=== PATIENT | male | born 1950 | race Caucasian/White ===

== ENCOUNTER 2017-11-12 08:55 | Emergency (ER) | payer MEDICARE, OTHER ==
[2017-11-12 09:01] VITALS: RESP 20; TEMP 97
--- NOTE | 2017-11-12 09:37 | ED ---
Eye Problem HPI - General Chief complaint: Eye Problems Stated complaint: Eye Swelling Time Seen by Provider: 11/12/17 09:05 Source: patient, RN notes reviewed Mode of arrival: ambulatory Limitations: no limitations - History of Present Illness Initial comments: This is a 67-year-old male presents emergency Department with complaints of swelling around his eyes. Patient states started yesterday Thursday in his right eye and has progressed to his left. He states he has no change in vision denies any pain. He states is also started after he was sunburn over the weekend. Patient states she has severe sunburn on his face. Patient states that swan started after. He states he is diabetic though is well-controlled and states he checks his blood sugar several times daily. He denies any headache, dizziness, facial pain, facial pressure, URI symptoms. Patient denies fever or chills. - Related Data Home Medications Medication Instructions Recorded Confirmed Unable To Assess [Unable to Assess] 11/12/17 11/12/17 Allergies Allergy/AdvReac Type Severity Reaction Status Date / Time No Known Allergies Allergy Verified 11/12/17 09:13 Review of Systems ROS Statement: Those systems with pertinent positive or pertinent negative responses have been documented in the HPI. ROS Other: All systems not noted in ROS Statement are negative. Past Medical History Past Medical History: Diabetes Mellitus, Hypertension History of Any Multi-Drug Resistant Organisms: None Reported Past Surgical History: Appendectomy, Orthopedic Surgery Past Psychological History: No Psychological Hx Reported Smoking Status: Current every day smoker Past Alcohol Use History: None Reported Past Drug Use History: None Reported General Exam Limitations: no limitations General appearance: alert, in no apparent distress Head exam: Present: atraumatic, normocephalic, normal inspection Eye exam: Present: normal appearance, PERRL, EOMI, periorbital swelling (Mild bilateral with no erythema no warmth). Absent: scleral icterus, conjunctival injection, periorbital tenderness ENT exam: Present: normal exam, normal oropharynx, mucous membranes moist, TM's normal bilaterally, normal external ear exam Neck exam: Present: normal inspection, full ROM. Absent: tenderness, meningismus, lymphadenopathy Respiratory exam: Present: normal lung sounds bilaterally. Absent: respiratory distress, wheezes, rales, rhonchi, stridor Cardiovascular Exam: Present: regular rate, normal rhythm, normal heart sounds. Absent: systolic murmur, diastolic murmur, rubs, gallop, clicks Neurological exam: Present: alert, oriented X3, CN II-XII intact, reflexes normal. Absent: motor sensory deficit Course Vital Signs 11/12/17 08:59 Temperature 97.0 F L Pulse Rate 98 Respiratory 20 Rate Blood Pressure 142/70 O2 Sat by Pulse 98 Oximetry Medical Decision Making - Medical Decision Making 67-year-old male was found for bilateral periorbital swelling. There does not appear to be any infectious reason for this. Swelling is related to his sunburn. Patient be given a shot of steroids at this time to improve the swelling he is well-controlled diabetes and was informed that it made his blood sugar. He is advised to continue anti-inflammatories, cool compresses and follow-up with PCP. He is return for any worsening symptoms. Disposition Clinical Impression: Sunburn, Periorbital swelling Disposition: HOME SELF-CARE Condition: Stable Instructions: Sunburn (ED) Additional Instructions: Please return to the Emergency Department if symptoms worsen or any other concerns. Is patient prescribed a controlled substance at d/c from ED?: No Referrals: None,Stated [Primary Care Provider] - 1-2 days
[2017-11-12] MEDS ORDERED: DEXAMETHASONE SOD PHOSPHATE 10 MG/ML 1 ML VIAL IM STA (09:40)
[2017-11-12 09:49] VITALS: BP 141/72; PULSE 83
== END 2017-11-12 09:56 | disposition home or self-care (01) ==
LOC: EC 08:55
DX: L55.9 Sunburn, unspecified (principal); R22.0 Localized swelling, mass and lump, head; F17.200 Nicotine dependence, unspecified, uncomplicated
CPT/HCPCS: 99283; 96372; J1100

== ENCOUNTER 2018-08-05 21:25 | Inpatient (IN) | payer MEDICARE ==
[2018-08-05] MEDS ORDERED: methylPREDNISolone SOD SUCCI 125 MG/2 ML VIAL IV STA (21:35)
[2018-08-05] MEDS ORDERED: IPRATROPIUM-ALBUTEROL 3 ML NEB INHALATION STA (21:35)
--- NOTE | 2018-08-05 21:56 | ED ---
SOB HPI - General Chief Complaint: Shortness of Breath Stated Complaint: difficulty breathing Time Seen by Provider: 08/05/18 21:35 Source: patient, RN notes reviewed, old records reviewed Mode of arrival: wheelchair Limitations: no limitations - History of Present Illness Initial Comments: This is a 66-year-old male to the ER for evaluation. Patient has no history of COPD with about a week of worsening breathing. Patient states he has COPD and history of diabetes. Patient states about a week ago no admitted last less than a week he was doing some yardwork and is been progressively short of breath since. Increased cough and congestion, denies fevers no chest pain. No recent history of similar complaint. MD Complaint: shortness of breath, cough -: days(s) Consistency: constant Improves With: rest Worsens With: exertion, movement Known History Of: COPD Context: recent URI Associated Symptoms: cough, sputum production Treatments Prior to Arrival: none - Related Data Home Medications Medication Instructions Recorded Confirmed Insulin Glargine [Lantus] 20 unit SQ AC-SUPPER 05/23/18 08/05/18 Lovastatin [Mevacor] 1 tab PO DAILY 05/23/18 08/05/18 Pioglitazone [Actos] 45 mg PO DAILY 05/23/18 08/05/18 Tamsulosin [Flomax] 0.4 mg PO DAILY 05/23/18 08/05/18 Losartan Potassium 100 mg PO DAILY 08/05/18 08/05/18 Repaglinide 1 mg PO TID 08/05/18 08/05/18 metFORMIN HCL 500 mg PO BID 08/05/18 08/05/18 Previous Rx's Medication Instructions Recorded Ferrous Sulfate [Feosol] 325 mg PO BID #60 tab 05/25/18 Allergies Allergy/AdvReac Type Severity Reaction Status Date / Time No Known Allergies Allergy Verified 08/05/18 22:08 Review of Systems ROS Statement: Those systems with pertinent positive or pertinent negative responses have been documented in the HPI. ROS Other: All systems not noted in ROS Statement are negative. 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 Absent: scleral icterus, conjunctival injection, periorbital swelling ENT exam: Present: normal exam, mucous membranes moist Neck exam: Present: normal inspection. Absent: tenderness, meningismus, lymphadenopathy Respiratory exam: Present: wheezes, accessory muscle use, decreased breath sounds, prolonged expiratory. Absent: respiratory distress, rales, rhonchi, stridor Cardiovascular Exam: Present: regular rate, normal rhythm, normal heart sounds. Absent: systolic murmur, diastolic murmur, rubs, gallop, clicks GI/Abdominal exam: Present: soft, normal bowel sounds. Absent: distended, tenderness, guarding, rebound, rigid Extremities exam: Present: normal inspection, full ROM, normal capillary refill. Absent: tenderness, pedal edema, joint swelling, calf tenderness Back exam: Present: normal inspection Neurological exam: Present: alert, oriented X3, CN II-XII intact Psychiatric exam: Present: normal affect, normal mood Skin exam: Present: warm, dry, intact, normal color. Absent: rash Course Vital Signs 08/05/18 08/05/18 08/05/18 21:29 22:07 22:13 Temperature 98.2 F Pulse Rate 95 100 81 Respiratory 21 Rate Blood Pressure 138/84 147/61 O2 Sat by Pulse 99 99 Oximetry 08/05/18 08/05/18 22:17 23:13 Temperature Pulse Rate 81 81 Respiratory 18 Rate Blood Pressure 155/89 O2 Sat by Pulse 99 Oximetry - Reevaluation(s) Reevaluation #1: 08/06/18 00:15 Medical records reviewed Reevaluation #2: 08/06/18 00:15 Patient has no improvement after breathing treatment Medical Decision Making - Medical Decision Making 68 male the ER for evaluation of COPD exacerbation chronic bronchitis. Patient be admitted for persistent and continuous breathing treatments, he has no improvement here in the emergency room - Lab Data Result diagrams: 08/05/18 21:50 08/05/18 21:50 Lab Results 08/05/18 08/05/18 08/05/18 Range/Units 21:50 21:50 21:50 WBC 4.4 (3.8-10.6) k/uL RBC 4.99 (4.30-5.90) m/uL Hgb 13.6 (13.0-17.5) gm/dL Hct 42.5 (39.0-53.0) % MCV 85.2 (80.0-100.0) fL MCH 27.2 (25.0-35.0) pg MCHC 31.9 (31.0-37.0) g/dL RDW 20.0 H (11.5-15.5) % Plt Count 209 (150-450) k/uL Neutrophils % 60 % Lymphocytes % 27 % Monocytes % 8 % Eosinophils % 3 % Basophils % 1 % Neutrophils # 2.6 (1.3-7.7) k/uL Lymphocytes # 1.2 (1.0-4.8) k/uL Monocytes # 0.3 (0-1.0) k/uL Eosinophils # 0.1 (0-0.7) k/uL Basophils # 0.0 (0-0.2) k/uL Anisocytosis Slight Microcytosis Slight PT (9.0-12.0) sec INR (<1.2) APTT (22.0-30.0) sec D-Dimer (<0.60) mg/L FEU Sodium 141 (137-145) mmol/L Potassium 4.7 (3.5-5.1) mmol/L Chloride 107 (98-107) mmol/L Carbon Dioxide 27 (22-30) mmol/L Anion Gap 7 mmol/L BUN 18 (9-20) mg/dL Creatinine 1.21 (0.66-1.25) mg/dL Est GFR (CKD-EPI)AfAm 70 (>60 ml/min/1.73 sqM) Est GFR (CKD-EPI)NonAf 61 (>60 ml/min/1.73 sqM) Glucose 166 H (74-99) mg/dL Calcium 9.4 (8.4-10.2) mg/dL Magnesium 2.1 (1.6-2.3) mg/dL Total Bilirubin 0.3 (0.2-1.3) mg/dL AST 27 (17-59) U/L ALT 32 (21-72) U/L Alkaline Phosphatase 69 (38-126) U/L Total Creatine Kinase 168 (55-170) U/L CK-MB (CK-2) 1.1 (0.0-2.4) ng/mL CK-MB (CK-2) Rel Index 0.7 Troponin I <0.012 (0.000-0.034) ng/mL NT-Pro-B Natriuret Pep pg/mL Total Protein 6.6 (6.3-8.2) g/dL Albumin 4.1 (3.5-5.0) g/dL 08/05/18 08/05/18 Range/Units 21:50 21:50 WBC (3.8-10.6) k/uL RBC (4.30-5.90) m/uL Hgb (13.0-17.5) gm/dL Hct (39.0-53.0) % MCV (80.0-100.0) fL MCH (25.0-35.0) pg MCHC (31.0-37.0) g/dL RDW (11.5-15.5) % Plt Count (150-450) k/uL Neutrophils % % Lymphocytes % % Monocytes % % Eosinophils % % Basophils % % Neutrophils # (1.3-7.7) k/uL Lymphocytes # (1.0-4.8) k/uL Monocytes # (0-1.0) k/uL Eosinophils # (0-0.7) k/uL Basophils # (0-0.2) k/uL Anisocytosis Microcytosis PT 9.6 (9.0-12.0) sec INR 0.9 (<1.2) APTT 25.2 (22.0-30.0) sec D-Dimer 0.30 (<0.60) mg/L FEU Sodium (137-145) mmol/L Potassium (3.5-5.1) mmol/L Chloride (98-107) mmol/L Carbon Dioxide (22-30) mmol/L Anion Gap mmol/L BUN (9-20) mg/dL Creatinine (0.66-1.25) mg/dL Est GFR (CKD-EPI)AfAm (>60 ml/min/1.73 sqM) Est GFR (CKD-EPI)NonAf (>60 ml/min/1.73 sqM) Glucose (74-99) mg/dL Calcium (8.4-10.2) mg/dL Magnesium (1.6-2.3) mg/dL Total Bilirubin (0.2-1.3) mg/dL AST (17-59) U/L ALT (21-72) U/L Alkaline Phosphatase (38-126) U/L Total Creatine Kinase (55-170) U/L CK-MB (CK-2) (0.0-2.4) ng/mL CK-MB (CK-2) Rel Index Troponin I (0.000-0.034) ng/mL NT-Pro-B Natriuret Pep 74 pg/mL Total Protein (6.3-8.2) g/dL Albumin (3.5-5.0) g/dL - EKG Data -: EKG Interpreted by Me (EKG shows sinus rhythm rate of 81, AK 136, QRS 120, QTC 450.) - Radiology Data Radiology results: report reviewed (Chest x-rays negative for acute disease), image reviewed Disposition Clinical Impression: Acute exacerbation of chronic obstructive airways disease Disposition: ADMITTED IP TO THIS HOSP Condition: Fair Is patient prescribed a controlled substance at d/c from ED?: No Referrals: Janie Bar DO [Primary Care Provider] - 1-2 days
[2018-08-05 22:20] LABS: Anisocytosis Slight; Basophils % (A) 1 %; Eosinophils # (A) 0.1 k/uL (0-0.7); Eosinophils % (A) 3 %; HCT 42.5 % (39.0-53.0); HGB 13.6 gm/dL (13.0-17.5); Lymphocytes # (A) 1.2 k/uL (1.0-4.8); Lymphocytes % (A) 27 %; MCH 27.2 pg (25.0-35.0); MCHC 31.9 g/dL (31.0-37.0); MCV 85.2 fL (80.0-100.0); Mean Platelet Volume 7.1; Microcytosis Slight; Monocytes # (A) 0.3 k/uL (0-1.0); Monocytes % (A) 8 %; Neutrophils # (A) 2.6 k/uL (1.3-7.7); Neutrophils % (A) 60 %; Platelet Count 209 k/uL (150-450); RBC 4.99 m/uL (4.30-5.90); WBC 4.4 k/uL (3.8-10.6)
[2018-08-05 22:26] LABS: Albumin 4.1 g/dL (3.5-5.0); Calcium 9.4 mg/dL (8.4-10.2); Magnesium 2.1 mg/dL (1.6-2.3); Potassium 4.7 mmol/L (3.5-5.1); Total Bilirubin 0.3 mg/dL (0.2-1.3); Total Protein 6.6 g/dL (6.3-8.2)
[2018-08-05 22:32] LABS: D-Dimer 0.3 mg/L FEU (<0.60); INR 0.9 (<1.2); Partial Thromboplastin Time 25.2 sec (22.0-30.0); Prothrombin Time 9.6 sec (9.0-12.0)
[2018-08-05 22:39] LABS: Creatine Kinase 168 U/L (55-170)
[2018-08-05 22:52] LABS: Creatine Kinase MB 1.1 ng/mL (0.0-2.4); Troponin I <0.012 ng/mL (0.000-0.034)
--- NOTE | 2018-08-05 22:54 | XR ---
EXAMINATION TYPE: XR chest 2V DATE OF EXAM: 08/05/2018 COMPARISON: 05/23/2018 HISTORY: COPD. Difficulty breathing TECHNIQUE: Frontal and lateral views of the chest are obtained. FINDINGS: Heart and mediastinum are normal. Lungs are clear. Diaphragm is normal. Bony thorax is int act. IMPRESSION: Normal chest. No change.
[2018-08-06] MEDS ORDERED: SODIUM CHLORIDE 0.9% 1,000 ML IV SCH (00:15)
[2018-08-06] MEDS ORDERED: IPRATROPIUM-ALBUTEROL 3 ML NEB INHALATION PRN (01:06)
[2018-08-06 01:52] VITALS: BMI 31.8
[2018-08-06 07:10] LABS: Glucose,Whole Blood 345 mg/dL (75-99)
[2018-08-06] MEDS: IPRATROPIUM-ALBUTEROL 3 ML NEB INHALATION SCH ×4 (07:17→19:04)
[2018-08-06] MEDS: methylPREDNISolone SOD SUCCI 125 MG/2 ML VIAL IV SCH ×4 (07:44→22:45)
[2018-08-06] MEDS: ENOXAPARIN 40 MG/0.4 ML SYRINGE SQ SCH (07:44)
[2018-08-06] MEDS: AZITHROMYCIN 500 MG TAB PO SCH (07:45)
[2018-08-06 09:44] LABS: Anisocytosis Moderate; Basophils % (A) 0 %; Eosinophils # (A) 0.1 k/uL (0-0.7); Eosinophils % (A) 1 %; HCT 39.6 % (39.0-53.0); HGB 12.5 gm/dL (13.0-17.5); Lymphocytes # (A) 0.5 k/uL (1.0-4.8); Lymphocytes % (A) 6 %; MCH 27.8 pg (25.0-35.0); MCHC 31.7 g/dL (31.0-37.0); MCV 87.6 fL (80.0-100.0); Mean Platelet Volume 7.5; Microcytosis Slight; Monocytes # (A) 0.2 k/uL (0-1.0); Monocytes % (A) 2 %; Neutrophils % (A) 91 %; Platelet Count 198 k/uL (150-450); RBC 4.52 m/uL (4.30-5.90); RDW 20.4 % (11.5-15.5); WBC 8.8 k/uL (3.8-10.6)
[2018-08-06 10:04] LABS: Albumin 3.8 g/dL (3.5-5.0); Calcium 9.2 mg/dL (8.4-10.2); Total Bilirubin 0.4 mg/dL (0.2-1.3); Total Protein 6.3 g/dL (6.3-8.2)
[2018-08-06 10:09] LABS: Potassium 5.8 mmol/L (3.5-5.1)
[2018-08-06] MEDS ORDERED: SODIUM POLYSTYRENE SULFONATE 15 GM/60 ML BOTTLE PO STA (11:32)
[2018-08-06 11:52] LABS: Glucose,Whole Blood 360 mg/dL (75-99)
[2018-08-06] MEDS: REPAGLINIDE 1 MG TAB PO SCH ×2 (12:10→17:07)
--- NOTE | 2018-08-06 12:27 | P.HPIM ---
History of Present Illness H&P Date: 08/06/18 This is a 68-year-old male patient of Dr. Bar. Patient presented to the emergency room with length of increased shortness of breath that has been occurring for about one week. 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 Patient with smoking in May 2018. Additional medical history includes diabetes mellitus , pneumonia, skin cancer and essential hypertension. Patient also complaining of having increased peripheral edema that has been increasing over the past week. Chest x-ray completed showing normal chest. No change. EKG completed showing normal sinus rhythm right bundle branch block left anterior fascicular block bifascicular block. D-dimer 0.030. Pulmonary and cardiology services have been consulted. 2-D echo has been ordered. Patient started on Solu- Medrol IV steroids and Zithromax. At this time patient states improvement with shortness of breath. Patient denies chest pain. Patient denies any nausea vomiting or diarrhea. Patient denies any urinary burning or frequency. Review of Systems Please refer to HPI otherwise unremarkable Past Medical History Past Medical History: Cancer, COPD, Diabetes Mellitus, Hypertension Additional Past Medical History / Comment(s): Shoulder CA History of Any Multi-Drug Resistant Organisms: None Reported Past Surgical History: Appendectomy, Orthopedic Surgery Additional Past Surgical History / Comment(s): Left eye surgery, lens transplant , CA removed from left shoulder, barn spike through his foot and removed Past Anesthesia/Blood Transfusion Reactions: No Reported Reaction Smoking Status: Former smoker - Past Family History Brother(s) Family Medical History: Cancer Medications and Allergies Home Medications Medication Instructions Recorded Confirmed Type Insulin Glargine [Lantus] 20 unit SQ AC-SUPPER 05/23/18 08/06/18 History Lovastatin [Mevacor] 1 tab PO DAILY 05/23/18 08/06/18 History Pioglitazone [Actos] 45 mg PO DAILY 05/23/18 08/06/18 History Tamsulosin [Flomax] 0.4 mg PO DAILY 05/23/18 08/06/18 History Ferrous Sulfate [Feosol] 325 mg PO BID #60 tab 05/25/18 08/06/18 Rx Losartan Potassium 100 mg PO DAILY 08/05/18 08/06/18 History Repaglinide 1 mg PO TID 08/05/18 08/06/18 History metFORMIN HCL 500 mg PO BID 08/05/18 08/06/18 History Allergies Allergy/AdvReac Type Severity Reaction Status Date / Time No Known Allergies Allergy Verified 08/06/18 01:22 Physical Exam Vitals: Vital Signs Temp Pulse Pulse Resp BP BP Pulse Ox 08/06/18 11:16 100 08/06/18 11:05 104 H 08/06/18 08:00 98.3 F 116 H 18 131/70 95 08/06/18 07:30 112 H 08/06/18 07:17 96 08/06/18 03:10 20 08/06/18 02:09 20 08/06/18 01:16 84 08/06/18 01:05 84 08/06/18 01:03 97.6 F 85 20 168/81 96 08/06/18 00:41 98.0 F 86 18 151/74 89 L 08/05/18 23:13 81 18 155/89 99 08/05/18 22:17 81 08/05/18 22:13 81 147/61 99 08/05/18 22:07 100 08/05/18 21:29 98.2 F 95 21 138/84 99 Intake and Output 08/05/18 08/06/18 08/06/18 22:59 06:59 14:59 Other: # Voids 1 Weight 106.594 kg 106.5 kg Head normocephalic Neck supple Lungs clear to auscultation bilaterally no wheezing or crackles Heart regular rate and rhythm S1-S2, no rub or gallop Abdomen is soft nontender nondistended positive bowel sounds no hepatosplenomegaly Extremities +2 bilateral peripheral edema pitting Neuro alert and orientated to 3 Results CBC & Chem 7: 08/06/18 09:29 08/06/18 09:29 Labs: Abnormal Lab Results - Last 24 Hours (Table) 08/05/18 08/05/18 08/06/18 Range/Units 21:50 21:50 07:09 Hgb (13.0-17.5) gm/dL RDW 20.0 H (11.5-15.5) % Neutrophils # (1.3-7.7) k/uL Lymphocytes # (1.0-4.8) k/uL Sodium (137-145) mmol/L Potassium (3.5-5.1) mmol/L BUN (9-20) mg/dL Creatinine (0.66-1.25) mg/dL Glucose 166 H (74-99) mg/dL POC Glucose (mg/dL) 345 H (75-99) mg/dL 08/06/18 08/06/18 08/06/18 Range/Units 09:29 09:29 11:51 Hgb 12.5 L (13.0-17.5) gm/dL RDW 20.4 H (11.5-15.5) % Neutrophils # 8.0 H (1.3-7.7) k/uL Lymphocytes # 0.5 L (1.0-4.8) k/uL Sodium 136 L (137-145) mmol/L Potassium 5.8 H (3.5-5.1) mmol/L BUN 25 H (9-20) mg/dL Creatinine 1.27 H (0.66-1.25) mg/dL Glucose 428 H (74-99) mg/dL POC Glucose (mg/dL) 360 H (75-99) mg/dL Thrombosis Risk Factor Assmnt - Choose All That Apply Each Factor Represents 1 point: Obesity (BMI >25), Swollen legs (current) Each Risk Factor Represents 2 Points: Age 61-74 years Thrombosis Risk Factor Assessment Total Risk Factor Score: 4 Thrombosis Risk Factor Assessment Level: Moderate Risk Assessment and Plan Assessment: 1. Increased shortness of breath likely due to COPD exacerbation. Pulmonary services have been consulted. Patient will be started on IV Solu-Medrol and Zithromax. 2. Increased peripheral edema. BNP 74. 2-D echo has been ordered. Cardiology consult 3. History of diabetes mellitus. Home meds resumed plus sliding scale. Will order hemoglobin A1c 4. History of skin cancer 5. History of essential hypertension 6. Hyperkalemia. Potassium 5.8. Patient's losartan potassium currently on hold. Patient will be given Kayexalate. Recheck potassium at 1600 today. 7. Acute kidney injury. Creatinine 1.27. Losartan potassium currently on hold we'll continue to monitor closely DVT prophylaxis Lovenox. GI prophylaxis Protonix Time with Patient: Greater than 30 (Greater than 60% of the total time spent in counseling and coordination of care. I performed an examination of the patient and discussed their management with the Nurse Practitioner. I have reviewed the Nurse Practitioner's notes and agree with the documented findings and plan of care)
[2018-08-06] MEDS: INSULIN ASPART 100 UNIT/ML 1 ML 10 ML VIAL SQ SCH ×3 (12:52→21:39)
--- NOTE | 2018-08-06 13:29 | P.CRDCN ---
History of Present Illness History of present illness: This is a pleasant 68-year-old male past medical history significant for hypertension, diabetes mellitus, COPD, dyslipidemia and former nicotine dependence. He quit smoking in May 2018. He states he has been diagnosed with COPD in the past but has never been placed on any inhalers or medications for COPD. He moved here from [place] in 2018. He denies history of coronary artery disease and has never seen a medicare nurse for any reason. We have been asked to see him in consultation for lower extremity edema and shortness of breath. He states since approximately October of 2017 he has been having intermittent swelling in the legs. The swelling seems to come after he has been physically active or after a long day. This episode has been ongoing for approximately 2 weeks. He does eat a diet high in salt and mostly processed foods. He also describes that he has been increasingly short of breath over the last week. He did some racking and burning of leaves in his yard last weekend on Thursday. Thursday he woke up feeling very tired and weak. He states he laid around all day not having the energy to do anything. Then on Thursday he started with a persistent dry cough, dyspnea on exertion and ongoing fatigue. He started taking an over the counter cold medicine with no relief. When he lays down to go to bed at night he starts wheezing and coughing but is unable to clear his phlegm. He denies any symptoms of chest pain, dizziness or palpitations. He has been started on IV steroids, antibiotics and breathing treatments since admission last night. EKG reveals right bundle branch block which is similar to previous EKG. Chest x-ray is negative for an acute cardiopulmonary process. Laboratory data reviewed, WBC 8.8, hemoglobin 12.5, platelets 198, d-dimer 0.3, sodium 136, potassium 5.8, creatinine 1.27 up from 1.2 100 admission, cardiac enzymes negative 1, NT proBNP 74 and magnesium 2.1. Current cardiac medications include lovastatin and losartan 100 mg daily. At the time of my exam: CONSTITUTIONAL: Denies fever. Denies chills. EYES: Denies blurred vision. Denies vision changes. Denies eye pain. EARS, NOSE, MOUTH & THROAT: Denies headache. Denies sore throat. Denies ear pain. CARDIOVASCULAR: Denies chest pain. Denies shortness of breath. Denies orthopnea. Denies PND. Denies palpitations. RESPIRATORY: Denies cough. GASTROINTESTINAL: Denies abdominal pain. Denies diarrhea. Denies constipation. Denies nausea. Denies vomiting. MUSCULOSKELETAL: Denies myalgias. INTEGUMENTARY: Denies pruitis. Denies rash. NEUROLOGIC: Denies numbness. Denies tingling. Denies weakness. PSYCHIATRIC: Denies anxiety. Denies depression. ENDOCRINE: Denies fatigue. Denies weight change. Denies polydipsia. Denies polyurina. GENITOURINARY: Denies burning, hematuria or urgency with micturation. HEMATOLOGIC: Denies history of anemia. Denies bleeding. Blood pressure 131/70 heart rate 116 afebrile maintaining oxygen saturation on nasal cannula GENERAL: This is a 68-year-old male in no apparent distress at the time of my examination. HEENT: Head is atraumatic, normocephalic. Pupils are equal, round. Sclerae anicteric. Conjunctivae are clear. Mucous membranes of the mouth are moist. Neck is supple. There is no jugular venous distention. No carotid bruit is heard. LUNGS: Expiratory wheezes noted throughout, diminished bilaterally. No rales or rhonchi. No chest wall tenderness is noted on palpation or with deep breathing. HEART: Regular rate and rhythm without murmurs, rubs or gallops. S1 and S2 heard. ABDOMEN: Soft, nontender. Bowel sounds are heard. No organomegaly noted. EXTREMITIES: 1+ pitting edema right lower extremity, 2+ pitting edema left lower extremity. No calf tenderness noted. VASCULAR: Radial and dorsalis pedis pulses palpated, no evidence of clubbing. NEUROLOGIC: Patient is awake, alert and oriented x3. ASSESSMENT Acute exacerbation of COPD Peripheral edema, normal NTproBNP, no over heart failure on xray and no JVD. Hypertension Diabetes mellitus Dyslipidemia Acute kidney injury Hyperkalemia PLAN Obtain 2D echocardiogram and doppler study to assess cardiac structure and function. Clinically, other than the lower extremity swelling, no overt signs of heart failure. We will await the echo findings and make further recommendations. If normal LV and no right sided failure other causes for swelling will need to be addressed. Ongoing medical management of acute COPD and wheezing. Once stable from a respiratory perspective further outpatient testing will be pursued. Thank you kindly for this consultation. Nurse Practitioner note has been reviewed, I agree with a documented findings and plan of care. Patient was seen and examined. Past Medical History Past Medical History: Cancer, COPD, Diabetes Mellitus, Hypertension Additional Past Medical History / Comment(s): Shoulder CA History of Any Multi-Drug Resistant Organisms: None Reported Past Surgical History: Appendectomy, Orthopedic Surgery Additional Past Surgical History / Comment(s): Left eye surgery, lens transplant , CA removed from left shoulder, barn spike through his foot and removed Past Anesthesia/Blood Transfusion Reactions: No Reported Reaction Smoking Status: Former smoker - Past Family History Brother(s) Family Medical History: Cancer Medications and Allergies Home Medications Medication Instructions Recorded Confirmed Type Insulin Glargine [Lantus] 20 unit SQ AC-SUPPER 05/23/18 08/06/18 History Lovastatin [Mevacor] 1 tab PO DAILY 05/23/18 08/06/18 History Pioglitazone [Actos] 45 mg PO DAILY 05/23/18 08/06/18 History Tamsulosin [Flomax] 0.4 mg PO DAILY 05/23/18 08/06/18 History Ferrous Sulfate [Feosol] 325 mg PO BID #60 tab 05/25/18 08/06/18 Rx Losartan Potassium 100 mg PO DAILY 08/05/18 08/06/18 History Repaglinide 1 mg PO TID 08/05/18 08/06/18 History metFORMIN HCL 500 mg PO BID 08/05/18 08/06/18 History Allergies Allergy/AdvReac Type Severity Reaction Status Date / Time No Known Allergies Allergy Verified 08/06/18 01:22 Physical Exam Vitals: Vital Signs Temp Pulse Pulse Resp BP BP Pulse Ox 08/06/18 12:00 116 H 18 08/06/18 11:16 100 08/06/18 11:05 104 H 08/06/18 08:00 98.3 F 116 H 18 131/70 95 08/06/18 07:30 112 H 08/06/18 07:17 96 08/06/18 03:10 20 08/06/18 02:09 20 08/06/18 01:16 84 08/06/18 01:05 84 08/06/18 01:03 97.6 F 85 20 168/81 96 08/06/18 00:41 98.0 F 86 18 151/74 89 L 08/05/18 23:13 81 18 155/89 99 08/05/18 22:17 81 08/05/18 22:13 81 147/61 99 08/05/18 22:07 100 08/05/18 21:29 98.2 F 95 21 138/84 99 Intake and Output 08/05/18 08/06/18 08/06/18 22:59 06:59 14:59 Other: # Voids 1 Weight 106.594 kg 106.5 kg Results 08/06/18 09:29 08/06/18 09:29 Cardiac Enzymes 08/05/18 08/05/18 08/06/18 Range/Units 21:50 21:50 09:29 AST 27 29 (17-59) U/L CK-MB (CK-2) 1.1 (0.0-2.4) ng/mL Troponin I <0.012 (0.000-0.034) ng/mL Coagulation 08/05/18 Range/Units 21:50 PT 9.6 (9.0-12.0) sec APTT 25.2 (22.0-30.0) sec CBC 08/05/18 08/06/18 Range/Units 21:50 09:29 WBC 4.4 8.8 (3.8-10.6) k/uL RBC 4.99 4.52 (4.30-5.90) m/uL Hgb 13.6 12.5 L (13.0-17.5) gm/dL Hct 42.5 39.6 (39.0-53.0) % Plt Count 209 198 (150-450) k/uL Comprehensive Metabolic Panel 08/05/18 08/06/18 Range/Units 21:50 09:29 Sodium 141 136 L (137-145) mmol/L Potassium 4.7 5.8 H (3.5-5.1) mmol/L Chloride 107 105 (98-107) mmol/L Carbon Dioxide 27 22 (22-30) mmol/L BUN 18 25 H (9-20) mg/dL Creatinine 1.21 1.27 H (0.66-1.25) mg/dL Glucose 166 H 428 H (74-99) mg/dL Calcium 9.4 9.2 (8.4-10.2) mg/dL AST 27 29 (17-59) U/L ALT 32 21 (21-72) U/L Alkaline Phosphatase 69 43 (38-126) U/L Total Protein 6.6 6.3 (6.3-8.2) g/dL Albumin 4.1 3.8 (3.5-5.0) g/dL Current Medications Generic Name Dose Route Start Last Admin Trade Name Freq PRN Reason Stop Dose Admin Albuterol/Ipratropium 3 ml 08/06/18 08:00 08/06/18 11:05 Duoneb 0.5 Mg-3 Mg/3 Ml Soln INHALATION 3 ml RT-QID GULSHAN Administration Albuterol/Ipratropium 3 ml 08/06/18 01:06 08/06/18 01:11 Duoneb 0.5 Mg-3 Mg/3 Ml Soln INHALATION 3 ml RT-Q2H PRN Administration Shortness Of Breath Or Wheezing Atorvastatin Calcium 10 mg 08/07/18 09:00 Lipitor PO DAILY [facility] Azithromycin 500 mg 08/06/18 09:00 08/06/18 07:45 Zithromax PO 500 mg DAILY GULSHAN Administration Enoxaparin Sodium 40 mg 08/06/18 09:00 08/06/18 07:44 Lovenox SQ 40 mg DAILY [facility] Administration Ferrous Sulfate 325 mg 08/06/18 21:00 Feosol PO BID [facility] Insulin Aspart 0 unit 08/06/18 12:30 08/06/18 12:52 Novolog SQ 10 unit ACHS [facility] Administration Protocol Insulin Detemir 20 unit 08/06/18 17:30 Levemir SQ AC-SUPPER [facility] Methylprednisolone Sodium Succinate 60 mg 08/06/18 06:00 08/06/18 12:10 Solu-Medrol IV 60 mg Q6HR GULSHAN Administration Pantoprazole Sodium 40 mg 08/07/18 07:30 Protonix PO AC-BRKFST [facility] Pioglitazone HCl 45 mg 08/07/18 09:00 Actos PO DAILY [facility] Repaglinide 1 mg 08/06/18 12:30 08/06/18 12:10 Prandin PO 1 mg AC-TID [facility] Administration Tamsulosin HCl 0.4 mg 08/07/18 09:00 Flomax PO DAILY [facility] Intake and Output 08/05/18 08/06/18 08/06/18 22:59 06:59 14:59 Other: # Voids 1 Weight 106.594 kg 106.5 kg 08/06/18 09:29 08/06/18 09:29
[2018-08-06 14:14] LABS: Cholesterol 107 mg/dL (<200); HDL Cholesterol 34 mg/dL (40-60); LDL Cholesterol,Calculated 59 mg/dL (0-99); Triglycerides 69 mg/dL (<150)
--- NOTE | 2018-08-06 16:09 | P.CNPUL ---
History of Present Illness Consult date: 08/06/18 Reason for consult: dyspnea, COPD History of present illness: 68-year-old male patient, presenting to the hospital because of increased shortness of breath, cough chest tightness and wheezing and increased lower extremity edema. He used to live in [place] and he relocated recently to [place]. He has more than [id number] smoking history and continues to smoke cigarettes and cigars although he doesn't admit to do so. He has been having increased cough and congestion and bringing up some limited mucous. Chest x- ray is not showing any acute abnormalities. He had a similar presentation back in May 2018 and at that time he had also some swelling in his upper airways and back then Ken inhibitor induced angioedema was suspected and the patient was taken off the KEN inhibitor and he was discharged home. No maintenance respiratory medications was given. He has exertional dyspnea. He has chronic lower extremity edema. No recurrent pneumonias. No history of childhood asthma. No angina. No palpitation. No DVT. No pulmonary embolism. He has a normal BNP level. His cardiac enzymes are also normal. Renal function shows a creatinine of 1.2 and the white cell count is not elevated at 8.8. EKG showing a right bundle branch block and left anterior fascicular block. The patient is currently on DuoNeb nebulized treatments on the clock. IV Solu-Medrol. Empiric antibiotic coverage with Zithromax. On a separate note , the patient has typical features of obstructive sleep apnea. Is obese with a BMI of 31.8. He has significant crowding of posterior pharynx with a Mallampati class IV. At the same time the patient is low snoring witnessed apneas and excessive daytime hypersomnia and sleepiness. He is living with his niece in [facility]. Review of Systems Constitutional: Reports as per HPI, Reports fatigue, Reports weakness, Reports weight gain Eyes: denies blurred vision, denies bulging eye, denies decreased vision, denies diplopia, denies discharge, denies dry eye, denies irritation, denies itching, denies pain, denies photophobia, denies loss of peripheral vision, denies loss of vision, denies tunnel vision/blind spots Ears: deny: decreased hearing, ear discharge, earache, tinnitus Ears, nose, mouth and throat: Reports as per HPI (Loud snoring and oral dryness in the morning) Breasts: absent: as per HPI, gynecomastia Cardiovascular: Reports decreased exercise tolerance, Reports dyspnea on exertion, Reports shortness of breath Respiratory: Reports cough, Reports cough with sputum, Reports dyspnea, Reports snoring, Reports wheezing Gastrointestinal: Denies abdominal pain, Denies diarrhea, Denies nausea, Denies vomiting Genitourinary: Reports as per HPI Musculoskeletal: Reports as per HPI Musculoskeletal: bilateral: ankle swelling, foot swelling, absent: ankle pain, ankle stiffness, foot pain, foot stiffness Integumentary: Reports as per HPI Neurological: Denies numbness, Denies weakness Psychiatric: Reports sleep disturbances Endocrine: Reports as per HPI Hematologic/Lymphatic: Reports as per HPI Allergic/Immunologic: Reports as per HPI Past Medical History Past Medical History: Cancer, COPD, Diabetes Mellitus, Hypertension Additional Past Medical History / Comment(s): Skin CA History of Any Multi-Drug Resistant Organisms: None Reported Past Surgical History: Appendectomy, Orthopedic Surgery Additional Past Surgical History / Comment(s): Left eye surgery, lens transplant , CA removed from left shoulder, barn spike through his foot and removed Past Anesthesia/Blood Transfusion Reactions: No Reported Reaction Smoking Status: Former smoker (Care is [id number] smoking history and the patient continues to smoke cigarettes) - Past Family History Brother(s) Family Medical History: Cancer Medications and Allergies Home Medications Medication Instructions Recorded Confirmed Type Insulin Glargine [Lantus] 20 unit SQ AC-SUPPER 05/23/18 08/06/18 History Lovastatin [Mevacor] 1 tab PO DAILY 05/23/18 08/06/18 History Pioglitazone [Actos] 45 mg PO DAILY 05/23/18 08/06/18 History Tamsulosin [Flomax] 0.4 mg PO DAILY 05/23/18 08/06/18 History Ferrous Sulfate [Feosol] 325 mg PO BID #60 tab 05/25/18 08/06/18 Rx Losartan Potassium 100 mg PO DAILY 08/05/18 08/06/18 History Repaglinide 1 mg PO TID 08/05/18 08/06/18 History metFORMIN HCL 500 mg PO BID 08/05/18 08/06/18 History Allergies Allergy/AdvReac Type Severity Reaction Status Date / Time No Known Allergies Allergy Verified 08/06/18 01:22 Physical Exam Vitals: Vital Signs Temp Pulse Pulse Resp BP BP BP 08/06/18 15:55 96 08/06/18 15:41 98.6 F 101 H 18 136/70 08/06/18 12:00 116 H 18 08/06/18 11:16 100 08/06/18 11:05 104 H 08/06/18 08:00 98.3 F 116 H 18 131/70 08/06/18 07:30 112 H 08/06/18 07:17 96 08/06/18 03:10 20 08/06/18 02:09 20 08/06/18 01:16 84 08/06/18 01:05 84 08/06/18 01:03 97.6 F 85 20 168/81 08/06/18 00:41 98.0 F 86 18 151/74 08/05/18 23:13 81 18 155/89 08/05/18 22:17 81 08/05/18 22:13 81 147/61 08/05/18 22:07 100 08/05/18 21:29 98.2 F 95 21 138/84 Pulse Ox 08/06/18 15:55 08/06/18 15:41 94 L 08/06/18 12:00 08/06/18 11:16 08/06/18 11:05 08/06/18 08:00 95 08/06/18 07:30 08/06/18 07:17 08/06/18 03:10 08/06/18 02:09 08/06/18 01:16 08/06/18 01:05 08/06/18 01:03 96 08/06/18 00:41 89 L 08/05/18 23:13 99 08/05/18 22:17 08/05/18 22:13 99 08/05/18 22:07 08/05/18 21:29 99 Intake and Output 08/06/18 08/06/18 08/06/18 06:59 14:59 22:59 Intake Total 400 Balance 400 Intake: Oral 400 Other: # Voids 1 Weight 106.5 kg Morbidly obese, comfortable lying acute distress. Head exam was generally normal. There was no scleral icterus or corneal arcus. Mucous membranes were moist. Neck was supple and without jugular venous distension, thyromegaly, or carotid bruits. Carotids were easily palpable bilaterally. There was no adenopathy. The patient has a Mallampati class IV. There is no goiter or neck masses. Lungs sounds are diminished in the strongest of expiratory phase of breathing and scattered expiratory wheezes throughout the lung his bilaterally. Cardiac exam revealed the PMI to be normally situated and sized. The rhythm was regular and no extrasystoles were noted during several minutes of auscultation. The first and second heart sounds were normal and physiologic splitting of the second heart sound was noted. There were no murmurs, rubs, clicks, or gallops. Overall the heart sounds are quite distant Abdominal exam revealed normal bowel sounds. The abdomen was soft, non-tender, and without masses, organomegaly, or appreciable enlargement of the abdominal aorta. Organs are not accurately measured as the patient is obese and there is no direct tenderness or rebound tensile guarding Extremities revealed +1-2 pitting edema there is no cyanosis or clubbing at this point in time. Neurologically the patient is awake and alert and there is no focal neurological deficits. Results - Laboratory Findings CBC and BMP: 08/06/18 09:29 08/06/18 09:29 PT/INR, D-dimer PT 9.6 sec (9.0-12.0) 08/05/18 21:50 INR 0.9 (<1.2) 08/05/18 21:50 D-Dimer 0.30 mg/L FEU (<0.60) 08/05/18 21:50 Abnormal lab findings: Abnormal Labs 08/05/18 08/05/18 08/06/18 21:50 21:50 07:09 Hgb RDW 20.0 H Neutrophils # Lymphocytes # Sodium Potassium BUN Creatinine Glucose 166 H POC Glucose (mg/dL) 345 H HDL Cholesterol 08/06/18 08/06/18 08/06/18 09:29 09:29 09:29 Hgb 12.5 L RDW 20.4 H Neutrophils # 8.0 H Lymphocytes # 0.5 L Sodium 136 L Potassium 5.8 H BUN 25 H Creatinine 1.27 H Glucose 428 H POC Glucose (mg/dL) HDL Cholesterol 34 L 08/06/18 11:51 Hgb RDW Neutrophils # Lymphocytes # Sodium Potassium BUN Creatinine Glucose POC Glucose (mg/dL) 360 H HDL Cholesterol - Diagnostic Findings Chest x-ray: image reviewed Assessment and Plan Plan: Assessment 1 acute COPD exacerbation with secondary shortness of breath, chest that is so wheezing. Rule out underlying tracheal bronchitis. The patient's chest x-ray is free of any acute pulmonary infiltrates or pneumonia or consolidation. 2 chronic hypoxic respiratory failure secondary to COPD 3 snoring and witnessed apneas and excessive hypersomnia and sleepiness, highly suggestive obstructive sleep apnea 4 diabetes mellitus insulin-dependent with steroid-induced hyperglycemia 5 acute kidney injury 6 chronic lower extremity edema with interval worsening in the swelling in the legs bilaterally 7 hyperlipidemia 8 BPH 9 history of KEN inhibitor induced angioedema Plan Agree on the current treatment. Continue DuoNeb nebulized treatments around the clock. Continue IV Medrol. Monitor blood sugar and use insulin drip if needed. The patient is currently on Levemir insulin 20 units at supper in addition to NovoLog according to his scale. Agree on oral Zithromax. We'll need an outpatient pulmonary and tests. We'll need an outpatient polysomnogram. Will need IV Lasix 40 mg every 12 hours to optimize his volume balance. We'll either based on echocardiogram. Cardiology to see the patient. We'll continue to follow.
[2018-08-06 16:57] LABS: Glucose,Whole Blood 400 mg/dL (75-99)
[2018-08-06] MEDS: INSULIN DETEMIR 100 UNIT/ML 10 ML VIAL SQ SCH (17:07)
[2018-08-06] MEDS: FUROSEMIDE 10 MG/ML 4 ML VIAL IV SCH (19:38)
[2018-08-06] MEDS: FERROUS SULFATE 325 MG TAB PO SCH (19:39)
[2018-08-06 19:49] LABS: Glucose,Whole Blood 464 mg/dL (75-99)
[2018-08-06 21:58] LABS: Hemoglobin A1C 7.5 % (4.0-6.0)
[2018-08-06 22:01] LABS: Glucose,Whole Blood 376 mg/dL (75-99)
[2018-08-07 01:56] LABS: Glucose,Whole Blood 275 mg/dL (75-99)
[2018-08-07 05:49] LABS: Glucose,Whole Blood 279 mg/dL (75-99)
[2018-08-07] MEDS: methylPREDNISolone SOD SUCCI 125 MG/2 ML VIAL IV SCH ×4 (06:06→22:33)
[2018-08-07] MEDS: INSULIN ASPART 100 UNIT/ML 1 ML 10 ML VIAL SQ SCH ×4 (06:06→20:32)
[2018-08-07] MEDS: PANTOPRAZOLE 40 MG TABLET PO SCH (06:06)
[2018-08-07] MEDS: REPAGLINIDE 1 MG TAB PO SCH ×3 (06:53→17:32)
[2018-08-07 07:03] LABS: Anisocytosis Moderate; Basophils % (A) 0 %; Eosinophils % (A) 0 %; HCT 37.9 % (39.0-53.0); HGB 12.1 gm/dL (13.0-17.5); Lymphocytes # (A) 0.7 k/uL (1.0-4.8); Lymphocytes % (A) 5 %; MCH 26.9 pg (25.0-35.0); MCHC 31.9 g/dL (31.0-37.0); MCV 84.2 fL (80.0-100.0); Mean Platelet Volume 6.6; Microcytosis Slight; Monocytes # (A) 0.6 k/uL (0-1.0); Monocytes % (A) 4 %; Neutrophils % (A) 90 %; Platelet Count 209 k/uL (150-450); RDW 20.3 % (11.5-15.5); WBC 14.5 k/uL (3.8-10.6)
[2018-08-07 07:11] LABS: Albumin 3.8 g/dL (3.5-5.0); Calcium 9.2 mg/dL (8.4-10.2); Total Bilirubin 0.3 mg/dL (0.2-1.3); Total Protein 6.3 g/dL (6.3-8.2)
[2018-08-07] MEDS: TAMSULOSIN 0.4 MG CAP.ER.24H PO SCH (08:29)
[2018-08-07] MEDS: FERROUS SULFATE 325 MG TAB PO SCH ×2 (08:29→20:32)
[2018-08-07] MEDS: ATORVASTATIN 10 MG TAB PO SCH (08:30)
[2018-08-07] MEDS: FUROSEMIDE 10 MG/ML 4 ML VIAL IV SCH ×2 (08:30→20:32)
[2018-08-07] MEDS: AZITHROMYCIN 500 MG TAB PO SCH (08:30)
[2018-08-07] MEDS: ENOXAPARIN 40 MG/0.4 ML SYRINGE SQ SCH (08:30)
[2018-08-07] MEDS: IPRATROPIUM-ALBUTEROL 3 ML NEB INHALATION SCH ×4 (08:53→20:56)
[2018-08-07] MEDS: PIOGLITAZONE 45 MG TAB PO SCH (10:21)
[2018-08-07 11:09] LABS: Glucose,Whole Blood 339 mg/dL (75-99)
--- NOTE | 2018-08-07 12:30 | P.PN ---
Subjective Progress Note Date: 08/07/18 This is a pleasant 68-year-old male past medical history significant for hypertension, diabetes mellitus, COPD, dyslipidemia and former nicotine dependence. He quit smoking in May 2018. He states he has been diagnosed with COPD in the past but has never been placed on any inhalers or medications for COPD. He moved here from [place] in 2018. He denies history of coronary artery disease and has never seen a hat sizer for any reason. We have been asked to see him in consultation for lower extremity edema and shortness of breath. He states since approximately October of 2017 he has been having intermittent swelling in the legs. The swelling seems to come after he has been physically active or after a long day. This episode has been ongoing for approximately 2 weeks. He does eat a diet high in salt and mostly processed foods. He also describes that he has been increasingly short of breath over the last week. He did some racking and burning of leaves in his yard last weekend on Thursday. Thursday he woke up feeling very tired and weak. He states he laid around all day not having the energy to do anything. Then on Thursday he started with a persistent dry cough, dyspnea on exertion and ongoing fatigue. He started taking an over the counter cold medicine with no relief. When he lays down to go to bed at night he starts wheezing and coughing but is unable to clear his phlegm. He denies any symptoms of chest pain, dizziness or palpitations. He has been started on IV steroids, antibiotics and breathing treatments since admission last night. EKG reveals right bundle branch block which is similar to previous EKG. Chest x-ray is negative for an acute cardiopulmonary process. Laboratory data reviewed, WBC 8.8, hemoglobin 12.5, platelets 198, d-dimer 0.3, sodium 136, potassium 5.8, creatinine 1.27 up from 1.2 100 admission, cardiac enzymes negative 1, NT proBNP 74 and magnesium 2.1. Current cardiac medications include lovastatin and losartan 100 mg daily. 08/07/2018 Patient was initiated on IV Lasix, he does state that he is urinating quite a bit however the INR was and weight are not reflective of that. He also states that he feels his breathing is somewhat improved today. White blood cell count 14.5, hemoglobin 12.1, platelet count 209. Sodium 136, potassium 5.3, BUN 34 and creatinine 1.3. Echocardiogram with Doppler study has been performed and is yet pending. Objective - Vital Signs Vital signs: Vital Signs Temp 98.1 F 08/07/18 11:26 Pulse 80 08/07/18 11:26 Resp 20 08/07/18 11:26 BP 118/58 08/07/18 11:26 Pulse Ox 92 L 08/07/18 11:26 Intake & Output 08/06/18 08/07/18 08/07/18 18:59 06:59 18:59 Intake Total 1000 240 240 Balance 1000 240 240 Weight 113.1 kg Intake: Oral 1000 240 240 Other: # Voids 1 - Exam Blood pressure 131/70 heart rate 116 afebrile maintaining oxygen saturation on nasal cannula GENERAL: This is a 68-year-old male in no apparent distress at the time of my examination. HEENT: Head is atraumatic, normocephalic. Pupils are equal, round. Sclerae anicteric. Conjunctivae are clear. Mucous membranes of the mouth are moist. Neck is supple. There is no jugular venous distention. No carotid bruit is heard. LUNGS: Expiratory wheezes noted throughout, diminished bilaterally. No rales or rhonchi. No chest wall tenderness is noted on palpation or with deep breathing. HEART: Regular rate and rhythm without murmurs, rubs or gallops. S1 and S2 heard. ABDOMEN: Soft, nontender. Bowel sounds are heard. No organomegaly noted. EXTREMITIES: 1+ pitting edema right lower extremity, 2+ pitting edema left lower extremity. No calf tenderness noted. VASCULAR: Radial and dorsalis pedis pulses palpated, no evidence of clubbing. NEUROLOGIC: Patient is awake, alert and oriented x3. - Labs CBC & Chem 7: 08/07/18 06:20 08/07/18 06:20 Labs: Abnormal Lab Results - Last 24 Hours (Table) 08/06/18 08/06/18 08/06/18 Range/Units 09:29 09:29 16:46 WBC (3.8-10.6) k/uL Hgb (13.0-17.5) gm/dL Hct (39.0-53.0) % RDW (11.5-15.5) % Neutrophils # (1.3-7.7) k/uL Lymphocytes # (1.0-4.8) k/uL Sodium (137-145) mmol/L BUN (9-20) mg/dL Creatinine (0.66-1.25) mg/dL Glucose (74-99) mg/dL POC Glucose (mg/dL) 400 H (75-99) mg/dL Hemoglobin A1c 7.5 H (4.0-6.0) % HDL Cholesterol 34 L (40-60) mg/dL 08/06/18 08/06/18 08/07/18 Range/Units 19:37 21:35 01:54 WBC (3.8-10.6) k/uL Hgb (13.0-17.5) gm/dL Hct (39.0-53.0) % RDW (11.5-15.5) % Neutrophils # (1.3-7.7) k/uL Lymphocytes # (1.0-4.8) k/uL Sodium (137-145) mmol/L BUN (9-20) mg/dL Creatinine (0.66-1.25) mg/dL Glucose (74-99) mg/dL POC Glucose (mg/dL) 464 H 376 H 275 H (75-99) mg/dL Hemoglobin A1c (4.0-6.0) % HDL Cholesterol (40-60) mg/dL 08/07/18 08/07/18 08/07/18 Range/Units 05:48 06:20 06:20 WBC 14.5 H (3.8-10.6) k/uL Hgb 12.1 L (13.0-17.5) gm/dL Hct 37.9 L (39.0-53.0) % RDW 20.3 H (11.5-15.5) % Neutrophils # 13.0 H (1.3-7.7) k/uL Lymphocytes # 0.7 L (1.0-4.8) k/uL Sodium 136 L (137-145) mmol/L BUN 34 H (9-20) mg/dL Creatinine 1.38 H (0.66-1.25) mg/dL Glucose 272 H (74-99) mg/dL POC Glucose (mg/dL) 279 H (75-99) mg/dL Hemoglobin A1c (4.0-6.0) % HDL Cholesterol (40-60) mg/dL 08/07/18 Range/Units 11:08 WBC (3.8-10.6) k/uL Hgb (13.0-17.5) gm/dL Hct (39.0-53.0) % RDW (11.5-15.5) % Neutrophils # (1.3-7.7) k/uL Lymphocytes # (1.0-4.8) k/uL Sodium (137-145) mmol/L BUN (9-20) mg/dL Creatinine (0.66-1.25) mg/dL Glucose (74-99) mg/dL POC Glucose (mg/dL) 339 H (75-99) mg/dL Hemoglobin A1c (4.0-6.0) % HDL Cholesterol (40-60) mg/dL Assessment and Plan Plan: Assessment and plan #1Acute exacerbation of COPD #2Congestive heart failure, LV function unknown #3Hypertension #4Diabetes mellitus #5Dyslipidemia #6Acute kidney injury #7Hyperkalemia Plan From cardiology's perspective we'll recommend to continue current dose of IV Lasix for 24 hours. We will review the echocardiogram with Doppler study. Monitor accurate intake and output along with daily weights and daily lytes BUN and creatinine. DNP note has been reviewed, I agree with a documented findings and plan of care. Patient was seen and examined.
--- NOTE | 2018-08-07 14:38 | ECHOF ---
Referral Reason:Bilateral peripheral edema MEASUREMENTS -------- HEIGHT: 182.9 cm WEIGHT: 106.1 kg BP: 131/70 RVIDd: 2.0 cm (< 3.3) IVSd: 1.1 cm (0.6 - 1.1) LVIDd: 5.4 cm (3.9 - 5.3) LVPWd: 1.1 cm (0.6 - 1.1) IVSs: 1.4 cm LVIDs: 3.5 cm LVPWs: 1.4 cm LAESV Index (A-L): 26.12 ml/m Ao Diam: 3.9 cm (2.0 - 3.7) AV Cusp: 2.0 cm (1.5 - 2.6) LA Diam: 3.1 cm (2.7 - 3.8) RAP: 10.00 mmHg RVSP: 33.31 mmHg FINDINGS -------- Undetermined rhythm. This was a technically difficult study with suboptimal views. The left ventricular size is normal. There is mild concentric left ventricular hypertrophy. Overa ll left ventricular systolic function is normal with, an EF between 60 - 65 %. The right ventricle is normal in size and function. Normal LA size by volume 22+/-6 ml/m2. The right atrium is normal in size. 3 ml of Lumason was utilized for enhancement of images. Aortic valve is trileaflet and is mildly thickened. There is no evidence of aortic regurgitation. There is no evidence of aortic stenosis. The mitral valve leaflets are mild to moderately thickened. There is trace to mild mitral regurgit ation. Trace tricuspid regurgitation present. Right ventricular systolic pressure is normal at < 35 mmHg. There is no evidence of pulmonary hypertension. Trace/mild (physiologic) pulmonic regurgitation. The aortic root size is normal. The IVC is dilated with normal collapse. There is no pericardial effusion. CONCLUSIONS -------- 1. Undetermined rhythm. 2. This was a technically difficult study with suboptimal views. 3. The left ventricular size is normal. 4. There is mild concentric left ventricular hypertrophy. 5. Overall left ventricular systolic function is normal with, an EF between 60 - 65 %. 6. Normal LA size by volume 22+/-6 ml/m2. 7. 3 ml of Lumason was utilized for enhancement of images. 8. Aortic valve is trileaflet and is mildly thickened. 9. The mitral valve leaflets are mild to moderately thickened. 10. There is trace to mild mitral regurgitation. 11. Trace tricuspid regurgitation present. 12. Right ventricular systolic pressure is normal at < 35 mmHg. 13. There is no evidence of pulmonary hypertension. 14. Trace/mild (physiologic) pulmonic regurgitation. 15. The aortic root size is normal. 16. The IVC is dilated with normal collapse. 17. There is no pericardial effusion. REGIONAL WILDLIFE AGENT: Jones Bloom RDCS
--- NOTE | 2018-08-07 15:29 | P.PN ---
Subjective Progress Note Date: 08/07/18 This is a 68-year-old male patient of Dr. Bar. Patient presented to the emergency room with length of increased shortness of breath that has been occurring for about one week. Patient reports he does have a history of COPD but is not currently on any medication or use a instructional systems specialist. Patient with smoking in May 2018. Additional medical history includes diabetes mellitus , pneumonia, skin cancer and essential hypertension. Patient also complaining of having increased peripheral edema that has been increasing over the past week. Chest x-ray completed showing normal chest. No change. EKG completed showing normal sinus rhythm right bundle branch block left anterior fascicular block bifascicular block. D-dimer 0.030. Pulmonary and cardiology services have been consulted. 2-D echo has been ordered. Patient started on Solu- Medrol IV steroids and Zithromax. At this time patient states improvement with shortness of breath. Patient denies chest pain. Patient denies any nausea vomiting or diarrhea. Patient denies any urinary burning or frequency. On 08/07/2018 patient was seen and examined on the telemetry floor he is alert and oriented 3 in no apparent distress he is still complaining of cough and shortness of breath with activity otherwise as no complaints there is no fever or chills no headache or dizziness no chest pain no nausea or vomiting no abdominal pain no diarrhea and no urinary symptoms Objective - Vital Signs Vital signs: Vital Signs Temp 98.1 F 08/07/18 11:26 Pulse 80 08/07/18 11:26 Resp 20 08/07/18 11:26 BP 118/58 08/07/18 11:26 Pulse Ox 92 L 08/07/18 11:26 Intake & Output 08/06/18 08/07/18 08/07/18 18:59 06:59 18:59 Intake Total 1000 240 720 Balance 1000 240 720 Weight 113.1 kg Intake: Oral 1000 240 720 Other: # Voids 1 2 - Exam Head normocephalic Neck supple Lungs clear to auscultation bilaterally no wheezing or crackles Heart regular rate and rhythm S1-S2, no rub or gallop Abdomen is soft nontender nondistended positive bowel sounds no hepatosplenomegaly Extremities +2 bilateral peripheral edema pitting Neuro alert and orientated to 3 - Labs CBC & Chem 7: 08/07/18 06:20 08/07/18 06:20 Labs: Abnormal Lab Results - Last 24 Hours (Table) 08/06/18 08/06/18 08/06/18 Range/Units 09:29 16:46 19:37 WBC (3.8-10.6) k/uL Hgb (13.0-17.5) gm/dL Hct (39.0-53.0) % RDW (11.5-15.5) % Neutrophils # (1.3-7.7) k/uL Lymphocytes # (1.0-4.8) k/uL Sodium (137-145) mmol/L BUN (9-20) mg/dL Creatinine (0.66-1.25) mg/dL Glucose (74-99) mg/dL POC Glucose (mg/dL) 400 H 464 H (75-99) mg/dL Hemoglobin A1c 7.5 H (4.0-6.0) % 08/06/18 08/07/18 08/07/18 Range/Units 21:35 01:54 05:48 WBC (3.8-10.6) k/uL Hgb (13.0-17.5) gm/dL Hct (39.0-53.0) % RDW (11.5-15.5) % Neutrophils # (1.3-7.7) k/uL Lymphocytes # (1.0-4.8) k/uL Sodium (137-145) mmol/L BUN (9-20) mg/dL Creatinine (0.66-1.25) mg/dL Glucose (74-99) mg/dL POC Glucose (mg/dL) 376 H 275 H 279 H (75-99) mg/dL Hemoglobin A1c (4.0-6.0) % 08/07/18 08/07/18 08/07/18 Range/Units 06:20 06:20 11:08 WBC 14.5 H (3.8-10.6) k/uL Hgb 12.1 L (13.0-17.5) gm/dL Hct 37.9 L (39.0-53.0) % RDW 20.3 H (11.5-15.5) % Neutrophils # 13.0 H (1.3-7.7) k/uL Lymphocytes # 0.7 L (1.0-4.8) k/uL Sodium 136 L (137-145) mmol/L BUN 34 H (9-20) mg/dL Creatinine 1.38 H (0.66-1.25) mg/dL Glucose 272 H (74-99) mg/dL POC Glucose (mg/dL) 339 H (75-99) mg/dL Hemoglobin A1c (4.0-6.0) % Assessment and Plan Plan: 1. Increased shortness of breath likely due to COPD exacerbation. Pulmonary services have been consulted. Patient will be started on IV Solu-Medrol and Zithromax. 2. Increased peripheral edema. BNP 74. 2-D echo has been ordered. Cardiology consult 3. History of diabetes mellitus. Home meds resumed plus sliding scale. Will order hemoglobin A1c 4. History of skin cancer 5. History of essential hypertension 6. Hyperkalemia. Potassium 5.0. Patient's losartan potassium currently on hold. Patient will be given Kayexalate. Recheck potassium at 1600 today. 7. Acute kidney injury. Creatinine 1.38 today. Losartan potassium currently on hold we'll continue to monitor closely DVT prophylaxis Lovenox. GI prophylaxis Protonix
--- NOTE | 2018-08-07 16:26 | P.PN ---
Subjective Progress Note Date: 08/07/18 On today's evaluation of 08/07/2018, the patient is doing came better. Is less short of breath. Less bronchospastic and wheezy. He is currently being treated for an acute COPD exacerbation. Is on DuoNeb neb last treatment around- the-clock. He is also on IV Solu-Medrol and he is also receiving Lasix 40 mg IV push every 12 hours. The fluid balance is negative. Creatinine is at 1.38. The blood sugar is elevated above 300 related to systemic steroid use. The patient is currently on Levemir insulin 20 units at suppertime and NovoLog according to his scale. Patient is also on a combination of Actos and Prandin. No other significant events overnight. The patient has quite stable for now. Objective - Vital Signs Vital signs: Vital Signs Temp 98.1 F 08/07/18 11:26 Pulse 80 08/07/18 16:20 Resp 20 08/07/18 11:26 BP 118/58 08/07/18 11:26 Pulse Ox 92 L 08/07/18 11:26 Intake & Output 08/06/18 08/07/18 08/07/18 18:59 06:59 18:59 Intake Total 1000 240 720 Balance 1000 240 720 Weight 113.1 kg Intake: Oral 1000 240 720 Other: # Voids 1 2 - Exam Morbidly obese, comfortable lying acute distress. Head exam was generally normal. There was no scleral icterus or corneal arcus. Mucous membranes were moist. Neck was supple and without jugular venous distension, thyromegaly, or carotid bruits. Carotids were easily palpable bilaterally. There was no adenopathy. The patient has a Mallampati class IV. There is no goiter or neck masses. Lungs sounds are diminished in the strongest of expiratory phase of breathing and scattered expiratory wheezes throughout the lung his bilaterally. Cardiac exam revealed the PMI to be normally situated and sized. The rhythm was regular and no extrasystoles were noted during several minutes of auscultation. The first and second heart sounds were normal and physiologic splitting of the second heart sound was noted. There were no murmurs, rubs, clicks, or gallops. Overall the heart sounds are quite distant Abdominal exam revealed normal bowel sounds. The abdomen was soft, non-tender, and without masses, organomegaly, or appreciable enlargement of the abdominal aorta. Organs are not accurately measured as the patient is obese and there is no direct tenderness or rebound tensile guarding Extremities revealed +1-2 pitting edema there is no cyanosis or clubbing at this point in time. Neurologically the patient is awake and alert and there is no focal neurological deficits. - Labs CBC & Chem 7: 08/07/18 06:20 08/07/18 06:20 Labs: Abnormal Lab Results - Last 24 Hours (Table) 08/06/18 08/06/18 08/06/18 Range/Units 09:29 16:46 19:37 WBC (3.8-10.6) k/uL Hgb (13.0-17.5) gm/dL Hct (39.0-53.0) % RDW (11.5-15.5) % Neutrophils # (1.3-7.7) k/uL Lymphocytes # (1.0-4.8) k/uL Sodium (137-145) mmol/L BUN (9-20) mg/dL Creatinine (0.66-1.25) mg/dL Glucose (74-99) mg/dL POC Glucose (mg/dL) 400 H 464 H (75-99) mg/dL Hemoglobin A1c 7.5 H (4.0-6.0) % 08/06/18 08/07/18 08/07/18 Range/Units 21:35 01:54 05:48 WBC (3.8-10.6) k/uL Hgb (13.0-17.5) gm/dL Hct (39.0-53.0) % RDW (11.5-15.5) % Neutrophils # (1.3-7.7) k/uL Lymphocytes # (1.0-4.8) k/uL Sodium (137-145) mmol/L BUN (9-20) mg/dL Creatinine (0.66-1.25) mg/dL Glucose (74-99) mg/dL POC Glucose (mg/dL) 376 H 275 H 279 H (75-99) mg/dL Hemoglobin A1c (4.0-6.0) % 08/07/18 08/07/18 08/07/18 Range/Units 06:20 06:20 11:08 WBC 14.5 H (3.8-10.6) k/uL Hgb 12.1 L (13.0-17.5) gm/dL Hct 37.9 L (39.0-53.0) % RDW 20.3 H (11.5-15.5) % Neutrophils # 13.0 H (1.3-7.7) k/uL Lymphocytes # 0.7 L (1.0-4.8) k/uL Sodium 136 L (137-145) mmol/L BUN 34 H (9-20) mg/dL Creatinine 1.38 H (0.66-1.25) mg/dL Glucose 272 H (74-99) mg/dL POC Glucose (mg/dL) 339 H (75-99) mg/dL Hemoglobin A1c (4.0-6.0) % Assessment and Plan Plan: Assessment 1 acute COPD exacerbation with secondary shortness of breath, chest that is so wheezing. Rule out underlying tracheal bronchitis. The patient's chest x-ray is free of any acute pulmonary infiltrates or pneumonia or consolidation. 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 Less short of breath compared to yesterday. Continue same treatment. Continue the combination of bronchodilators and steroids and diuretics. Repeat electrolytes and monitor the renal function for tomorrow. We 'll continue to follow.
[2018-08-07 16:46] LABS: Glucose,Whole Blood 378 mg/dL (75-99)
[2018-08-07] MEDS: INSULIN DETEMIR 100 UNIT/ML 10 ML VIAL SQ SCH (17:32)
[2018-08-07 20:51] LABS: Glucose,Whole Blood 361 mg/dL (75-99)
[2018-08-08 05:23] LABS: Glucose,Whole Blood 281 mg/dL (75-99)
[2018-08-08] MEDS: PANTOPRAZOLE 40 MG TABLET PO SCH (06:31)
[2018-08-08] MEDS: INSULIN ASPART 100 UNIT/ML 1 ML 10 ML VIAL SQ SCH ×4 (06:32→21:43)
[2018-08-08] MEDS: methylPREDNISolone SOD SUCCI 125 MG/2 ML VIAL IV SCH (06:33)
[2018-08-08] MEDS: REPAGLINIDE 1 MG TAB PO SCH ×3 (06:37→17:37)
[2018-08-08 06:58] LABS: Anisocytosis Moderate; Basophils % (A) 0 %; Eosinophils % (A) 0 %; HCT 38.8 % (39.0-53.0); HGB 12.7 gm/dL (13.0-17.5); Lymphocytes # (A) 0.7 k/uL (1.0-4.8); Lymphocytes % (A) 4 %; MCH 27.5 pg (25.0-35.0); MCHC 32.7 g/dL (31.0-37.0); MCV 83.9 fL (80.0-100.0); Mean Platelet Volume 7.5; Microcytosis Slight; Monocytes # (A) 0.7 k/uL (0-1.0); Monocytes % (A) 5 %; Neutrophils # (A) 13.5 k/uL (1.3-7.7); Neutrophils % (A) 90 %; Platelet Count 234 k/uL (150-450); RBC 4.62 m/uL (4.30-5.90); RDW 20.2 % (11.5-15.5); WBC 14.9 k/uL (3.8-10.6)
[2018-08-08 07:13] LABS: Albumin 4.1 g/dL (3.5-5.0); Calcium 9.3 mg/dL (8.4-10.2); Potassium 4.5 mmol/L (3.5-5.1); Total Bilirubin 0.3 mg/dL (0.2-1.3); Total Protein 6.5 g/dL (6.3-8.2)
[2018-08-08] MEDS: IPRATROPIUM-ALBUTEROL 3 ML NEB INHALATION SCH ×4 (07:22→19:31)
[2018-08-08] MEDS: TAMSULOSIN 0.4 MG CAP.ER.24H PO SCH (08:39)
[2018-08-08] MEDS: AZITHROMYCIN 500 MG TAB PO SCH (08:39)
[2018-08-08] MEDS: ATORVASTATIN 10 MG TAB PO SCH (08:39)
[2018-08-08] MEDS: PIOGLITAZONE 45 MG TAB PO SCH (08:39)
[2018-08-08] MEDS: ENOXAPARIN 40 MG/0.4 ML SYRINGE SQ SCH (08:39)
[2018-08-08] MEDS: FUROSEMIDE 10 MG/ML 4 ML VIAL IV SCH (08:39)
[2018-08-08] MEDS: FERROUS SULFATE 325 MG TAB PO SCH ×2 (08:39→20:48)
[2018-08-08 11:17] LABS: Glucose,Whole Blood 291 mg/dL (75-99)
--- NOTE | 2018-08-08 12:00 | P.PN ---
Subjective Progress Note Date: 08/08/18 Principal diagnosis: Acute COPD exacerbation with secondary shortness of breath On today's evaluation of 08/07/2018, the patient is doing came better. Is less short of breath. Less bronchospastic and wheezy. He is currently being treated for an acute COPD exacerbation. Is on DuoNeb neb last treatment around- the-clock. He is also on IV Solu-Medrol and he is also receiving Lasix 40 mg IV push every 12 hours. The fluid balance is negative. Creatinine is at 1.38. The blood sugar is elevated above 300 related to systemic steroid use. The patient is currently on Levemir insulin 20 units at suppertime and NovoLog according to his scale. Patient is also on a combination of Actos and Prandin. No other significant events overnight. The patient has quite stable for now. On 08/08/2018 patient seen in follow-up on selective care unit, he states he is breathing easier, he is off the oxygen, pulse ox of 91%, afebrile, hemodynamically stable, patient is ambulating to the bathroom, and in the room, tolerating it well, lung sounds reveal diminished breath sounds with a few scattered rhonchi, occasional nonproductive cough, overall less congested and wheezy. His swelling in his lower extremities is improving, there is still some residual swelling left greater than the right. Today's labs have been reviewed, WBC is 14.9, hemoglobin is 12.7, electrolytes are within normal limits , BUN is 37 creatinine is 1.48. Patient remains on empiric antibiotics in the form of Zithromax, nebulizer bronchodilators, IV steroids, and IV Lasix. Objective - Vital Signs Vital signs: Vital Signs Temp 98.1 F 08/08/18 07:48 Pulse 92 08/08/18 11:20 Resp 18 08/08/18 07:48 BP 147/71 08/08/18 07:48 Pulse Ox 91 L 08/08/18 07:48 Intake & Output 08/07/18 08/08/18 08/08/18 18:59 06:59 18:59 Intake Total 960 280 Output Total 250 Balance 960 -250 280 Weight 111.8 kg Intake: Oral 960 280 Output: Urine 250 Other: # Voids 2 1 - Exam GENERAL EXAM: Alert, active, comfortable in no apparent distress. HEAD: Normocephalic/atraumatic. EYES: Normal reaction of pupils, equal size. Conjunctiva pink, sclera white. NOSE: Clear with pink turbinates. THROAT: No erythema or exudates. NECK: No masses, no JVD, no thyroid enlargement, no adenopathy. CHEST: No chest wall deformity. Symmetrical expansion. LUNGS: Equal air entry bilateral, diminished breath sounds with a few scattered rhonchi CVS: Regular rate and rhythm, normal S1 and S2, no gallops, no murmurs, no rubs ABDOMEN: Soft, nontender. No hepatosplenomegaly, normal bowel sounds, no guarding or rigidity. EXTREMITIES: No clubbing, no edema, no cyanosis, 2+ pulses and upper and lower extremities. MUSCULOSKELETAL: Muscle strength and tone normal. SPINE: No scoliosis or deformity SKIN: No rashes CENTRAL NERVOUS SYSTEM: Alert and oriented -3. No focal deficits, tone is normal in all 4 extremities. PSYCHIATRIC: Alert and oriented -3. Appropriate affect. Intact judgment and insight. - Labs CBC & Chem 7: 08/08/18 05:45 08/08/18 05:45 Labs: Abnormal Lab Results - Last 24 Hours (Table) 08/07/18 08/07/18 08/08/18 Range/Units 16:44 20:28 05:22 WBC (3.8-10.6) k/uL Hgb (13.0-17.5) gm/dL Hct (39.0-53.0) % RDW (11.5-15.5) % Neutrophils # (1.3-7.7) k/uL Lymphocytes # (1.0-4.8) k/uL BUN (9-20) mg/dL Creatinine (0.66-1.25) mg/dL Glucose (74-99) mg/dL POC Glucose (mg/dL) 378 H 361 H 281 H (75-99) mg/dL 08/08/18 08/08/18 08/08/18 Range/Units 05:45 05:45 11:16 WBC 14.9 H (3.8-10.6) k/uL Hgb 12.7 L (13.0-17.5) gm/dL Hct 38.8 L (39.0-53.0) % RDW 20.2 H (11.5-15.5) % Neutrophils # 13.5 H (1.3-7.7) k/uL Lymphocytes # 0.7 L (1.0-4.8) k/uL BUN 37 H (9-20) mg/dL Creatinine 1.48 H (0.66-1.25) mg/dL Glucose 249 H (74-99) mg/dL POC Glucose (mg/dL) 291 H (75-99) mg/dL Assessment and Plan Plan: 1 acute COPD exacerbation with secondary shortness of breath, chest that is so wheezing. Rule out underlying tracheal bronchitis. The patient's chest x-ray is free of any acute pulmonary infiltrates or pneumonia or consolidation. 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 anticipate further improving, possible discharge tomorrow. I performed a history & physical examination of the patient and discussed their management with my nurse practitioner, Iva Cortes. I reviewed the nurse practitioner's note and agree with the documented findings and plan of care. Lung sounds are diminished, with a few scattered rhonchi. The findings and the impression was discussed with the patient. I attest to the documentation by the nurse practitioner. Time with Patient: Less than 30
--- NOTE | 2018-08-08 12:04 | P.PN ---
Subjective Progress Note Date: 08/08/18 This is a 68-year-old male patient of Dr. Bar. Patient presented to the emergency room with length of increased shortness of breath that has been occurring for about one week. 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 Patient with smoking in May 2018. Additional medical history includes diabetes mellitus , pneumonia, skin cancer and essential hypertension. Patient also complaining of having increased peripheral edema that has been increasing over the past week. Chest x-ray completed showing normal chest. No change. EKG completed showing normal sinus rhythm right bundle branch block left anterior fascicular block bifascicular block. D-dimer 0.030. Pulmonary and cardiology services have been consulted. 2-D echo has been ordered. Patient started on Solu- Medrol IV steroids and Zithromax. At this time patient states improvement with shortness of breath. Patient denies chest pain. Patient denies any nausea vomiting or diarrhea. Patient denies any urinary burning or frequency. On 08/07/2018 patient was seen and examined on the telemetry floor he is alert and oriented 3 in no apparent distress he is still complaining of cough and shortness of breath with activity otherwise as no complaints there is no fever or chills no headache or dizziness no chest pain no nausea or vomiting no abdominal pain no diarrhea and no urinary symptoms. On 08/08/2018 patient was seen and examined his alert and oriented 3 still complaining of cough and shortness of breath with activity otherwise he denies any complaints there is no fever or chills no headache or dizziness no chest pain no nausea or vomiting no abdominal pain no diarrhea and no urinary symptoms Objective - Vital Signs Vital signs: Vital Signs Temp 98.1 F 08/08/18 07:48 Pulse 92 08/08/18 11:20 Resp 18 08/08/18 07:48 BP 147/71 08/08/18 07:48 Pulse Ox 91 L 08/08/18 07:48 Intake & Output 08/07/18 08/08/18 08/08/18 18:59 06:59 18:59 Intake Total 960 280 Output Total 250 Balance 960 -250 280 Weight 111.8 kg Intake: Oral 960 280 Output: Urine 250 Other: # Voids 2 1 - Exam Head normocephalic Neck supple Lungs clear to auscultation bilaterally no wheezing or crackles Heart regular rate and rhythm S1-S2, no rub or gallop Abdomen is soft nontender nondistended positive bowel sounds no hepatosplenomegaly Extremities +2 bilateral peripheral edema pitting Neuro alert and orientated to 3 - Labs CBC & Chem 7: 08/08/18 05:45 08/08/18 05:45 Labs: Abnormal Lab Results - Last 24 Hours (Table) 08/07/18 08/07/18 08/08/18 Range/Units 16:44 20:28 05:22 WBC (3.8-10.6) k/uL Hgb (13.0-17.5) gm/dL Hct (39.0-53.0) % RDW (11.5-15.5) % Neutrophils # (1.3-7.7) k/uL Lymphocytes # (1.0-4.8) k/uL BUN (9-20) mg/dL Creatinine (0.66-1.25) mg/dL Glucose (74-99) mg/dL POC Glucose (mg/dL) 378 H 361 H 281 H (75-99) mg/dL 08/08/18 08/08/18 08/08/18 Range/Units 05:45 05:45 11:16 WBC 14.9 H (3.8-10.6) k/uL Hgb 12.7 L (13.0-17.5) gm/dL Hct 38.8 L (39.0-53.0) % RDW 20.2 H (11.5-15.5) % Neutrophils # 13.5 H (1.3-7.7) k/uL Lymphocytes # 0.7 L (1.0-4.8) k/uL BUN 37 H (9-20) mg/dL Creatinine 1.48 H (0.66-1.25) mg/dL Glucose 249 H (74-99) mg/dL POC Glucose (mg/dL) 291 H (75-99) mg/dL Assessment and Plan Plan: 1. Increased shortness of breath likely due to COPD exacerbation. Pulmonary services have been consulted. Patient will be started on IV Solu-Medrol and Zithromax. 2. Increased peripheral edema. BNP 74. 2-D echo has been ordered. Cardiology consult 3. History of diabetes mellitus. Home meds resumed plus sliding scale. Will order hemoglobin A1c 4. History of skin cancer 5. History of essential hypertension 6. Hyperkalemia. Potassium 5.0. Patient's losartan potassium currently on hold. Patient will be given Kayexalate. Recheck potassium at 1600 today. 7. Acute kidney injury. Creatinine 1.48 today. Losartan potassium currently on hold Will discontinue IV Lasix at this time , we'll continue to monitor closely DVT prophylaxis Lovenox. GI prophylaxis Protonix
--- NOTE | 2018-08-08 14:43 | P.PN ---
Subjective Progress Note Date: 08/08/18 Principal diagnosis: CHF This is a pleasant 68-year-old gentleman with a past medical history significant for COPD, diabetes, hypertension, and dyslipidemia, who was admitted to the hospital with progressive dyspnea and bilateral lower extremities edema and symptoms of congestive heart failure was evidence of right and left heart failure secondary to diastolic dysfunction. On follow-up with the patient today, he stated that he is feeling better. The shortness of breath has improved. The lower extremities edema has improved as well. The creatinine is slightly worse today. The echo revealed normal LV function without any significant valvular abnormalities. T Objective - Vital Signs Vital signs: Vital Signs Temp 98.2 F 08/08/18 12:00 Pulse 78 08/08/18 12:00 Resp 18 08/08/18 12:00 BP 130/64 08/08/18 12:00 Pulse Ox 90 L 08/08/18 12:00 Intake & Output 08/07/18 08/08/18 08/08/18 18:59 06:59 18:59 Intake Total 960 580 Output Total 250 Balance 960 -250 580 Weight 111.8 kg Intake: Oral 960 580 Output: Urine 250 Other: # Voids 2 1 - Constitutional General appearance: Present: no acute distress - Respiratory Respiratory: bilateral: CTA - Cardiovascular Rhythm: regular Heart sounds: normal: S1, S2 Abnormal Heart Sounds: Present: systolic murmur - Labs CBC & Chem 7: 08/08/18 05:45 08/08/18 05:45 Labs: Abnormal Lab Results - Last 24 Hours (Table) 08/07/18 08/07/18 08/08/18 Range/Units 16:44 20:28 05:22 WBC (3.8-10.6) k/uL Hgb (13.0-17.5) gm/dL Hct (39.0-53.0) % RDW (11.5-15.5) % Neutrophils # (1.3-7.7) k/uL Lymphocytes # (1.0-4.8) k/uL BUN (9-20) mg/dL Creatinine (0.66-1.25) mg/dL Glucose (74-99) mg/dL POC Glucose (mg/dL) 378 H 361 H 281 H (75-99) mg/dL 08/08/18 08/08/18 08/08/18 Range/Units 05:45 05:45 11:16 WBC 14.9 H (3.8-10.6) k/uL Hgb 12.7 L (13.0-17.5) gm/dL Hct 38.8 L (39.0-53.0) % RDW 20.2 H (11.5-15.5) % Neutrophils # 13.5 H (1.3-7.7) k/uL Lymphocytes # 0.7 L (1.0-4.8) k/uL BUN 37 H (9-20) mg/dL Creatinine 1.48 H (0.66-1.25) mg/dL Glucose 249 H (74-99) mg/dL POC Glucose (mg/dL) 291 H (75-99) mg/dL Assessment and Plan Assessment: Assessment #1 acute exacerbation of COPD #2 congestive heart failure secondary to diastolic dysfunction #3 multiple comorbid conditions including hypertension, dyslipidemia, and diabetes Plan #1 continue the IV Lasix for additional 24 hours #2 possible discharge home tomorrow.
[2018-08-08 16:31] LABS: Glucose,Whole Blood 273 mg/dL (75-99)
[2018-08-08] MEDS: INSULIN DETEMIR 100 UNIT/ML 10 ML VIAL SQ SCH (17:37)
[2018-08-08] MEDS: methylPREDNISolone SOD SUCCI 40 MG/ML 1 ML VIAL IV SCH ×2 (17:40→23:21)
[2018-08-08 20:50] VITALS: RESP 16
[2018-08-08 20:57] LABS: Glucose,Whole Blood 333 mg/dL (75-99)
[2018-08-09 05:53] LABS: Glucose,Whole Blood 257 mg/dL (75-99)
[2018-08-09] MEDS: PANTOPRAZOLE 40 MG TABLET PO SCH (06:04)
[2018-08-09] MEDS: INSULIN ASPART 100 UNIT/ML 1 ML 10 ML VIAL SQ SCH (06:04)
[2018-08-09] MEDS: REPAGLINIDE 1 MG TAB PO SCH ×2 (06:04→12:03)
[2018-08-09 06:39] LABS: Anisocytosis Moderate; Basophils % (A) 0 %; Eosinophils % (A) 0 %; HCT 39.9 % (39.0-53.0); HGB 12.9 gm/dL (13.0-17.5); Lymphocytes # (A) 0.4 k/uL (1.0-4.8); Lymphocytes % (A) 4 %; MCH 27.2 pg (25.0-35.0); MCHC 32.4 g/dL (31.0-37.0); Microcytosis Slight; Monocytes # (A) 0.4 k/uL (0-1.0); Monocytes % (A) 3 %; Neutrophils # (A) 9.4 k/uL (1.3-7.7); Neutrophils % (A) 92 %; Platelet Count 212 k/uL (150-450); RBC 4.75 m/uL (4.30-5.90); RDW 20.1 % (11.5-15.5); WBC 10.2 k/uL (3.8-10.6)
[2018-08-09 06:50] LABS: Albumin 3.9 g/dL (3.5-5.0); Calcium 9.1 mg/dL (8.4-10.2); Potassium 4.9 mmol/L (3.5-5.1); Total Bilirubin 0.4 mg/dL (0.2-1.3); Total Protein 6.4 g/dL (6.3-8.2)
[2018-08-09] MEDS: IPRATROPIUM-ALBUTEROL 3 ML NEB INHALATION SCH ×2 (08:49→12:12)
[2018-08-09] MEDS ORDERED: FUROSEMIDE 10 MG/ML 4 ML VIAL IV SCH (09:00)
[2018-08-09] MEDS: methylPREDNISolone SOD SUCCI 40 MG/ML 1 ML VIAL IV SCH (09:23)
[2018-08-09] MEDS: TAMSULOSIN 0.4 MG CAP.ER.24H PO SCH (09:23)
[2018-08-09] MEDS: AZITHROMYCIN 500 MG TAB PO SCH (09:23)
[2018-08-09] MEDS: FERROUS SULFATE 325 MG TAB PO SCH (09:23)
[2018-08-09] MEDS: ENOXAPARIN 40 MG/0.4 ML SYRINGE SQ SCH (09:23)
[2018-08-09] MEDS: PIOGLITAZONE 45 MG TAB PO SCH (09:24)
[2018-08-09] MEDS: ATORVASTATIN 10 MG TAB PO SCH (09:24)
[2018-08-09 10:35] VITALS: TEMP 97.6
[2018-08-09 12:05] VITALS: BP 136/70
[2018-08-09 12:08] LABS: Glucose,Whole Blood 207 mg/dL (75-99)
[2018-08-09 12:15] VITALS: PULSE 84
--- NOTE | 2018-08-09 12:20 | CDI ---
Documentation Clarification Form Date: 08/09/2018 11:50:00 AM From: Noreen CabreraNyeSUNNY, CCDS Admit Date: 08/06/2018 12:26:00 PM Patient Name: Victorino Hollis Visit Number: [id number] Discharge Date: ATTENTION: The Clinical Documentation Specialists (CDI) and [facility] Coding Staff appreciate your assistance in clarifying documentation. Please respond to the clarification below the line at the bottom and electronically sign. The CDI & [facility] Coding staff will review the response and follow-up if needed. Please note: Queries are made part of the Legal Health Record. If you have any questions, please contact the author of this message via ITS. Dr. Niko Cobb: CHF is documented in the 08/08 cardiology progress note as : "congestive heart failure secondary to diastolic dysfunction." History/Risk Factors: COPD, Hypertension, Hyperlipidemia, IDDM, Smoker. Clinical Indicators: Presented to ED with SOB, cough, wheezing & bilateral lower extremity swelling. VS: P 112^; R 21 (sob), PO 95 Lnc BNP: 74 Echocardiogram Results 08/06: ild concentric left ventricular hypertrophy. Overall left ventricular systolic function is normal with EF between 60-65%. Trace-mild MR, Trace TR. Chest X Ray (08/05): wnl Treatment: Initially admitted as Observation on 08/05: Telemetry, Albuterol INH , IV Solumedrol, IV fluid 100, O2 2Lnc. Changed to Inpatient status on 08/06, same treatment, IV Lasix added, monitor blood sugar levels. In your professional opinion, can you please clarify the acuity of the documented CHF if known? Diastolic Heart Failure: o Acute o Chronic o Acute on Chronic Unable to Determine Other, please specify Present on admission: Yes or No (Last Revision: October 2017) MTDD
--- NOTE | 2018-08-09 12:41 | P.PN ---
Subjective Progress Note Date: 08/09/18 This is a pleasant 68-year-old male past medical history significant for hypertension, diabetes mellitus, COPD, dyslipidemia and former nicotine dependence. He quit smoking in May 2018. He states he has been diagnosed with COPD in the past but has never been placed on any inhalers or medications for COPD. He moved here from [place] in 2018. He denies history of coronary artery disease and has never seen a identification and records commander for any reason. We have been asked to see him in consultation for lower extremity edema and shortness of breath. He states since approximately October of 2017 he has been having intermittent swelling in the legs. The swelling seems to come after he has been physically active or after a long day. This episode has been ongoing for approximately 2 weeks. He does eat a diet high in salt and mostly processed foods. He also describes that he has been increasingly short of breath over the last week. He did some racking and burning of leaves in his yard last weekend on Thursday. Thursday he woke up feeling very tired and weak. He states he laid around all day not having the energy to do anything. Then on Thursday he started with a persistent dry cough, dyspnea on exertion and ongoing fatigue. He started taking an over the counter cold medicine with no relief. When he lays down to go to bed at night he starts wheezing and coughing but is unable to clear his phlegm. He denies any symptoms of chest pain, dizziness or palpitations. He has been started on IV steroids, antibiotics and breathing treatments since admission last night. EKG reveals right bundle branch block which is similar to previous EKG. Chest x-ray is negative for an acute cardiopulmonary process. Laboratory data reviewed, WBC 8.8, hemoglobin 12.5, platelets 198, d-dimer 0.3, sodium 136, potassium 5.8, creatinine 1.27 up from 1.2 100 admission, cardiac enzymes negative 1, NT proBNP 74 and magnesium 2.1. Current cardiac medications include lovastatin and losartan 100 mg daily. 08/07/2018 Patient was initiated on IV Lasix, he does state that he is urinating quite a bit however the INR was and weight are not reflective of that. He also states that he feels his breathing is somewhat improved today. White blood cell count 14.5, hemoglobin 12.1, platelet count 209. Sodium 136, potassium 5.3, BUN 34 and creatinine 1.3. Echocardiogram with Doppler study has been performed and is yet pending. 08/09/2018 Patient was seen and examined this morning, feeling significantly better overall. His weight is down 2 kg today. I pressure 136/70 with a heart rate in the 80s, 95% on room air. Blood cell count 10.2, hemoglobin 12.9, platelet count of 212. Sodium 136, potassium 4.9, BUN 33, creatinine 1.2. Objective - Vital Signs Vital signs: Vital Signs Temp 97.6 F 08/09/18 08:00 Pulse 84 08/09/18 12:24 Resp 16 08/09/18 12:00 BP 136/70 08/09/18 12:00 Pulse Ox 95 08/09/18 12:00 Intake & Output 08/08/18 08/09/18 08/09/18 18:59 06:59 18:59 Intake Total 1200 320 480 Balance 1200 320 480 Weight 109.3 kg Intake: IV 20 60 Invasive Line 3 20 60 Oral 1180 260 480 Other: # Voids 1 # Bowel Movements 1 - Exam Blood pressure 136/70 heart rate 84 afebrile maintaining oxygen saturation on nasal cannula GENERAL: This is a 68-year-old male in no apparent distress at the time of my examination. HEENT: Head is atraumatic, normocephalic. Pupils are equal, round. Sclerae anicteric. Conjunctivae are clear. Mucous membranes of the mouth are moist. Neck is supple. There is no jugular venous distention. No carotid bruit is heard. LUNGS: Clear with fine wheezes noted throughout, improvement in air entry bilaterally. No rales or rhonchi. No chest wall tenderness is noted on palpation or with deep breathing. HEART: Regular rate and rhythm without murmurs, rubs or gallops. S1 and S2 heard. ABDOMEN: Soft, nontender. Bowel sounds are heard. No organomegaly noted. EXTREMITIES: trace edema right lower extremity, 1+ pitting edema left lower extremity. No calf tenderness noted. VASCULAR: Radial and dorsalis pedis pulses palpated, no evidence of clubbing. NEUROLOGIC: Patient is awake, alert and oriented x3. - Labs CBC & Chem 7: 08/09/18 06:21 08/09/18 06:21 Labs: Abnormal Lab Results - Last 24 Hours (Table) 08/08/18 08/08/1819 Range/Units 16:30 20:56 05:51 Hgb (13.0-17.5) gm/dL RDW (11.5-15.5) % Neutrophils # (1.3-7.7) k/uL Lymphocytes # (1.0-4.8) k/uL Sodium (137-145) mmol/L BUN (9-20) mg/dL Glucose (74-99) mg/dL POC Glucose (mg/dL) 273 H 333 H 257 H (75-99) mg/dL 08/09/18 08/09/18 08/09/18 Range/Units 06:21 06:21 11:38 Hgb 12.9 L (13.0-17.5) gm/dL RDW 20.1 H (11.5-15.5) % Neutrophils # 9.4 H (1.3-7.7) k/uL Lymphocytes # 0.4 L (1.0-4.8) k/uL Sodium 136 L (137-145) mmol/L BUN 33 H (9-20) mg/dL Glucose 255 H (74-99) mg/dL POC Glucose (mg/dL) 207 H (75-99) mg/dL Assessment and Plan Plan: Assessment and plan #1Acute exacerbation of COPD #2Congestive heart failure, LV function unknown #3Hypertension #4Diabetes mellitus #5Dyslipidemia #6Acute kidney injury #7Hyperkalemia Plan From cardiology's perspective we'll discontinue the IV Lasix and start the patient on oral diuretics today. We did repeat a chest x-ray this morning. He may be able to be discharged home from our perspective, to follow-up in the office post discharge. DNP note has been reviewed, I agree with a documented findings and plan of care. Patient was seen and examined.
--- NOTE | 2018-08-09 12:41 | XR ---
EXAMINATION TYPE: XR chest 2V DATE OF EXAM: 08/09/2018 COMPARISON: Chest x-ray from [address] chest May 23, 2018 HISTORY: COPD and CHF progress study TECHNIQUE: Frontal and lateral views of the chest are obtained. FINDINGS: There is no focal air space opacity, pleural effusion, or pneumothorax seen. The cardiac silhouette size is stable and mildly enlarged. Multilevel spurring in the thoracic spine is redemonst rated. IMPRESSION: Cardiomegaly without acute pulmonary process on current study.
--- NOTE | 2018-08-09 12:43 | P.DS ---
Providers Date of admission: 08/06/18 12:26 Expected date of discharge: 08/09/18 Attending physician: Abdelrahman Wilson Consults: 08/06/18 11:29 Consult Physician Routine Consulting Provider: Sho Fields Consult Reason/Comments: COPD Do you want consulting provider notified?: Yes Consult Physician Routine Consulting Provider: Sherry Edwards Consult Reason/Comments: Increased peripheral edema Do you want consulting provider notified?: Yes Primary care physician: Janie Bar Hospital Course: Discharge diagnosis 1. Acute COPD exacerbation 2. Acute tracheobronchitis 3. History of diabetes mellitus 2 4. History of skin cancer 5. History of essential hypertension 6. Hyperkalemia secondary to losartan and acute kidney injury. resolved 7. Acute kidney injury likely related to diuretics and losartan. Conjunctivae have improved 8. Chronic hypoxic respiratory failure 9. History of ASHLEY inhibitor induced angioedema 10. Acute diastolic congestive heart failure exacerbation. Echo shows a preserved EF improved with IV Lasix. Cardiology recommending Lasix 40 mg by mouth daily Hospital course This is a 68-year-old male patient of Dr. Bar. Patient presented to the emergency room with length of increased shortness of breath that has been occurring for about one week. 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 Patient with smoking in May 2018. Additional medical history includes diabetes mellitus , pneumonia, skin cancer and essential hypertension. Patient also complaining of having increased peripheral edema that has been increasing over the past week. Chest x-ray completed showing normal chest. No change. EKG completed showing normal sinus rhythm right bundle branch block left anterior fascicular block bifascicular block. D-dimer 0.030. Pulmonary and cardiology services have been consulted. 2-D echo has been ordered. Patient started on Solu- Medrol IV steroids and Zithromax. At this time patient states improvement with shortness of breath. Patient denies chest pain. Patient denies any nausea vomiting or diarrhea. Patient denies any urinary burning or frequency. On 08/07/2018 patient was seen and examined on the telemetry floor he is alert and oriented 3 in no apparent distress he is still complaining of cough and shortness of breath with activity otherwise as no complaints there is no fever or chills no headache or dizziness no chest pain no nausea or vomiting no abdominal pain no diarrhea and no urinary symptoms. On 08/08/2018 patient was seen and examined his alert and oriented 3 still complaining of cough and shortness of breath with activity otherwise he denies any complaints there is no fever or chills no headache or dizziness no chest pain no nausea or vomiting no abdominal pain no diarrhea and no urinary symptoms 08/09/2018 patient's cough and shortness of breath have improved greatly. His been cleared by cardiology and pulmonary service for discharge. He'll continue Zithromax for 5 more days for his bronchitis. Continue prednisone taper and albuterol inhaler as needed for COPD exacerbation. Also treated for CHF exacerbation during this hospitalization. Cardiology had placed initially on IV Lasix and switch over to oral Lasix 40 mg by mouth daily. Patient's symptoms have improved. He is medically stable for discharge. Would recommend checking BMP in 3 days. Patient will follow-up with cardiology and pulmonary service in 1-2 weeks outpatient. Follow up with his PCP in 1 week. I performed an examination of the patient and discussed their management with the physician Retail Service Representative. I have reviewed the Physician Retail Service Representative's notes and agree with the documented findings and plan of care Patient Condition at Discharge: Stable Plan - Discharge Summary New Discharge Prescriptions: New Albuterol Inhaler [Ventolin Hfa Inhaler] 2 puff INHALATION Q6H PRN #1 inhaler PRN Reason: Shortness Of Breath Azithromycin [Zithromax] 500 mg PO DAILY #5 tab Furosemide [Lasix] 40 mg PO DAILY #30 tab Losartan [Cozaar] 50 mg PO DAILY #30 tab Continue Insulin Glargine [Lantus] 20 unit SQ AC-SUPPER Tamsulosin [Flomax] 0.4 mg PO DAILY Pioglitazone [Actos] 45 mg PO DAILY Lovastatin [Mevacor] 1 tab PO DAILY Ferrous Sulfate [Feosol] 325 mg PO BID #60 tab Repaglinide 1 mg PO TID metFORMIN HCL 500 mg PO BID Discontinued Losartan Potassium 100 mg PO DAILY Discharge Medication List Insulin Glargine [Lantus] 20 unit SQ AC-SUPPER 05/23/18 [History] Lovastatin [Mevacor] 1 tab PO DAILY 05/23/18 [History] Pioglitazone [Actos] 45 mg PO DAILY 05/23/18 [History] Tamsulosin [Flomax] 0.4 mg PO DAILY 05/23/18 [History] Ferrous Sulfate [Feosol] 325 mg PO BID #60 tab 05/25/18 [Rx] Repaglinide 1 mg PO TID 08/05/18 [History] metFORMIN HCL 500 mg PO BID 08/05/18 [History] Albuterol Inhaler [Ventolin Hfa Inhaler] 2 puff INHALATION Q6H PRN #1 inhaler [Rx] Azithromycin [Zithromax] 500 mg PO DAILY #5 tab 08/09/18 [Rx] Furosemide [Lasix] 40 mg PO DAILY #30 tab 08/09/18 [Rx] Losartan [Cozaar] 50 mg PO DAILY #30 tab 08/09/18 [Rx] Follow up Appointment(s)/Referral(s): Sherry Edwards MD [STAFF PHYSICIAN] - 08/19/18 8:45 am () Norma Hyde NPC [REFERRING] - 08/16/18 2:00 pm (Thursday) Sho Fields MD [STAFF PHYSICIAN] - 08/20/18 1:00 pm (Thursday) Ambulatory/Diagnostic Orders: Basic Metabolic Panel [LAB.AMB] Time Frame: 3 Days, Location: None Selected Patient Instructions/Handouts: COPD (Chronic Obstructive Pulmonary Disease) (DC ) Activity/Diet/Wound Care/Special Instructions: Diet: cardiac, diabetic Activity: as tolerated Discharge Disposition: HOME SELF-CARE
--- NOTE | 2018-08-09 13:40 | P.PN ---
Subjective Progress Note Date: 08/09/18 Principal diagnosis: Acute COPD exacerbation with secondary shortness of breath On today's evaluation of 08/07/2018, the patient is doing came better. Is less short of breath. Less bronchospastic and wheezy. He is currently being treated for an acute COPD exacerbation. Is on DuoNeb neb last treatment around- the-clock. He is also on IV Solu-Medrol and he is also receiving Lasix 40 mg IV push every 12 hours. The fluid balance is negative. Creatinine is at 1.38. The blood sugar is elevated above 300 related to systemic steroid use. The patient is currently on Levemir insulin 20 units at suppertime and NovoLog according to his scale. Patient is also on a combination of Actos and Prandin. No other significant events overnight. The patient has quite stable for now. On 08/08/2018 patient seen in follow-up on selective care unit, he states he is breathing easier, he is off the oxygen, pulse ox of 91%, afebrile, hemodynamically stable, patient is ambulating to the bathroom, and in the room, tolerating it well, lung sounds reveal diminished breath sounds with a few scattered rhonchi, occasional nonproductive cough, overall less congested and wheezy. His swelling in his lower extremities is improving, there is still some residual swelling left greater than the right. Today's labs have been reviewed, WBC is 14.9, hemoglobin is 12.7, electrolytes are within normal limits , BUN is 37 creatinine is 1.48. Patient remains on empiric antibiotics in the form of Zithromax, nebulizer bronchodilators, IV steroids, and IV Lasix. On 08/09/2018 patient seen in follow-up on selective care unit, is up ambulating , in no distress, lower extremity edema is improving, patient is breathing easier, less dyspneic with exertion, lung sounds are essentially clear on today' s exam. Occasional nonproductive cough, no fever or chills. Still has some residual swelling in lower extremities, left greater than the right, although improved. He is down 2.5 kg in the last 24 hours, volume status is improving. Today's labs have been noted, no new chest x-rays. Patient is stable for discharge home today we'll need follow-up in the outpatient pulmonary clinic Objective - Vital Signs Vital signs: Vital Signs Temp 97.6 F 08/09/18 08:00 Pulse 84 08/09/18 12:24 Resp 16 08/09/18 12:00 BP 136/70 08/09/18 12:00 Pulse Ox 95 08/09/18 12:00 Intake & Output 08/08/18 08/09/18 08/09/18 18:59 06:59 18:59 Intake Total 1200 320 480 Balance 1200 320 480 Weight 109.3 kg Intake: IV 20 60 Invasive Line 3 20 60 Oral 1180 260 480 Other: # Voids 1 # Bowel Movements 1 - Exam GENERAL EXAM: Alert, active, comfortable in no apparent distress. HEAD: Normocephalic/atraumatic. EYES: Normal reaction of pupils, equal size. Conjunctiva pink, sclera white. NOSE: Clear with pink turbinates. THROAT: No erythema or exudates. NECK: No masses, no JVD, no thyroid enlargement, no adenopathy. CHEST: No chest wall deformity. Symmetrical expansion. LUNGS: Equal air entry bilateral, diminished breath sounds, no rhonchi no wheezing no rales CVS: Regular rate and rhythm, normal S1 and S2, no gallops, no murmurs, no rubs ABDOMEN: Soft, nontender. No hepatosplenomegaly, normal bowel sounds, no guarding or rigidity. EXTREMITIES: No clubbing,2 + edema, left greater than the right, no cyanosis, 2 + pulses and upper and lower extremities. MUSCULOSKELETAL: Muscle strength and tone normal. SPINE: No scoliosis or deformity SKIN: No rashes CENTRAL NERVOUS SYSTEM: Alert and oriented -3. No focal deficits, tone is normal in all 4 extremities. PSYCHIATRIC: Alert and oriented -3. Appropriate affect. Intact judgment and insight. - Labs CBC & Chem 7: 08/09/18 06:21 08/09/18 06:21 Labs: Abnormal Lab Results - Last 24 Hours (Table) 08/08/18 08/08/18 08/09/18 Range/Units 16:30 20:56 05:51 Hgb (13.0-17.5) gm/dL RDW (11.5-15.5) % Neutrophils # (1.3-7.7) k/uL Lymphocytes # (1.0-4.8) k/uL Sodium (137-145) mmol/L BUN (9-20) mg/dL Glucose (74-99) mg/dL POC Glucose (mg/dL) 273 H 333 H 257 H (75-99) mg/dL 08/09/18 08/09/18 08/09/18 Range/Units 06:21 06:21 11:38 Hgb 12.9 L (13.0-17.5) gm/dL RDW 20.1 H (11.5-15.5) % Neutrophils # 9.4 H (1.3-7.7) k/uL Lymphocytes # 0.4 L (1.0-4.8) k/uL Sodium 136 L (137-145) mmol/L BUN 33 H (9-20) mg/dL Glucose 255 H (74-99) mg/dL POC Glucose (mg/dL) 207 H (75-99) mg/dL Assessment and Plan Plan: 1 acute COPD exacerbation with secondary shortness of breath, chest that is so wheezing. Rule out underlying tracheal bronchitis. The patient's chest x-ray is free of any acute pulmonary infiltrates or pneumonia or consolidation. 2 chronic hypoxic respiratory failure secondary to COPD 3 snoring and witnessed apneas and excessive hypersomnia and sleepiness, highly suggestive obstructive sleep apnea 4 diabetes mellitus insulin-dependent with steroid-induced hyperglycemia 5 acute kidney injury 6 chronic lower extremity edema with interval worsening in the swelling in the legs bilaterally 7 hyperlipidemia 8 BPH 9 history of ASHLEY inhibitor induced angioedema Plan Patient continues to improve, stable, vital signs are stable, breathing easier, less bronchospastic, edema is improving in lower extremities. From pulmonary perspective patient is stable for discharge home, on prednisone taper, outpatient course of Zithromax, albuterol inhaler. Will need outpatient follow- up with Dr. Fields in the office in 7-10 days. I performed a history & physical examination of the patient and discussed their management with my nurse practitioner, Iva Cortes. I reviewed the nurse practitioner's note and agree with the documented findings and plan of care. Lung sounds are diminished, with a few scattered rhonchi. The findings and the impression was discussed with the patient. I attest to the documentation by the nurse practitioner. Time with Patient: Less than 30
[2018-08-10] MEDS ORDERED: FUROSEMIDE 40 MG TAB PO SCH (09:00)
== END 2018-08-09 14:40 | disposition home or self-care (01) | DRG 190 ==
LOC: EC 21:25 → 1SOBS 08-06 00:15 → OBSVTOIN 08-06 12:26 → 3SCARD 08-06 17:38
PROVIDERS: ADMIT Internal Medicine; ATTEND Internal Medicine
DX: J44.1 Chronic obstructive pulmonary disease with (acute) exacerbation (principal); I50.33 Acute on chronic diastolic (congestive) heart failure; I45.2 Bifascicular block; J96.11 Chronic respiratory failure with hypoxia; N17.9 Acute kidney failure, unspecified; J44.0 Chronic obstructive pulmonary disease with (acute) lower respiratory infection; I11.0 Hypertensive heart disease with heart failure; E11.65 Type 2 diabetes mellitus with hyperglycemia; E87.5 Hyperkalemia; J20.9 Acute bronchitis, unspecified; E66.9 Obesity, unspecified; E78.5 Hyperlipidemia, unspecified; F17.210 Nicotine dependence, cigarettes, uncomplicated; G47.33 Obstructive sleep apnea (adult) (pediatric); I45.10 Unspecified right bundle-branch block; N40.0 Benign prostatic hyperplasia without lower urinary tract symptoms; T38.0X5A Adverse effect of glucocorticoids and synthetic analogues, initial encounter; T50.2X5A Adverse effect of carbonic-anhydrase inhibitors, benzothiadiazides and other diuretics, initial encounter; T46.5X5A Adverse effect of other antihypertensive drugs, initial encounter; Z68.31 Body mass index [BMI] 31.0-31.9, adult; Z79.4 Long term (current) use of insulin; Z79.899 Other long term (current) drug therapy; Z85.828 Personal history of other malignant neoplasm of skin; Z87.01 Personal history of pneumonia (recurrent); Z88.8 Allergy status to other drugs, medicaments and biological substances; Z90.49 Acquired absence of other specified parts of digestive tract
CPT/HCPCS: 36415; 71046; 80053; 80061; 82550; 82553; 83036; 83735; 83880; 84132; 84484; 85025; 85379; 85610; 85730; 93005; 93306; 94640; 94760; 96374; 99285

== ENCOUNTER → 2018-08-21 | Outpatient (CLI) | payer MEDICARE | END | disposition home or self-care (01) | LOC: RADXRMAIN 14:25 | PROVIDERS: ATTEND Internal Medicine Critical Care Medicine | DX: T78.3XXA Angioneurotic edema, initial encounter (principal) | CPT/HCPCS: 86161 ==

== ENCOUNTER → 2018-11-04 | Outpatient (CLI) | payer MEDICARE ==
[2018-11-04 13:07] LABS: HCT 42.4 % (39.0-53.0); HGB 13.9 gm/dL (13.0-17.5); MCH 30.2 pg (25.0-35.0); MCHC 32.7 g/dL (31.0-37.0); MCV 92.3 fL (80.0-100.0); Mean Platelet Volume 7.6; Platelet Count 262 k/uL (150-450); RBC 4.59 m/uL (4.30-5.90); RDW 15.5 % (11.5-15.5); WBC 6.9 k/uL (3.8-10.6)
== END | disposition home or self-care (01) ==
LOC: LABPAT 11:15
PROVIDERS: ATTEND Internal Medicine Interventional Cardiology
DX: Z01.812 Encounter for preprocedural laboratory examination (principal); R94.39 Abnormal result of other cardiovascular function study
CPT/HCPCS: 36415; 80051; 82565; 84520; 85027

== ENCOUNTER 2018-11-11 10:54 | Day surgery (SDC) | payer MEDICARE ==
[2018-11-10 08:59] VITALS: BMI 33.9
[~2018-11-11 10:54] MED LIST: ALPRAZolam 0.25 MG TAB PO PRN; ASPIRIN 325 MG TAB PO ONE; SODIUM CHLORIDE 0.9% 1,000 ML in EMPTY BAG 1 BAG IV ONE
[2018-11-11 11:23] LABS: Glucose,Whole Blood 121 mg/dL (75-99)
[2018-11-11] MEDS ORDERED: LOSARTAN 50 MG TAB PO STA (11:27)
[2018-11-11] MEDS ORDERED: METOPROLOL TARTRATE 25 MG TAB PO STA (11:27)
[2018-11-11] MEDS ORDERED: METOPROLOL TARTRATE 50 MG TAB ONE (11:28)
[2018-11-11 11:35] VITALS: RESP 16; TEMP 97.8
[2018-11-11] MEDS ORDERED: fentaNYL (PF) 50 MCG/ML 2 ML AMP ONE (12:33)
[2018-11-11] MEDS ORDERED: fentaNYL (PF) 50 MCG/ML 2 ML AMP IVP ONE (12:53)
[2018-11-11] MEDS ORDERED: LIDOCAINE 2% INJ 20 MG/ML SQ ONE (13:02)
[2018-11-11] MEDS ORDERED: VERAPAMIL SYRINGE (5 MG/10 ML) INTRAARTER ONE (13:03)
[2018-11-11] MEDS ORDERED: HEPARIN SODIUM 1,000 UN/ML (10ML VL) IV ONE (13:09)
[2018-11-11] MEDS ORDERED: IOPAMIDOL-370 100ML BTL INJ ONE (13:18)
[2018-11-11] MEDS ORDERED: RX INFO: IV CONTRAST WAS GIVEN 1 EACH MISC MISCELLANE PRN (13:30)
[2018-11-11] MEDS ORDERED: SODIUM CHLORIDE 0.9% 1,000 ML IV SCH (13:30)
[2018-11-11] MEDS ORDERED: diphenhydrAMINE 25 MG CAP PO PRN (13:31)
[2018-11-11] MEDS ORDERED: ALBUTEROL NEBULIZED 2.5 MG/3 ML INHALATION PRN (13:31)
[2018-11-11 13:36] LABS: Glucose,Whole Blood 126 mg/dL (75-99)
--- NOTE | 2018-11-11 14:30 | CC ---
CARDIAC CATHETERIZATION REPORT Mr. Hollis is a 68-year-old male with known history of hypertension, hyperlipidemia and a family history of premature coronary artery disease who presented with symptoms of chest discomfort and had an abnormal myocardial perfusion imaging. In view of that, recommendation made regarding cardiac catheterization, the procedures, risks and complication were discussed with the patient, who is in full understanding and agreement. PROCEDURE: Patient was brought to the slab lifting supervisor in a fasting semi-sedated state after receiving fentanyl and Benadryl and achieving moderate conscious sedated state. Using Xylocaine anesthesia and Seldinger technique, a 6-Swedish sheath was introduced in the right radial artery. Selective right and left coronary angiography was performed using 5- Swedish 3.5 bend right and left Sri catheter. Multiple views of the right coronary artery including hemiaxial views were obtained. Following that 5-Swedish tight pigtail catheter was introduced in the left ventricle and a 30 degree GARCIA view of the left ventricle was obtained. Following that, catheter and sheath were removed. Hemostasis was obtained with deployment of a TR band. There was no immediate complication patient was returned to his room in stable condition. Of note, the patient received 5000 units of intravenous heparin as well as intra-arterial verapamil. FINDINGS: 1. FLUOROSCOPY: There was calcification involving the left anterior descending artery. 2. LEFT MAIN: This is a large-sized vessel, bifurcating into left circumflex, left anterior descending artery, left main coronary artery has no evidence of high-grade stenosis. 3. LEFT ANTERIOR DESCENDING ARTERY: This is a large-sized vessel, reaching toward the apex, calcified in the proximal and mid segment, giving rise to a small diagonal branch. The left anterior descending artery has mild plaque proximally in the mid segment of about 10%-20% without any evidence of high-grade stenosis. 4. LEFT CIRCUMFLEX: This is a nondominant vessel, giving rise to a large obtuse marginal branch. The proximal segment of the obtuse marginal branch has a tubular lesion of about 30%-40%. The rest of the vessel has no high-grade stenosis. 5. RIGHT CORONARY ARTERY: This is a large dominant vessel, bifurcating into PDA and posterolateral segment and branches. The right coronary artery in the mid segment has a 30% plaque. The rest of the vessel has no high-grade stenosis. LEFT VENTRICULOGRAM: Left ventriculogram was performed in 30 degree GARCIA view and revealed normal left ventricular size and systolic function. Ejection fraction is 55%. There was no significant mitral regurgitation. HEMODYNAMICS: There was no gradient across the aortic valve. The left ventricular end-diastolic pressure was 14-16 mmHg. CONCLUSION: 1. Calcified left anterior descending artery. 2. Mild to moderate triple-vessel coronary artery disease. 3. Preserved ventricular size and systolic function. RECOMMENDATION: In view of finding anatomy, I recommend to continue medical therapy with aggressive coronary risk modifications being initiated. Those findings and recommendation were discussed with the patient and his family who are in full understanding and agreement. Duration of the procedure is 15 minutes. MMODL / IJN: [id number] /
[2018-11-11] MEDS ORDERED: REPAGLINIDE 1 MG TAB PO SCH (16:00)
[2018-11-11 16:59] LABS: Glucose,Whole Blood 163 mg/dL (75-99)
[2018-11-11] MEDS ORDERED: NON-FORMULARY DRUG (Insulin Glargine 20 UNIT) SQ SCH (17:30)
[2018-11-11 20:23] VITALS: BP 121/68; PULSE 78
[2018-11-11] MEDS ORDERED: METOPROLOL TARTRATE 25 MG TAB PO SCH (21:00)
[2018-11-11] MEDS ORDERED: LOVASTATIN PO SCH (21:00)
[2018-11-12] MEDS ORDERED: TAMSULOSIN 0.4 MG CAP.ER.24H PO SCH (09:00)
[2018-11-12] MEDS ORDERED: NON-FORMULARY DRUG (Aspirin [Adult Low Dose Aspirin Ec] 81 MG) PO SCH (09:00)
[2018-11-12] MEDS ORDERED: PIOGLITAZONE 45 MG TAB PO SCH (09:00)
[2018-11-12] MEDS ORDERED: NON-FORMULARY DRUG (Losartan Potassium [Cozaar] 100 MG) PO SCH (09:00)
[2018-11-12] MEDS ORDERED: FERROUS SULFATE 325 MG TAB PO SCH (09:00)
== END 2018-11-11 18:00 | disposition home or self-care (01) ==
LOC: CATHCVL 10:54
PROVIDERS: ATTEND Internal Medicine Interventional Cardiology
DX: I25.10 Atherosclerotic heart disease of native coronary artery without angina pectoris (principal); I10 Essential (primary) hypertension; E78.5 Hyperlipidemia, unspecified; R94.39 Abnormal result of other cardiovascular function study; E11.9 Type 2 diabetes mellitus without complications; E78.00 Pure hypercholesterolemia, unspecified; G47.33 Obstructive sleep apnea (adult) (pediatric); F17.210 Nicotine dependence, cigarettes, uncomplicated; Z82.49 Family history of ischemic heart disease and other diseases of the circulatory system; Z79.899 Other long term (current) drug therapy; Z79.4 Long term (current) use of insulin
CPT/HCPCS: 93458; C1894; C1769; J2001; J3010; J1644; Q9967

== ENCOUNTER 2022-06-26 06:41 | Day surgery (SDC) | payer MEDICARE ==
[2022-06-26] MEDS ORDERED: LACTATED RINGERS 1,000 ML IV SCH (07:29)
[2022-06-26 07:33] VITALS: TEMP 97.4
[2022-06-26 07:44] LABS: Glucose,Whole Blood 150 mg/dL (70-110)
[2022-06-26] MEDS ORDERED: PROPOFOL 10 MG/ML 20 ML VIAL IV ONE (07:48)
--- NOTE | 2022-06-26 07:49 | P.GSHP ---
History of Present Illness H&P Date: 06/26/22 Chief Complaint: Screening colonoscopy This is a 71-year-old male presents today for screening colonoscopy. Patient denies any significant GI complaints. Past Medical History Past Medical History: Cancer, COPD, Diabetes Mellitus, GERD/Reflux, Hypertension, Sleep Apnea/CPAP/BIPAP Additional Past Medical History / Comment(s): SKIN CANCER, SLEEP APNEA-cpap, hx BLEEDING HEMORRHOID, LIMITED MOBILITY LEFT ARM AFTER SKIN CANCER REMOVED., HX OF A FALL WITH FX VERTEBRAE & RUPTURED DISC YRS AGO. SEE CARDIOLOGY H & P. Told by Dr Harris that he has a hernia in his stomach. Arthritis lower spine and arms History of Any Multi-Drug Resistant Organisms: None Reported Past Surgical History: Appendectomy, Orthopedic Surgery Additional Past Surgical History / Comment(s): Left eye surgery, lens transplant, CA removed from left shoulder, barn spike through his left foot and removed. Past Anesthesia/Blood Transfusion Reactions: No Reported Reaction Additional Past Anesthesia/Blood Transfusion Reaction / Comment(s): No blood transfusions Smoking Status: Light tobacco smoker - Past Family History Brother(s) Family Medical History: No Reported History Mother Additional Family Medical History / Comment(s): low BP and low sugar Father Family Medical History: Diabetes Mellitus Medications and Allergies Home Medications Medication Instructions Recorded Confirmed Type Insulin Glargine [Lantus Vial] 20 unit SQ AC-SUPPER 05/23/18 06/25/22 History Lovastatin [Mevacor] 40 mg PO HS 05/23/18 06/25/22 History Tamsulosin [Flomax] 0.4 mg PO DAILY 05/23/18 06/25/22 History metFORMIN HCL [Glucophage] 500 mg PO BID 08/05/18 06/25/22 History Albuterol Inhaler [Ventolin Hfa 2 puff INHALATION Q6H PRN #1 08/09/18 06/25/22 Rx Inhaler] inhaler Aspirin [Adult Low Dose Aspirin EC] 81 mg PO DAILY 11/10/18 06/25/22 History Ferrous Sulfate [Feosol] 325 mg PO DAILY 11/10/18 06/25/22 History Losartan Potassium [Cozaar] 100 mg PO DAILY 11/10/18 06/25/22 History diphenhydrAMINE [Benadryl] 25 mg PO BID PRN 11/10/18 06/25/22 History Insulin Aspart [NovoLOG] 0 units SQ ACHS PRN 06/25/22 06/25/22 History Insulin Degludec [Tresiba] 70 units SQ DAILY 06/25/22 06/25/22 History Unk Ozempic 1 dose SQ WEEKLY 06/25/22 06/25/22 History Allergies Allergy/AdvReac Type Severity Reaction Status Date / Time No Known Allergies Allergy Verified 06/26/22 07:44 Surgical - Exam Vital Signs Temp Pulse Resp BP Pulse Ox 97.4 F L 106 H 18 134/80 96 06/26/22 07:28 06/26/22 07:28 06/26/22 07:28 06/26/22 07:28 06/26/22 07:28 - General well developed, well nourished, no distress - Eyes PERRL - ENT normal pinna - Respiratory normal expansion - Cardiovascular Rhythm: regular - Abdomen Abdomen: soft, non tender Results - Labs Abnormal Lab Results - Last 24 Hours (Table) 06/26/22 Range/Units 07:38 POC Glucose (mg/dL) 150 H (70-110) mg/dL Assessment and Plan Assessment: We'll perform screening colonoscopy
--- NOTE | 2022-06-26 08:07 | P.OP ---
Date of Procedure: 06/26/22 Preoperative Diagnosis: Screening colonoscopy Postoperative Diagnosis: Bleeding internal and external hemorrhoids Diverticulosis Transverse colon polyp Procedure(s) Performed: Colonoscopy Anesthesia: MAC Surgeon: Cedric Hassan Pathology: other (Transverse colon polyp) Condition: stable Disposition: PACU Description of Procedure: The patient's placed on the endoscopy table in the lateral position. He received IV sedation. Digital rectal exam was performed. There were bleeding internal and external hemorrhoids. Photographs the hemorrhoids were performed. The prostate was symmetric without nodules. The flexible colonoscope was then placed patient anus and passed throughout the entire colon. The ileocecal valve was visualized. The cecum appeared normal. The ascending colon appeared normal. The transverse colon was normal. In the descending; there is moderate diverticular changes. The scope was then brought back the rectum and this appeared normal. Scope was withdrawn through the anus and bleeding internal and external hemorrhoids were seen. Scope was withdrawn for patient. The patient will follow-up as an outpatient for hemorrhoidectomy.
[2022-06-26 08:15] VITALS: RESP 16
[2022-06-26 08:23] VITALS: BP 123/80; PULSE 96
== END 2022-06-26 08:43 | disposition home or self-care (01) ==
LOC: ORWHC2ENDO 06:41
PROVIDERS: ATTEND Surgery
DX: Z12.11 Encounter for screening for malignant neoplasm of colon (principal); D12.3 Benign neoplasm of transverse colon; K64.4 Residual hemorrhoidal skin tags; K64.8 Other hemorrhoids; J44.9 Chronic obstructive pulmonary disease, unspecified; E11.9 Type 2 diabetes mellitus without complications; I10 Essential (primary) hypertension; G47.30 Sleep apnea, unspecified; K21.9 Gastro-esophageal reflux disease without esophagitis; F17.200 Nicotine dependence, unspecified, uncomplicated; Z79.4 Long term (current) use of insulin; Z79.82 Long term (current) use of aspirin; Z79.84 Long term (current) use of oral hypoglycemic drugs; Z83.3 Family history of diabetes mellitus; Z85.828 Personal history of other malignant neoplasm of skin; Z87.19 Personal history of other diseases of the digestive system; Z90.49 Acquired absence of other specified parts of digestive tract
CPT/HCPCS: 88305; 45380; J2704

== ENCOUNTER → 2022-07-04 | Outpatient (CLI) | payer MEDICARE ==
[2022-07-04 18:46] LABS: Basophils # (A) 0.04 X 10*3/uL (0.00-0.10); Basophils % (A) 0.5 %; Eosinophils # (A) 0.07 X 10*3/uL (0.04-0.35); Eosinophils % (A) 0.8 %; HCT 45.3 % (39.6-50.0); HGB 14.3 g/dL (13.0-17.0); Immature Grans, Automated 0.3 %; Lymphocytes # (A) 1.16 X 10*3/uL (0.90-5.00); Lymphocytes % (A) 13.4 %; MCH 28.3 pg (27.0-32.0); MCHC 31.6 g/dL (32.0-37.0); MCV 89.7 fL (80.0-97.0); Mean Platelet Volume 10.6 fL (9.5-12.2); Monocytes # (A) 0.75 X 10*3/uL (0.20-1.00); Monocytes % (A) 8.6 %; NRBC Per 100 WBC 0 /100 WBCS (0.0-0.0); Neutrophils # (A) 6.63 X 10*3/uL (1.80-7.70); Neutrophils % (A) 76.4 %; Platelet Count 250 X 10*3/uL (140-440); RBC 5.05 X 10*6/uL (4.40-5.60); RDW 15.3 % (11.5-14.5); WBC 8.68 X 10*3/uL (4.50-10.00)
== END | disposition home or self-care (01) ==
LOC: LABPAT 11:55
PROVIDERS: ATTEND Surgery
DX: Z01.812 Encounter for preprocedural laboratory examination (principal)
CPT/HCPCS: 85025; 93005

== ENCOUNTER 2022-07-09 10:16 | Day surgery (SDC) | payer MEDICARE ==
[2022-07-08 08:19] VITALS: BMI 32.3
[~2022-07-09 10:16] MED LIST changes: -ALPRAZolam 0.25 MG TAB PO PRN; -ASPIRIN 325 MG TAB PO ONE; +DEXAMETHASONE SOD PHOSPHATE 4 MG/ML 1 ML VIAL IV ONE; +HYDROmorphone 0.5 MG/0.5 ML SYRINGE IVP PRN; +LIDOCAINE 1% (10MG/ML) FOR IV START INTRADERMA PRN; +ONDANSETRON 4 MG/2 ML VIAL IVP ONE; -SODIUM CHLORIDE 0.9% 1,000 ML in EMPTY BAG 1 BAG IV ONE
[2022-07-09 11:09] LABS: Glucose,Whole Blood 154 mg/dL (70-110)
[2022-07-09] MEDS: LACTATED RINGERS 1,000 ML IV SCH (11:10)
[2022-07-09] MEDS ORDERED: IPRATROPIUM-ALBUTEROL 3 ML NEB INHALATION STA (11:15)
[2022-07-09] MEDS ORDERED: HEPARIN SODIUM,PORCINE/PF 5,000 UNIT/0.5 ML SYRINGE SQ ONE (11:27)
[2022-07-09] MEDS ORDERED: ACETAMINOPHEN TAB 500 MG TAB ONE (11:28)
[2022-07-09] MEDS ORDERED: fentaNYL (PF) 50 MCG/1 ML VIAL IVP ONE (11:38)
--- NOTE | 2022-07-09 11:46 | P.ANPRN ---
Procedure Note - Anesthesia - Nerve Block Performed Bilateral Transversus Abdominis Single Time Out Performed: Yes Date of Procedure: 07/09/22 Procedure Start Time: Procedure Stop Time: Location of Patient: PreOp Indication: Acute Post-Operative Pain, Requested by Surgeon Sedation Type: Sedate with meaningful contact maintained Preparation: Sterile Prep Position: Supine Needle Types: Pajunk Needle Gauge: 21 Ultrasound used to visualize needle placement: Yes Ultrasound used to observe medication spread: Yes Injectate: 0.5% Ropivacaine (see comment for volume) (0.25% 20 CC RIGHT, 20 CC LEFT) Blood Aspirated: No Pain Paresthesia on Injection Noted: No
[2022-07-09 12:23] LABS: Calcium 9.1 mg/dL (8.4-10.2); Potassium 4.1 mmol/L (3.5-5.1)
--- NOTE | 2022-07-09 12:24 | P.GSHP ---
History of Present Illness H&P Date: 07/09/22 Chief Complaint: Umbilical hernia Is a 72-year-old male who presents today for laparoscopic robotic-assisted repair of umbilical hernia. Patient's complaints of umbilical pain. Past Medical History Past Medical History: Cancer, COPD, Diabetes Mellitus, GERD/Reflux, Hypertension, Sleep Apnea/CPAP/BIPAP Additional Past Medical History / Comment(s): SKIN CANCER, SLEEP APNEA-cpap, hx BLEEDING HEMORRHOID, LIMITED MOBILITY LEFT ARM AFTER SKIN CANCER REMOVED., HX OF A FALL WITH FX VERTEBRAE & RUPTURED DISC YRS AGO. SEE CARDIOLOGY H & P. Told by Dr Harris that he has a hernia in his stomach. Arthritis lower spine and arms History of Any Multi-Drug Resistant Organisms: None Reported Past Surgical History: Appendectomy, Orthopedic Surgery Additional Past Surgical History / Comment(s): Left eye surgery, lens transplant, CA removed from left shoulder, barn spike through his left foot and removed. Past Anesthesia/Blood Transfusion Reactions: No Reported Reaction Additional Past Anesthesia/Blood Transfusion Reaction / Comment(s): No blood transfusions Smoking Status: Light tobacco smoker - Past Family History Brother(s) Family Medical History: No Reported History Mother Additional Family Medical History / Comment(s): low BP and low sugar Father Family Medical History: Diabetes Mellitus Medications and Allergies Home Medications Medication Instructions Recorded Confirmed Type Lovastatin [Mevacor] 40 mg PO HS 05/23/18 07/09/22 History Tamsulosin [Flomax] 0.4 mg PO QAM 05/23/18 07/09/22 History metFORMIN HCL [Glucophage] 500 mg PO BID 08/05/18 07/09/22 History Aspirin [Adult Low Dose Aspirin EC] 81 mg PO DAILY 11/10/18 07/09/22 History Ferrous Sulfate [Feosol] 325 mg PO DAILY 11/10/18 07/09/22 History Insulin Aspart [NovoLOG] 14 units SQ TID 06/25/22 07/09/22 History Insulin Degludec [Tresiba] 70 units SQ QAM 06/25/22 07/09/22 History Semaglutide [Ozempic] 1 mg SQ Q7D 06/25/22 07/09/22 History Dapagliflozin Propanediol [Farxiga] 10 mg PO DAILY 07/07/22 07/09/22 History Furosemide [Lasix] 40 mg PO DAILY 07/07/22 07/09/22 History Losartan/Hydrochlorothiazide 1 tab PO QAM 07/07/22 07/09/22 History [Losartan-Hctz 100-25 mg Tab] Metoprolol Succinate (ER) [Toprol 100 mg PO QAM 07/07/22 07/09/22 History Xl] Multivitamins, Thera [Multivitamin 1 tab PO DAILY 07/07/22 07/09/22 History (formulary)] Potassium Gluconate [Potassium 99 mg PO DAILY 07/07/22 07/09/22 History Gluconate ER] Allergies Allergy/AdvReac Type Severity Reaction Status Date / Time No Known Allergies Allergy Verified 07/09/22 10:49 Surgical - Exam Vital Signs Temp Resp BP Pulse Ox 97.1 F L 15 152/72 97 07/09/22 11:00 07/09/22 11:00 07/09/22 11:00 07/09/22 11:00 - General well developed, well nourished, no distress - Eyes PERRL - ENT normal pinna - Neck no masses - Respiratory normal expansion - Cardiovascular Rhythm: regular - Abdomen Abdomen: soft, non tender Hernia: umbilical Results - Labs Abnormal Lab Results - Last 24 Hours (Table) 07/09/22 Range/Units 11:02 POC Glucose (mg/dL) 154 H (70-110) mg/dL Assessment and Plan Assessment: Umbilical hernia. We'll perform laparoscopic robotic-assisted repair.
[2022-07-09] MEDS ORDERED: MIDAZOLAM 2 MG/2 ML VIAL ONE (12:44)
[2022-07-09] MEDS ORDERED: PROPOFOL 10 MG/ML 20 ML VIAL IV ONE (12:44)
[2022-07-09] MEDS ORDERED: LIDOCAINE 4% LTA KIT (4 ML) TOPICAL ONE (12:44)
[2022-07-09] MEDS ORDERED: GLYCOPYRROLATE 0.2 MG/ML 2 ML VIAL ONE (12:44)
[2022-07-09] MEDS ORDERED: fentaNYL (PF) 50 MCG/ML 2 ML AMP ONE (12:44)
[2022-07-09] MEDS ORDERED: KETAMINE 10 MG/ML 20 ML VIAL ONE (12:44)
[2022-07-09] MEDS ORDERED: SUCCINYLCHOLINE CHLORIDE 200 MG/10 ML VIAL IV ONE (12:44)
[2022-07-09] MEDS ORDERED: ROPIVACAINE 5 MG/ML 30 ML VIAL ONE (12:44)
[2022-07-09] MEDS ORDERED: NEOSTIGMINE 1 MG/ML 10 ML VIAL ONE (12:44)
[2022-07-09] MEDS ORDERED: SODIUM CHLORIDE 0.9% 50 ML with ceFAZolin 2,000 MG IV ONE ×2 (12:47)
[2022-07-09] MEDS ORDERED: BUPIVACAIN-EPI 0.25%-1:200,000 30 ML VIAL SQ ONE (13:01)
[2022-07-09] MEDS ORDERED: LACTATED RINGERS 1,000 ML IV ONE ×2 (13:31→13:42)
[2022-07-09] MEDS ORDERED: ACETAMINOPHEN TAB 325 MG TAB PO PRN (13:42)
[2022-07-09] MEDS ORDERED: HYDROmorphone 0.5 MG/0.5 ML SYRINGE IVP PRN (13:42)
[2022-07-09] MEDS ORDERED: ONDANSETRON 4 MG/2 ML VIAL IVP PRN (13:42)
[2022-07-09] MEDS ORDERED: HYDROmorphone 1 MG/ML 1 ML SYRINGE IVP PRN (13:42)
[2022-07-09] MEDS ORDERED: HYDROcodone/APAP 5-325MG 1 EACH TAB PO PRN ×2 (13:42)
[2022-07-09] MEDS ORDERED: NALOXONE 0.4 MG/ML 1 ML VIAL IV PRN (13:42)
--- NOTE | 2022-07-09 15:02 | P.OP ---
Date of Procedure: 07/09/22 Preoperative Diagnosis: Umbilical hernia Postoperative Diagnosis: Umbilical hernia Procedure(s) Performed: Laparoscopic robotic-assisted repair of umbilical hernia Partial omentectomy Transversus abdominis plane block Anesthesia: YOSHI Surgeon: Cedric Hassan Estimated Blood Loss (ml): 5 Pathology: other (Omentum) Condition: stable Disposition: PACU Description of Procedure: The patient was placed on the operating table in the supine position. He received general anesthesia. His abdomen was prepped and draped usual fashion. Using a 5 mm optical trocar under direct visualization the peritoneal cavity was entered in the left upper quadrant. The abdomen was then insufflated. The laparoscope was placed back into the perineal cavity. Next a 8 mm robotic trocar was placed in the left lower quadrant and a 12 mm robotic trocar was placed in the left lateral position. The original 5 mm trocar was exchanged for a 8 mm robotic trocar. Next, a four-quadrant transversus abdominis plane block performed with 1% local Xylocaine. The patient's placed in the left side up position. And the patient was docked the robot. The umbilical hernia was visualized. Using hook cautery the peritoneum over the umbilical hernia was excised. Incarcerated omentum was dissected free sent to pathology. The fascial opening was repaired using 0V LOC suture. Next a piece of 11 cm round ventral light ST mesh was placed into the. Cavity and secured with 2 OV lock suture. The patient was undocked the robot. The needles were retrieved. The fascia of the 12 mm trocar site was closed with 0 Ethibond suture. Skin was closed interrupted 3-0 Monocryl suture. Dermabond dressings was applied. Patient top procedure well and was sent to recovery room stable condition.
[2022-07-09] MEDS ORDERED: DEXTROSE 50% SYRINGE 50 ML IVP PRN ×2 (16:22)
[2022-07-09 17:31] LABS: Glucose,Whole Blood 167 mg/dL (70-110)
[2022-07-09] MEDS: INSULIN ASPART (NovoLOG) 100 UNIT/ML VIAL SQ SCH ×2 (18:04→22:14)
[2022-07-09] MEDS ORDERED: INSULIN DETEMIR (LEVEMIR) 100 UNIT/ML SYR SQ SCH (21:00)
[2022-07-09 21:56] LABS: Glucose,Whole Blood 254 mg/dL (70-110)
[2022-07-09] MEDS: DOCUSATE 100 MG CAP PO SCH (22:14)
[2022-07-10 06:50] LABS: Glucose,Whole Blood 145 mg/dL (70-110)
[2022-07-10] MEDS: INSULIN ASPART (NovoLOG) 100 UNIT/ML VIAL SQ SCH (06:50)
[2022-07-10] MEDS: DOCUSATE 100 MG CAP PO SCH (08:36)
[2022-07-10] MEDS: LACTATED RINGERS 1,000 ML IV SCH (08:46)
[2022-07-10 08:52] VITALS: BP 131/72; PULSE 100; RESP 16; TEMP 97.6
[2022-07-10] MEDS ORDERED: LOSARTAN-HCTZ 50-12.5 MG 1 EACH TAB PO SCH (09:00)
[2022-07-10] MEDS ORDERED: METOPROLOL SUCCINATE (ER) 100 MG TAB.ER.24H PO SCH (09:00)
[2022-07-10] MEDS ORDERED: FUROSEMIDE 40 MG TAB PO SCH (09:00)
[2022-07-10] MEDS ORDERED: ENOXAPARIN 40 MG/0.4 ML SYRINGE SQ SCH (09:00)
[2022-07-10] MEDS ORDERED: TAMSULOSIN 0.4 MG CAP.ER.24H PO SCH (09:00)
== END 2022-07-10 10:14 | disposition home or self-care (01) ==
LOC: OR 10:16 → 6NMEDSUR 14:33 → OR 07-10 10:14
PROVIDERS: ATTEND Surgery
DX: K42.0 Umbilical hernia with obstruction, without gangrene (principal); J44.9 Chronic obstructive pulmonary disease, unspecified; E11.9 Type 2 diabetes mellitus without complications; Z79.4 Long term (current) use of insulin; K21.9 Gastro-esophageal reflux disease without esophagitis; I10 Essential (primary) hypertension; G47.33 Obstructive sleep apnea (adult) (pediatric); Z99.89 Dependence on other enabling machines and devices; Z85.828 Personal history of other malignant neoplasm of skin; Z87.19 Personal history of other diseases of the digestive system; M19.90 Unspecified osteoarthritis, unspecified site; Z90.49 Acquired absence of other specified parts of digestive tract; F17.210 Nicotine dependence, cigarettes, uncomplicated; Z83.3 Family history of diabetes mellitus; Z79.82 Long term (current) use of aspirin; Z79.01 Long term (current) use of anticoagulants; Z79.02 Long term (current) use of antithrombotics/antiplatelets; Z79.811 Long term (current) use of aromatase inhibitors; Z79.899 Other long term (current) drug therapy
CPT/HCPCS: 94640; 64488; 86900; 86901; 88305; 80048; 86850; 83036; 49653; C1781; J2250; J0330; J1100; J2710; J2405; J0690; J1650; J3010 ×2; J2795; J2704; J1170; J1644

== ENCOUNTER 2022-11-26 16:14 | Inpatient (IN) | payer MEDICARE ==
[2022-11-26] MEDS ORDERED: SODIUM CHLORIDE 0.9% 500 ML 500 ML IV STA (17:30)
[2022-11-26] MEDS ORDERED: fentaNYL (PF) 50 MCG/ML 2 ML AMP IVP STA (17:32)
[2022-11-26] MEDS ORDERED: FAMOTIDINE 20 MG/2 ML VIAL IV STA (17:33)
--- NOTE | 2022-11-26 17:37 | ED ---
Abdominal Pain HPI - General Source: patient, RN notes reviewed, old records reviewed Mode of arrival: wheelchair Limitations: no limitations - History of Present Illness MD Complaint: abdominal pain -: hour(s) (11) Location: periumbilical Radiation: none Severity scale (1-10): 8 Quality: sharp Consistency: constant Context: recent surgery/procedure (Umbilical hernia surgery 07/09/22) Associated Symptoms: denies other symptoms <Rigo Pimentel - Last Filed: 11/26/22 19:33> <Adrian Linn - Last Filed: 11/26/22 20:43> - General Chief Complaint: Abdominal Pain Stated Complaint: abd pain Time Seen by Provider: 11/26/22 17:22 - History of Present Illness Initial Comments: Nontoxic appearing 72-year-old male, alert and oriented 4, presents ambulatory to emergency room with periumbilical abdominal pain since 6 AM when waking up this morning. Patient denies any fevers. No nausea vomiting or diarrhea. States he did have a umbilical hernia repair June and has had no complications. Last bowel movement was yesterday evening and normal. Describes pain as 8 out of 10 and sharp. States not passing gas. (Rigo Pimentel) - Related Data Home Medications Medication Instructions Recorded Confirmed Lovastatin [Mevacor] 40 mg PO DAILY 05/23/18 11/26/22 Tamsulosin [Flomax] 0.4 mg PO DAILY 05/23/18 11/26/22 metFORMIN HCL [Glucophage] 1,000 mg PO DIRECTED 08/05/18 11/26/22 Aspirin [Adult Low Dose Aspirin EC] 81 mg PO DAILY 11/10/18 11/26/22 Semaglutide [Ozempic] 1 mg SQ Q7D 06/25/22 11/26/22 Dapagliflozin Propanediol [Farxiga] 10 mg PO DAILY 07/07/22 11/26/22 Furosemide [Lasix] 40 mg PO DAILY 07/07/22 11/26/22 Losartan/Hydrochlorothiazide 1 tab PO QAM 07/07/22 11/26/22 [Losartan-Hctz 100-25 mg Tab] Metoprolol Succinate (ER) [Toprol 100 mg PO DAILY 07/07/22 11/26/22 Xl] Insulin Aspart [NovoLOG Flexpen] 12 units SQ AC-TID 11/26/22 11/26/22 Insulin Degludec [Tresiba 60 units SQ DAILY 11/26/22 11/26/22 Flextouch U-200 Pen] Allergies Allergy/AdvReac Type Severity Reaction Status Date / Time No Known Allergies Allergy Verified 11/26/22 18:26 Review of Systems ROS Other: All systems not noted in ROS Statement are negative. <Rigo Pimentel - Last Filed: 11/26/22 19:33> ROS Other: All systems not noted in ROS Statement are negative. <Adrian Linn - Last Filed: 11/26/22 20:43> ROS Statement: Those systems with pertinent positive or pertinent negative responses have been documented in the HPI. Past Medical History Past Medical History: Cancer, COPD, Diabetes Mellitus, GERD/Reflux, Hypertension, Sleep Apnea/CPAP/BIPAP Additional Past Medical History / Comment(s): SKIN CANCER, SLEEP APNEA-cpap, hx BLEEDING HEMORRHOID, LIMITED MOBILITY LEFT ARM AFTER SKIN CANCER REMOVED., HX OF A FALL WITH FX VERTEBRAE & RUPTURED DISC YRS AGO. SEE CARDIOLOGY H & P. Told by Dr Harris that he has a hernia in his stomach. Arthritis lower spine and arms History of Any Multi-Drug Resistant Organisms: None Reported Past Surgical History: Appendectomy, Orthopedic Surgery Additional Past Surgical History / Comment(s): Left eye surgery, lens transplant, CA removed from left shoulder, barn spike through his left foot and removed. Past Anesthesia/Blood Transfusion Reactions: No Reported Reaction Additional Past Anesthesia/Blood Transfusion Reaction / Comment(s): No blood transfusions Past Psychological History: No Psychological Hx Reported Smoking Status: Current every day smoker Past Alcohol Use History: None Reported Past Drug Use History: None Reported - Past Family History Brother(s) Family Medical History: No Reported History Mother Additional Family Medical History / Comment(s): low BP and low sugar Father Family Medical History: Diabetes Mellitus <Rigo Pimentel - Last Filed: 11/26/22 19:33> General Exam Limitations: no limitations General appearance: alert, in no apparent distress Head exam: Present: atraumatic Eye exam: Present: EOMI, other (Left pupil 4mm right pupil at 2mm, patient states history of multiple surgeries left eye). Absent: scleral icterus, conjunctival injection, periorbital swelling ENT exam: Present: mucous membranes moist Neck exam: Absent: tenderness, meningismus Respiratory exam: Absent: respiratory distress, accessory muscle use Cardiovascular Exam: Present: regular rate GI/Abdominal exam: Present: tenderness (umbilical). Absent: guarding, rebound, rigid, mass Extremities exam: Present: normal capillary refill Neurological exam: Present: alert, oriented X3 Psychiatric exam: Present: normal affect, normal mood Skin exam: Present: warm, dry, normal color. Absent: cyanosis, diaphoretic, petechiae, pallor <Rigo Pimentel - Last Filed: 11/26/22 19:33> Course <Adrian Linn - Last Filed: 11/26/22 20:43> Vital Signs 11/26/22 11/26/22 16:23 19:41 Temperature 97.4 F L Pulse Rate 88 90 Respiratory 16 17 Rate Blood Pressure 137/77 160/86 O2 Sat by Pulse 97 97 Oximetry - Reevaluation(s) Reevaluation #1: 11/26/22 20:42 Medical record is reviewed (Adrian Linn) Reevaluation #2: 11/26/22 20:42 Patient's pain is well-controlled (Adrian Linn) Reevaluation #3: 11/26/22 20:42 patient informed results questions answered (Adrian Linn) Medical Decision Making - Lab Data Result diagrams: 11/26/22 18:01 11/26/22 18:01 - EKG Data -: EKG Interpreted by Ak EKG shows normal: sinus rhythm (Sinus rhythm with a ventricular rate of 84, first degree AV block with SC interval 0.244, QRS 0.137, QTC 0.4153significant concerning changes compared to old 07/07/2022.) <Rigo Pimentel - Last Filed: 11/26/22 19:33> - Lab Data Result diagrams: 11/26/22 18:01 11/26/22 18:01 - Radiology Data Radiology results: report reviewed (CT abd pelvis is positive for pancreatitis), image reviewed <Adrian Linn - Last Filed: 11/26/22 20:43> - Medical Decision Making EKG interpreted by me shows sinus rhythm with a ventricular rate of 84, first degree AV block with SC interval 0.244, QRS 0.137, QTC 0.415. First degree block increased from .180 compared to old 07/07/2022. Was pt. sent in by a medical professional or institution (, PA, OCCUPATIONAL HEALTH AND SAFETY OFFICER, urgent care, hospital, or usp...) When possible be specific @ -[No] Did you speak to anyone other than the patient for history (EMS, parent, family, police, friend...)? What history was obtained from this source @ -[No] Did you review nursing and triage notes (agree or disagree)? Why? @ -[I reviewed and agree with nursing and triage notes] Were old charts reviewed (outside hosp., previous admission, EMS record, old EKG, old radiological studies, urgent care reports/EKG's, usp records)? Report findings @ -Surgical note showing umbilical hernia repair 07/09/[address] Hassan Differential Diagnosis (chest pain, altered mental status, abdominal pain women, abdominal pain men, vaginal bleeding, weakness, fever, dyspnea, syncope, headache, dizziness, GI bleed, back pain, seizure, CVA, palpatations, mental health, musculoskeletal)? @ -Differential Abdominal Pain Men: Appendicitis, cholecystitis, diverticulosis, ischemic bowel, pancreatitis, hepatitis, UTI, gastroenteritis, AAA, incarcerated hernia, bowel obstruction, constipation, inflammatory bowel, hepatitis, peptic ulcer disease, splenic infarction, perforated viscus, testicular torsion, this is not meant to be an all-inclusive list EKG interpreted by me (3pts min.). @ -Yes as above, EKG interpreted by me shows sinus rhythm with a ventricular rate of 84, first degree AV block with SC interval 0.244, QRS 0.137, QTC 0.415. First degree block increased from .180 compared to old 07/07/2022. X-rays interpreted by me (1pt min.). @ -[None done] CT interpreted by me (1pt min.). @ -[None done] U/S interpreted by me (1pt. min.). @ -[None done] What testing was considered but not performed or refused? (CT, X-rays, U/S, labs)? Why? @ -[None] What meds were considered but not given or refused? Why? @ -[None] Did you discuss the management of the patient with other professionals (professionals i.e. , PA, OCCUPATIONAL HEALTH AND SAFETY OFFICER, lab, RT, psych nurse, social media intern, spray machine tender, teacher, district fire management officer, shoe parts caser)? Give summary @ -[No] Was smoking cessation discussed for >3mins.? @ -[No] Was critical care preformed (if so, how long)? @ -[No] Were there social determinants of health that impacted care today? How? (Homelessness, low income, unemployed, alcoholism, drug addiction, transportation, low edu. Level, literacy, decrease access to med. care, shelter, rehab)? @ -[No] Was there de-escalation of care discussed even if they declined (Discuss DNR or withdrawal of care, Hospice)? DNR status @ -[No] What co-morbidities impacted this encounter? (DM, HTN, Smoking, COPD, CAD, Cancer, CVA, ARF, Chemo, Hep., AIDS, mental health diagnosis, sleep apnea, morbid obesity)? @ -COPD, diabetes, hypertension, GERD, umbilical hernia repair, appendectomy Was patient admitted / discharged? Hospital course, mention meds given and route, prescriptions, significant lab abnormalities, going to OR and other pertinent info. @ -Patient was given fentanyl, Pepcid with IV fluids with improvement in his symptoms. Labs show an elevated lipase consistent with pancreatitis. Creatinine 1.81, elevated on 07/09/2020 20 at 1.77 Mild leukocytosis of 12.4. EKG interpreted by me shows sinus rhythm with a ventricular rate of 84, first degree AV block with SC interval 0.244, QRS 0.137, QTC 0.415. First degree block increased from .180 compared to old 07/07/2022. Troponin negative. No evidence of lactic acidosis. CT pending. Case turned over to Dr. Linn for disposition. Undiagnosed new problem with uncertain prognosis? @ -[No] Drug Therapy requiring intensive monitoring for toxicity (Heparin, Nitro, Insulin, Cardizem)? @ -[No] Were any procedures done? @ -[No] Diagnosis/symptom? @ -[default] Acute, or Chronic, or Acute on Chronic? @ -[default] Uncomplicated (without systemic symptoms) or Complicated (systemic symptoms)? @ -[default] Side effects of treatment? @ -[No] Exacerbation, Progression, or Severe Exacerbation? @ -[No] Poses a threat to life or bodily function? How? (Chest pain, [place], [place], pneumonia, PE, COPD, DKA, ARF, appy, cholecystitis, CVA, Diverticulitis, Homicidal, Suicidal, threat to staff... and all critical care pts) @ -[No] (Rigo Pimentel) 69 female DF for evaluation severe abdominal pain patient be admitted for evaluation of pancreatitis computed tomography scan is negative and can be discharged home (Adrian Linn) - Lab Data Lab Results 11/26/22 11/26/22 11/26/22 Range/Units 18:01 18:01 18:01 WBC 12.4 H (3.8-10.6) k/uL RBC 5.21 (4.30-5.90) m/uL Hgb 14.1 (13.0-17.5) gm/dL Hct 42.6 (39.0-53.0) % MCV 81.7 (80.0-100.0) fL MCH 27.1 (25.0-35.0) pg MCHC 33.1 (31.0-37.0) g/dL RDW 15.5 (11.5-15.5) % Plt Count 241 (150-450) k/uL MPV 7.4 Neutrophils % 83 % Lymphocytes % 8 % Monocytes % 6 % Eosinophils % 1 % Basophils % 0 % Neutrophils # 10.3 H (1.3-7.7) k/uL Lymphocytes # 1.0 (1.0-4.8) k/uL Monocytes # 0.7 (0-1.0) k/uL Eosinophils # 0.1 (0-0.7) k/uL Basophils # 0.1 (0-0.2) k/uL PT 9.6 (9.0-12.0) sec INR 0.9 (<1.2) APTT 23.8 (22.0-30.0) sec Sodium 140 (137-145) mmol/L Potassium 4.2 (3.5-5.1) mmol/L Chloride 100 (98-107) mmol/L Carbon Dioxide 30 (22-30) mmol/L Anion Gap 10 mmol/L BUN 30 H (9-20) mg/dL Creatinine 1.81 H (0.66-1.25) mg/dL Est GFR (CKD-EPI)AfAm 42 (>60 ml/min/1.73 sqM) Est GFR (CKD-EPI)NonAf 36 (>60 ml/min/1.73 sqM) Glucose 169 H (74-99) mg/dL Plasma Lactic Acid Marlon (0.7-2.0) mmol/L Calcium 9.0 (8.4-10.2) mg/dL Total Bilirubin 0.3 (0.2-1.3) mg/dL AST 25 (17-59) U/L ALT 27 (4-49) U/L Alkaline Phosphatase 96 (38-126) U/L Troponin I (0.000-0.034) ng/mL Total Protein 7.2 (6.3-8.2) g/dL Albumin 4.3 (3.5-5.0) g/dL Amylase 181 H (30-110) U/L Lipase 1462 H (23-300) U/L 11/26/22 11/26/22 Range/Units 18:01 18:01 WBC (3.8-10.6) k/uL RBC (4.30-5.90) m/uL Hgb (13.0-17.5) gm/dL Hct (39.0-53.0) % MCV (80.0-100.0) fL MCH (25.0-35.0) pg MCHC (31.0-37.0) g/dL RDW (11.5-15.5) % Plt Count (150-450) k/uL MPV Neutrophils % % Lymphocytes % % Monocytes % % Eosinophils % % Basophils % % Neutrophils # (1.3-7.7) k/uL Lymphocytes # (1.0-4.8) k/uL Monocytes # (0-1.0) k/uL Eosinophils # (0-0.7) k/uL Basophils # (0-0.2) k/uL PT (9.0-12.0) sec INR (<1.2) APTT (22.0-30.0) sec Sodium (137-145) mmol/L Potassium (3.5-5.1) mmol/L Chloride (98-107) mmol/L Carbon Dioxide (22-30) mmol/L Anion Gap mmol/L BUN (9-20) mg/dL Creatinine (0.66-1.25) mg/dL Est GFR (CKD-EPI)AfAm (>60 ml/min/1.73 sqM) Est GFR (CKD-EPI)NonAf (>60 ml/min/1.73 sqM) Glucose (74-99) mg/dL Plasma Lactic Acid Marlon 1.7 (0.7-2.0) mmol/L Calcium (8.4-10.2) mg/dL Total Bilirubin (0.2-1.3) mg/dL AST (17-59) U/L ALT (4-49) U/L Alkaline Phosphatase (38-126) U/L Troponin I <0.012 (0.000-0.034) ng/mL Total Protein (6.3-8.2) g/dL Albumin (3.5-5.0) g/dL Amylase (30-110) U/L Lipase (23-300) U/L - EKG Data EKG Comments: EKG interpreted by me shows sinus rhythm with a ventricular rate of 84, with a first-degree AV block with SC interval 0.244, QRS 0.137, QTC 0.415, normal axis (Rigo Pimentel) Disposition <Rigo Pimentel - Last Filed: 11/26/22 19:33> Is patient prescribed a controlled substance at d/c from ED?: No Time of Disposition: 20:40 <Adrian Linn - Last Filed: 11/26/22 20:43> Clinical Impression: Pancreatitis, Abdominal pain, Acute pancreatitis Disposition: ADMITTED IP TO THIS HOSP Condition: Serious Referrals: Marcellus Harris MD [Primary Care Provider] - 1-2 days
[2022-11-26 18:21] LABS: Basophils # (A) 0.1 k/uL (0-0.2); Basophils % (A) 0 %; Eosinophils # (A) 0.1 k/uL (0-0.7); Eosinophils % (A) 1 %; HCT 42.6 % (39.0-53.0); HGB 14.1 gm/dL (13.0-17.5); Lymphocytes % (A) 8 %; MCH 27.1 pg (25.0-35.0); MCHC 33.1 g/dL (31.0-37.0); MCV 81.7 fL (80.0-100.0); Mean Platelet Volume 7.4; Monocytes # (A) 0.7 k/uL (0-1.0); Monocytes % (A) 6 %; Neutrophils # (A) 10.3 k/uL (1.3-7.7); Neutrophils % (A) 83 %; Platelet Count 241 k/uL (150-450); RBC 5.21 m/uL (4.30-5.90); RDW 15.5 % (11.5-15.5); WBC 12.4 k/uL (3.8-10.6)
[2022-11-26 18:29] LABS: Albumin 4.3 g/dL (3.5-5.0); Potassium 4.2 mmol/L (3.5-5.1); Total Bilirubin 0.3 mg/dL (0.2-1.3); Total Protein 7.2 g/dL (6.3-8.2)
[2022-11-26 18:32] LABS: INR 0.9 (<1.2)
[2022-11-26 18:33] LABS: Partial Thromboplastin Time 23.8 sec (22.0-30.0); Prothrombin Time 9.6 sec (9.0-12.0)
[2022-11-26] MEDS ORDERED: SODIUM CHLORIDE 0.9% 1,000 ML IV ONE (18:47)
--- NOTE | 2022-11-26 19:45 | CT ---
EXAMINATION TYPE: CT abdomen pelvis w con CT DLP: 2362.4 mGycm, Automated exposure control for dose reduction was used. DATE OF EXAM: 11/26/2022 7:13 PM COMPARISON: None CLINICAL INDICATION:Male, 72 years old with history of abdominal pain; Nonspecific abdominal pain TECHNIQUE: Axial CT of the abdomen and pelvis. Sagittal and coronal reformats were created on a [employer] workstation. Contrast used:80 mL of Isovue 300 with IV Contrast, Oral contrast used: without Oral Contrast FINDINGS: LOWER CHEST: The heart is mildly enlarged for size. Coronary artery calcifications are present. Motio n artifact limits evaluation the lungs. Dependent atelectasis. ABDOMEN LIVER: Unremarkable GALLBLADDER AND BILE DUCTS: Unremarkable. PANCREAS: Mild Fat stranding changes near the pancreatic head and neck. No organizing fluid collectio n SPLEEN: Unremarkable. ADRENAL GLANDS: Unremarkable. KIDNEYS AND URETERS: No evidence of hydronephrosis or renal calculus. The ureters are unremarkable. PELVIS BLADDER: Unremarkable REPRODUCTIVE: Unremarkable. ABDOMEN & PELVIS STOMACH AND BOWEL: No evidence of bowel obstruction. Large stool burden throughout the colon. Few sca ttered colonic diverticula. There is a moderate to large stool burden. PERITONEUM/RETROPERITONEUM: No evidence of pneumoperitoneum or free fluid. VASCULATURE: Mild atherosclerotic calcifications are present throughout the abdominal aorta and its b ranches. No evidence of aortic aneurysm. MUSCULOSKELETAL: No acute osseous abnormalities. Mild disc degeneration changes are present throughou t the thoracolumbar spine. LYMPH NODES: No gross evidence for lymphadenopathy. SOFT TISSUE/ABDOMINAL WALL: Bilateral fat-containing inguinal hernias. IMPRESSION: 1. There may be mild inflammation changes around the pancreatic head and neck. Correlate with serum lipase. No other finding in the abdomen or pelvis to explain the patient's pain. 2. Moderate to large stool burden throughout the colon. 3. Colonic diverticulosis. 4. Mild cardiomegaly with coronary artery atherosclerosis. 5. Bilateral fat-containing inguinal hernias.
[2022-11-26] MEDS ORDERED: NALOXONE 0.4 MG/ML 1 ML VIAL IV PRN (20:38)
[2022-11-26] MEDS ORDERED: ONDANSETRON 4 MG/2 ML VIAL IVP PRN (20:38)
[2022-11-26] MEDS: SODIUM CHLORIDE 0.9% 1,000 ML IV SCH ×2 (20:51→20:52)
[2022-11-26] MEDS: MORPHINE SULFATE 4 MG/ML SYRINGE IV PRN (22:18)
[2022-11-27] MEDS: SODIUM CHLORIDE 0.9% 1,000 ML IV SCH ×6 (03:21→21:54)
[2022-11-27 06:43] LABS: Glucose,Whole Blood 141 mg/dL (70-110)
[2022-11-27] MEDS: NICOTINE 14MG/24HR PATCH TRANSDERM SCH (08:23)
[2022-11-27] MEDS: ENOXAPARIN 40 MG/0.4 ML SYRINGE SQ SCH (08:23)
[2022-11-27] MEDS ORDERED: PANTOPRAZOLE 40 MG/10 ML VIAL IV SCH (09:00)
[2022-11-27 11:10] LABS: Glucose,Whole Blood 121 mg/dL (70-110)
[2022-11-27 11:26] LABS: African American GFR (CKD) 48.8 (60.0-200.0); Albumin 3.7 g/dL (3.8-4.9); Albumin/Globulin Ratio 1.68 (1.60-3.17); Anion Gap 9.1 mmol/L (10.00-18.00); BUN/Creat Ratio 14.5 Ratio (12.00-20.00); Blood Urea Nitrogen 23.2 mg/dL (9.0-27.0); Calcium 8.4 mg/dL (8.7-10.3); Carbon Dioxide 25.9 mmol/L (20.0-27.5); Globulin 2.2 g/dL (1.6-3.3); Magnesium 2.2 mg/dL (1.5-2.4); Non-African American GFR(CKD) 42.1 (60.0-200.0); Phosphorus 2.8 mg/dL (2.4-5.1); Potassium 4.1 mmol/L (3.5-5.5); Total Bilirubin 0.2 mg/dL (0.30-1.20); Total Protein 5.9 g/dL (6.2-8.2)
[2022-11-27 11:44] LABS: Basophils # (A) 0.04 X 10*3/uL (0.00-0.10); Basophils % (A) 0.3 %; Eosinophils # (A) 0.09 X 10*3/uL (0.04-0.35); Eosinophils % (A) 0.7 %; HCT 38.5 % (39.6-50.0); HGB 12.3 g/dL (13.0-17.0); Immature Grans, Automated 0.2 %; Lymphocytes # (A) 1.04 X 10*3/uL (0.90-5.00); Lymphocytes % (A) 8.6 %; MCH 26.7 pg (27.0-32.0); MCHC 31.9 g/dL (32.0-37.0); MCV 83.7 fL (80.0-97.0); Mean Platelet Volume 9.9 fL (9.5-12.2); Monocytes # (A) 1.28 X 10*3/uL (0.20-1.00); Monocytes % (A) 10.6 %; NRBC Per 100 WBC 0 /100 WBCS (0.0-0.0); Neutrophils # (A) 9.59 X 10*3/uL (1.80-7.70); Neutrophils % (A) 79.6 %; Platelet Count 206 X 10*3/uL (140-440); RDW 15.4 % (11.5-14.5); WBC 12.07 X 10*3/uL (4.50-10.00)
--- NOTE | 2022-11-27 13:37 | P.CONS ---
History of Present Illness - Reason for Consult Consult date: 11/27/22 Pancreatitis Requesting physician: Adrian Linn - Chief Complaint Abdominal pain - History of Present Illness This pleasant 72-year-old male who presented to the emergency department yesterday evening with complaints of abdominal pain mostly in the periumbilicus region. He has a past medical history including cancer, COPD, diabetes mellitus, GERD, hypertension sleep apnea, and skin cancer. Patient is a smoker. He states it had started around 4:00 in the morning and continued to progressively get worse. He denied any associated nausea or vomiting, no fevers or chills. He presented to the emergency department was noted to have elevated amylase and lipase. He underwent a CT of the abdomen and pelvis with contrast that reported there may be mild inflammation changes around the pancreatic head and neck. Moderate to large stool burden throughout colon. Colonic diverticulosis. Mild cardiomegaly with coronary artery atheroscleroses and bilateral fat-containing inguinal hernias. Gastroenterology was consulted for pancreatitis. Patient denies any previous history of pancreatitis. Denies any history of gallbladder disease, no history or current alcohol abuse, and no new medications. Denies any family history of pancreatitis. Admitting labs WBC 12.4 hemoglobin 14 hematocrit 42 platelet count 241,000 INR 0.9 sodium 140 potassium 4.2 BUN 30 creatinine 1.8 glucose 169 total bilirubin 0.3, AST 25 ALT 27 alkaline phosphatase 96 amylase 181 lipase 1462 Review of Systems REVIEW OF SYSTEMS: CARDIOPULMONARY: No chest pain or shortness of breath. Gastrointestinal: Epigastric pain which was sharp however did not last long. Continued with pain in the mid abdomen. No nausea or vomiting. No hematemesis, coffee-ground emesis. No rectal bleeding, or melena. GENITOURINARY: No dysuria or hematuria. MUSCULOSKELETAL: Reports normal range of motion. SKIN: No rashes. No jaundice. ENDOCRINE: No chills, fevers. No excessive weight gain or loss. No polydipsia or polyuria. PSYCHIATRIC: Unremarkable. NEUROLOGY: No change in mental status. Denies dizziness, headache. ENT: Vision unremarkable. CONSTITUTIONAL: No recent weight loss. No fever, chills, night sweats. Past Medical History Past Medical History: Cancer, COPD, Diabetes Mellitus, GERD/Reflux, Hypertension, Sleep Apnea/CPAP/BIPAP Additional Past Medical History / Comment(s): SKIN CANCER, SLEEP APNEA-cpap, hx BLEEDING HEMORRHOID, LIMITED MOBILITY LEFT ARM AFTER SKIN CANCER REMOVED., HX OF A FALL WITH FX VERTEBRAE & RUPTURED DISC YRS AGO. SEE CARDIOLOGY H & P. INGUINAL HERNIA. Arthritis lower spine and arms History of Any Multi-Drug Resistant Organisms: None Reported Past Surgical History: Appendectomy, Orthopedic Surgery Additional Past Surgical History / Comment(s): Left eye surgery, lens transplan t, CA removed from left shoulder, barn spike through his left foot and removed. umbilical hernia removal 07/10. Past Anesthesia/Blood Transfusion Reactions: No Reported Reaction Additional Past Anesthesia/Blood Transfusion Reaction / Comm: No blood t ransfusions Past Psychological History: No Psychological Hx Reported Smoking Status: Current every day smoker Past Alcohol Use History: None Reported Additional Past Alcohol Use History / Comment(s): SMOKING SINCE 12 YRS OLD, CURRENTLY SMOKING 3-5 CIGARETTES /DAY., (HX OF 2PPD). STATES HX OF HEAVY ALCOHOL USE- QUIT IN 1981. Past Drug Use History: None Reported - Past Family History Brother(s) Family Medical History: No Reported History Mother Additional Family Medical History / Comment(s): low BP and low sugar Father Family Medical History: Diabetes Mellitus Medications and Allergies Home Medications Medication Instructions Recorded Confirmed Type Lovastatin [Mevacor] 40 mg PO DAILY 05/23/18 11/26/22 History Tamsulosin [Flomax] 0.4 mg PO DAILY 05/23/18 11/26/22 History metFORMIN HCL [Glucophage] 1,000 mg PO DIRECTED 08/05/18 11/26/22 History Aspirin [Adult Low Dose Aspirin EC] 81 mg PO DAILY 11/10/18 11/26/22 History Semaglutide [Ozempic] 1 mg SQ Q7D 06/25/22 11/26/22 History Dapagliflozin Propanediol [Farxiga] 10 mg PO DAILY 07/07/22 11/26/22 History Furosemide [Lasix] 40 mg PO DAILY 07/07/22 11/26/22 History Losartan/Hydrochlorothiazide 1 tab PO QAM 07/07/22 11/26/22 History [Losartan-Hctz 100-25 mg Tab] Metoprolol Succinate (ER) [Toprol 100 mg PO DAILY 07/07/22 11/26/22 History Xl] Insulin Aspart [NovoLOG Flexpen] 12 units SQ AC-TID 11/26/22 11/26/22 History Insulin Degludec [Tresiba 60 units SQ DAILY 11/26/22 11/26/22 History Flextouch U-200 Pen] Allergies Allergy/AdvReac Type Severity Reaction Status Date / Time No Known Allergies Allergy Verified 11/26/22 18:26 Physical Exam Vitals: Vital Signs Temp Pulse Pulse Resp BP BP Pulse Ox 11/27/22 07:10 98.8 F 85 16 124/73 93 L 11/27/22 02:00 97.8 F 95 16 148/80 96 11/26/22 22:46 97.9 F 99 15 153/82 96 11/26/22 21:30 89 18 161/83 92 L 11/26/22 21:00 88 18 148/79 96 11/26/22 20:30 92 18 152/81 98 11/26/22 20:00 88 18 151/83 98 11/26/22 19:42 90 18 160/86 96 11/26/22 19:41 90 17 160/86 97 11/26/22 16:23 97.4 F L 88 16 137/77 97 Intake and Output 11/26/22 11/27/22 11/27/22 22:59 06:59 14:59 Intake Total 1300 Balance 1300 Intake: Intake, IV Titration 1300 Amount Sodium Chloride 0.9% 1, 1300 000 ml @ 130 mls/hr IV . Q7H42M [facility] Rx#:[id number] Other: Voiding Method Toilet # Voids 3 Weight 104.78 kg General appearance: The patient is alert, oriented, appears in no acute distress. HET: Head is normocephalic and atraumatic. Conjunctiva pink. Sclera anicteric. Neck: Supple without lymphadenopathy. Trachea midline. Heart: S1 S2. Regular rate and rhythm. Lungs: Clear to auscultation. Abdomen: Soft, obese, nontender, nondistended with bowel sounds. No guarding or rigidity. Skin: No rashes. No jaundice. Extremities: Normal skin color and turgor. No pedal edema. Neurological: No focal deficits. Alert and oriented x3. Results CBC & Chem 7: 11/27/22 04:01 11/27/22 04:01 Labs: Abnormal Lab Results - Last 24 Hours (Table) 11/26/22 11/26/22 11/27/22 Range/Units 18:01 18:01 06:42 WBC 12.4 H (3.8-10.6) k/uL Neutrophils # 10.3 H (1.3-7.7) k/uL BUN 30 H (9-20) mg/dL Creatinine 1.81 H (0.66-1.25) mg/dL Glucose 169 H (74-99) mg/dL POC Glucose (mg/dL) 141 H (70-110) mg/dL Amylase 181 H (30-110) U/L Lipase 1462 H (23-300) U/L Assessment and Plan (1) Pancreatitis Narrative/Plan: 72-year-old male with no previous history of pancreatitis presented to the emergency department with abdominal pain mostly in the mid abdomen. Was noted to have elevated amylase and lipase. No history of gallbladder disease, no concerns with gallbladder shown on CT of abdomen and pelvis, LFTs all within normal limits. Patient denies any alcohol use, no new medications, or family history of pancreatitis. Unclear etiology at this time of pancreatitis, have to consider possible medication induced. Patient is diabetic and currently on no synthetic which can have a risk of pancreatitis however patient has been on it for the last 1 year's duration. Repeat lipase normalizing to 80, with repeat LFTs all within normal limits. Triglycerides ordered and currently pending. Current Visit: Yes Status: Acute Code(s): K85.90 - ACUTE PANCREATITIS WITHOUT NECROSIS OR INFECTION, UNSP SNOMED Code(s): 44822340 (2) Abdominal pain Narrative/Plan: CT abdomen also shows significant stool burden in the colon. Patient does report that he has regular bowel movements last bowel movement 2 days ago. Patient up-to-date with colonoscopy, states last colonoscopy about 1 year ago. Current Visit: Yes Status: Acute Code(s): R10.9 - UNSPECIFIED ABDOMINAL PAIN SNOMED Code(s): 41520137 Plan: 1. Continue symptomatic and supportive care 2. Continue aggressive IV hydration 3. Patient may have small amounts of clear liquid diet 4. Triglycerides, repeat CMP ordered 5. Pain management per primary team Thank you for this consultation, we'll continue to follow. Dr. Yelena Mata I agree with the dictator's note, documented as a scribe by Galilea Brar.
[2022-11-27 16:15] LABS: Glucose,Whole Blood 140 mg/dL (70-110)
[2022-11-27] MEDS ORDERED: DEXTROSE 50% SYRINGE 50 ML IVP PRN ×2 (18:08)
--- NOTE | 2022-11-27 19:06 | P.HPIM ---
History of Present Illness H&P Date: 11/27/22 Chief Complaint: Abdominal pain This is a pleasant 72-year-old gentleman with past medical history significant for hypertension, diabetes mellitus, COPD, dyslipidemia and former nicotine dependence and multiple other medical issues presented to the ER with complaints of progressive mid epigastric and diffuse bilateral upper quadrant pain. Reports yesterday morning he workup with this abdominal pain. States the night before he consumed fried fish for dinner, for breakfast despite the abdominal pain he had eggs and sausage . Denies any nausea or vomiting. Patient also states he takes his Ozempic injection every Thursday. Denies any fever or chills. CT of abdomen /pelvis reported mild inflammation changes around the pancreatic head and neck. Moderate to large stool burden throughout colon. Colonic diverticulosis. Mild cardiomegaly with coronary artery atheroscleroses and bilateral fat-containing inguinal hernias. Denies constipation, reports last bowel movement couple days ago. He reports he had a normal colonoscopy one year ago. Denies recent alcohol use/abuse, states last alcohol use was in 1981, ongoing nicotine dependence. Denies prior history of pancreatitis. On admission amylase/ lipase elevated, 181, 1462, afebrile, WBC 12.4, hemoglobin 14.1, platelets 241, INR 0.9, BUN 30, creatinine 1.81, glucose 169, LFTs within normal limits. Electrolytes within normal limits. Renal function improving with IV fluids. Repeat lipase 80. Review of Systems ROS Statement: Those systems with pertinent positive or pertinent negative responses have been documented in the HPI. ROS Other: All systems not noted in ROS Statement are negative. Past Medical History Past Medical History: Cancer, COPD, Diabetes Mellitus, GERD/Reflux, Hypertensi on, Sleep Apnea/CPAP/BIPAP Additional Past Medical History / Comment(s): SKIN CANCER, SLEEP APNEA-cpap, hx BLEEDING HEMORRHOID, LIMITED MOBILITY LEFT ARM AFTER SKIN CANCER REMOVED., HX OF A FALL WITH FX VERTEBRAE & RUPTURED DISC YRS AGO. SEE CARDIOLOGY H & P. INGUINAL HERNIA. Arthritis lower spine and arms History of Any Multi-Drug Resistant Organisms: None Reported Past Surgical History: Appendectomy, Orthopedic Surgery Additional Past Surgical History / Comment(s): Left eye surgery, lens schroeder splant, CA removed from left shoulder, barn spike through his left foot and removed. umbilical hernia removal 07/10. Past Anesthesia/Blood Transfusion Reactions: No Reported Reaction Additional Past Anesthesia/Blood Transfusion Reaction / Comment(s): No blood transfusions Past Psychological History: No Psychological Hx Reported Smoking Status: Current every day smoker Past Alcohol Use History: None Reported Additional Past Alcohol Use History / Comment(s): SMOKING SINCE 12 YRS OLD, CURRENTLY SMOKING 3-5 CIGARETTES /DAY., (HX OF 2PPD). STATES HX OF HEAVY ALCOHOL USE- QUIT IN 1981. Past Drug Use History: None Reported - Past Family History Brother(s) Family Medical History: No Reported History Mother Additional Family Medical History / Comment(s): low BP and low sugar Father Family Medical History: Diabetes Mellitus Medications and Allergies Home Medications Medication Instructions Recorded Confirmed Type Lovastatin [Mevacor] 40 mg PO DAILY 05/23/18 11/26/22 History Tamsulosin [Flomax] 0.4 mg PO DAILY 05/23/18 11/26/22 History metFORMIN HCL [Glucophage] 1,000 mg PO DIRECTED 08/05/18 11/26/22 History Aspirin [Adult Low Dose Aspirin EC] 81 mg PO DAILY 11/10/18 11/26/22 History Semaglutide [Ozempic] 1 mg SQ Q7D 06/25/22 11/26/22 History Dapagliflozin Propanediol [Farxiga] 10 mg PO DAILY 07/07/22 11/26/22 History Furosemide [Lasix] 40 mg PO DAILY 07/07/22 11/26/22 History Losartan/Hydrochlorothiazide 1 tab PO QAM 07/07/22 11/26/22 History [Losartan-Hctz 100-25 mg Tab] Metoprolol Succinate (ER) [Toprol 100 mg PO DAILY 07/07/22 11/26/22 History Xl] Insulin Aspart [NovoLOG Flexpen] 12 units SQ AC-TID 11/26/22 11/26/22 History Insulin Degludec [Tresiba 60 units SQ DAILY 11/26/22 11/26/22 History Flextouch U-200 Pen] Allergies Allergy/AdvReac Type Severity Reaction Status Date / Time No Known Allergies Allergy Verified 11/26/22 18:26 Physical Exam Vitals: Vital Signs Temp Pulse Pulse Resp BP BP Pulse Ox 11/27/22 07:10 98.8 F 85 16 124/73 93 L 11/27/22 02:00 97.8 F 95 16 148/80 96 11/26/22 22:46 97.9 F 99 15 153/82 96 11/26/22 21:30 89 18 161/83 92 L 11/26/22 21:00 88 18 148/79 96 11/26/22 20:30 92 18 152/81 98 11/26/22 20:00 88 18 151/83 98 11/26/22 19:42 90 18 160/86 96 11/26/22 19:41 90 17 160/86 97 11/26/22 16:23 97.4 F L 88 16 137/77 97 Intake and Output 11/26/22 11/27/22 11/27/22 22:59 06:59 14:59 Intake Total 1300 Balance 1300 Intake: Intake, IV Titration 1300 Amount Sodium Chloride 0.9% 1, 1300 000 ml @ 130 mls/hr IV . Q7H42M [facility] Rx#:[id number] Other: Voiding Method Toilet # Voids 3 Weight 104.78 kg PHYSICAL EXAM: VITAL SIGNS: As above GENERAL: Sitting up in bed, no acute distress HEENT: Normocephalic, atraumatic Conjunctivae normal. eyes normal. NECK: Supple, No JVD. No thyroid enlargement. No LNs CARDIOVASCULAR: S1, S2 regular. No murmur RESPIRATION: Unlabored, Breath sounds diminished in the bases. No rhonchi or crackles. No bronchial breathing. ABDOMEN: Obese, Soft, nondistended, bilateral upper and mid epigastric tenderness,No guarding. no masses palpable. No ascites.+BS LEGS: Trace edema bilateral lower extremities, discoloration of left lower extremity. PSYCHIATRY: Alert and oriented X3, mood and affect normal. NERVOUS SYSTEM: Cranial N 2-12 grossly normal. Moves all 4 limbs. No focal deficits. Strength and sensation grossly intact.. Skin: Warm and dry, no rash Results CBC & Chem 7: 11/27/22 04:01 11/27/22 04:01 Labs: Abnormal Lab Results - Last 24 Hours (Table) 11/26/22 11/26/22 11/27/22 Range/Units 18:01 18:01 04:01 WBC 12.4 H 12.07 H (3.8-10.6) k/uL Hgb 12.3 L (13.0-17.0) g/dL Hct 38.5 L (39.6-50.0) % MCH 26.7 L (27.0-32.0) pg MCHC 31.9 L (32.0-37.0) g/dL RDW 15.4 H (11.5-14.5) % Neutrophils # 10.3 H 9.59 H (1.3-7.7) k/uL Monocytes # 1.28 H (0.20-1.00) X 10*3/uL Anion Gap (10.00-18.00) mmol/L BUN 30 H (9-20) mg/dL Creatinine 1.81 H (0.66-1.25) mg/dL Est GFR (CKD-EPI)AfAm (60.0-200.0) Est GFR (CKD-EPI)NonAf (60.0-200.0) Glucose 169 H (74-99) mg/dL POC Glucose (mg/dL) (70-110) mg/dL Calcium (8.7-10.3) mg/dL Total Bilirubin (0.30-1.20) mg/dL Total Protein (6.2-8.2) g/dL Albumin (3.8-4.9) g/dL Amylase 181 H (30-110) U/L Lipase 1462 H (23-300) U/L 11/27/22 11/27/22 11/27/22 Range/Units 04:01 06:42 11:10 WBC (3.8-10.6) k/uL Hgb (13.0-17.0) g/dL Hct (39.6-50.0) % MCH (27.0-32.0) pg MCHC (32.0-37.0) g/dL RDW (11.5-14.5) % Neutrophils # (1.3-7.7) k/uL Monocytes # (0.20-1.00) X 10*3/uL Anion Gap 9.10 L (10.00-18.00) mmol/L BUN (9-20) mg/dL Creatinine 1.6 H (0.66-1.25) mg/dL Est GFR (CKD-EPI)AfAm 48.8 L (60.0-200.0) Est GFR (CKD-EPI)NonAf 42.1 L (60.0-200.0) Glucose 118 H (74-99) mg/dL POC Glucose (mg/dL) 141 H 121 H (70-110) mg/dL Calcium 8.4 L (8.7-10.3) mg/dL Total Bilirubin 0.20 L (0.30-1.20) mg/dL Total Protein 5.9 L (6.2-8.2) g/dL Albumin 3.7 L (3.8-4.9) g/dL Amylase (30-110) U/L Lipase 80 H (23-300) U/L Thrombosis Risk Factor Assmnt - Choose All That Apply Any of the Below Risk Factors Present?: Yes Each Factor Represents 1 point: Abnormal pulmonary function (COPD) Other Risk Factors: Yes Each Risk Factor Represents 2 Points: Age 61-74 years Thrombosis Risk Factor Assessment Total Risk Factor Score: 3 Thrombosis Risk Factor Assessment Level: Moderate Risk Assessment and Plan Assessment: Abdominal pain, acute Pancreatitis, etiology unclear, possibly triggered by a combination of his Ozempic injection combined with fatty food intake. Acute kidney injury, improving with IV fluid hydration Diabetes mellitus II, hemoglobin A1c pending COPD,stable Obesity, BMI 32.2 Chronic diastolic CHF Chronic lower extremity edema Hyperlipidemia History of ASHLEY inhibitor induced angioedema BPH, continues on Flomax Plan: Continue on current medication regime ,monitoring and symptomatic treatment. Maintain IV fluid hydration. Clear liquid diet initiated. Triglycerides , hemoglobin A1c pending. PPI in place for GI prophylaxis and increase ambulation as tolerated. GI consult in place. The impression and plan of care has been dictated as directed. : I performed a history and examination of this patient, discussed the same with the dictator. I agree with the dictator's note ,documented as a scribe. Any additional findings or plans will be noted.
[2022-11-27] MEDS: MORPHINE SULFATE 4 MG/ML SYRINGE IV PRN (19:48)
[2022-11-27 20:43] LABS: Glucose,Whole Blood 121 mg/dL (70-110)
[2022-11-27] MEDS: INSULIN ASPART (NovoLOG) 100 UNIT/ML VIAL SQ SCH (20:44)
[2022-11-28] MEDS: SODIUM CHLORIDE 0.9% 1,000 ML IV SCH ×2 (01:53→01:54)
[2022-11-28 06:05] LABS: Glucose,Whole Blood 108 mg/dL (70-110)
[2022-11-28] MEDS: INSULIN ASPART (NovoLOG) 100 UNIT/ML VIAL SQ SCH ×2 (06:05→12:12)
[2022-11-28 07:46] VITALS: BP 147/69; PULSE 82; RESP 17; TEMP 99.6
[2022-11-28] MEDS: ENOXAPARIN 40 MG/0.4 ML SYRINGE SQ SCH (08:23)
[2022-11-28] MEDS: NICOTINE 14MG/24HR PATCH TRANSDERM SCH (08:24)
--- NOTE | 2022-11-28 08:26 | P.PN ---
Subjective Progress Note Date: 11/28/22 Principal diagnosis: This pleasant 72-year-old male who presented to the emergency department yesterday evening with complaints of abdominal pain mostly in the periumbilicus region. He has a past medical history including cancer, COPD, diabetes mellitus, GERD, hypertension sleep apnea, and skin cancer. Patient is a smoker. He states it had started around 4:00 in the morning and continued to progressively get worse. He denied any associated nausea or vomiting, no fevers or chills. He presented to the emergency department was noted to have elevated amylase and lipase. He underwent a CT of the abdomen and pelvis with contrast that reported there may be mild inflammation changes around the pancreatic head and neck. Moderate to large stool burden throughout colon. Colonic diverticulosis. Mild cardiomegaly with coronary artery atheroscleroses and bilateral fat-containing inguinal hernias. Gastroenterology was consulted for pancreatitis. Patient denies any previous history of pancreatitis. Denies any history of gallbladder disease, no history or current alcohol abuse, and no new medications. Denies any family history of pancreatitis. Admitting labs WBC 12.4 hemoglobin 14 hematocrit 42 platelet count 241,000 INR 0.9 sodium 140 potassium 4.2 BUN 30 creatinine 1.8 glucose 169 total bilirubin 0.3, AST 25 ALT 27 alkaline phosphatase 96 amylase 181 lipase 1462 11/28/2022: Patient seen and examined today as a follow-up. He states abdominal pain improving. He has been tolerating a clear liquid diet. Denies any nausea or vomiting. Patient had significant improvement in his lipase from admission until yesterday. No elevation in LFTs. Triglycerides were 137. He has been afebrile. Objective - Vital Signs Vital signs: Vital Signs Temp 99.6 F 11/28/22 07:22 Pulse 82 11/28/22 07:22 Resp 17 11/28/22 07:22 BP 147/69 11/28/22 07:22 Pulse Ox 93 L 11/28/22 07:22 FiO2 Intake & Output 11/27/22 11/28/22 11/28/22 18:59 06:59 18:59 Other: # Voids 1 4 - Exam General appearance: The patient is alert, oriented, appears in no acute distress. HET: Head is normocephalic and atraumatic. Conjunctiva pink. Sclera anicteric. Neck: Supple without lymphadenopathy. Abdomen: Soft, mild tenderness to right upper quadrant, nondistended with bowel sounds. No guarding or rigidity. Extremities: Normal skin color and turgor. No pedal edema Skin: No rashes, no jaundice Neurological: No focal deficits. Alert and oriented. - Labs CBC & Chem 7: 11/27/22 04:01 11/27/22 04:01 Labs: Abnormal Lab Results - Last 24 Hours (Table) 11/27/22 11/27/22 11/27/22 Range/Units 04:01 04:01 11:10 WBC 12.07 H (4.50-10.00) X 10*3/uL Hgb 12.3 L (13.0-17.0) g/dL Hct 38.5 L (39.6-50.0) % MCH 26.7 L (27.0-32.0) pg MCHC 31.9 L (32.0-37.0) g/dL RDW 15.4 H (11.5-14.5) % Neutrophils # 9.59 H (1.80-7.70) X 10*3/uL Monocytes # 1.28 H (0.20-1.00) X 10*3/uL Anion Gap 9.10 L (10.00-18.00) mmol/L Creatinine 1.6 H (0.6-1.5) mg/dL Est GFR (CKD-EPI)AfAm 48.8 L (60.0-200.0) Est GFR (CKD-EPI)NonAf 42.1 L (60.0-200.0) Glucose 118 H (70-110) mg/dL POC Glucose (mg/dL) 121 H (70-110) mg/dL Calcium 8.4 L (8.7-10.3) mg/dL Total Bilirubin 0.20 L (0.30-1.20) mg/dL Total Protein 5.9 L (6.2-8.2) g/dL Albumin 3.7 L (3.8-4.9) g/dL Lipase 80 H (14-60) U/L 11/27/22 11/27/22 Range/Units 16:13 20:42 WBC (4.50-10.00) X 10*3/uL Hgb (13.0-17.0) g/dL Hct (39.6-50.0) % MCH (27.0-32.0) pg MCHC (32.0-37.0) g/dL RDW (11.5-14.5) % Neutrophils # (1.80-7.70) X 10*3/uL Monocytes # (0.20-1.00) X 10*3/uL Anion Gap (10.00-18.00) mmol/L Creatinine (0.6-1.5) mg/dL Est GFR (CKD-EPI)AfAm (60.0-200.0) Est GFR (CKD-EPI)NonAf (60.0-200.0) Glucose (70-110) mg/dL POC Glucose (mg/dL) 140 H 121 H (70-110) mg/dL Calcium (8.7-10.3) mg/dL Total Bilirubin (0.30-1.20) mg/dL Total Protein (6.2-8.2) g/dL Albumin (3.8-4.9) g/dL Lipase (14-60) U/L Assessment and Plan (1) Pancreatitis Narrative/Plan: 72-year-old male with no previous history of pancreatitis presented to the emergency department with abdominal pain mostly in the mid abdomen. Was noted to have elevated amylase and lipase. No history of gallbladder disease, no concerns with gallbladder shown on CT of abdomen and pelvis, LFTs all within normal limits. Patient denies any alcohol use, no new medications, or family history of pancreatitis. Unclear etiology at this time of pancreatitis, have to consider possible medication induced. Patient is diabetic and currently on no synthetic which can have a risk of pancreatitis however patient has been on it for the last 1 year's duration. Repeat lipase normalizing to 80, with repeat LFTs all within normal limits. Triglycerides ordered and currently pending. Unclear etiology of pancreatitis, triglycerides normal at 137. This was mild acute first episode of pancreatitis,, no further workup indicated at this time. Plan for outpatient follow-up. Current Visit: Yes Status: Acute Code(s): K85.90 - ACUTE PANCREATITIS WITHOUT NECROSIS OR INFECTION, UNSP SNOMED Code(s): 63275507 (2) Abdominal pain Narrative/Plan: CT abdomen also shows significant stool burden in the colon. Patient does report that he has regular bowel movements last bowel movement 2 days ago. Patient up-to-date with colonoscopy, states last colonoscopy about 1 year ago. Current Visit: Yes Status: Acute Code(s): R10.9 - UNSPECIFIED ABDOMINAL PAIN SNOMED Code(s): 31549680 Plan: 1. Continue symptomatic and supportive care 2. Advance to low-fat diet, small portions at a time 3. Continue pain medication as needed 4. No further workup indicated at this time 5. If patient tolerates low-fat diet he is cleared for discharge from gastroenterology. He was instructed to follow-up in 2 weeks. Thank you for this consultation, we will sign off at this time if there will be no GI coverage through the weekend. Dr. Yelena Mata I agree with the dictator's note, documented as a scribe by Galilea Brar.
[2022-11-28] MEDS ORDERED: FUROSEMIDE 40 MG TAB PO SCH (09:00)
[2022-11-28] MEDS ORDERED: LOSARTAN-HCTZ 50-12.5 MG 1 EACH TAB PO SCH (09:00)
[2022-11-28] MEDS ORDERED: ASPIRIN 81 MG PO SCH (09:00)
[2022-11-28] MEDS ORDERED: TAMSULOSIN 0.4 MG CAP.ER.24H PO SCH (09:00)
[2022-11-28] MEDS ORDERED: ATORVASTATIN 10 MG TAB PO SCH (09:00)
[2022-11-28] MEDS ORDERED: METOPROLOL SUCCINATE (ER) 100 MG TAB.ER.24H PO SCH (09:00)
[2022-11-28 12:09] LABS: Glucose,Whole Blood 149 mg/dL (70-110)
[2022-11-28 14:29] VITALS: BMI 32.2
[2022-11-29] MEDS ORDERED: PANTOPRAZOLE 40 MG TABLET PO SCH (08:06)
== END 2022-11-28 16:03 | disposition home or self-care (01) | DRG 439 ==
LOC: EC 16:14 → 4SSUR 20:38
PROVIDERS: ADMIT Family Medicine; ATTEND Family Medicine
DX: K85.90 Acute pancreatitis without necrosis or infection, unspecified (principal); I50.32 Chronic diastolic (congestive) heart failure; N17.9 Acute kidney failure, unspecified; J44.9 Chronic obstructive pulmonary disease, unspecified; E66.9 Obesity, unspecified; Z68.32 Body mass index [BMI] 32.0-32.9, adult; R60.0 Localized edema; K57.30 Diverticulosis of large intestine without perforation or abscess without bleeding; I11.0 Hypertensive heart disease with heart failure; K40.20 Bilateral inguinal hernia, without obstruction or gangrene, not specified as recurrent; N40.0 Benign prostatic hyperplasia without lower urinary tract symptoms; E11.9 Type 2 diabetes mellitus without complications; Z79.85 Long-term (current) use of injectable non-insulin antidiabetic drugs; Z79.899 Other long term (current) drug therapy; Z88.8 Allergy status to other drugs, medicaments and biological substances; E78.5 Hyperlipidemia, unspecified; F17.210 Nicotine dependence, cigarettes, uncomplicated; K21.9 Gastro-esophageal reflux disease without esophagitis; I44.0 Atrioventricular block, first degree; Z79.4 Long term (current) use of insulin; Z79.82 Long term (current) use of aspirin; Z83.3 Family history of diabetes mellitus; Z79.84 Long term (current) use of oral hypoglycemic drugs; Z85.828 Personal history of other malignant neoplasm of skin; Z87.19 Personal history of other diseases of the digestive system; Z98.42 Cataract extraction status, left eye; Z96.1 Presence of intraocular lens
CPT/HCPCS: 36415; 74177; 80053; 82150; 83036; 83605; 83690; 83735; 84100; 84478; 84484; 85025; 85610; 85730; 93005; 96361; 96374; 96375; 99285

== ENCOUNTER → 2023-03-04 | Outpatient (CLI) | payer MEDICARE ==
[2023-03-04 10:53] LABS: NT-Pro-B-Type Natriuretic Pept 69 pg/mL
[2023-03-04 11:55] LABS: African American GFR (CKD) 42 (>60 ml/min/1.73 sqM); Anion Gap 7 mmol/L; Blood Urea Nitrogen 29 mg/dL (9-20); Carbon Dioxide 28 mmol/L (22-30); Chloride 103 mmol/L (98-107); Glucose 134 mg/dL (74-99); Non-African American GFR(CKD) 36 (>60 ml/min/1.73 sqM); Potassium 4.1 mmol/L (3.5-5.1); Sodium 138 mmol/L (137-145)
== END | disposition home or self-care (01) ==
LOC: LABWHC1 08:50
PROVIDERS: ATTEND Internal Medicine Cardiovascular Disease
DX: I50.31 Acute diastolic (congestive) heart failure (principal)
CPT/HCPCS: 36415; 80048; 83880

== ENCOUNTER 2023-04-30 09:54 | Inpatient (IN) | payer MEDICARE ==
--- NOTE | 2023-04-30 10:38 | ED ---
Nausea/Vomiting/Diarrhea HPI - General Source: patient, RN notes reviewed Mode of arrival: ambulatory Limitations: no limitations - History of Present Illness MD complaint: nausea, vomiting <Delma Walsh - Last Filed: 04/30/23 10:34> <Giovany Leon - Last Filed: 04/30/23 19:23> - General Chief complaint: Nausea/Vomiting/Diarrhea Stated complaint: vomiting Time Seen by Provider: 04/30/23 10:34 - History of Present Illness Initial comments: This is a 72 year old male who presents to the emergency department for nausea and vomiting. Symptoms started 1 week ago. Reports constipation for the last couple of days and generalized abdominal pain. Denies any chest pain, coughing, or congestion. (Delma Walsh) 72-year-old male presents to the ED with a chief complaint of nausea and vomiting. Patient states for the past week has had abdominal pain, nausea, vomiting. Also notes constipation for the past 2 days. Denies hallucinations. Denies flank pain. No chest pain or shortness of breath. No other complaints. (Giovany Leon) - Related Data Home Medications Medication Instructions Recorded Confirmed Lovastatin [Mevacor] 40 mg PO DAILY 05/23/18 04/30/23 Tamsulosin [Flomax] 0.4 mg PO DAILY 05/23/18 04/30/23 Aspirin [Adult Low Dose Aspirin EC] 81 mg PO DAILY 11/10/18 04/30/23 Semaglutide [Ozempic] 1 mg SQ WE 06/25/22 04/30/23 Dapagliflozin Propanediol [Farxiga] 10 mg PO DAILY 07/07/22 04/30/23 Furosemide [Lasix] 40 mg PO DAILY 07/07/22 04/30/23 Losartan/Hydrochlorothiazide 1 tab PO DAILY 07/07/22 04/30/23 [Losartan-Hctz 100-25 mg Tab] Metoprolol Succinate (ER) [Toprol 100 mg PO DAILY 07/07/22 04/30/23 XL] Insulin Aspart [NovoLOG Flexpen] 20 units SQ AC-TID 11/26/22 04/30/23 Insulin Degludec [Tresiba 60 units SQ DAILY 11/26/22 04/30/23 Flextouch U-200 Pen] Allergies Allergy/AdvReac Type Severity Reaction Status Date / Time No Known Allergies Allergy Verified 04/30/23 13:42 Review of Systems ROS Other: All systems not noted in ROS Statement are negative. <Delma Walsh - Last Filed: 04/30/23 10:34> ROS Other: All systems not noted in ROS Statement are negative. <Giovany Leon - Last Filed: 04/30/23 19:23> ROS Statement: Those systems with pertinent positive or pertinent negative responses have been documented in the HPI. Past Medical History Past Medical History: Cancer, COPD, Diabetes Mellitus, GERD/Reflux, Hypertension, Sleep Apnea/CPAP/BIPAP Additional Past Medical History / Comment(s): SKIN CANCER, SLEEP APNEA-cpap, hx BLEEDING HEMORRHOID, LIMITED MOBILITY LEFT ARM AFTER SKIN CANCER REMOVED., HX OF A FALL WITH FX VERTEBRAE & RUPTURED DISC YRS AGO. SEE CARDIOLOGY H & P. INGUINAL HERNIA. Arthritis lower spine and arms History of Any Multi-Drug Resistant Organisms: None Reported Past Surgical History: Appendectomy, Orthopedic Surgery Additional Past Surgical History / Comment(s): Left eye surgery, lens transplant, CA removed from left shoulder, barn spike through his left foot and removed. umbilical hernia removal 07/10. Past Anesthesia/Blood Transfusion Reactions: No Reported Reaction Additional Past Anesthesia/Blood Transfusion Reaction / Comment(s): No blood transfusions Past Psychological History: No Psychological Hx Reported Smoking Status: Current every day smoker Past Alcohol Use History: None Reported Additional Past Alcohol Use History / Comment(s): SMOKING SINCE 12 YRS OLD, CURRENTLY SMOKING 3-5 CIGARETTES /DAY., (HX OF 2PPD). STATES HX OF HEAVY ALCOHOL USE- QUIT IN 1981. Past Drug Use History: None Reported - Past Family History Brother(s) Family Medical History: No Reported History Mother Additional Family Medical History / Comment(s): low BP and low sugar Father Family Medical History: Diabetes Mellitus <Delma Walsh - Last Filed: 04/30/23 10:34> General Exam <Delma Walsh - Last Filed: 04/30/23 10:34> General appearance: alert, in no apparent distress Respiratory exam: Present: normal lung sounds bilaterally Cardiovascular Exam: Present: regular rate, normal rhythm GI/Abdominal exam: Present: soft (Diffuse abdominal tenderness to palpation.) Neurological exam: Present: alert, oriented X3 Skin exam: Present: warm, dry <CarolynLisetteGiovany - Last Filed: 04/30/23 19:23> - General Exam Comments Initial Comments: Visual Physical Exam Vital signs reviewed General: Well-appearing, nontoxic, no acute distress. Head: Normocephalic, atraumatic Eyes: PERRLA, EOMI ENT: Airway patent Chest: Nonlabored breathing Skin: No visual rash, normal skin tone Neuro: Alert and oriented 3 Musculoskeletal: No gross abnormalities I performed the QuickNote portion of this chart. Signed Delma Walsh PA-C. (Delma Walsh) Course Vital Signs 04/30/23 04/30/23 04/30/23 10:35 18:33 19:12 Temperature 97.5 F L 97.7 F Pulse Rate 113 H 105 H 98 Respiratory 18 18 16 Rate Blood Pressure 132/71 156/79 165/87 O2 Sat by Pulse 93 L 96 91 L Oximetry Medical Decision Making - Lab Data Result diagrams: 04/30/23 11:06 04/30/23 11:06 <Giovany Leon - Last Filed: 04/30/23 19:23> - Medical Decision Making Was pt. sent in by a medical professional or institution (RENEA Thacker, STACKER AND SORTER OPERATOR, urgent care, hospital, or halfway...) When possible be specific @ -No Did you speak to anyone other than the patient for history (EMS, parent, family, police, friend...)? What history was obtained from this source @ -No Did you review nursing and triage notes (agree or disagree)? Why? @ -I reviewed and agree with nursing and triage notes Were old charts reviewed (outside hosp., previous admission, EMS record, old EKG, old radiological studies, urgent care reports/EKG's, halfway records)? Report findings @ -No old charts were reviewed Differential Diagnosis (chest pain, altered mental status, abdominal pain women, abdominal pain men, vaginal bleeding, weakness, fever, dyspnea, syncope, headache, dizziness, GI bleed, back pain, seizure, CVA, palpatations, mental health, musculoskeletal)? @ -Differential Abdominal Pain Men: Appendicitis, cholecystitis, diverticulosis, ischemic bowel, pancreatitis, hepatitis, UTI, gastroenteritis, AAA, incarcerated hernia, bowel obstruction, constipation, inflammatory bowel, hepatitis, peptic ulcer disease, splenic infarction, perforated viscus, testicular torsion, this is not meant to be an all-inclusive list EKG interpreted by me (3pts min.). @ -As above X-rays interpreted by me (1pt min.). @ -X-ray of the chest and abdomen by me showing no acute finding. CT interpreted by me (1pt min.). @ -None done U/S interpreted by me (1pt. min.). @ -None done What testing was considered but not performed or refused? (CT, X-rays, U/S, labs)? Why? @ -None What meds were considered but not given or refused? Why? @ -None Did you discuss the management of the patient with other professionals (professionals i.e. , PA, STACKER AND SORTER OPERATOR, lab, RT, psych nurse, social worker palliative care, cleaning and maintenance worker, teacher, officer captain, trimming caser)? Give summary @ -No Was smoking cessation discussed for >3mins.? @ -No Was critical care preformed (if so, how long)? @ -No Were there social determinants of health that impacted care today? How? (Homelessness, low income, unemployed, alcoholism, drug addiction, transportation, low edu. Level, literacy, decrease access to med. care, longterm, rehab)? @ -No Was there de-escalation of care discussed even if they declined (Discuss DNR or withdrawal of care, Hospice)? DNR status @ -No What co-morbidities impacted this encounter? (DM, HTN, Smoking, COPD, CAD, Cancer, CVA, ARF, Chemo, Hep., AIDS, mental health diagnosis, sleep apnea, morbid obesity)? @ -None Was patient admitted / discharged? Hospital course, mention meds given and route, prescriptions, significant lab abnormalities, going to OR and other pertinent info. @ -Admission 72-year-old male presents to ED with complaints of abdominal pain nausea or vomiting. The past week. Laboratory studies significant for elevated white blood cell count at 10.7, elevated neutrophils at 8.7. Chemistry panel remarkable for elevated BUN at 26 and creatinine at 2.23. Calcium elevated at 13.6 with an ionized calcium at 7.1. Urinalysis at this time shows greater than 182 white blood cells, occasional bacteria, and leukocyte esterase concerning for UTI. Chest x-ray showed no acute process. Patient will be admitted due to hypercalcemia, DHEERAJ, UTI. Undiagnosed new problem with uncertain prognosis? @ -No Drug Therapy requiring intensive monitoring for toxicity (Heparin, Nitro, Insulin, Cardizem)? @ -No Were any procedures done? @ -No Diagnosis/symptom? @ -Hypercalcemia, DHEERAJ, UTI Acute, or Chronic, or Acute on Chronic? @ -Acute Uncomplicated (without systemic symptoms) or Complicated (systemic symptoms)? @ -Complicated Side effects of treatment? @ -No Exacerbation, Progression, or Severe Exacerbation? @ -No Poses a threat to life or bodily function? How? (Chest pain, [place], [place], pneumonia, PE, COPD, DKA, ARF, appy, cholecystitis, CVA, Diverticulitis, Homicidal, Suicidal, threat to staff... and all critical care pts) @ -Yes, symptomatic hypercalcemia with EKG changes (Giovany Leon) - Lab Data Lab Results 04/30/23 04/30/23 04/30/23 Range/Units 11:06 11:06 11:06 WBC 10.7 H (3.8-10.6) k/uL RBC 4.95 (4.30-5.90) m/uL Hgb 14.5 (13.0-17.5) gm/dL Hct 42.4 (39.0-53.0) % MCV 85.7 (80.0-100.0) fL MCH 29.4 (25.0-35.0) pg MCHC 34.2 (31.0-37.0) g/dL RDW 14.3 (11.5-15.5) % Plt Count 245 (150-450) k/uL MPV 7.8 Neutrophils % 82 % Lymphocytes % 9 % Monocytes % 7 % Eosinophils % 1 % Basophils % 0 % Neutrophils # 8.7 H (1.3-7.7) k/uL Lymphocytes # 0.9 L (1.0-4.8) k/uL Monocytes # 0.8 (0-1.0) k/uL Eosinophils # 0.1 (0-0.7) k/uL Basophils # 0.0 (0-0.2) k/uL Sodium 135 L (137-145) mmol/L Potassium 4.2 (3.5-5.1) mmol/L Chloride 96 L (98-107) mmol/L Carbon Dioxide 30 (22-30) mmol/L Anion Gap 9 mmol/L BUN 26 H (9-20) mg/dL Creatinine 2.23 H (0.66-1.25) mg/dL Est GFR (CKD-EPI)AfAm 33 (>60 ml/min/1.73 sqM) Est GFR (CKD-EPI)NonAf 28 (>60 ml/min/1.73 sqM) Glucose 243 H (74-99) mg/dL Calcium 13.6 H* (8.4-10.2) mg/dL Ionized Calcium Gisselle (4.5-5.3) mg/dL Phosphorus (2.5-4.5) mg/dL Magnesium (1.6-2.3) mg/dL Total Bilirubin 0.5 (0.2-1.3) mg/dL AST 20 (17-59) U/L ALT 17 (4-49) U/L Alkaline Phosphatase 96 (38-126) U/L Total Protein 6.7 (6.3-8.2) g/dL Albumin 3.9 (3.5-5.0) g/dL Amylase 69 (30-110) U/L Lipase 135 (23-300) U/L TSH (0.465-4.680) mIU/L Urine Color Colorless Urine Appearance Cloudy (Clear) Urine pH 6.5 (5.0-8.0) Ur Specific [place] 1.011 (1.001-1.035) Urine Protein Trace H (Negative) Urine Glucose (UA) 4+ H (Negative) Urine Ketones Negative (Negative) Urine Blood Trace H (Negative) Urine Nitrite Negative (Negative) Urine Bilirubin Negative (Negative) Urine Urobilinogen <2.0 (<2.0) mg/dL Ur Leukocyte Esterase Large H (Negative) Urine RBC 9 H (0-5) /hpf Urine WBC >182 H (0-5) /hpf Urine WBC Clumps Many H (None) /hpf Amorphous Sediment Rare H (None) /hpf Urine Bacteria Occasional H (None) /hpf Urine Mucus Rare H (None) /hpf 04/30/23 Range/Units 15:59 WBC (3.8-10.6) k/uL RBC (4.30-5.90) m/uL Hgb (13.0-17.5) gm/dL Hct (39.0-53.0) % MCV (80.0-100.0) fL MCH (25.0-35.0) pg MCHC (31.0-37.0) g/dL RDW (11.5-15.5) % Plt Count (150-450) k/uL MPV Neutrophils % % Lymphocytes % % Monocytes % % Eosinophils % % Basophils % % Neutrophils # (1.3-7.7) k/uL Lymphocytes # (1.0-4.8) k/uL Monocytes # (0-1.0) k/uL Eosinophils # (0-0.7) k/uL Basophils # (0-0.2) k/uL Sodium (137-145) mmol/L Potassium (3.5-5.1) mmol/L Chloride (98-107) mmol/L Carbon Dioxide (22-30) mmol/L Anion Gap mmol/L BUN (9-20) mg/dL Creatinine (0.66-1.25) mg/dL Est GFR (CKD-EPI)AfAm (>60 ml/min/1.73 sqM) Est GFR (CKD-EPI)NonAf (>60 ml/min/1.73 sqM) Glucose (74-99) mg/dL Calcium (8.4-10.2) mg/dL Ionized Calcium Gisselle 7.1 H* (4.5-5.3) mg/dL Phosphorus 3.5 (2.5-4.5) mg/dL Magnesium 1.9 (1.6-2.3) mg/dL Total Bilirubin (0.2-1.3) mg/dL AST (17-59) U/L ALT (4-49) U/L Alkaline Phosphatase (38-126) U/L Total Protein (6.3-8.2) g/dL Albumin (3.5-5.0) g/dL Amylase (30-110) U/L Lipase (23-300) U/L TSH 1.810 (0.465-4.680) mIU/L Urine Color Urine Appearance (Clear) Urine pH (5.0-8.0) Ur Specific [place] (1.001-1.035) Urine Protein (Negative) Urine Glucose (UA) (Negative) Urine Ketones (Negative) Urine Blood (Negative) Urine Nitrite (Negative) Urine Bilirubin (Negative) Urine Urobilinogen (<2.0) mg/dL Ur Leukocyte Esterase (Negative) Urine RBC (0-5) /hpf Urine WBC (0-5) /hpf Urine WBC Clumps (None) /hpf Amorphous Sediment (None) /hpf Urine Bacteria (None) /hpf Urine Mucus (None) /hpf - EKG Data EKG Comments: EKG shows a sinus rhythm with first-degree AV block with MN interval at 232 ms. QRS 74, QT/QTc 374/424 (Giovany Leon) Disposition <Delma Walsh - Last Filed: 04/30/23 10:34> Time of Disposition: 17:23 <Giovany Leon - Last Filed: 04/30/23 19:23> Clinical Impression: Hyperkalemia, DHEERAJ (acute kidney injury), UTI (urinary tract infection) Disposition: ADMITTED IP TO THIS HOSP Condition: Fair Referrals: None,Stated [Primary Care Provider] - 1-2 days
[2023-04-30 11:42] LABS: Basophils % (A) 0 %; Eosinophils # (A) 0.1 k/uL (0-0.7); Eosinophils % (A) 1 %; HCT 42.4 % (39.0-53.0); HGB 14.5 gm/dL (13.0-17.5); Lymphocytes # (A) 0.9 k/uL (1.0-4.8); Lymphocytes % (A) 9 %; MCH 29.4 pg (25.0-35.0); MCHC 34.2 g/dL (31.0-37.0); MCV 85.7 fL (80.0-100.0); Mean Platelet Volume 7.8; Monocytes # (A) 0.8 k/uL (0-1.0); Monocytes % (A) 7 %; Neutrophils # (A) 8.7 k/uL (1.3-7.7); Neutrophils % (A) 82 %; Platelet Count 245 k/uL (150-450); RBC 4.95 m/uL (4.30-5.90); RDW 14.3 % (11.5-15.5); WBC 10.7 k/uL (3.8-10.6)
[2023-04-30 11:56] LABS: ALT 17 U/L (4-49); AST 20 U/L (17-59); African American GFR (CKD) 33 (>60 ml/min/1.73 sqM); Albumin 3.9 g/dL (3.5-5.0); Alkaline Phosphatase 96 U/L (38-126); Amylase 69 U/L (30-110); Anion Gap 9 mmol/L; Blood Urea Nitrogen 26 mg/dL (9-20); Carbon Dioxide 30 mmol/L (22-30); Chloride 96 mmol/L (98-107); Glucose 243 mg/dL (74-99); Lipase 135 U/L (23-300); Non-African American GFR(CKD) 28 (>60 ml/min/1.73 sqM); Potassium 4.2 mmol/L (3.5-5.1); Sodium 135 mmol/L (137-145); Total Bilirubin 0.5 mg/dL (0.2-1.3); Total Protein 6.7 g/dL (6.3-8.2)
[2023-04-30 12:03] LABS: Calcium 13.6 mg/dL (8.4-10.2)
[2023-04-30] MEDS ORDERED: SODIUM CHLORIDE 0.9% 1,000 ML IV STA (12:46)
--- NOTE | 2023-04-30 13:17 | XR ---
EXAMINATION TYPE: XR chest 2V DATE OF EXAM: 04/30/2023 COMPARISON: 08/09/2018 HISTORY: 72-year-old male hypercalcemia, rule out mass TECHNIQUE: PA and lateral views FINDINGS: Heart upper limits of normal in size. Aorta and pulmonary vasculature within normal limits. Mild inte rstitial prominence has a chronic appearance. No consolidation or pleural effusion. 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 IMPRESSION: Chronic-appearing changes. No acute process seen.
[2023-04-30 14:01] LABS: Amorphous Sediment,Urine Rare /hpf; Appearance,Urine Cloudy (Clear); Bacteria,Urine Occasional /hpf; Bilirubin,Urine Negative (Negative); Blood,Urine Trace (Negative); Color,Urine Colorless; Glucose,Urine (UA) 4+ (Negative); Ketones,Urine Negative (Negative); Leukocyte Esterase,Urine Large (Negative); Mucus,Urine Rare /hpf; Nitrite,Urine Negative (Negative); PH, Urine 6.5 (5.0-8.0); Protein,Urine Trace (Negative); RBC,Urine 9 /hpf (0-5); Specific Gravity,Urine 1.011 (1.001-1.035); Urobilinogen,Urine <2.0 mg/dL (<2.0); WBC,Urine >182 /hpf (0-5)
[2023-04-30] MEDS ORDERED: ONDANSETRON 4 MG/2 ML VIAL IVP STA (15:28)
[2023-04-30 16:20] LABS: Ionized Calcium 7.1 mg/dL (4.5-5.3)
[2023-04-30 16:28] LABS: Magnesium 1.9 mg/dL (1.6-2.3); Phosphorus 3.5 mg/dL (2.5-4.5)
[2023-04-30] MEDS ORDERED: ONDANSETRON 4 MG/2 ML VIAL IVP PRN (19:24)
[2023-04-30] MEDS ORDERED: ACETAMINOPHEN TAB 325 MG TAB PO PRN (19:24)
[2023-04-30] MEDS ORDERED: HYDROmorphone 0.5 MG/0.5 ML SYRINGE IVP PRN (19:24)
[2023-04-30] MEDS ORDERED: NALOXONE 0.4 MG/ML 1 ML VIAL IV PRN (19:24)
[2023-04-30] MEDS: SODIUM CHLORIDE 0.9% 1,000 ML IV SCH (19:54)
[2023-04-30 22:17] LABS: Glucose,Whole Blood 202 mg/dL (70-110)
[2023-05-01 07:42] LABS: Glucose,Whole Blood 181 mg/dL (70-110)
[2023-05-01] MEDS: SODIUM CHLORIDE 0.9% 1,000 ML IV SCH ×2 (09:49→17:26)
[2023-05-01 11:41] LABS: ALT 13 U/L (10-49); AST 17 U/L (14-35); Albumin 3.5 d/dL (3.8-4.9); Albumin/Globulin Ratio 1.59 Ratio (1.60-3.17); Alkaline Phosphatase 91 U/L (41-126); BUN/Creat Ratio 9.37 Ratio (12.00-20.00); Blood Urea Nitrogen 25.3 mg/dL (9.0-27.0); Carbon Dioxide 29.4 mmol/L (21.6-31.8); Chloride 101 mmol/L (96-109); Globulin 2.2 d/dL (1.6-3.3); Glucose 162 mg/dL (70-110); Potassium 4.1 mmol/L (3.5-5.5); Sodium 139 mmol/L (135-145); Total Bilirubin 0.3 mg/dL (0.3-1.2); Total Protein 5.7 d/dL (6.2-8.2)
--- NOTE | 2023-05-01 12:24 | P.NPCON ---
History of Present Illness - Reason for Consult acute renal failure - History of Present Illness Patient is a 72-year-old male who was admitted to the hospital with complaints of nausea vomiting and diarrhea which started about 1 week prior to admission. Patient has had abdominal pain as well. He denies any previous history of kidney diseases. Calcium was noted to be elevated at 13.6. Patient stated that he had been taking a lot of Tums for abdominal pain. Review of previous labs shows calcium 9.0 on 03/04/2023. Serum creatinine was 2.2 and it is at 2.7 today. Patient is maintained on IV fluids. Prior creatinine 1.8 on 02/22/2023 and 1.7 on 07/09/2022. Patient has been voiding. No significant urinary symptoms. He was maintained on angiotensin receptor blockers and farxiga prior to admission. Blood pressure is not low. Review of Systems As per HPI Past Medical History Past Medical History: Cancer, COPD, Diabetes Mellitus, GERD/Reflux, Hypertension, Sleep Apnea/CPAP/BIPAP Additional Past Medical History / Comment(s): SKIN CANCER, SLEEP APNEA-cpap, hx BLEEDING HEMORRHOID, LIMITED MOBILITY LEFT ARM AFTER SKIN CANCER REMOVED., HX OF A FALL WITH FX VERTEBRAE & RUPTURED DISC YRS AGO. SEE CARDIOLOGY H & P. INGUINAL HERNIA. Arthritis lower spine and arms History of Any Multi-Drug Resistant Organisms: None Reported Past Surgical History: Appendectomy, Orthopedic Surgery Additional Past Surgical History / Comment(s): Left eye surgery, lens transplant, CA removed from left shoulder, barn spike through his left foot and removed. umbilical hernia removal 07/10. Past Anesthesia/Blood Transfusion Reactions: No Reported Reaction Additional Past Anesthesia/Blood Transfusion Reaction / Comment(s): No blood transfusions Past Psychological History: No Psychological Hx Reported Smoking Status: Current every day smoker Past Alcohol Use History: None Reported Additional Past Alcohol Use History / Comment(s): SMOKING SINCE 12 YRS OLD, CURRENTLY SMOKING 3-5 CIGARETTES /DAY., (HX OF 2PPD). STATES HX OF HEAVY ALCOHOL USE- QUIT IN 1981. Past Drug Use History: None Reported - Past Family History Brother(s) Family Medical History: No Reported History Mother Additional Family Medical History / Comment(s): low BP and low sugar Father Family Medical History: Diabetes Mellitus Medications and Allergies Home Medications Medication Instructions Recorded Confirmed Type Lovastatin [Mevacor] 40 mg PO DAILY 05/23/18 04/30/23 History Tamsulosin [Flomax] 0.4 mg PO DAILY 05/23/18 04/30/23 History Aspirin [Adult Low Dose Aspirin EC] 81 mg PO DAILY 11/10/18 04/30/23 History Semaglutide [Ozempic] 1 mg SQ WE 06/25/22 04/30/23 History Dapagliflozin Propanediol [Farxiga] 10 mg PO DAILY 07/07/22 04/30/23 History Furosemide [Lasix] 40 mg PO DAILY 07/07/22 04/30/23 History Losartan/Hydrochlorothiazide 1 tab PO DAILY 07/07/22 04/30/23 History [Losartan-Hctz 100-25 mg Tab] Metoprolol Succinate (ER) [Toprol 100 mg PO DAILY 07/07/22 04/30/23 History XL] Insulin Aspart [NovoLOG Flexpen] 20 units SQ AC-TID 11/26/22 04/30/23 History Insulin Degludec [Tresiba 60 units SQ DAILY 11/26/22 04/30/23 History Flextouch U-200 Pen] Allergies Allergy/AdvReac Type Severity Reaction Status Date / Time No Known Allergies Allergy Verified 04/30/23 13:42 Physical Exam Vitals: Vital Signs Temp Pulse Pulse Resp BP BP BP 05/01/23 11:58 98.1 F 93 16 156/77 05/01/23 07:50 98.7 F 90 18 132/71 05/01/23 01:15 98.2 F 96 20 142/67 04/30/23 23:30 20 04/30/23 22:08 98.2 F 104 H 20 161/79 04/30/23 21:17 112 H 14 154/79 04/30/23 20:14 96 16 146/63 04/30/23 19:12 97.7 F 98 16 165/87 04/30/23 18:33 105 H 18 156/79 Pulse Ox 05/01/23 11:58 93 L 05/01/23 07:50 94 L 05/01/23 01:15 97 04/30/23 23:30 04/30/23 22:08 98 04/30/23 21:17 96 04/30/23 20:14 92 L 04/30/23 19:12 91 L 04/30/23 18:33 96 Intake and Output 04/30/23 05/01/23 05/01/23 22:59 06:59 14:59 Intake Total 500 Output Total 1000 300 Balance -500 -300 Intake: Oral 500 Output: Urine 1000 300 Other: Weight 104.326 kg Patient is awake, comfortable, no acute distress Examination of the heart S1 and S2 Examination of the lungs bilateral breath sounds are heard Abdomen is soft, no significant tenderness noted Examination lower extremity shows no significant edema TRANSMISSION CALIBRATION ENGINEER exam grossly intact Results - Lab Results Most recent lab results Calcium 12.0 mg/dL (8.7-10.3) H 05/01/23 06:42 Phosphorus 3.5 mg/dL (2.5-4.5) 04/30/23 15:59 Magnesium 1.9 mg/dL (1.6-2.3) 04/30/23 15:59 04/30/23 11:06 05/01/23 06:42 Assessment and Plan Assessment: 1. Acute kidney injury secondary to hypercalcemia. Rule out urine retention. Patient had also been on angiotensin receptor blockers and farxiga prior to admission. Currently on hold. Maintained on IV fluids. 2. Hypercalcemia associated with excessive use of Tums. PTH and vitamin D levels will be ordered. Continue with IV fluids. Calcium has decreased to 12 today. 3. Pyuria rule out UTI 4. Hypertension with CK D4 5. 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 Baseline creatinine around 1.7 mg/dL as of June 2022 and on 03/04/2023 Plan: Continue with saline Check PTH level and 25-hydroxy vitamin D along with one 25-hydroxy vitamin D. Continue to avoid Tums Check serum and urine immunofixation Check urine culture Thank you for the consultation. We will continue to follow the patient with you during his hospitalization.
[2023-05-01] MEDS ORDERED: DEXTROSE 50% SYRINGE 50 ML IVP PRN ×2 (14:15)
[2023-05-01] MEDS ORDERED: polyethylene glycoL 3350 17 GM POWD.PACK PO STA (14:20)
[2023-05-01] MEDS ORDERED: SILVER sulfADIAZINE Cream 400 GM 1 APPLIC APPLIC TOPICAL SCH (14:30)
[2023-05-01] MEDS: METOPROLOL SUCCINATE (ER) 100 MG TAB.ER.24H PO SCH (15:13)
[2023-05-01] MEDS: PANTOPRAZOLE 40 MG TABLET PO SCH (15:13)
[2023-05-01] MEDS: TAMSULOSIN 0.4 MG CAP.ER.24H PO SCH (15:13)
--- NOTE | 2023-05-01 16:59 | US ---
EXAMINATION TYPE: US kidneys/renal and bladder DATE OF EXAM: 05/01/2023 COMPARISON: NONE CLINICAL INDICATION: Male, 72 years old with history of DHEERAJ; DHEERAJ, UTI EXAM MEASUREMENTS: Right Kidney: 12.5 x 5.1 x 5.3 cm Left Kidney: 11.0 x 5.7 x 5.4 cm Right Kidney: Column of Lucho noted. No hydronephrosis. Left Kidney: no evidence of hydronephrosis Bladder: not fully distended, limiting its evaluation Bilateral Jets seen: no IMPRESSION: No hydronephrosis. Underdistention of the bladder limits its evaluation.
[2023-05-01 17:21] LABS: Glucose,Whole Blood 239 mg/dL (70-110)
[2023-05-01] MEDS: INSULIN ASPART (NovoLOG) 100 UNIT/ML VIAL SQ SCH ×2 (17:25→20:06)
[2023-05-01] MEDS: MINERAL OIL-WHITE PETROLATUM 120 GM JAR TOPICAL SCH (17:25)
[2023-05-01] MEDS: HEPARIN SODIUM,PORCINE 5,000 UNIT/ML 1 ML VIAL SQ SCH (19:58)
[2023-05-01 20:08] LABS: Glucose,Whole Blood 140 mg/dL (70-110)
--- NOTE | 2023-05-01 22:37 | P.CONS ---
History of Present Illness - Reason for Consult Consult date: 05/01/23 Wounds, nonhealing Requesting physician: Celia Antony - Chief Complaint Weakness not feeling well X few days - History of Present Illness Patient is a 72-year-old male with a past medical history significant for diabetes mellitus hypertension COPD sleep apnea and skin cancer patient presenting to the ER yesterday morning for evaluation of nausea and vomiting and constipation and this patient symptom has been going on for about a week before presentation to the hospital patient denies having any headache or URI symptoms no chest pain or shortness of breath or cough no urinary symptoms patient also noticed to have increasing swelling to lower extremity with some dry scaly skin and minimal erythema patient of presentation to the hospital was afebrile and no fever has been gone subsequently patient was not hypotensive or hypoxic patient did have a white count of 10.7 BUN/creatinine has been mildly elevated liver exams are normal urine was positive chest x-ray chronic appearing changes no acute process infectious disease was consulted regarding nonhealing wound to the lower extremity. For possible cellulitis patient has been complaining of mild central aching pain to the lower extremity especially with some swelling minimal redness but no open wound or any drainage Review of Systems Positive point and negatives has been mentioned in the HPI, complete review of systems was performed and all other systems are negative Past Medical History Past Medical History: Cancer, COPD, Diabetes Mellitus, GERD/Reflux, Hypertension, Sleep Apnea/CPAP/BIPAP Additional Past Medical History / Comment(s): SKIN CANCER, SLEEP APNEA-cpap, hx BLEEDING HEMORRHOID, LIMITED MOBILITY LEFT ARM AFTER SKIN CANCER REMOVED., HX OF A FALL WITH FX VERTEBRAE & RUPTURED DISC YRS AGO. SEE CARDIOLOGY H & P. INGUINAL HERNIA. Arthritis lower spine and arms History of Any Multi-Drug Resistant Organisms: None Reported Past Surgical History: Appendectomy, Orthopedic Surgery Additional Past Surgical History / Comment(s): Left eye surgery, lens transplant, CA removed from left shoulder, barn spike through his left foot and removed. umbilical hernia removal 07/10. Past Anesthesia/Blood Transfusion Reactions: No Reported Reaction Additional Past Anesthesia/Blood Transfusion Reaction / Comm: No blood transfusions Past Psychological History: No Psychological Hx Reported Smoking Status: Current every day smoker Past Alcohol Use History: None Reported Additional Past Alcohol Use History / Comment(s): SMOKING SINCE 12 YRS OLD, CURRENTLY SMOKING 3-5 CIGARETTES /DAY., (HX OF 2PPD). STATES HX OF HEAVY ALCOHOL USE- QUIT IN 1981. Past Drug Use History: None Reported - Past Family History Brother(s) Family Medical History: No Reported History Mother Additional Family Medical History / Comment(s): low BP and low sugar Father Family Medical History: Diabetes Mellitus Medications and Allergies Home Medications Medication Instructions Recorded Confirmed Type Lovastatin [Mevacor] 40 mg PO DAILY 05/23/18 04/30/23 History Tamsulosin [Flomax] 0.4 mg PO DAILY 05/23/18 04/30/23 History Aspirin [Adult Low Dose Aspirin EC] 81 mg PO DAILY 11/10/18 04/30/23 History Semaglutide [Ozempic] 1 mg SQ WE 06/25/22 04/30/23 History Dapagliflozin Propanediol [Farxiga] 10 mg PO DAILY 07/07/22 04/30/23 History Metoprolol Succinate (ER) [Toprol 100 mg PO DAILY 07/07/22 04/30/23 History XL] Insulin Aspart [NovoLOG Flexpen] 20 units SQ AC-TID 11/26/22 04/30/23 History Insulin Degludec [Tresiba 60 units SQ DAILY 11/26/22 04/30/23 History Flextouch U-200 Pen] Losartan [Cozaar] 100 mg PO DAILY 30 Days #30 tab 05/08/23 Rx cefUROXime axetiL [Cefuroxime] 500 mg PO BID 3 Days #6 tab 05/08/23 Rx Allergies Allergy/AdvReac Type Severity Reaction Status Date / Time No Known Allergies Allergy Verified 04/30/23 13:42 Physical Exam Vitals: Vital Signs Temp Pulse Pulse Resp BP BP BP 05/01/23 11:58 98.1 F 93 16 156/77 05/01/23 07:50 98.7 F 90 18 132/71 05/01/23 01:15 98.2 F 96 20 142/67 04/30/23 23:30 20 04/30/23 22:08 98.2 F 104 H 20 161/79 04/30/23 21:17 112 H 14 154/79 04/30/23 20:14 96 16 146/63 04/30/23 19:12 97.7 F 98 16 165/87 04/30/23 18:33 105 H 18 156/79 Pulse Ox 05/01/23 11:58 93 L 05/01/23 07:50 94 L 05/01/23 01:15 97 04/30/23 23:30 04/30/23 22:08 98 04/30/23 21:17 96 04/30/23 20:14 92 L 04/30/23 19:12 91 L 04/30/23 18:33 96 Intake and Output 05/01/23 05/01/23 05/01/23 06:59 14:59 22:59 Intake Total 500 Output Total 1000 300 Balance -500 -300 Intake: Oral 500 Output: Urine 1000 300 GENERAL DESCRIPTION: Elderly male lying in bed, no distress. No tachypnea or accessory muscle of respiration use. HEENT: Shows Pallor , no scleral icterus. Oral mucous membrane is dry. No pharyngeal erythema or thrush NECK: Trachea central, no thyromegaly. LUNGS: Unlabored breathing. Clear to auscultation anteriorly. No wheeze or crackle. HEART: S1, S2, regular rate and rhythm. No loud murmur ABDOMEN: Soft, no tenderness , guarding or rigidity, no organomegaly EXTREMITIES: Diffuse swelling to bilateral lower extremity with some erythema no open wound or any drainage. SKIN: No rash, no masses palpable. NEUROLOGICAL: The patient is awake, alert, oriented x3, mood and affect normal. Results CBC & Chem 7: 05/08/23 06:19 05/08/23 06:19 Labs: Abnormal Lab Results - Last 24 Hours (Table) 04/30/23 04/30/23 04/30/23 Range/Units 15:59 15:59 22:14 Creatinine (0.6-1.5) mg/dL Est GFR (CKD-EPI) (>=60) BUN/Creatinine Ratio (12.00-20.00) Ratio Glucose (70-110) mg/dL POC Glucose (mg/dL) 202 H (70-110) mg/dL Calcium (8.7-10.3) mg/dL Ionized Calcium Gisselle 7.1 H* (4.5-5.3) mg/dL Total Protein (6.2-8.2) d/dL Albumin (3.8-4.9) d/dL Albumin/Globulin Ratio (1.60-3.17) Ratio PTH Intact 4.8 L (14.0-72.0) pg/mL 05/01/23 05/01/23 Range/Units 06:42 07:41 Creatinine 2.7 H (0.6-1.5) mg/dL Est GFR (CKD-EPI) 24 L (>=60) BUN/Creatinine Ratio 9.37 L (12.00-20.00) Ratio Glucose 162 H (70-110) mg/dL POC Glucose (mg/dL) 181 H (70-110) mg/dL Calcium 12.0 H (8.7-10.3) mg/dL Ionized Calcium Gisselle (4.5-5.3) mg/dL Total Protein 5.7 L (6.2-8.2) d/dL Albumin 3.5 L (3.8-4.9) d/dL Albumin/Globulin Ratio 1.59 L (1.60-3.17) Ratio PTH Intact (14.0-72.0) pg/mL Assessment and Plan (1) Bilateral lower leg cellulitis Current Visit: Yes Status: Acute Code(s): L03.116 - CELLULITIS OF LEFT LOWER LIMB; L03.115 - CELLULITIS OF RIGHT LOWER LIMB SNOMED Code(s): 190060871 Plan: 1patient presented hospital with symptoms of nausea vomiting constipation in this patient who did have evidence of acute renal failure on admission to the hospital patient also have some diffuse swelling to bilateral extremities some dry skin skin minimal edema underlying cellulitis less likely but not entirely excluded 2-positive UA and some vague urinary symptoms underlying UTI not entirely excluded especially with elevated creatinine concerning for possible postobstructive uropathy 3-we will apply moisturizing cream to bilateral lower extremity followed by Ken wrap to keep the swelling down 4-empirically add Rocephin 2 g daily while waiting for the culture to finalize We will follow on clinical condition and cultures to further adjust medication if needed Thank you for this consultation we will follow the patient along with you Dictation was produced using [employer] software. please excuse any grammatical, word or spelling errors. Time with Patient: Greater than 30
--- NOTE | 2023-05-01 22:48 | P.HPIM ---
History of Present Illness H&P Date: 05/01/23 Chief Complaint: Nausea vomiting and abdominal pain Patient is a 72-year-old male with a past medical history of diabetes type 2 insulin-dependent, hypertension, obstructive sleep apnea on CPAP, currently everyday smoker presents to ER with the complaints of nausea, vomiting and abdominal pain for the past 1 week. Patient states that he has been having abdominal pain mainly in the epigastric region. She has been taking excessive amounts of Tums to relieve pain. Last bowel movement 3 days ago. Denies any complaints of chest pain or shortness of breath. No fever no chills. No headache or dizziness or lightheadedness. Denies any prior history of coronary artery disease. Patient is currently homeless and has been living in his car. Patient states that he has history of heavy alcohol use quit in 1981. Currently smokes 3 to 5 cigarettes/day. Laboratory data showed WBC 10.7 hemoglobin 14.5 and platelets 245 Sodium 132 potassium 4.2 chloride 96 bicarb is 30 BUN 26 and creatinine 2.23 and blood sugar 243 on admission. Calcium 13.6, ionized calcium 7.1, magnesium 1.9 Liver any absent not elevated TSH 1.81 and PTH 4.8 Urinalysis showed trace protein 4+ glucose large leukocyte esterase with elevated WBCs greater than 182 and occasional bacteria. Review of Systems Constitutional: Patient denies any fever or chills . no Generalized weakness. Abdomen: Patient complains of nausea vomiting and abdominal pain/bloating. No diarrhea. Positive for constipation. Cardiovascular: Patient denies any chest pain or short of breath no p alpitations. Respiratory: patient denied any cough . no sputum production. No shortness of breath Neurologic: Patient denied any numbness or tingling headache. Musculoskeletal: Patient denies any complaints of joint swelling or deformity. Skin: Negative Psychiatric: Negative Endocrine: No heat or cold intolerance. No recent weight gain. Genitourinary: No dysuria or hematuria. All other 14 point ROS negative except the above Past Medical History Past Medical History: Cancer, COPD, Diabetes Mellitus, GERD/Reflux, Hypertension, Sleep Apnea/CPAP/BIPAP Additional Past Medical History / Comment(s): SKIN CANCER, SLEEP APNEA-cpap, hx BLEEDING HEMORRHOID, LIMITED MOBILITY LEFT ARM AFTER SKIN CANCER REMOVED., HX OF A FALL WITH FX VERTEBRAE & RUPTURED DISC YRS AGO. SEE CARDIOLOGY H & P. INGUINAL HERNIA. Arthritis lower spine and arms History of Any Multi-Drug Resistant Organisms: None Reported Past Surgical History: Appendectomy, Orthopedic Surgery Additional Past Surgical History / Comment(s): Left eye surgery, lens transplant, CA removed from left shoulder, barn spike through his left foot and removed. umbilical hernia removal 07/10. Past Anesthesia/Blood Transfusion Reactions: No Reported Reaction Additional Past Anesthesia/Blood Transfusion Reaction / Comment(s): No blood transfusions Past Psychological History: No Psychological Hx Reported Smoking Status: Current every day smoker Past Alcohol Use History: None Reported Additional Past Alcohol Use History / Comment(s): SMOKING SINCE 12 YRS OLD, CURRENTLY SMOKING 3-5 CIGARETTES /DAY., (HX OF 2PPD). STATES HX OF HEAVY ALCOHOL USE- QUIT IN 1981. Past Drug Use History: None Reported - Past Family History Brother(s) Family Medical History: No Reported History Mother Additional Family Medical History / Comment(s): low BP and low sugar Father Family Medical History: Diabetes Mellitus Medications and Allergies Home Medications Medication Instructions Recorded Confirmed Type Lovastatin [Mevacor] 40 mg PO DAILY 05/23/18 04/30/23 History Tamsulosin [Flomax] 0.4 mg PO DAILY 05/23/18 04/30/23 History Aspirin [Adult Low Dose Aspirin EC] 81 mg PO DAILY 11/10/18 04/30/23 History Semaglutide [Ozempic] 1 mg SQ WE 06/25/22 04/30/23 History Dapagliflozin Propanediol [Farxiga] 10 mg PO DAILY 07/07/22 04/30/23 History Furosemide [Lasix] 40 mg PO DAILY 07/07/22 04/30/23 History Losartan/Hydrochlorothiazide 1 tab PO DAILY 07/07/22 04/30/23 History [Losartan-Hctz 100-25 mg Tab] Metoprolol Succinate (ER) [Toprol 100 mg PO DAILY 07/07/22 04/30/23 History XL] Insulin Aspart [NovoLOG Flexpen] 20 units SQ AC-TID 11/26/22 04/30/23 History Insulin Degludec [Tresiba 60 units SQ DAILY 11/26/22 04/30/23 History Flextouch U-200 Pen] Allergies Allergy/AdvReac Type Severity Reaction Status Date / Time No Known Allergies Allergy Verified 04/30/23 13:42 Physical Exam Vitals: Vital Signs Temp Pulse Pulse Resp BP BP BP 05/01/23 11:58 98.1 F 93 16 156/77 05/01/23 07:50 98.7 F 90 18 132/71 05/01/23 01:15 98.2 F 96 20 142/67 04/30/23 23:30 20 04/30/23 22:08 98.2 F 104 H 20 161/79 04/30/23 21:17 112 H 14 154/79 04/30/23 20:14 96 16 146/63 04/30/23 19:12 97.7 F 98 16 165/87 04/30/23 18:33 105 H 18 156/79 Pulse Ox 05/01/23 11:58 93 L 05/01/23 07:50 94 L 05/01/23 01:15 97 04/30/23 23:30 04/30/23 22:08 98 04/30/23 21:17 96 04/30/23 20:14 92 L 04/30/23 19:12 91 L 04/30/23 18:33 96 Intake and Output 04/30/23 05/01/23 05/01/23 22:59 06:59 14:59 Intake Total 500 Output Total 1000 300 Balance -500 -300 Intake: Oral 500 Output: Urine 1000 300 Other: Weight 104.326 kg PHYSICAL EXAMINATION: Patient is lying in the bed comfortably, no acute distress, awake alert and oriented.. HEENT: Normocephalic. Neck is supple. Pupils reactive. Nostrils clear. Oral cavity is moist. Neck reveals no JVD, carotid bruits, or thyromegaly. CHEST EXAMINATION: Trachea is central. Symmetrical expansion. Bibasilar diminished sounds.. CARDIAC: Normal S1, S2 with no gallops. No murmurs ABDOMEN: Soft. Bowel sounds present. Nontender. No organomegaly. No abdominal bruits. Extremities: Bilateral lower extremity trace edema with dry skin and scaling. Skin excoriations on the bilateral lateral calf region. No purulent discharge.. No clubbing or cyanosis Neurologically awake, alert, oriented x3 with well-coordinated movements. No focal deficits noted Skin: No rash or skin lesions. Psychiatric: Coperative. Nonsuicidal, Musculoskeletal: No joint swelling or deformity. Normal range of motion. Results CBC & Chem 7: 04/30/23 11:06 05/01/23 06:42 Labs: Abnormal Lab Results - Last 24 Hours (Table) 04/30/23 04/30/23 04/30/23 Range/Units 15:59 15:59 22:14 Creatinine (0.6-1.5) mg/dL Est GFR (CKD-EPI) (>=60) BUN/Creatinine Ratio (12.00-20.00) Ratio Glucose (70-110) mg/dL POC Glucose (mg/dL) 202 H (70-110) mg/dL Calcium (8.7-10.3) mg/dL Ionized Calcium Gisselle 7.1 H* (4.5-5.3) mg/dL Total Protein (6.2-8.2) d/dL Albumin (3.8-4.9) d/dL Albumin/Globulin Ratio (1.60-3.17) Ratio PTH Intact 4.8 L (14.0-72.0) pg/mL 05/01/23 05/01/23 Range/Units 06:42 07:41 Creatinine 2.7 H (0.6-1.5) mg/dL Est GFR (CKD-EPI) 24 L (>=60) BUN/Creatinine Ratio 9.37 L (12.00-20.00) Ratio Glucose 162 H (70-110) mg/dL POC Glucose (mg/dL) 181 H (70-110) mg/dL Calcium 12.0 H (8.7-10.3) mg/dL Ionized Calcium Gisselle (4.5-5.3) mg/dL Total Protein 5.7 L (6.2-8.2) d/dL Albumin 3.5 L (3.8-4.9) d/dL Albumin/Globulin Ratio 1.59 L (1.60-3.17) Ratio PTH Intact (14.0-72.0) pg/mL Thrombosis Risk Factor Assmnt - DVT/VTE Prophylaxis DVT/VTE Prophylaxis: Pharmacologic Prophylaxis ordered - Choose All That Apply Any of the Below Risk Factors Present?: Yes Each Factor Represents 1 point: Abnormal pulmonary function (COPD), Obesity (BMI >25) Other Risk Factors: Yes Each Risk Factor Represents 2 Points: Age 61-74 years Other congenital or acquired thrombophilia - If yes, enter type in comment: No Thrombosis Risk Factor Assessment Total Risk Factor Score: 4 Thrombosis Risk Factor Assessment Level: Moderate Risk Assessment and Plan Assessment: Nausea, vomiting and abdominal pain. Possible gastritis. Rule out other etiologies. Hypercalcemia could be secondary to excessive intake of Tums. Follow-up intact PTH and vitamin D levels. Acute kidney injury due to prerenal and hypercalcemia. Possible urinary tract infection Chronic kidney disease stage IV likely due to diabetic nephropathy Diabetes type 2 insulin-dependent with hyperglycemia/uncontrolled. Hypertension After sleep apnea on CPAP GERD COPD Currently everyday smoker GI and DVT prophylax with PPI and heparin subcu Plan: Patient will be continued on IV hydration with normal saline and monitor renal function calcium level. Follow-up renal ultrasound to rule out obstruction. Patient was seen by nephrology. PTH and vitamin D levels ordered as well as serum and urine immunofixation. ASHLEY inhibitor send Farxiga is on hold. Follow-up urine culture report. ID consulted Continue with Levemir and insulin sliding scale. Patient is on 60 units daily Levemir at home. Dose reduced due to renal failure. Titrate dose as needed. Consider CT abdomen pelvis without contrast if continues to have pain. Follow closely. Social work consult for jail placement. Patient is currently homeless. Time with Patient: Greater than 30
[2023-05-02] MEDS: SODIUM CHLORIDE 0.9% 1,000 ML IV SCH (01:33)
[2023-05-02 07:38] LABS: Basophils % (A) 0 %; Eosinophils # (A) 0.1 k/uL (0-0.7); Eosinophils % (A) 2 %; HCT 39.3 % (39.0-53.0); Lymphocytes # (A) 1.3 k/uL (1.0-4.8); Lymphocytes % (A) 18 %; MCH 28.9 pg (25.0-35.0); MCHC 33.1 g/dL (31.0-37.0); MCV 87.3 fL (80.0-100.0); Mean Platelet Volume 7.9; Monocytes # (A) 0.6 k/uL (0-1.0); Monocytes % (A) 8 %; Neutrophils % (A) 70 %; Platelet Count 213 k/uL (150-450); RDW 14.3 % (11.5-15.5); WBC 7.1 k/uL (3.8-10.6)
[2023-05-02 08:05] LABS: African American GFR (CKD) 33 (>60 ml/min/1.73 sqM); Anion Gap 5 mmol/L; Blood Urea Nitrogen 31 mg/dL (9-20); Calcium 10.6 mg/dL (8.4-10.2); Carbon Dioxide 26 mmol/L (22-30); Chloride 105 mmol/L (98-107); Glucose 119 mg/dL (74-99); Non-African American GFR(CKD) 28 (>60 ml/min/1.73 sqM); Potassium 3.9 mmol/L (3.5-5.1); Sodium 136 mmol/L (137-145)
[2023-05-02 08:07] LABS: Glucose,Whole Blood 232 mg/dL (70-110)
[2023-05-02] MEDS: INSULIN ASPART (NovoLOG) 100 UNIT/ML VIAL SQ SCH ×7 (08:53→20:19)
[2023-05-02] MEDS: ATORVASTATIN 10 MG TAB PO SCH (08:54)
[2023-05-02] MEDS: INSULIN DETEMIR (LEVEMIR) 100 UNIT/ML SYR SQ SCH (08:54)
[2023-05-02] MEDS: ASPIRIN 81 MG PO SCH (08:54)
[2023-05-02] MEDS: PANTOPRAZOLE 40 MG TABLET PO SCH (08:54)
[2023-05-02] MEDS: TAMSULOSIN 0.4 MG CAP.ER.24H PO SCH (08:54)
[2023-05-02] MEDS: METOPROLOL SUCCINATE (ER) 100 MG TAB.ER.24H PO SCH (08:56)
[2023-05-02] MEDS: HEPARIN SODIUM,PORCINE 5,000 UNIT/ML 1 ML VIAL SQ SCH ×2 (08:56→20:40)
[2023-05-02] MEDS: MINERAL OIL-WHITE PETROLATUM 120 GM JAR TOPICAL SCH (09:02)
--- NOTE | 2023-05-02 10:11 | P.PN ---
Subjective Patient is seen for follow-up for hypercalcemia secondary to excessive use of Tums. Calcium has improved to 10.6. PTH is appropriately low and 25-hydroxy vitamin D level was 28.2. No significant complaints today. Serum creatinine at 2.2 mg/dL. 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 - Labs CBC & Chem 7: 05/02/23 06:52 05/02/23 06:52 Labs: Abnormal Lab Results - Last 24 Hours (Table) 05/01/23 05/01/23 05/01/23 Range/Units 06:42 10:26 10:26 Sodium (137-145) mmol/L BUN (9-20) mg/dL Creatinine 2.7 H (0.6-1.5) mg/dL Est GFR (CKD-EPI) 24 L (>=60) BUN/Creatinine Ratio 9.37 L (12.00-20.00) Ratio Glucose 162 H (70-110) mg/dL POC Glucose (mg/dL) (70-110) mg/dL Calcium 12.0 H (8.7-10.3) mg/dL Total Protein 5.7 L (6.2-8.2) d/dL Albumin 3.5 L (3.8-4.9) d/dL Albumin/Globulin Ratio 1.59 L (1.60-3.17) Ratio Vitamin D 25-Hydroxy 28.2 L (30.0-100.0) ng/mL PTH Intact 6.4 L (14.0-72.0) pg/mL 05/01/23 05/01/23 05/02/23 Range/Units 17:19 20:06 06:52 Sodium 136 L (137-145) mmol/L BUN 31 H (9-20) mg/dL Creatinine 2.22 H (0.6-1.5) mg/dL Est GFR (CKD-EPI) (>=60) BUN/Creatinine Ratio (12.00-20.00) Ratio Glucose 119 H (70-110) mg/dL POC Glucose (mg/dL) 239 H 140 H (70-110) mg/dL Calcium 10.6 H (8.7-10.3) mg/dL Total Protein (6.2-8.2) d/dL Albumin (3.8-4.9) d/dL Albumin/Globulin Ratio (1.60-3.17) Ratio Vitamin D 25-Hydroxy (30.0-100.0) ng/mL PTH Intact (14.0-72.0) pg/mL 05/02/23 Range/Units 08:06 Sodium (137-145) mmol/L BUN (9-20) mg/dL Creatinine (0.6-1.5) mg/dL Est GFR (CKD-EPI) (>=60) BUN/Creatinine Ratio (12.00-20.00) Ratio Glucose (70-110) mg/dL POC Glucose (mg/dL) 232 H (70-110) mg/dL Calcium (8.7-10.3) mg/dL Total Protein (6.2-8.2) d/dL Albumin (3.8-4.9) d/dL Albumin/Globulin Ratio (1.60-3.17) Ratio Vitamin D 25-Hydroxy (30.0-100.0) ng/mL PTH Intact (14.0-72.0) pg/mL Assessment and Plan Assessment: 1. Acute kidney injury secondary to hypercalcemia. No evidence of obstructive uropathy on ultrasound. UA shows trace protein WBCs more than 182 and trace blood. Patient had also been on angiotensin receptor blockers and farxiga prior to admission. Currently on hold. Maintained on IV fluids. 2. Hypercalcemia associated with excessive use of Tums. PTH is appropriately low and very 5 hydroxy vitamin D level is not elevated. Calcium decreased to 10.6 today 3. Pyuria rule out UTI 4. Hypertension with CK D4 5. 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 Baseline creatinine around 1.7 mg/dL as of June 2022 and on 03/04/2023 Plan: DC saline Continue to avoid Tums Recommend Check urine culture
[2023-05-02 12:27] LABS: Glucose,Whole Blood 243 mg/dL (70-110)
--- NOTE | 2023-05-02 14:38 | P.PN ---
Subjective Progress Note Date: 05/02/23 Principal diagnosis: Uti and leg cellulitis Patient is a 72-year-old male with a past medical history significant for diabetes mellitus hypertension COPD sleep apnea and skin cancer patient presenting to the ER for evaluation of nausea and vomiting and constipation, lobo sales was noticed to have a positive UA with some urinary symptoms also lower extremity swelling and redness On today's evaluation that is 05/02/2020, the patient denies having any fever or any chills, he is breathing comfortably on room air no chest pain no shortness of breath or cough no further nausea no vomiting mention he did have bowel movement yesterday no abdominal pain and denies pain to the lower extremity complaining of some itching and burning on urination wbc downt to 7.1 , Cr is 2.2 Objective - Vital Signs Vital signs: Vital Signs Temp 98.1 F 05/02/23 05:49 Pulse 79 05/02/23 08:50 Resp 19 05/02/23 08:50 BP 136/75 05/02/23 05:49 Pulse Ox 92 L 05/02/23 05:49 FiO2 Intake & Output 05/01/23 05/02/23 05/02/23 18:59 06:59 18:59 Output Total 300 925 800 Balance -300 -925 -800 Output: Urine 300 925 800 Other: # Voids 2 - Exam GENERAL DESCRIPTION: Elderly male lying in bed in no distress RESPIRATORY SYSTEM: Unlabored breathing , decreased breath sounds at bases HEART: S1 S2 regular rate and rhythm ,no loud murmurs ABDOMEN: Soft , no tenderness EXTREMITIES: Bilateral lower extremity currently wrapped in Ken wrap - Labs CBC & Chem 7: 05/02/23 06:52 05/02/23 06:52 Labs: Abnormal Lab Results - Last 24 Hours (Table) 05/01/23 05/01/23 05/01/23 Range/Units 10:26 10:26 17:19 Sodium (137-145) mmol/L BUN (9-20) mg/dL Creatinine (0.66-1.25) mg/dL Glucose (74-99) mg/dL POC Glucose (mg/dL) 239 H (70-110) mg/dL Hemoglobin A1c (<=6.0) % Calcium (8.4-10.2) mg/dL Vitamin D 25-Hydroxy 28.2 L (30.0-100.0) ng/mL PTH Intact 6.4 L (14.0-72.0) pg/mL 05/01/23 05/02/23 05/02/23 Range/Units 20:06 06:52 06:52 Sodium 136 L (137-145) mmol/L BUN 31 H (9-20) mg/dL Creatinine 2.22 H (0.66-1.25) mg/dL Glucose 119 H (74-99) mg/dL POC Glucose (mg/dL) 140 H (70-110) mg/dL Hemoglobin A1c 10.8 H (<=6.0) % Calcium 10.6 H (8.4-10.2) mg/dL Vitamin D 25-Hydroxy (30.0-100.0) ng/mL PTH Intact (14.0-72.0) pg/mL 05/02/23 05/02/23 Range/Units 08:06 12:24 Sodium (137-145) mmol/L BUN (9-20) mg/dL Creatinine (0.66-1.25) mg/dL Glucose (74-99) mg/dL POC Glucose (mg/dL) 232 H 243 H (70-110) mg/dL Hemoglobin A1c (<=6.0) % Calcium (8.4-10.2) mg/dL Vitamin D 25-Hydroxy (30.0-100.0) ng/mL PTH Intact (14.0-72.0) pg/mL Assessment and Plan (1) Bilateral lower leg cellulitis Current Visit: Yes Status: Acute Code(s): L03.116 - CELLULITIS OF LEFT LOWER LIMB; L03.115 - CELLULITIS OF RIGHT LOWER LIMB SNOMED Code(s): 564281238 (2) UTI (urinary tract infection) Current Visit: Yes Status: Acute Code(s): N39.0 - URINARY TRACT INFECTION, SITE NOT SPECIFIED SNOMED Code(s): 81571254 Plan: 1patient presented hospital with symptoms of nausea vomiting constipation in this patient who did have evidence of acute renal failure on admission to the hospital patient also have some diffuse swelling to bilateral extremities some dry skin skin minimal edema underlying cellulitis less likely but not entirely excluded 2-positive UA and some urinary symptoms underlying UTI not entirely excluded especially with elevated creatinine concerning for possible postobstructive uropathy 3-we will apply moisturizing cream to bilateral lower extremity followed by Ken wrap to keep the swelling down 4-Pt to continue with Rocephin 2 g daily while waiting for the culture to finalize Dictation was produced using [employer] software. please excuse any grammatical, word or spelling errors.
[2023-05-02 17:36] LABS: Glucose,Whole Blood 131 mg/dL (70-110)
[2023-05-02 20:02] LABS: Glucose,Whole Blood 101 mg/dL (70-110)
[2023-05-03 08:14] LABS: Glucose,Whole Blood 123 mg/dL (70-110)
[2023-05-03] MEDS: INSULIN ASPART (NovoLOG) 100 UNIT/ML VIAL SQ SCH ×7 (08:46→20:23)
[2023-05-03] MEDS: PANTOPRAZOLE 40 MG TABLET PO SCH (09:02)
[2023-05-03] MEDS: TAMSULOSIN 0.4 MG CAP.ER.24H PO SCH (09:02)
[2023-05-03] MEDS: ATORVASTATIN 10 MG TAB PO SCH (09:02)
[2023-05-03] MEDS: ASPIRIN 81 MG PO SCH (09:02)
[2023-05-03] MEDS: METOPROLOL SUCCINATE (ER) 100 MG TAB.ER.24H PO SCH (09:02)
[2023-05-03] MEDS: INSULIN DETEMIR (LEVEMIR) 100 UNIT/ML SYR SQ SCH (09:02)
[2023-05-03] MEDS: MINERAL OIL-WHITE PETROLATUM 120 GM JAR TOPICAL SCH (09:03)
[2023-05-03] MEDS: HEPARIN SODIUM,PORCINE 5,000 UNIT/ML 1 ML VIAL SQ SCH ×2 (10:12→20:23)
--- NOTE | 2023-05-03 11:25 | P.PN ---
Subjective Patient is seen for follow-up for hypercalcemia secondary to excessive use of Tums. Calcium has improved to 10.6. PTH is appropriately low and 25-hydroxy vitamin D level was 28.2. No significant complaints today. Serum creatinine at 2.2 mg/dL yesterday. Objective - Vital Signs Vital signs: Vital Signs Temp 98 F 05/03/23 08:00 Pulse 72 05/03/23 08:00 Resp 16 05/03/23 08:00 BP 129/76 05/03/23 08:00 Pulse Ox 94 L 05/03/23 08:00 FiO2 Intake & Output 05/02/23 05/03/23 05/03/23 18:59 06:59 18:59 Intake Total 180 200 118 Output Total 800 750 Balance -620 -550 118 Intake: Oral 180 200 118 Output: Urine 800 750 Other: # Voids 5 # Bowel Movements 2 - Exam Patient is awake, comfortable, no acute distress Examination of the heart S1 and S2 Examination of the lungs bilateral breath sounds are heard Abdomen is soft, no significant tenderness noted Examination lower extremity shows 1+ bilateral edema 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 Acute kidney injury secondary to hypercalcemia. No evidence of obstructive uropathy on ultrasound. UA shows trace protein WBCs more than 182 and trace blood. Patient had also been on angiotensin receptor blockers and farxiga prior to admission. Currently on hold. S/p IV fluids. 2. Hypercalcemia associated with excessive use of Tums. PTH is appropriately low and 25 hydroxy vitamin D level is not elevated. Calcium decreased to 10.6 yesterday. 3. Pyuria rule out UTI 4. Hypertension with CK D4 5. 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 Baseline creatinine around 1.7 mg/dL as of June 2022 and on 03/04/2023 Plan: Repeat labs Continue to avoid Tums
[2023-05-03 12:12] LABS: Glucose,Whole Blood 109 mg/dL (70-110)
[2023-05-03 16:57] LABS: Glucose,Whole Blood 199 mg/dL (70-110)
[2023-05-03 20:15] LABS: Glucose,Whole Blood 85 mg/dL (70-110)
--- NOTE | 2023-05-04 00:08 | P.PN ---
Subjective Progress Note Date: 05/02/23 Patient is a 72-year-old male with a past medical history of diabetes type 2 insulin-dependent, hypertension, obstructive sleep apnea on CPAP, currently everyday smoker presents to ER with the complaints of nausea, vomiting and abdominal pain for the past 1 week. Patient states that he has been having ab dominal pain mainly in the epigastric region. She has been taking excessive amounts of Tums to relieve pain. Last bowel movement 3 days ago. Denies any complaints of chest pain or shortness of breath. No fever no chills. No headache or dizziness or lightheadedness. Denies any prior history of coronary artery disease. Patient is currently homeless and has been living in his car. Patient states that he has history of heavy alcohol use quit in 1981. Currently smokes 3 to 5 cigarettes/day. Laboratory data showed WBC 10.7 hemoglobin 14.5 and platelets 245 Sodium 132 potassium 4.2 chloride 96 bicarb is 30 BUN 26 and creatinine 2.23 and blood sugar 243 on admission. Calcium 13.6, ionized calcium 7.1, magnesium 1.9 Liver any absent not elevated TSH 1.81 and PTH 4.8 Urinalysis showed trace protein 4+ glucose large leukocyte esterase with elevated WBCs greater than 182 and occasional bacteria. 05/02/2023 Patient is currently lying in the bed. Awake alert and oriented x3. Abdominal pain is much improved. No complaints of chest pain or shortness of breath. Patient is able to tolerate oral diet. No headache or dizziness or lightheadedness. Laboratory data showed creatinine level improved to 2.20 and calcium 10.6. A1c level is 10.8. Other laboratory data reviewed. Vitamin D 25-hydroxy 28.2 and PTH 6.4. Nephrology and ID is on board. Patient is being continued on ceftriaxone. Urine culture pending. Renal ultrasound showed no hydronephrosis. Under distention of the bladder and limits his evaluation. Current medications reviewed. Objective - Vital Signs Vital signs: Vital Signs Temp 98.8 F 05/02/23 19:27 Pulse 78 05/02/23 19:27 Resp 19 05/02/23 19:27 BP 131/70 05/02/23 19:27 Pulse Ox 94 L 05/02/23 19:27 FiO2 Intake & Output 05/02/23 05/02/23 05/03/23 06:59 18:59 06:59 Intake Total 180 200 Output Total 925 800 100 Balance -925 -620 100 Intake: Oral 180 200 Output: Urine 925 800 100 Other: # Voids 5 # Bowel Movements 2 - Exam PHYSICAL EXAMINATION: Patient is lying in the bed comfortably, no acute distress, awake alert and oriented.. HEENT: Normocephalic. Neck is supple. Pupils reactive. Nostrils clear. Oral cavity is moist. Neck reveals no JVD, carotid bruits, or thyromegaly. CHEST EXAMINATION: Trachea is central. Symmetrical expansion. Bibasilar diminished sounds.. CARDIAC: Normal S1, S2 with no gallops. No murmurs ABDOMEN: Soft. Bowel sounds present. Nontender. No organomegaly. No abdominal bruits. Extremities: Bilateral lower extremity trace edema with dry skin and scaling. Skin excoriations on the bilateral lateral calf region. No purulent discharge.. No clubbing or cyanosis Neurologically awake, alert, oriented x3 with well-coordinated movements. No focal deficits noted Skin: No rash or skin lesions. Psychiatric: Coperative. Nonsuicidal, Musculoskeletal: No joint swelling or deformity. Normal range of motion. - Labs CBC & Chem 7: 05/02/23 06:52 05/02/23 06:52 Labs: Abnormal Lab Results - Last 24 Hours (Table) 05/02/23 05/02/23 05/02/23 Range/Units 06:52 06:52 08:06 Sodium 136 L (137-145) mmol/L BUN 31 H (9-20) mg/dL Creatinine 2.22 H (0.66-1.25) mg/dL Glucose 119 H (74-99) mg/dL POC Glucose (mg/dL) 232 H (70-110) mg/dL Hemoglobin A1c 10.8 H (<=6.0) % Calcium 10.6 H (8.4-10.2) mg/dL 05/02/23 05/02/23 Range/Units 12:24 17:34 Sodium (137-145) mmol/L BUN (9-20) mg/dL Creatinine (0.66-1.25) mg/dL Glucose (74-99) mg/dL POC Glucose (mg/dL) 243 H 131 H (70-110) mg/dL Hemoglobin A1c (<=6.0) % Calcium (8.4-10.2) mg/dL Assessment and Plan Assessment: Nausea, vomiting and abdominal pain. Possible gastritis vs peptic ulcer. improved now.. Hypercalcemia could be secondary to excessive intake of Tums. checked PTH and vitamin D levels. Acute kidney injury due to prerenal and hypercalcemia. Possible urinary tract infection Chronic kidney disease stage IV likely due to diabetic nephropathy Diabetes type 2 insulin-dependent with hyperglycemia/uncontrolled. Hypertension After sleep apnea on CPAP GERD COPD Currently everyday smoker GI and DVT prophylax with PPI and heparin subcu Plan: Patient is tolerating oral diet. IV fluids on hold. Renal ultrasound showed no evidence of obstruction. PTH 6.8 and vitamin D 28.4. Follow-up serum and urine immunofixation. ASHLEY inhibitor send Farxiga is on hold. Continue with ceftriaxone and follow-up urine culture report. Continue with Levemir and insulin sliding scale. Patient is on 60 units daily Levemir at home. Dose reduced due to renal failure. Titrate dose as needed. ID and nephrology is on board. Social work consult for residential placement. Patient is currently homeless. Time with Patient: Greater than 30
--- NOTE | 2023-05-04 00:11 | P.PN ---
Subjective Progress Note Date: 05/03/23 Patient is a 72-year-old male with a past medical history of diabetes type 2 insulin-dependent, hypertension, obstructive sleep apnea on CPAP, currently everyday smoker presents to ER with the complaints of nausea, vomiting and abdominal pain for the past 1 week. Patient states that he has been having ab dominal pain mainly in the epigastric region. She has been taking excessive amounts of Tums to relieve pain. Last bowel movement 3 days ago. Denies any complaints of chest pain or shortness of breath. No fever no chills. No headache or dizziness or lightheadedness. Denies any prior history of coronary artery disease. Patient is currently homeless and has been living in his car. Patient states that he has history of heavy alcohol use quit in 1981. Currently smokes 3 to 5 cigarettes/day. Laboratory data showed WBC 10.7 hemoglobin 14.5 and platelets 245 Sodium 132 potassium 4.2 chloride 96 bicarb is 30 BUN 26 and creatinine 2.23 and blood sugar 243 on admission. Calcium 13.6, ionized calcium 7.1, magnesium 1.9 Liver any absent not elevated TSH 1.81 and PTH 4.8 Urinalysis showed trace protein 4+ glucose large leukocyte esterase with elevated WBCs greater than 182 and occasional bacteria. 05/02/2023 Patient is currently lying in the bed. Awake alert and oriented x3. Abdominal pain is much improved. No complaints of chest pain or shortness of breath. Patient is able to tolerate oral diet. No headache or dizziness or lightheadedness. Laboratory data showed creatinine level improved to 2.20 and calcium 10.6. A1c level is 10.8. Other laboratory data reviewed. Vitamin D 25-hydroxy 28.2 and PTH 6.4. Nephrology and ID is on board. Patient is being continued on ceftriaxone. Urine culture pending. Renal ultrasound showed no hydronephrosis. Under distention of the bladder and limits his evaluation. 05/03/2023 Patient is currently lying in the bed. Awake alert and oriented x2. Tolerating oral diet. Denies any complaints of abdominal pain. No nausea or vomiting. Patient did have a bowel movement also. No fever no chills. No cough or sputum production. Urine culture is growing gram-negative bacilli. Currently being continued on ceftriaxone. ID and nephrology is on board. Current medications reviewed. Objective - Vital Signs Vital signs: Vital Signs Temp 98.4 F 05/03/23 19:35 Pulse 84 05/03/23 19:35 Resp 18 05/03/23 19:35 BP 134/77 05/03/23 19:35 Pulse Ox 95 05/03/23 19:35 FiO2 Intake & Output 05/03/23 05/03/23 05/04/23 06:59 18:59 06:59 Intake Total 200 236 222 Output Total 750 1000 200 Balance -550 -764 22 Intake: Oral 200 236 222 Output: Urine 750 1000 200 - Exam PHYSICAL EXAMINATION: Patient is lying in the bed comfortably, no acute distress, awake alert and oriented.. HEENT: Normocephalic. Neck is supple. Pupils reactive. Nostrils clear. Oral ca vity is moist. Neck reveals no JVD, carotid bruits, or thyromegaly. CHEST EXAMINATION: Trachea is central. Symmetrical expansion. Bibasilar diminished sounds.. CARDIAC: Normal S1, S2 with no gallops. No murmurs ABDOMEN: Soft. Bowel sounds present. Nontender. No organomegaly. No abdominal bruits. Extremities: Bilateral lower extremity trace edema with dry skin and scaling. Skin excoriations on the bilateral lateral calf region. No purulent discharge.. No clubbing or cyanosis Neurologically awake, alert, oriented x3 with well-coordinated movements. No focal deficits noted Skin: No rash or skin lesions. Psychiatric: Coperative. Nonsuicidal, Musculoskeletal: No joint swelling or deformity. Normal range of motion. - Labs CBC & Chem 7: 05/02/23 06:52 05/02/23 06:52 Labs: Abnormal Lab Results - Last 24 Hours (Table) 05/03/23 05/03/23 Range/Units 08:12 16:56 POC Glucose (mg/dL) 123 H 199 H (70-110) mg/dL Microbiology - Last 24 Hours (Table) 05/01/23 14:41 Urine Culture - Preliminary Urine,Voided Gram Neg Bacilli Assessment and Plan Assessment: Nausea, vomiting and abdominal pain. Possible gastritis vs peptic ulcer. improved now.. Hypercalcemia could be secondary to excessive intake of Tums. checked PTH and vitamin D levels. Acute kidney injury due to prerenal and hypercalcemia. Possible urinary tract infection Chronic kidney disease stage IV likely due to diabetic nephropathy Diabetes type 2 insulin-dependent with hyperglycemia/uncontrolled. Hypertension After sleep apnea on CPAP GERD COPD Currently everyday smoker GI and DVT prophylax with PPI and heparin subcu Plan: Patient is tolerating oral diet. IV fluids on hold. Renal ultrasound showed no evidence of obstruction. PTH 6.8 and vitamin D 28.4. Follow-up serum and urine immunofixation. ASHLEY inhibitor send Farxiga is on hold. Continue with ceftriaxone and follow-up urine culture report. Continue with Levemir and insulin sliding scale. Patient is on 60 units daily Levemir at home. Dose reduced due to renal failure. Titrate dose as needed. ID and nephrology is on board. Social work consult for long-term placement. Patient is currently homeless.
[2023-05-04 07:59] LABS: Glucose,Whole Blood 180 mg/dL (70-110)
[2023-05-04] MEDS: HEPARIN SODIUM,PORCINE 5,000 UNIT/ML 1 ML VIAL SQ SCH ×2 (08:05→21:49)
[2023-05-04] MEDS: ATORVASTATIN 10 MG TAB PO SCH (08:05)
[2023-05-04] MEDS: ASPIRIN 81 MG PO SCH (08:05)
[2023-05-04] MEDS: INSULIN ASPART (NovoLOG) 100 UNIT/ML VIAL SQ SCH ×7 (08:06→21:42)
[2023-05-04] MEDS: TAMSULOSIN 0.4 MG CAP.ER.24H PO SCH (08:06)
[2023-05-04] MEDS: METOPROLOL SUCCINATE (ER) 100 MG TAB.ER.24H PO SCH (08:06)
[2023-05-04] MEDS: PANTOPRAZOLE 40 MG TABLET PO SCH (08:06)
[2023-05-04] MEDS: INSULIN DETEMIR (LEVEMIR) 100 UNIT/ML SYR SQ SCH (08:07)
[2023-05-04] MEDS: MINERAL OIL-WHITE PETROLATUM 120 GM JAR TOPICAL SCH (08:14)
--- NOTE | 2023-05-04 10:00 | CDI ---
Documentation Clarification Form Date: 05/04/2023 09:04:54 AM From: Roxana Tomlinson RN CCDS Phone: [phone] Admit Date: 04/30/2023 07:29:00 PM Patient Name: Victorino Hollis Visit Number: [id number] Discharge Date: ATTENTION: The Clinical Documentation Specialists (CDI) and [facility] Coding Staff appreciate your assistance in clarifying documentation. Please respond to the clarification below the line at the bottom and electronically sign. The CDI & [facility] Coding staff will review the response and follow-up if needed. Please note: Queries are made part of the Legal Health Record. If you have any questions, please contact the author of this message via ITS. Dr. Handy Hedrick Conflicting documentation has been found in the medical record. As attending physician, please provide clarification. HTN with CKD 4, Nephrology notes 05/01 through 05/03 Chronic kidney disease NKF stage IIIB likely secondary to diabetic kidney disease and nephrosclerosis, Nephrology notes 05/01 through 05/03 History/Risk Factors: 72-year-old male presents to the ED for nausea, vomiting and abdominal pain for week. Medical history: DM2, HTN, Obstructive sleep apnea on bipap, copd and CKD. 05/01, H&P. Clinical Indicators: Historical Labs: 2022 BUN 30 CR 1.81 GFR 36 03/04/2023 BUN 29 CR 1.82 GFR 36 Current Labs: 04/30/2023 BUN 26 CR 2.23 GFR 28 Nephrology consult, 05/01: Baseline creatinine around 1.7mg/dl as of June 2022 and on 03/04/2023. Nephrology note, 05/02: Chronic kidney disease stage IV likely due to diabetic nephropathy. Medicine note, 05/02:Patient is on 60 units daily Levemir at home. Dose reduced due to renal failure. Titrate dose as needed. Treatment: 04/30 0.9NS 1L IV Bolus; 04/30 05/02 0.9NS 100cc/hr; 05/02 Levemir dose reduced Please clarify which diagnosis is most appropriate: [ x ] CKD 4 [ ] CKD 3b [ ] Other (please specify) [ ] Unable to determine (Template Last Revised: September 2020) MTDD
[2023-05-04 11:32] LABS: BUN/Creat Ratio 12.27 Ratio (12.00-20.00); Calcium 9.6 mg/dL (8.7-10.3); Carbon Dioxide 25.6 mmol/L (21.6-31.8); Chloride 104 mmol/L (96-109); Glucose 137 mg/dL (70-110); Potassium 3.9 mmol/L (3.5-5.5); Sodium 141 mmol/L (135-145)
[2023-05-04 11:45] LABS: Basophils # (A) 0.03 X 10*3/uL (0.00-0.10); Basophils % (A) 0.4 %; Eosinophils # (A) 0.17 X 10*3/uL (0.04-0.35); Eosinophils % (A) 2.4 %; HGB 12.8 d/dL (13.0-17.0); Lymphocytes # (A) 1.35 X 10*3/uL (0.90-5.00); Lymphocytes % (A) 19.4 %; MCH 27.9 pg (27.0-32.0); MCV 87.3 FL (80.0-97.0); Mean Platelet Volume 10.6 FL (9.5-12.2); Monocytes # (A) 0.68 X 10*3/uL (0.20-1.00); Monocytes % (A) 9.8 %; NRBC Per 100 WBC 0 X 10*3/uL (0.00-0.01); Neutrophils # (A) 4.71 X 10*3/uL (1.80-7.70); Neutrophils % (A) 67.7 %; Platelet Count 231 X 10*3/uL (140-440); RBC 4.58 X 10*6/uL (4.40-5.60); RDW 13.9 % (11.5-14.5); WBC 6.96 X 10*3/uL (4.50-10.00)
[2023-05-04 12:08] LABS: Glucose,Whole Blood 105 mg/dL (70-110)
--- NOTE | 2023-05-04 13:02 | P.PN ---
Subjective Patient is seen in follow-up for acute kidney injury on chronic kidney disease. Renal function stable. Calcium level normal. Oral intake fair. No vomiting or diarrhea. Vital signs are stable. General: No acute distress. HEENT: Head exam is unremarkable. LUNGS: No audible rhonchi or wheezes. HEART: Rate and Rhythm are regular. ABDOMEN: Nontender. EXTREMITITES: No edema. Objective - Vital Signs Vital signs: Vital Signs Temp 98.1 F 05/04/23 08:01 Pulse 74 05/04/23 08:01 Resp 19 05/04/23 08:01 BP 159/80 05/04/23 08:01 Pulse Ox 93 L 05/04/23 08:01 FiO2 Intake & Output 05/03/23 05/04/23 05/04/23 18:59 06:59 18:59 Intake Total 236 222 Output Total 1000 950 250 Balance -764 -728 -250 Intake: Oral 236 222 Output: Urine 1000 950 250 - Labs CBC & Chem 7: 05/04/23 06:04 05/04/23 06:04 Labs: Abnormal Lab Results - Last 24 Hours (Table) 05/03/23 05/04/23 05/04/23 Range/Units 16:56 06:04 06:04 Hgb 12.8 L (13.0-17.0) d/dL Creatinine 2.2 H (0.6-1.5) mg/dL Est GFR (CKD-EPI) 31 L (>=60) Glucose 137 H (70-110) mg/dL POC Glucose (mg/dL) 199 H (70-110) mg/dL 05/04/23 Range/Units 07:59 Hgb (13.0-17.0) d/dL Creatinine (0.6-1.5) mg/dL Est GFR (CKD-EPI) (>=60) Glucose (70-110) mg/dL POC Glucose (mg/dL) 180 H (70-110) mg/dL Microbiology - Last 24 Hours (Table) 05/01/23 14:41 Urine Culture - Final Urine,Voided Enterobacter hormaechei Assessment and Plan Plan: Assessment: 1. Acute kidney injury secondary to hypercalcemia-induced ATN. No hydronephrosis noted on kidney ultrasound. Creatinine peaked at 2.7 this admission and is stable at 2.2 today. 2. Chronic kidney disease stage III with baseline creatinine 1.6-1.8 secondary to diabetic kidney disease. 3. Hypercalcemia secondary to Tums. Improved. 4. Hypertension with chronic kidney disease. 5. Enterobacter UTI on antibiotics. Plan: Encourage oral intake. Avoid calcium and vitamin D supplements. Continue to hold diuretics. Resume losartan dose of 50 mg once daily. Can resume Farxiga in the next 24-48 hours if renal function stable. Patient advised to follow up outpatient 1 week post discharge to establish CKD care.
[2023-05-04] MEDS: LOSARTAN 50 MG TAB PO SCH (14:26)
[2023-05-04 16:48] LABS: Glucose,Whole Blood 233 mg/dL (70-110)
[2023-05-04 20:24] LABS: Glucose,Whole Blood 136 mg/dL (70-110)
--- NOTE | 2023-05-04 22:31 | P.PN ---
Subjective Progress Note Date: 05/04/23 Patient is a 72-year-old male with a past medical history of diabetes type 2 insulin-dependent, hypertension, obstructive sleep apnea on CPAP, currently everyday smoker presents to ER with the complaints of nausea, vomiting and abdominal pain for the past 1 week. Patient states that he has been having ab dominal pain mainly in the epigastric region. She has been taking excessive amounts of Tums to relieve pain. Last bowel movement 3 days ago. Denies any complaints of chest pain or shortness of breath. No fever no chills. No headache or dizziness or lightheadedness. Denies any prior history of coronary artery disease. Patient is currently homeless and has been living in his car. Patient states that he has history of heavy alcohol use quit in 1981. Currently smokes 3 to 5 cigarettes/day. Laboratory data showed WBC 10.7 hemoglobin 14.5 and platelets 245 Sodium 132 potassium 4.2 chloride 96 bicarb is 30 BUN 26 and creatinine 2.23 and blood sugar 243 on admission. Calcium 13.6, ionized calcium 7.1, magnesium 1.9 Liver any absent not elevated TSH 1.81 and PTH 4.8 Urinalysis showed trace protein 4+ glucose large leukocyte esterase with elevated WBCs greater than 182 and occasional bacteria. 05/02/2023 Patient is currently lying in the bed. Awake alert and oriented x3. Abdominal pain is much improved. No complaints of chest pain or shortness of breath. Patient is able to tolerate oral diet. No headache or dizziness or lightheadedness. Laboratory data showed creatinine level improved to 2.20 and calcium 10.6. A1c level is 10.8. Other laboratory data reviewed. Vitamin D 25-hydroxy 28.2 and PTH 6.4. Nephrology and ID is on board. Patient is being continued on ceftriaxone. Urine culture pending. Renal ultrasound showed no hydronephrosis. Under distention of the bladder and limits his evaluation. 05/03/2023 Patient is currently lying in the bed. Awake alert and oriented x2. Tolerating oral diet. Denies any complaints of abdominal pain. No nausea or vomiting. Patient did have a bowel movement also. No fever no chills. No cough or sputum production. Urine culture is growing gram-negative bacilli. Currently being continued on ceftriaxone. ID and nephrology is on board. 05/04/2023 Patient is currently resting in bed. Awake alert and oriented x3. No complaints of chest pain or shortness of breath. Abdominal pain is resolved. No headache or dizziness or lightheadedness. Patient is tolerating oral diet. Laboratory data showed creatinine level of 2.2 and stable since yesterday.Calcium level normalized at 9.6 today. Blood sugar is better controlled. Continue on insulin regimen. Laboratory data reviewed. Current medications reviewed. Objective - Vital Signs Vital signs: Vital Signs Temp 98.6 F 05/04/23 19:16 Pulse 77 05/04/23 19:16 Resp 18 05/04/23 20:00 BP 140/75 05/04/23 19:16 Pulse Ox 97 05/04/23 19:16 FiO2 Intake & Output 05/04/23 05/04/23 05/05/23 06:59 18:59 06:59 Intake Total 222 240 Output Total 950 550 350 Balance -728 -550 -110 Intake: Oral 222 240 Output: Urine 950 550 350 Other: Voiding Method Toilet # Voids 2 - Exam PHYSICAL EXAMINATION: Patient is lying in the bed comfortably, no acute distress, awake alert and oriented.. HEENT: Normocephalic. Neck is supple. Pupils reactive. Nostrils clear. Oral cavity is moist. Neck reveals no JVD, carotid bruits, or thyromegaly. CHEST EXAMINATION: Trachea is central. Symmetrical expansion. Bibasilar diminished sounds.. CARDIAC: Normal S1, S2 with no gallops. No murmurs ABDOMEN: Soft. Bowel sounds present. Nontender. No organomegaly. No abdominal bruits. Extremities: Bilateral lower extremity trace edema with dry skin and scaling. Skin excoriations on the bilateral lateral calf region. No purulent discharge.. No clubbing or cyanosis Neurologically awake, alert, oriented x3 with well-coordinated movements. No focal deficits noted Skin: No rash or skin lesions. Psychiatric: Coperative. Nonsuicidal, Musculoskeletal: No joint swelling or deformity. Normal range of motion. - Labs CBC & Chem 7: 05/04/23 06:04 05/04/23 06:04 Labs: Abnormal Lab Results - Last 24 Hours (Table) 05/01/23 05/04/23 05/04/23 Range/Units 10:26 06:04 06:04 Hgb 12.8 L (13.0-17.0) d/dL Creatinine 2.2 H (0.6-1.5) mg/dL Est GFR (CKD-EPI) 31 L (>=60) Glucose 137 H (70-110) mg/dL POC Glucose (mg/dL) (70-110) mg/dL Vit D 1,25-Dihydroxy <5 L (20 - 79) pg/mL 05/04/23 05/04/23 05/04/23 Range/Units 07:59 16:47 20:22 Hgb (13.0-17.0) d/dL Creatinine (0.6-1.5) mg/dL Est GFR (CKD-EPI) (>=60) Glucose (70-110) mg/dL POC Glucose (mg/dL) 180 H 233 H 136 H (70-110) mg/dL Vit D 1,25-Dihydroxy (20 - 79) pg/mL Microbiology - Last 24 Hours (Table) 05/01/23 14:41 Urine Culture - Final Urine,Voided Enterobacter hormaechei Assessment and Plan Assessment: Nausea, vomiting and abdominal pain. Possible gastritis. improved now.. Hypercalcemia could be secondary to excessive intake of Tums. checked PTH and vitamin D levels. Acute kidney injury due to prerenal and hypercalcemia. Creatinine went up to 2.7. Baseline creatinine level around 1.6 Possible urinary tract infection Chronic kidney disease stage IV likely due to diabetic nephropathy Diabetes type 2 insulin-dependent with hyperglycemia/uncontrolled. Hypertension After sleep apnea on CPAP GERD COPD Currently everyday smoker GI and DVT prophylax with PPI and heparin subcu Plan: Patient is tolerating oral diet. IV fluids on hold. Renal ultrasound showed no evidence of obstruction. PTH 6.8 and vitamin D 28.4. Follow-up serum and urine immunofixation. ASHLEY inhibitor/ARB and Farxiga is on hold.Started back on losartan today. Continue with ceftriaxone and follow-up urine culture report.Urine culture showed Enterobacter Hormaechei Continue with Levemir and insulin sliding scale. Patient is on 60 units daily Levemir at home. Dose reduced due to renal failure. Patient is currently on Levemir 21 units and aspart 7 units 3 times daily AC. Titrate dose as needed. Calcium level normalized now. Continue to avoid Tums. ID and nephrology is on board. Social work consult for [facility] placement. Patient is currently homeless. Time with Patient: Greater than 30
[2023-05-05 07:07] LABS: Glucose,Whole Blood 138 mg/dL (70-110)
[2023-05-05] MEDS: INSULIN ASPART (NovoLOG) 100 UNIT/ML VIAL SQ SCH ×7 (07:46→21:46)
[2023-05-05] MEDS: INSULIN DETEMIR (LEVEMIR) 100 UNIT/ML SYR SQ SCH (08:15)
[2023-05-05] MEDS: HEPARIN SODIUM,PORCINE 5,000 UNIT/ML 1 ML VIAL SQ SCH ×2 (08:16→21:41)
[2023-05-05] MEDS: ASPIRIN 81 MG PO SCH (08:16)
[2023-05-05] MEDS: PANTOPRAZOLE 40 MG TABLET PO SCH (08:16)
[2023-05-05] MEDS: ATORVASTATIN 10 MG TAB PO SCH (08:16)
[2023-05-05] MEDS: LOSARTAN 50 MG TAB PO SCH (08:16)
[2023-05-05] MEDS: TAMSULOSIN 0.4 MG CAP.ER.24H PO SCH (08:16)
[2023-05-05] MEDS: METOPROLOL SUCCINATE (ER) 100 MG TAB.ER.24H PO SCH (08:17)
[2023-05-05] MEDS: MINERAL OIL-WHITE PETROLATUM 120 GM JAR TOPICAL SCH (08:17)
[2023-05-05 11:05] LABS: BUN/Creat Ratio 11.65 Ratio (12.00-20.00); Blood Urea Nitrogen 23.3 mg/dL (9.0-27.0); Calcium 9.1 mg/dL (8.7-10.3); Carbon Dioxide 27.3 mmol/L (21.6-31.8); Chloride 105 mmol/L (96-109); Glucose 133 mg/dL (70-110); Magnesium 2.1 mg/dL (1.5-2.4); Potassium 3.8 mmol/L (3.5-5.5); Sodium 142 mmol/L (135-145)
[2023-05-05 11:52] LABS: Glucose,Whole Blood 249 mg/dL (70-110)
--- NOTE | 2023-05-05 12:11 | P.PN ---
Subjective Patient is seen in follow-up for acute kidney injury on chronic kidney disease. Renal function better. Calcium level normal. Oral intake fair. No vomiting or diarrhea. No active complaints. Vital signs are stable. General: No acute distress. HEENT: Head exam is unremarkable. LUNGS: No audible rhonchi or wheezes. HEART: Rate and Rhythm are regular. ABDOMEN: Nontender. EXTREMITITES: No edema. Objective - Vital Signs Vital signs: Vital Signs Temp 98.2 F 05/05/23 08:55 Pulse 78 05/05/23 08:55 Resp 16 05/05/23 08:55 BP 153/73 05/05/23 08:55 Pulse Ox 95 05/05/23 08:55 FiO2 Intake & Output 05/04/23 05/05/23 05/05/23 18:59 06:59 18:59 Intake Total 240 Output Total 550 1250 150 Balance -550 -1010 -150 Intake: Oral 240 Output: Urine 550 1250 150 Other: Voiding Method Toilet # Voids 2 1 - Labs CBC & Chem 7: 05/04/23 06:04 05/05/23 06:07 Labs: Abnormal Lab Results - Last 24 Hours (Table) 05/01/23 05/04/23 05/04/23 Range/Units 10:26 16:47 20:22 Creatinine (0.6-1.5) mg/dL Est GFR (CKD-EPI) (>=60) BUN/Creatinine Ratio (12.00-20.00) Ratio Glucose (70-110) mg/dL POC Glucose (mg/dL) 233 H 136 H (70-110) mg/dL Vit D 1,25-Dihydroxy <5 L (20 - 79) pg/mL 05/05/23 05/05/23 05/05/23 Range/Units 06:07 07:06 11:51 Creatinine 2.0 H (0.6-1.5) mg/dL Est GFR (CKD-EPI) 35 L (>=60) BUN/Creatinine Ratio 11.65 L (12.00-20.00) Ratio Glucose 133 H (70-110) mg/dL POC Glucose (mg/dL) 138 H 249 H (70-110) mg/dL Vit D 1,25-Dihydroxy (20 - 79) pg/mL Microbiology - Last 24 Hours (Table) 05/01/23 14:41 Urine Culture - Final Urine,Voided Enterobacter hormaechei Assessment and Plan Plan: Assessment: 1. Acute kidney injury secondary to hypercalcemia-induced ATN. No hydronephrosis noted on kidney ultrasound. Creatinine peaked at 2.7 this admission and is improved to 2.0 today. 2. Chronic kidney disease stage III with baseline creatinine 1.6-1.8 secondary to diabetic kidney disease. 3. Hypercalcemia secondary to Tums. Improved. 4. Hypertension with chronic kidney disease. 5. Enterobacter UTI on antibiotics. 6. Diabetes mellitus. Plan: Encouraged oral intake. Avoid calcium and vitamin D supplements. Continue to hold diuretics. Increase dose of losartan. Can resume Farxiga once treatment of UTI completed. Patient advised to follow up outpatient 1 week post discharge to establish CKD care.
--- NOTE | 2023-05-05 13:17 | P.PN ---
Subjective Progress Note Date: 05/03/23 Principal diagnosis: Uti and leg cellulitis Patient is a 72-year-old male with a past medical history significant for diabetes mellitus hypertension COPD sleep apnea and skin cancer patient presenting to the ER for evaluation of nausea and vomiting and constipation, lobo sales was noticed to have a positive UA with some urinary symptoms also lower extremity swelling and redness On today's evaluation that is 05/03/2023, the patient remains to be afebrile, the patient is breathing comfortably on room air no chest pain no shortness of breath or cough no further nausea no vomiting , no abdominal pain and denies pain to the lower extremity complaining of some itching and burning on urination wbc downt to 7.1 , Cr is 2.2 as of yesterday no lab draw today Objective - Vital Signs Vital signs: Vital Signs Temp 97.7 F 05/03/23 14:00 Pulse 72 05/03/23 14:00 Resp 18 05/03/23 14:00 BP 151/75 05/03/23 14:00 Pulse Ox 95 05/03/23 14:00 FiO2 Intake & Output 05/02/23 05/03/23 05/03/23 18:59 06:59 18:59 Intake Total 180 200 236 Output Total 631 139 0850 Balance -930 -800 -472 Intake: Oral 180 200 236 Output: Urine 252 403 9119 Other: # Voids 5 # Bowel Movements 2 - Exam GENERAL DESCRIPTION: Elderly male lying in bed in no distress RESPIRATORY SYSTEM: Unlabored breathing , decreased breath sounds at bases HEART: S1 S2 regular rate and rhythm ,no loud murmurs ABDOMEN: Soft , no tenderness EXTREMITIES: Bilateral lower extremity currently wrapped in Ken wrap - Labs CBC & Chem 7: 05/04/23 06:04 05/05/23 06:07 Labs: Abnormal Lab Results - Last 24 Hours (Table) 05/03/23 05/03/23 Range/Units 08:12 16:56 POC Glucose (mg/dL) 123 H 199 H (70-110) mg/dL Microbiology - Last 24 Hours (Table) 05/01/23 14:41 Urine Culture - Preliminary Urine,Voided Gram Neg Bacilli Assessment and Plan (1) Bilateral lower leg cellulitis Current Visit: Yes Status: Acute Code(s): L03.116 - CELLULITIS OF LEFT LOWER LIMB; L03.115 - CELLULITIS OF RIGHT LOWER LIMB SNOMED Code(s): 128483849 (2) UTI (urinary tract infection) Current Visit: Yes Status: Acute Code(s): N39.0 - URINARY TRACT INFECTION, SITE NOT SPECIFIED SNOMED Code(s): 11464209 Plan: 1patient presented hospital with symptoms of nausea vomiting constipation in this patient who did have evidence of acute renal failure on admission to the hospital patient also have some diffuse swelling to bilateral extremities some dry skin skin minimal edema underlying cellulitis less likely but not entirely excluded 2-positive UA and some urinary symptoms underlying UTI not entirely excluded especially with elevated creatinine concerning for possible postobstructive uropathy 3-we will apply moisturizing cream to bilateral lower extremity followed by Ken wrap to keep the swelling down 4-seemed to have shown some clinical improvement and will continue with Rocephin 2 g daily while waiting for the culture to finalize Dictation was produced using [employer] dictation software. please excuse any grammatical, word or spelling errors. Time with Patient: Less than 30
--- NOTE | 2023-05-05 13:18 | P.PN ---
Subjective Progress Note Date: 05/04/23 Principal diagnosis: Uti and leg cellulitis Patient is a 72-year-old male with a past medical history significant for diabetes mellitus hypertension COPD sleep apnea and skin cancer patient presenting to the ER for evaluation of nausea and vomiting and constipation, lobo sales was noticed to have a positive UA with some urinary symptoms also lower extremity swelling and redness On today's evaluation that is 05/04/2023, the patient remains to be afebrile, the patient is breathing comfortably on room air without the need for supplemental oxygen and no shortness of breath, the patient denies having any chest pain or cough, patient denies nausea/vomiting /diarrhea and no abdominal pain, urinary symptoms improved denies pain to the lower extremity Patient did have white count of 6.96, creatinine is 2.2 urine is growing Enterobacter Objective - Vital Signs Vital signs: Vital Signs Temp 97.6 F 05/04/23 12:07 Pulse 72 05/04/23 12:07 Resp 19 05/04/23 12:07 BP 156/72 05/04/23 12:07 Pulse Ox 93 L 05/04/23 12:07 FiO2 Intake & Output 05/03/23 05/04/23 05/04/23 18:59 06:59 18:59 Intake Total 236 222 Output Total 1000 950 250 Balance -331 -927 -250 Intake: Oral 236 222 Output: Urine 1000 950 250 Other: # Voids 2 - Exam GENERAL DESCRIPTION: Elderly male lying in bed in no distress RESPIRATORY SYSTEM: Unlabored breathing , decreased breath sounds at bases HEART: S1 S2 regular rate and rhythm ,no loud murmurs ABDOMEN: Soft , no tenderness EXTREMITIES: Bilateral lower extremity currently wrapped in Ken wrap - Labs CBC & Chem 7: 05/04/23 06:04 05/05/23 06:07 Labs: Abnormal Lab Results - Last 24 Hours (Table) 05/03/23 05/04/23 05/04/23 Range/Units 16:56 06:04 06:04 Hgb 12.8 L (13.0-17.0) d/dL Creatinine 2.2 H (0.6-1.5) mg/dL Est GFR (CKD-EPI) 31 L (>=60) Glucose 137 H (70-110) mg/dL POC Glucose (mg/dL) 199 H (70-110) mg/dL 05/04/23 Range/Units 07:59 Hgb (13.0-17.0) d/dL Creatinine (0.6-1.5) mg/dL Est GFR (CKD-EPI) (>=60) Glucose (70-110) mg/dL POC Glucose (mg/dL) 180 H (70-110) mg/dL Microbiology - Last 24 Hours (Table) 05/01/23 14:41 Urine Culture - Final Urine,Voided Enterobacter hormaechei Assessment and Plan (1) Bilateral lower leg cellulitis Current Visit: Yes Status: Acute Code(s): L03.116 - CELLULITIS OF LEFT LOWER LIMB; L03.115 - CELLULITIS OF RIGHT LOWER LIMB SNOMED Code(s): 143626482 (2) UTI (urinary tract infection) Current Visit: Yes Status: Acute Code(s): N39.0 - URINARY TRACT INFECTION, SITE NOT SPECIFIED SNOMED Code(s): 86629361 Plan: 1patient presented hospital with symptoms of nausea vomiting constipation in this patient who did have evidence of acute renal failure on admission to the hospital patient also have some diffuse swelling to bilateral extremities some dry skin skin minimal edema underlying cellulitis less likely but not entirely excluded 2-positive UA and some urinary symptoms underlying UTI not entirely excluded especially with elevated creatinine concerning for possible postobstructive uropathy, however ultrasound was negative for hydronephrosis patient is being seen by nephrology 3-we will apply moisturizing cream to bilateral lower extremity followed by Ken wrap to keep the swelling down 4-patient has shown clinical improvement and will continue with Rocephin 2 g daily with a plan to finish therapy with oral antibiotics Dictation was produced using [employer] dictation software. please excuse any grammatical, word or spelling errors. Time with Patient: Less than 30
--- NOTE | 2023-05-05 13:19 | P.PN ---
Subjective Progress Note Date: 05/05/23 Principal diagnosis: Uti and leg cellulitis Patient is a 72-year-old male with a past medical history significant for diabetes mellitus hypertension COPD sleep apnea and skin cancer patient presenting to the ER for evaluation of nausea and vomiting and constipation, lobo sales was noticed to have a positive UA with some urinary symptoms also lower extremity swelling and redness On today's evaluation that is 05/05/2023, the patient continues to be afebrile the patient is breathing comfortably on room air, the patient denies chest pain, shortness of breath or cough, patient denies abdominal pain, no nausea/vomiting and no diarrhea, patient denies any pain to bilateral lower extremity swelling has decreased Patient did have white count of 6.96 as of yesterday, creatinine is 2.0 urine is growing Enterobacter Objective - Vital Signs Vital signs: Vital Signs Temp 98.2 F 05/05/23 08:55 Pulse 78 05/05/23 08:55 Resp 16 05/05/23 08:55 BP 153/73 05/05/23 08:55 Pulse Ox 95 05/05/23 08:55 FiO2 Intake & Output 05/04/23 05/05/23 05/05/23 18:59 06:59 18:59 Intake Total 240 Output Total 550 1250 150 Balance -550 -1010 -150 Intake: Oral 240 Output: Urine 550 1250 150 Other: Voiding Method Toilet # Voids 2 1 - Exam GENERAL DESCRIPTION: Elderly male lying in bed in no distress RESPIRATORY SYSTEM: Unlabored breathing , decreased breath sounds at bases HEART: S1 S2 regular rate and rhythm ,no loud murmurs ABDOMEN: Soft , no tenderness EXTREMITIES: Bilateral lower extremity currently wrapped in Ken wrap - Labs CBC & Chem 7: 05/04/23 06:04 05/05/23 06:07 Labs: Abnormal Lab Results - Last 24 Hours (Table) 05/01/23 05/04/23 05/04/23 Range/Units 10:26 16:47 20:22 Creatinine (0.6-1.5) mg/dL Est GFR (CKD-EPI) (>=60) BUN/Creatinine Ratio (12.00-20.00) Ratio Glucose (70-110) mg/dL POC Glucose (mg/dL) 233 H 136 H (70-110) mg/dL Vit D 1,25-Dihydroxy <5 L (20 - 79) pg/mL 05/05/23 05/05/23 05/05/23 Range/Units 06:07 07:06 11:51 Creatinine 2.0 H (0.6-1.5) mg/dL Est GFR (CKD-EPI) 35 L (>=60) BUN/Creatinine Ratio 11.65 L (12.00-20.00) Ratio Glucose 133 H (70-110) mg/dL POC Glucose (mg/dL) 138 H 249 H (70-110) mg/dL Vit D 1,25-Dihydroxy (20 - 79) pg/mL Microbiology - Last 24 Hours (Table) 05/01/23 14:41 Urine Culture - Final Urine,Voided Enterobacter hormaechei Assessment and Plan (1) Bilateral lower leg cellulitis Current Visit: Yes Status: Acute Code(s): L03.116 - CELLULITIS OF LEFT LOWER LIMB; L03.115 - CELLULITIS OF RIGHT LOWER LIMB SNOMED Code(s): 681180518 (2) UTI (urinary tract infection) Current Visit: Yes Status: Acute Code(s): N39.0 - URINARY TRACT INFECTION, SITE NOT SPECIFIED SNOMED Code(s): 06860758 Plan: 1patient presented hospital with symptoms of nausea vomiting constipation in this patient who did have evidence of acute renal failure on admission to the hospital patient also have some diffuse swelling to bilateral extremities some dry skin skin minimal edema underlying cellulitis less likely but not entirely excluded 2-positive UA and some urinary symptoms underlying UTI not entirely excluded especially with elevated creatinine concerning for possible postobstructive uropathy, however ultrasound was negative for hydronephrosis patient is being seen by nephrology 3-we will apply moisturizing cream to bilateral lower extremity followed by Ken wrap to keep the swelling down 4-patient urine culture grew Enterobacter for the patient is covered with Rocephin 2 g daily with a plan to finish therapy with oral Ceftin Dictation was produced using [employer] software. please excuse any grammatical, word or spelling errors. Time with Patient: Less than 30
[2023-05-05 15:12] VITALS: BMI 31.1
[2023-05-05 17:51] LABS: Glucose,Whole Blood 229 mg/dL (70-110)
[2023-05-05 20:20] LABS: Glucose,Whole Blood 200 mg/dL (70-110)
[2023-05-06 07:10] LABS: Glucose,Whole Blood 198 mg/dL (70-110)
[2023-05-06] MEDS: ATORVASTATIN 10 MG TAB PO SCH (09:14)
[2023-05-06] MEDS: LOSARTAN 50 MG TAB PO SCH (09:14)
[2023-05-06] MEDS: ASPIRIN 81 MG PO SCH (09:14)
[2023-05-06] MEDS: METOPROLOL SUCCINATE (ER) 100 MG TAB.ER.24H PO SCH (09:15)
[2023-05-06] MEDS: HEPARIN SODIUM,PORCINE 5,000 UNIT/ML 1 ML VIAL SQ SCH ×2 (09:15→21:53)
[2023-05-06] MEDS: INSULIN DETEMIR (LEVEMIR) 100 UNIT/ML SYR SQ SCH (09:15)
[2023-05-06] MEDS: TAMSULOSIN 0.4 MG CAP.ER.24H PO SCH (09:15)
[2023-05-06] MEDS: PANTOPRAZOLE 40 MG TABLET PO SCH (09:15)
[2023-05-06] MEDS: INSULIN ASPART (NovoLOG) 100 UNIT/ML VIAL SQ SCH ×7 (09:16→21:54)
[2023-05-06] MEDS: MINERAL OIL-WHITE PETROLATUM 120 GM JAR TOPICAL SCH (09:17)
--- NOTE | 2023-05-06 11:45 | P.PN ---
Subjective Patient is seen in follow-up for acute kidney injury on chronic kidney disease. Creatinine 2.0 as of yesterday. Calcium level normal. Oral intake fair. No vomiting or diarrhea. No active complaints. Admits to good urine output. Vital signs are stable. General: No acute distress. HEENT: Head exam is unremarkable. LUNGS: No audible rhonchi or wheezes. HEART: Rate and Rhythm are regular. ABDOMEN: Nontender. EXTREMITITES: No edema. Objective - Vital Signs Vital signs: Vital Signs Temp 98.1 F 05/06/23 11:21 Pulse 66 05/06/23 11:21 Resp 18 05/06/23 11:21 BP 127/66 05/06/23 11:21 Pulse Ox 98 05/06/23 11:21 FiO2 Intake & Output 05/05/23 05/06/23 05/06/23 18:59 06:59 18:59 Intake Total 480 120 Output Total 150 800 Balance 330 -680 Weight 104.326 kg Intake: Oral 480 120 Output: Urine 150 800 Other: Voiding Method Toilet # Voids 1 - Labs CBC & Chem 7: 05/04/23 06:04 05/05/23 06:07 Labs: Abnormal Lab Results - Last 24 Hours (Table) 05/05/23 05/05/23 05/05/23 Range/Units 11:51 17:11 20:16 POC Glucose (mg/dL) 249 H 229 H 200 H (70-110) mg/dL 05/06/23 Range/Units 07:08 POC Glucose (mg/dL) 198 H (70-110) mg/dL Assessment and Plan Plan: Assessment: 1. Acute kidney injury secondary to hypercalcemia-induced ATN. No hydronephro sis noted on kidney ultrasound. Creatinine peaked at 2.7 this admission and is improved to 2.0 as of yesterday. 2. Chronic kidney disease stage III with baseline creatinine 1.6-1.8 secondary to diabetic kidney disease. 3. Hypercalcemia secondary to Tums. Improved. 4. Hypertension with chronic kidney disease. Controlled. 5. Enterobacter UTI on antibiotics. 6. Diabetes mellitus. Plan: Encouraged oral intake. Avoid calcium and vitamin D supplements. Continue to hold diuretics. Can resume Farxiga once treatment of UTI completed. Patient advised to follow up outpatient 1 week post discharge to establish CKD care.
[2023-05-06 11:53] LABS: Glucose,Whole Blood 314 mg/dL (70-110)
--- NOTE | 2023-05-06 12:01 | P.PN ---
Subjective Progress Note Date: 05/06/23 Principal diagnosis: Uti and leg cellulitis Patient is a 72-year-old male with a past medical history significant for diabetes mellitus hypertension COPD sleep apnea and skin cancer patient presenting to the ER for evaluation of nausea and vomiting and constipation, lobo sales was noticed to have a positive UA with some urinary symptoms also lower extremity swelling and redness On today's evaluation that is 05/06/2023, the patient remains to be afebrile the patient is breathing comfortably on room air, the patient denies chest pain, shortness of breath or cough, patient denies nausea/vomiting , no diarrhea and no abdominal pain, the patient denies any pain to bilateral lower extremity and the swelling has decreased with no open wound No laboratory today, urine is growing Enterobacter Objective - Vital Signs Vital signs: Vital Signs Temp 98.1 F 05/06/23 11:21 Pulse 66 05/06/23 11:21 Resp 18 05/06/23 11:21 BP 127/66 05/06/23 11:21 Pulse Ox 98 05/06/23 11:21 FiO2 Intake & Output 05/05/23 05/06/23 05/06/23 18:59 06:59 18:59 Intake Total 480 120 Output Total 150 800 Balance 330 -680 Weight 104.326 kg Intake: Oral 480 120 Output: Urine 150 800 Other: Voiding Method Toilet # Voids 1 - Exam GENERAL DESCRIPTION: Elderly male lying in bed in no distress RESPIRATORY SYSTEM: Unlabored breathing , decreased breath sounds at bases HEART: S1 S2 regular rate and rhythm ,no loud murmurs ABDOMEN: Soft , no tenderness EXTREMITIES: Bilateral lower extremity currently wrapped in Ken wrap - Labs CBC & Chem 7: 05/04/23 06:04 05/05/23 06:07 Labs: Abnormal Lab Results - Last 24 Hours (Table) 05/05/23 05/05/23 05/06/23 Range/Units 17:11 20:16 07:08 POC Glucose (mg/dL) 229 H 200 H 198 H (70-110) mg/dL 05/06/23 Range/Units 11:51 POC Glucose (mg/dL) 314 H (70-110) mg/dL Assessment and Plan (1) Bilateral lower leg cellulitis Current Visit: Yes Status: Acute Code(s): L03.116 - CELLULITIS OF LEFT LOWER LIMB; L03.115 - CELLULITIS OF RIGHT LOWER LIMB SNOMED Code(s): 046796617 (2) UTI (urinary tract infection) Current Visit: Yes Status: Acute Code(s): N39.0 - URINARY TRACT INFECTION, SITE NOT SPECIFIED SNOMED Code(s): 06179755 Plan: 1patient presented hospital with symptoms of nausea vomiting constipation in this patient who did have evidence of acute renal failure on admission to the hospital patient also have some diffuse swelling to bilateral extremities some dry skin skin minimal edema underlying cellulitis less likely but not entirely excluded 2-positive UA and some urinary symptoms underlying UTI not entirely excluded especially with elevated creatinine concerning for possible postobstructive uropathy, however ultrasound was negative for hydronephrosis patient is being seen by nephrology 3-we will continue with moisturizing cream to bilateral lower extremity followed by Ken wrap to keep the swelling down 4-patient urine culture grew Enterobacter for the patient is covered with Rocephin 2 g daily 5-plan is to finish therapy with a short course of oral Ceftin on discharge, currently waiting for placement Dictation was produced using [email or web address] dictation software. please excuse any grammatical, word or spelling errors. Time with Patient: Less than 30
[2023-05-06 17:06] LABS: Glucose,Whole Blood 110 mg/dL (70-110)
--- NOTE | 2023-05-06 20:38 | P.PN ---
Subjective Progress Note Date: 05/05/23 Patient is a 72-year-old male with a past medical history of diabetes type 2 insulin-dependent, hypertension, obstructive sleep apnea on CPAP, currently everyday smoker presents to ER with the complaints of nausea, vomiting and abdominal pain for the past 1 week. Patient states that he has been having ab dominal pain mainly in the epigastric region. She has been taking excessive amounts of Tums to relieve pain. Last bowel movement 3 days ago. Denies any complaints of chest pain or shortness of breath. No fever no chills. No headache or dizziness or lightheadedness. Denies any prior history of coronary artery disease. Patient is currently homeless and has been living in his car. Patient states that he has history of heavy alcohol use quit in 1981. Currently smokes 3 to 5 cigarettes/day. Laboratory data showed WBC 10.7 hemoglobin 14.5 and platelets 245 Sodium 132 potassium 4.2 chloride 96 bicarb is 30 BUN 26 and creatinine 2.23 and blood sugar 243 on admission. Calcium 13.6, ionized calcium 7.1, magnesium 1.9 Liver any absent not elevated TSH 1.81 and PTH 4.8 Urinalysis showed trace protein 4+ glucose large leukocyte esterase with elevated WBCs greater than 182 and occasional bacteria. 05/02/2023 Patient is currently lying in the bed. Awake alert and oriented x3. Abdominal pain is much improved. No complaints of chest pain or shortness of breath. Patient is able to tolerate oral diet. No headache or dizziness or lightheadedness. Laboratory data showed creatinine level improved to 2.20 and calcium 10.6. A1c level is 10.8. Other laboratory data reviewed. Vitamin D 25-hydroxy 28.2 and PTH 6.4. Nephrology and ID is on board. Patient is being continued on ceftriaxone. Urine culture pending. Renal ultrasound showed no hydronephrosis. Under distention of the bladder and limits his evaluation. 05/03/2023 Patient is currently lying in the bed. Awake alert and oriented x2. Tolerating oral diet. Denies any complaints of abdominal pain. No nausea or vomiting. Patient did have a bowel movement also. No fever no chills. No cough or sputum production. Urine culture is growing gram-negative bacilli. Currently being continued on ceftriaxone. ID and nephrology is on board. 05/04/2023 Patient is currently resting in bed. Awake alert and oriented x3. No complaints of chest pain or shortness of breath. Abdominal pain is resolved. No headache or dizziness or lightheadedness. Patient is tolerating oral diet. Laboratory data showed creatinine level of 2.2 and stable since yesterday.Calcium level normalized at 9.6 today. Blood sugar is better controlled. Continue on insulin regimen. Laboratory data reviewed. 05/05/2023 Patient is currently sitting in the bed. Awake alert and oriented x3. Denies any complaints of nausea or vomiting. Tolerating oral diet. No cough or production. Pressure is better controlled. Renal function is better with creatinine level 2.0. Laboratory showed sodium 142 potassium 3.8 chloride 105 bicarb is 27.3 BUN 23.3 and creatinine 2.0 and blood sugar is 133. Magnesium 2.1. Calcium level is down to 9.1 today. Current medications reviewed. Objective - Vital Signs Vital signs: Vital Signs Temp 96.8 F L 05/05/23 19:12 Pulse 86 05/05/23 19:12 Resp 18 05/05/23 20:00 BP 138/76 05/05/23 19:12 Pulse Ox 96 05/05/23 15:16 FiO2 Intake & Output 05/05/23 05/05/23 05/06/23 06:59 18:59 06:59 Intake Total 240 480 Output Total 1250 150 Balance -1010 330 Weight 104.326 kg Intake: Oral 240 480 Output: Urine 1250 150 Other: Voiding Method Toilet Toilet # Voids 1 - Exam PHYSICAL EXAMINATION: Patient is lying in the bed comfortably, no acute distress, awake alert and oriented.. HEENT: Normocephalic. Neck is supple. Pupils reactive. Nostrils clear. Oral cavity is moist. Neck reveals no JVD, carotid bruits, or thyromegaly. CHEST EXAMINATION: Trachea is central. Symmetrical expansion. Bibasilar diminished sounds.. CARDIAC: Normal S1, S2 with no gallops. No murmurs ABDOMEN: Soft. Bowel sounds present. Nontender. No organomegaly. No abdominal bruits. Extremities: Bilateral lower extremity trace edema with dry skin and scaling. Skin excoriations on the bilateral lateral calf region. No purulent discharge.. No clubbing or cyanosis Neurologically awake, alert, oriented x3 with well-coordinated movements. No f ocal deficits noted Skin: No rash or skin lesions. Psychiatric: Coperative. Nonsuicidal, Musculoskeletal: No joint swelling or deformity. Normal range of motion. - Labs CBC & Chem 7: 05/04/23 06:04 05/05/23 06:07 Labs: Abnormal Lab Results - Last 24 Hours (Table) 05/05/23 05/05/23 05/05/23 Range/Units 06:07 07:06 11:51 Creatinine 2.0 H (0.6-1.5) mg/dL Est GFR (CKD-EPI) 35 L (>=60) BUN/Creatinine Ratio 11.65 L (12.00-20.00) Ratio Glucose 133 H (70-110) mg/dL POC Glucose (mg/dL) 138 H 249 H (70-110) mg/dL 05/05/23 05/05/23 Range/Units 17:11 20:16 Creatinine (0.6-1.5) mg/dL Est GFR (CKD-EPI) (>=60) BUN/Creatinine Ratio (12.00-20.00) Ratio Glucose (70-110) mg/dL POC Glucose (mg/dL) 229 H 200 H (70-110) mg/dL Assessment and Plan Assessment: Nausea, vomiting and abdominal pain. Possible gastritis. improved now.. Hypercalcemia could be due to excessive intake of Tums. checked PTH and vitamin D levels. Acute kidney injury due to prerenal and hypercalcemia. Creatinine went up to 2.7. Baseline creatinine level around 1.6 urinary tract infection with Enterobacter Hormaechei Chronic kidney disease stage IV likely due to diabetic nephropathy Diabetes type 2 insulin-dependent with hyperglycemia/uncontrolled. Hypertension After sleep apnea on CPAP GERD COPD Currently everyday smoker GI and DVT prophylax with PPI and heparin subcu Plan: Patient is tolerating oral diet. IV fluids on hold. Renal ultrasound showed no evidence of obstruction. PTH 6.8 and vitamin D 28.4. Follow-up serum and urine immunofixation. ASHLEY inhibitor/ARB and Farxiga is on hold. Started back on losartan. Continue with ceftriaxone . Urine culture showed Enterobacter Hormaechei Continue with Levemir and insulin sliding scale. Patient is on 60 units daily Levemir at home. Dose reduced due to renal failure. Patient is currently on Levemir 21 units and aspart 7 units 3 times daily AC. Titrate dose as needed. Calcium level normalized now. Continue to avoid Tums. ID and nephrology is on board. Social work consult for [place] [facility]. Patient is currently homeless. Time with Patient: Greater than 30
--- NOTE | 2023-05-06 20:38 | P.PN ---
Subjective Progress Note Date: 05/06/23 Patient is a 72-year-old male with a past medical history of diabetes type 2 insulin-dependent, hypertension, obstructive sleep apnea on CPAP, currently everyday smoker presents to ER with the complaints of nausea, vomiting and abdominal pain for the past 1 week. Patient states that he has been having ab dominal pain mainly in the epigastric region. She has been taking excessive amounts of Tums to relieve pain. Last bowel movement 3 days ago. Denies any complaints of chest pain or shortness of breath. No fever no chills. No headache or dizziness or lightheadedness. Denies any prior history of coronary artery disease. Patient is currently homeless and has been living in his car. Patient states that he has history of heavy alcohol use quit in 1981. Currently smokes 3 to 5 cigarettes/day. Laboratory data showed WBC 10.7 hemoglobin 14.5 and platelets 245 Sodium 132 potassium 4.2 chloride 96 bicarb is 30 BUN 26 and creatinine 2.23 and blood sugar 243 on admission. Calcium 13.6, ionized calcium 7.1, magnesium 1.9 Liver any absent not elevated TSH 1.81 and PTH 4.8 Urinalysis showed trace protein 4+ glucose large leukocyte esterase with elevated WBCs greater than 182 and occasional bacteria. 05/02/2023 Patient is currently lying in the bed. Awake alert and oriented x3. Abdominal pain is much improved. No complaints of chest pain or shortness of breath. Patient is able to tolerate oral diet. No headache or dizziness or lightheadedness. Laboratory data showed creatinine level improved to 2.20 and calcium 10.6. A1c level is 10.8. Other laboratory data reviewed. Vitamin D 25-hydroxy 28.2 and PTH 6.4. Nephrology and ID is on board. Patient is being continued on ceftriaxone. Urine culture pending. Renal ultrasound showed no hydronephrosis. Under distention of the bladder and limits his evaluation. 05/03/2023 Patient is currently lying in the bed. Awake alert and oriented x2. Tolerating oral diet. Denies any complaints of abdominal pain. No nausea or vomiting. Patient did have a bowel movement also. No fever no chills. No cough or sputum production. Urine culture is growing gram-negative bacilli. Currently being continued on ceftriaxone. ID and nephrology is on board. 05/04/2023 Patient is currently resting in bed. Awake alert and oriented x3. No complaints of chest pain or shortness of breath. Abdominal pain is resolved. No headache or dizziness or lightheadedness. Patient is tolerating oral diet. Laboratory data showed creatinine level of 2.2 and stable since yesterday.Calcium level normalized at 9.6 today. Blood sugar is better controlled. Continue on insulin regimen. Laboratory data reviewed. 05/05/2023 Patient is currently sitting in the bed. Awake alert and oriented x3. Denies any complaints of nausea or vomiting. Tolerating oral diet. No cough or production. Pressure is better controlled. Renal function is better with creatinine level 2.0. Laboratory showed sodium 142 potassium 3.8 chloride 105 bicarb is 27.3 BUN 23.3 and creatinine 2.0 and blood sugar is 133. Magnesium 2.1. Calcium level is down to 9.1 today. 05/06/2023 Patient is sitting in a chair comfortably. Awake alert and oriented x3. No complaints of chest pain or shortness of breath. Tolerating oral diet. CBG 198 this morning. Patient has been afebrile. No cough or sputum production. Continued on ceftriaxone for urinary tract infection. Calcium level was normalized and creatinine was 2.2 yesterday. PT OT was consulted and social work is following for possible rehab placement. Nephrology and ID is on board. Current medications reviewed. Objective - Vital Signs Vital signs: Vital Signs Temp 98.2 F 05/06/23 19:39 Pulse 71 05/06/23 19:39 Resp 18 05/06/23 19:39 BP 128/63 05/06/23 19:39 Pulse Ox 96 05/06/23 19:39 FiO2 Intake & Output 05/06/23 05/06/23 05/07/23 06:59 18:59 06:59 Intake Total 120 50 Output Total 800 Balance -680 50 Intake: Intake, IV Titration 50 Amount cefTRIAXone 2 gm In 50 Sodium Chloride 0.9% 50 ml @ 100 mls/hr IVPB Q24HR [facility] Rx#:[id number] Oral 120 Output: Urine 800 Other: Voiding Method Toilet Toilet - Exam PHYSICAL EXAMINATION: Patient is lying in the bed comfortably, no acute distress, awake alert and oriented.. HEENT: Normocephalic. Neck is supple. Pupils reactive. Nostrils clear. Oral cavity is moist. Neck reveals no JVD, carotid bruits, or thyromegaly. CHEST EXAMINATION: Trachea is central. Symmetrical expansion. Bibasilar diminished sounds.. CARDIAC: Normal S1, S2 with no gallops. No murmurs ABDOMEN: Soft. Bowel sounds present. Nontender. No organomegaly. No abdominal bruits. Extremities: Bilateral lower extremity trace edema with dry skin and scaling. Skin excoriations on the bilateral lateral calf region. No purulent discharge.. No clubbing or cyanosis Neurologically awake, alert, oriented x3 with well-coordinated movements. No focal deficits noted Skin: No rash or skin lesions. Psychiatric: Coperative. Nonsuicidal, Musculoskeletal: No joint swelling or deformity. Normal range of motion. - Labs CBC & Chem 7: 05/04/23 06:04 05/05/23 06:07 Labs: Abnormal Lab Results - Last 24 Hours (Table) 05/06/23 05/06/23 Range/Units 07:08 11:51 POC Glucose (mg/dL) 198 H 314 H (70-110) mg/dL Assessment and Plan Assessment: Nausea, vomiting and abdominal pain. Possible gastritis. improved now.. Hypercalcemia could be due to excessive intake of Tums. checked PTH and vitamin D levels. Acute kidney injury due to prerenal and hypercalcemia. Creatinine went up to 2.7. Baseline creatinine level around 1.6 urinary tract infection with Enterobacter Hormaechei Chronic kidney disease stage IV likely due to diabetic nephropathy Diabetes type 2 insulin-dependent with hyperglycemia/uncontrolled. Hypertension After sleep apnea on CPAP GERD COPD Currently everyday smoker GI and DVT prophylax with PPI and heparin subcu Plan: Patient is tolerating oral diet. IV fluids on hold. Renal ultrasound showed no evidence of obstruction. PTH 6.8 and vitamin D 28.4. Follow-up serum and urine immunofixation. ASHLEY inhibitor/ARB and Farxiga were on hold. Started back on losartan. Currently at 100 mg daily. Will start back on Farxiga once taking for urinary tract infection is completed. Continue with ceftriaxone . Urine culture showed Enterobacter Hormaechei Continue with Levemir and insulin sliding scale. Patient is on 60 units daily Levemir at home. Dose reduced due to renal failure. Patient is currently on Levemir 21 units and aspart 7 units 3 times daily AC. Titrate dose as needed. Calcium level normalized now. Continue to avoid Tums. ID and nephrology is on board. Social work consult for care home placement. Patient is currently homeless. Time with Patient: Greater than 30
[2023-05-06 20:46] LABS: Glucose,Whole Blood 215 mg/dL (70-110)
[2023-05-07 07:34] LABS: Glucose,Whole Blood 151 mg/dL (70-110)
[2023-05-07] MEDS: HEPARIN SODIUM,PORCINE 5,000 UNIT/ML 1 ML VIAL SQ SCH ×2 (07:57→21:20)
[2023-05-07] MEDS: PANTOPRAZOLE 40 MG TABLET PO SCH (07:57)
[2023-05-07] MEDS: INSULIN DETEMIR (LEVEMIR) 100 UNIT/ML SYR SQ SCH (07:58)
[2023-05-07] MEDS: INSULIN ASPART (NovoLOG) 100 UNIT/ML VIAL SQ SCH ×7 (07:58→21:19)
[2023-05-07 11:01] LABS: Basophils # (A) 0.06 X 10*3/uL (0.00-0.10); Basophils % (A) 0.9 %; Eosinophils # (A) 0.18 X 10*3/uL (0.04-0.35); Eosinophils % (A) 2.7 %; HGB 12.7 d/dL (13.0-17.0); Lymphocytes # (A) 1.36 X 10*3/uL (0.90-5.00); Lymphocytes % (A) 20.6 %; MCH 27.9 pg (27.0-32.0); MCHC 32.6 d/dL (32.0-37.0); MCV 85.5 FL (80.0-97.0); Mean Platelet Volume 10.7 FL (9.5-12.2); Monocytes # (A) 0.73 X 10*3/uL (0.20-1.00); Monocytes % (A) 11.1 %; NRBC Per 100 WBC 0 X 10*3/uL (0.00-0.01); Neutrophils # (A) 4.25 X 10*3/uL (1.80-7.70); Neutrophils % (A) 64.4 %; Platelet Count 256 X 10*3/uL (140-440); RBC 4.56 X 10*6/uL (4.40-5.60)
[2023-05-07 11:12] LABS: Blood Urea Nitrogen 18.7 mg/dL (9.0-27.0); Calcium 8.6 mg/dL (8.7-10.3); Carbon Dioxide 22.1 mmol/L (21.6-31.8); Chloride 105 mmol/L (96-109); Glucose 141 mg/dL (70-110); Magnesium 2.1 mg/dL (1.5-2.4); Sodium 138 mmol/L (135-145)
[2023-05-07] MEDS: ATORVASTATIN 10 MG TAB PO SCH (11:20)
[2023-05-07] MEDS: ASPIRIN 81 MG PO SCH (11:20)
[2023-05-07] MEDS: LOSARTAN 50 MG TAB PO SCH (11:20)
[2023-05-07] MEDS: TAMSULOSIN 0.4 MG CAP.ER.24H PO SCH (11:20)
[2023-05-07 11:59] LABS: Glucose,Whole Blood 167 mg/dL (70-110)
--- NOTE | 2023-05-07 12:10 | P.PN ---
Subjective Patient is seen in follow-up for acute kidney injury on chronic kidney disease. Renal function improving. Creatinine 1.7 today. Oral intake fair. No vomiting or diarrhea. No active complaints. Admits to good urine output. Vital signs are stable. General: No acute distress. HEENT: Head exam is unremarkable. LUNGS: No audible rhonchi or wheezes. HEART: Rate and Rhythm are regular. ABDOMEN: Nontender. EXTREMITITES: No edema. Objective - Vital Signs Vital signs: Vital Signs Temp 98.6 F 05/07/23 07:49 Pulse 79 05/07/23 07:49 Resp 20 05/07/23 07:49 BP 147/80 05/07/23 11:18 Pulse Ox 96 05/07/23 08:22 FiO2 Intake & Output 05/06/23 05/07/23 05/07/23 18:59 06:59 18:59 Intake Total 50 Balance 50 Intake: Intake, IV Titration 50 Amount cefTRIAXone 2 gm In 50 Sodium Chloride 0.9% 50 ml @ 100 mls/hr IVPB Q24HR [facility] Rx#:[id number] Other: Voiding Method Toilet Toilet - Labs CBC & Chem 7: 05/07/23 06:05 05/07/23 06:05 Labs: Abnormal Lab Results - Last 24 Hours (Table) 05/06/23 05/07/23 05/07/23 Range/Units 20:45 06:05 06:05 Hgb 12.7 L (13.0-17.0) d/dL Hct 39.0 L (39.6-50.0) % Creatinine 1.7 H (0.6-1.5) mg/dL Est GFR (CKD-EPI) 42 L (>=60) BUN/Creatinine Ratio 11.00 L (12.00-20.00) Ratio Glucose 141 H (70-110) mg/dL POC Glucose (mg/dL) 215 H (70-110) mg/dL Calcium 8.6 L (8.7-10.3) mg/dL 05/07/23 05/07/23 Range/Units 07:32 11:57 Hgb (13.0-17.0) d/dL Hct (39.6-50.0) % Creatinine (0.6-1.5) mg/dL Est GFR (CKD-EPI) (>=60) BUN/Creatinine Ratio (12.00-20.00) Ratio Glucose (70-110) mg/dL POC Glucose (mg/dL) 151 H 167 H (70-110) mg/dL Calcium (8.7-10.3) mg/dL Assessment and Plan Plan: Assessment: 1. Acute kidney injury secondary to hypercalcemia-induced ATN. No hydronephrosis noted on kidney ultrasound. Creatinine peaked at 2.7 this admission and is improved to 1.7 today. 2. Chronic kidney disease stage III with baseline creatinine 1.6-1.8 secondary to diabetic kidney disease. 3. Hypercalcemia secondary to Tums. Improved. 4. Hypertension with chronic kidney disease. Controlled. 5. Enterobacter UTI on antibiotics. 6. Diabetes mellitus. Plan: Encouraged oral intake. Avoid calcium and vitamin D supplements. Continue to hold diuretics. Can resume Farxiga once treatment of UTI completed. Patient advised to follow up outpatient 1 week post discharge to establish CKD care.
[2023-05-07] MEDS: MINERAL OIL-WHITE PETROLATUM 120 GM JAR TOPICAL SCH (13:01)
--- NOTE | 2023-05-07 13:09 | P.PN ---
Subjective Progress Note Date: 05/07/23 Patient is a 72-year-old male with a past medical history of diabetes type 2 insulin-dependent, hypertension, obstructive sleep apnea on CPAP, currently everyday smoker presents to ER with the complaints of nausea, vomiting and abdominal pain for the past 1 week. Patient states that he has been having ab dominal pain mainly in the epigastric region. She has been taking excessive amounts of Tums to relieve pain. Last bowel movement 3 days ago. Denies any complaints of chest pain or shortness of breath. No fever no chills. No headache or dizziness or lightheadedness. Denies any prior history of coronary artery disease. Patient is currently homeless and has been living in his car. Patient states that he has history of heavy alcohol use quit in 1981. Currently smokes 3 to 5 cigarettes/day. Laboratory data showed WBC 10.7 hemoglobin 14.5 and platelets 245 Sodium 132 potassium 4.2 chloride 96 bicarb is 30 BUN 26 and creatinine 2.23 and blood sugar 243 on admission. Calcium 13.6, ionized calcium 7.1, magnesium 1.9 Liver any absent not elevated TSH 1.81 and PTH 4.8 Urinalysis showed trace protein 4+ glucose large leukocyte esterase with elevated WBCs greater than 182 and occasional bacteria. 05/02/2023 Patient is currently lying in the bed. Awake alert and oriented x3. Abdominal pain is much improved. No complaints of chest pain or shortness of breath. Patient is able to tolerate oral diet. No headache or dizziness or lightheadedness. Laboratory data showed creatinine level improved to 2.20 and calcium 10.6. A1c level is 10.8. Other laboratory data reviewed. Vitamin D 25-hydroxy 28.2 and PTH 6.4. Nephrology and ID is on board. Patient is being continued on ceftriaxone. Urine culture pending. Renal ultrasound showed no hydronephrosis. Under distention of the bladder and limits his evaluation. 05/03/2023 Patient is currently lying in the bed. Awake alert and oriented x2. Tolerating oral diet. Denies any complaints of abdominal pain. No nausea or vomiting. Patient did have a bowel movement also. No fever no chills. No cough or sputum production. Urine culture is growing gram-negative bacilli. Currently being continued on ceftriaxone. ID and nephrology is on board. 05/04/2023 Patient is currently resting in bed. Awake alert and oriented x3. No complaints of chest pain or shortness of breath. Abdominal pain is resolved. No headache or dizziness or lightheadedness. Patient is tolerating oral diet. Laboratory data showed creatinine level of 2.2 and stable since yesterday.Calcium level normalized at 9.6 today. Blood sugar is better controlled. Continue on insulin regimen. Laboratory data reviewed. 05/05/2023 Patient is currently sitting in the bed. Awake alert and oriented x3. Denies any complaints of nausea or vomiting. Tolerating oral diet. No cough or production. Pressure is better controlled. Renal function is better with creatinine level 2.0. Laboratory showed sodium 142 potassium 3.8 chloride 105 bicarb is 27.3 BUN 23.3 and creatinine 2.0 and blood sugar is 133. Magnesium 2.1. Calcium level is down to 9.1 today. 05/06/2023 Patient is sitting in a chair comfortably. Awake alert and oriented x3. No complaints of chest pain or shortness of breath. Tolerating oral diet. CBG 198 this morning. Patient has been afebrile. No cough or sputum production. Continued on ceftriaxone for urinary tract infection. Calcium level was normalized and creatinine was 2.2 yesterday. PT OT was consulted and social work is following for possible rehab placement. Nephrology and ID is on board. 05/07. Patient seen and examined. No acute issues overnight. Labs done this morning showed WBC 6.6, hemoglobin 12.7, platelet count 246, sodium 1:30, potassium 4, BUN 18.7, creatinine 1.7, calcium 8.6 REVIEW OF SYSTEMS: CONSTITUTIONAL: No fever, no malaise,. CARDIOVASCULAR: No chest pain, no palpitations, no syncope. PULMONARY: No shortness of breath, no cough, GASTROINTESTINAL: No diarrhea, no nausea, no vomiting, no abdominal pain. NEUROLOGICAL: No headaches, no weakness, PHYSICAL EXAMINATION: GENERAL: The patient is alert and oriented x3, not in any acute distress. Well developed, well nourished. HEENT: Pupils are round and equally reacting to light. EOMI. No scleral icterus. No conjunctival pallor. Normocephalic, atraumatic. No pharyngeal erythema. No thyromegaly. CARDIOVASCULAR: S1 and S2 present. No murmurs, rubs, or gallops. PULMONARY: Chest is clear to auscultation, no wheezing or crackles. ABDOMEN: Soft, nontender, nondistended, normoactive bowel sounds. No palpable organomegaly. MUSCULOSKELETAL: No joint swelling or deformity. EXTREMITIES: No cyanosis, clubbing, or pedal edema. NEUROLOGICAL: Gross neurological examination did not reveal any focal deficits. SKIN: No rashes. Assessment and plan Nausea, vomiting and abdominal pain. Possible gastritis. improved now.. Hypercalcemia could be due to excessive intake of Tums. checked PTH and vitamin D levels. Acute kidney injury due to prerenal and hypercalcemia. Creatinine went up to 2.7. Baseline creatinine level around 1.6 urinary tract infection with Enterobacter Hormaechei Chronic kidney disease stage IV likely due to diabetic nephropathy Diabetes type 2 insulin-dependent with hyperglycemia/uncontrolled. Hypertension After sleep apnea on CPAP GERD COPD Currently everyday smoker Monitor vital signs Monitor CBC Monitor CMP Avoid calcium and vitamin D supplements. Continue to hold diuretics. Started back on losartan. Currently at 100 mg daily. Will start back on Farxiga once taking for urinary tract infection is completed. Continue with ceftriaxone . Urine culture showed Enterobacter Hormaechei ID following Nephrology following Continue with Levemir and insulin sliding scale. Patient is currently on Levemir 21 units and aspart 7 units 3 times daily AC. Titrate dose as needed. . Labs and medication were reviewed.. Continue same treatment. Continue with symptomatic treatment. Resume home medication. Monitor labs and vitals. DVT and GI prophylaxis. Further recommendations as per clinical course of the patient Dictation was produced using [employer] dictation software. please excuse any gra mmatical, word or spelling errors. Objective - Vital Signs Vital signs: Vital Signs Temp 98.6 F 05/07/23 07:49 Pulse 79 05/07/23 07:49 Resp 20 05/07/23 07:49 BP 103/60 05/07/23 07:49 Pulse Ox 96 05/07/23 08:22 FiO2 Intake & Output 05/06/23 05/07/23 05/07/23 18:59 06:59 18:59 Intake Total 50 Balance 50 Intake: Intake, IV Titration 50 Amount cefTRIAXone 2 gm In 50 Sodium Chloride 0.9% 50 ml @ 100 mls/hr IVPB Q24HR [facility] Rx#:[id number] Other: Voiding Method Toilet Toilet - Labs CBC & Chem 7: 05/07/23 06:05 05/07/23 06:05 Labs: Abnormal Lab Results - Last 24 Hours (Table) 05/06/23 05/06/23 05/07/23 Range/Units 11:51 20:45 06:05 Hgb 12.7 L (13.0-17.0) d/dL Hct 39.0 L (39.6-50.0) % POC Glucose (mg/dL) 314 H 215 H (70-110) mg/dL 05/07/23 Range/Units 07:32 Hgb (13.0-17.0) d/dL Hct (39.6-50.0) % POC Glucose (mg/dL) 151 H (70-110) mg/dL
[2023-05-07 17:32] LABS: Glucose,Whole Blood 148 mg/dL (70-110)
[2023-05-07 20:47] LABS: Glucose,Whole Blood 200 mg/dL (70-110)
[2023-05-08 07:30] LABS: Glucose,Whole Blood 187 mg/dL (70-110)
[2023-05-08] MEDS: ASPIRIN 81 MG PO SCH (08:19)
[2023-05-08] MEDS: PANTOPRAZOLE 40 MG TABLET PO SCH (08:19)
[2023-05-08] MEDS: INSULIN ASPART (NovoLOG) 100 UNIT/ML VIAL SQ SCH ×6 (08:20→17:34)
[2023-05-08] MEDS: INSULIN DETEMIR (LEVEMIR) 100 UNIT/ML SYR SQ SCH (08:20)
[2023-05-08] MEDS: ATORVASTATIN 10 MG TAB PO SCH (08:20)
[2023-05-08] MEDS: LOSARTAN 50 MG TAB PO SCH (08:20)
[2023-05-08] MEDS: TAMSULOSIN 0.4 MG CAP.ER.24H PO SCH (08:20)
[2023-05-08] MEDS: HEPARIN SODIUM,PORCINE 5,000 UNIT/ML 1 ML VIAL SQ SCH (08:20)
[2023-05-08] MEDS: MINERAL OIL-WHITE PETROLATUM 120 GM JAR TOPICAL SCH (08:21)
--- NOTE | 2023-05-08 11:01 | P.PN ---
Subjective Patient is seen for follow-up for hypercalcemia secondary to excessive use of Tums. Renal function has improved with serum creatinine down to 1.7 from 2.7 at peak. Calcium at 8.6 today No significant complaints today. Objective - Vital Signs Vital signs: Vital Signs Temp 97.9 F 05/08/23 07:27 Pulse 98 05/08/23 07:27 Resp 18 05/08/23 07:27 BP 133/70 05/08/23 07:27 Pulse Ox 96 05/08/23 07:27 FiO2 Intake & Output 05/07/23 05/08/23 05/08/23 18:59 06:59 18:59 Intake Total 290 Output Total 1150 Balance 290 -1150 Intake: Intake, IV Titration 50 Amount cefTRIAXone 2 gm In 50 Sodium Chloride 0.9% 50 ml @ 100 mls/hr IVPB Q24HR [facility] Rx#:[id number] Oral 240 Output: Urine 1150 Other: Voiding Method Toilet # Voids 1 - Exam Patient is awake, comfortable, no acute distress Examination of the heart S1 and S2 Examination of the lungs bilateral breath sounds are heard Abdomen is soft, no significant tenderness noted Examination lower extremity shows 1+ bilateral edema. Both legs are wrapped ADMISSIONS CLINICIAN exam grossly intact - Labs CBC & Chem 7: 05/07/23 06:05 05/07/23 06:05 Labs: Abnormal Lab Results - Last 24 Hours (Table) 05/07/23 05/07/23 05/07/23 Range/Units 06:05 06:05 11:57 Hgb 12.7 L (13.0-17.0) d/dL Hct 39.0 L (39.6-50.0) % Creatinine 1.7 H (0.6-1.5) mg/dL Est GFR (CKD-EPI) 42 L (>=60) BUN/Creatinine Ratio 11.00 L (12.00-20.00) Ratio Glucose 141 H (70-110) mg/dL POC Glucose (mg/dL) 167 H (70-110) mg/dL Calcium 8.6 L (8.7-10.3) mg/dL 05/07/23 05/07/23 05/08/23 Range/Units 17:30 20:45 07:27 Hgb (13.0-17.0) d/dL Hct (39.6-50.0) % Creatinine (0.6-1.5) mg/dL Est GFR (CKD-EPI) (>=60) BUN/Creatinine Ratio (12.00-20.00) Ratio Glucose (70-110) mg/dL POC Glucose (mg/dL) 148 H 200 H 187 H (70-110) mg/dL Calcium (8.7-10.3) mg/dL Assessment and Plan Assessment: 1. Acute kidney injury secondary to hypercalcemia. No evidence of obstructive uropathy on ultrasound. UA shows trace protein WBCs more than 182 and trace blood. Patient had also been on angiotensin receptor blockers and farxiga prior to admission. Currently on hold. S/p IV fluids. 2. Hypercalcemia associated with excessive use of Tums. PTH is appropriately low and 25 hydroxy vitamin D level is not elevated. Calcium decreased to 8.6 3. UTI with urine culture growing Enterobacter 4. Hypertension with CK D4 5. 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 Baseline creatinine around 1.7 mg/dL as of June 2022 and on 03/04/2023 Plan: Continue to avoid nephrotoxic agents.
[2023-05-08 11:09] LABS: HCT 35.7 % (39.6-50.0); HGB 11.6 d/dL (13.0-17.0); MCHC 32.5 d/dL (32.0-37.0); Mean Platelet Volume 10.4 FL (9.5-12.2); NRBC Per 100 WBC 0 X 10*3/uL (0.00-0.01); Platelet Count 256 X 10*3/uL (140-440); RBC 4.15 X 10*6/uL (4.40-5.60); WBC 6.81 X 10*3/uL (4.50-10.00)
[2023-05-08 11:21] LABS: ALT 30 U/L (10-49); AST 27 U/L (14-35); Albumin 3.4 d/dL (3.8-4.9); Albumin/Globulin Ratio 1.55 Ratio (1.60-3.17); Alkaline Phosphatase 89 U/L (41-126); BUN/Creat Ratio 10.06 Ratio (12.00-20.00); Blood Urea Nitrogen 18.1 mg/dL (9.0-27.0); Calcium 8.4 mg/dL (8.7-10.3); Carbon Dioxide 24.6 mmol/L (21.6-31.8); Chloride 107 mmol/L (96-109); Globulin 2.2 d/dL (1.6-3.3); Glucose 197 mg/dL (70-110); Potassium 4.2 mmol/L (3.5-5.5); Sodium 140 mmol/L (135-145); Total Bilirubin <0.2 mg/dL (0.3-1.2); Total Protein 5.6 d/dL (6.2-8.2)
[2023-05-08 12:24] LABS: Glucose,Whole Blood 184 mg/dL (70-110)
--- NOTE | 2023-05-08 12:57 | P.DS ---
Providers Date of admission: 04/30/23 19:29 Expected date of discharge: 05/08/23 Attending physician: Susan Del Cid MD Consults: 04/30/23 19:24 Consult Physician Urgent Consulting Provider: Kristen Brown Consult Reason/Comments: hypercalcemia Do you want consulting provider notified?: Yes 05/01/23 13:14 Consult Physician Urgent Consulting Provider: Victorino Maria Consult Reason/Comments: wounds, non-healing Do you want consulting provider notified?: Yes Primary care physician: Stated None Hospital Course: Discharge diagnoses; Nausea, vomiting and abdominal pain. Possible gastritis. improved now.. Hypercalcemia could be due to excessive intake of Tums. checked PTH and vitamin D levels. Acute kidney injury due to prerenal and hypercalcemia. Creatinine went up to 2.7. Baseline creatinine level around 1.6 urinary tract infection with Enterobacter [place] Chronic kidney disease stage IV likely due to diabetic nephropathy Diabetes type 2 insulin-dependent with hyperglycemia/uncontrolled. Hypertension Obstructive sleep apnea on CPAP GERD COPD Hospital course; Patient is a 72-year-old male with a past medical history of diabetes type 2 insulin-dependent, hypertension, obstructive sleep apnea on CPAP, currently everyday smoker presents to ER with the complaints of nausea, vomiting and abdominal pain for the past 1 week. Patient states that he has been having abdominal pain mainly in the epigastric region. She has been taking excessive amounts of Tums to relieve pain. Last bowel movement 3 days ago. Denies any complaints of chest pain or shortness of breath. No fever no chills. No headache or dizziness or lightheadedness. Denies any prior history of coronary artery disease. Patient is currently homeless and has been living in his car. Patient states that he has history of heavy alcohol use quit in 1981. Currently smokes 3 to 5 cigarettes/day. Laboratory data showed WBC 10.7 hemoglobin 14.5 and platelets 245 Sodium 132 potassium 4.2 chloride 96 bicarb is 30 BUN 26 and creatinine 2.23 and blood sugar 243 on admission. Calcium 13.6, ionized calcium 7.1, magnesium 1.9 Liver any absent not elevated TSH 1.81 and PTH 4.8 Urinalysis showed trace protein 4+ glucose large leukocyte esterase with elevated WBCs greater than 182 and occasional bacteria. 05/02/2023 Patient is currently lying in the bed. Awake alert and oriented x3. Abdominal pain is much improved. No complaints of chest pain or shortness of breath. Patient is able to tolerate oral diet. No headache or dizziness or lightheadedness. Laboratory data showed creatinine level improved to 2.20 and calcium 10.6. A1c level is 10.8. Other laboratory data reviewed. Vitamin D 25-hydroxy 28.2 and PTH 6.4. Neph rology and ID is on board. Patient is being continued on ceftriaxone. Urine culture pending. Renal ultrasound showed no hydronephrosis. Under distention of the bladder and limits his evaluation. 05/03/2023 Patient is currently lying in the bed. Awake alert and oriented x2. Tolerating oral diet. Denies any complaints of abdominal pain. No nausea or vomiting. Patient did have a bowel movement also. No fever no chills. No cough or sputum production. Urine culture is growing gram-negative bacilli. Currently being continued on ceftriaxone. ID and nephrology is on board. 05/04/2023 Patient is currently resting in bed. Awake alert and oriented x3. No complaints of chest pain or shortness of breath. Abdominal pain is resolved. No headache or dizziness or lightheadedness. Patient is tolerating oral diet. Laboratory data showed creatinine level of 2.2 and stable since yesterday.Calcium level normalized at 9.6 today. Blood sugar is better controlled. Continue on insulin regimen. Laboratory data reviewed. 05/05/2023 Patient is currently sitting in the bed. Awake alert and oriented x3. Denies any complaints of nausea or vomiting. Tolerating oral diet. No cough or produ ction. Pressure is better controlled. Renal function is better with creatinine level 2.0. Laboratory showed sodium 142 potassium 3.8 chloride 105 bicarb is 27.3 BUN 23.3 and creatinine 2.0 and blood sugar is 133. Magnesium 2.1. Calcium level is down to 9.1 today. 05/06/2023 Patient is sitting in a chair comfortably. Awake alert and oriented x3. No complaints of chest pain or shortness of breath. Tolerating oral diet. CBG 198 this morning. Patient has been afebrile. No cough or sputum production. Continued on ceftriaxone for urinary tract infection. Calcium level was normalized and creatinine was 2.2 yesterday. PT OT was consulted and social work is following for possible rehab placement. Nephrology and ID is on board. 05/07. Patient seen and examined. No acute issues overnight. Labs done this morning showed WBC 6.6, hemoglobin 12.7, platelet count 246, sodium 1:30, potassium 4, BUN 18.7, creatinine 1.7, calcium 8.6 05/08. Patient seen and examined. ID recommended starting patient on oral Ceftin for 3 days. Nephrology recommending holding diuretics for now. Outpatient follow-up with nephrology in ID PHYSICAL EXAMINATION: GENERAL: The patient is alert and oriented x3, not in any acute distress. Well developed, well nourished. HEENT: Pupils are round and equally reacting to light. EOMI. No scleral icterus. No conjunctival pallor. Normocephalic, atraumatic. No pharyngeal erythema. No thyromegaly. CARDIOVASCULAR: S1 and S2 present. No murmurs, rubs, or gallops. PULMONARY: Chest is clear to auscultation, no wheezing or crackles. ABDOMEN: Soft, nontender, nondistended, normoactive bowel sounds. No palpable organomegaly. MUSCULOSKELETAL: No joint swelling or deformity. EXTREMITIES: No cyanosis, clubbing, or pedal edema. NEUROLOGICAL: Gross neurological examination did not reveal any focal deficits. SKIN: No rashes. Dictation was produced using [employer] dictation software. please excuse any grammatical, word or spelling errors. Patient Condition at Discharge: Fair Plan - Discharge Summary New Discharge Prescriptions: New Losartan [Cozaar] 100 mg PO DAILY 30 Days #30 tab cefUROXime axetiL [Cefuroxime] 500 mg PO BID 3 Days #6 tab Continue Tamsulosin [Flomax] 0.4 mg PO DAILY Lovastatin [Mevacor] 40 mg PO DAILY Aspirin [Adult Low Dose Aspirin EC] 81 mg PO DAILY Insulin Aspart [NovoLOG Flexpen] 20 units SQ AC-TID Insulin Degludec [Tresiba Flextouch U-200 Pen] 60 units SQ DAILY Semaglutide [Ozempic] 1 mg SQ WE Metoprolol Succinate (ER) [Toprol XL] 100 mg PO DAILY Dapagliflozin Propanediol [Farxiga] 10 mg PO DAILY Discontinued Losartan/Hydrochlorothiazide [Losartan-Hctz 100-25 mg Tab] 1 tab PO DAILY Furosemide [Lasix] 40 mg PO DAILY Discharge Medication List Lovastatin [Mevacor] 40 mg PO DAILY 05/23/18 [History] Tamsulosin [Flomax] 0.4 mg PO DAILY 05/23/18 [History] Aspirin [Adult Low Dose Aspirin EC] 81 mg PO DAILY 11/10/18 [History] Semaglutide [Ozempic] 1 mg SQ WE 06/25/22 [History] Dapagliflozin Propanediol [Farxiga] 10 mg PO DAILY 07/07/22 [History] Metoprolol Succinate (ER) [Toprol XL] 100 mg PO DAILY 07/07/22 [History] Insulin Aspart [NovoLOG Flexpen] 20 units SQ AC-TID 11/26/22 [History] Insulin Degludec [Tresiba Flextouch U-200 Pen] 60 units SQ DAILY 11/26/22 [History] Losartan [Cozaar] 100 mg PO DAILY 30 Days #30 tab 05/08/23 [Rx] cefUROXime axetiL [Cefuroxime] 500 mg PO BID 3 Days #6 tab 05/08/23 [Rx] Follow up Appointment(s)/Referral(s): None,Stated [Primary Care Provider] - 1-2 days Torito Chatterjee DO [STAFF PHYSICIAN] - 1 Week Activity/Diet/Wound Care/Special Instructions: Restart taking farxiga once antibiotics Ceftin course is completed Discharge/Stand Alone Forms: [facility], [facility], Assisted Living Facilities, Community Resources, Outpatient Counseling Discharge Disposition: HOME SELF-CARE
[2023-05-08 14:04] VITALS: BP 163/72; PULSE 91; RESP 16; TEMP 98.9
--- NOTE | 2023-05-08 16:47 | P.PN ---
Subjective Progress Note Date: 05/07/23 Principal diagnosis: Uti and leg cellulitis Patient is a 72-year-old male with a past medical history significant for diabetes mellitus hypertension COPD sleep apnea and skin cancer patient presenting to the ER for evaluation of nausea and vomiting and constipation, lobo sales was noticed to have a positive UA with some urinary symptoms also lower extremity swelling and redness On today's evaluation that is 05/07/2023, the patient remains to be afebrile, the patient is breathing comfortably on room air , the patient denies having any chest pain or cough, patient denies nausea/vomiting /diarrhea and no abdominal pain, pain to bilateral lower extremity and the swelling has decreased with no open wound Patient did have white count 6.60, creatinine is 1.7, urine is growing Enterobacter Objective - Vital Signs Vital signs: Vital Signs Temp 97.7 F 05/07/23 12:43 Pulse 77 05/07/23 12:43 Resp 16 05/07/23 12:43 BP 132/72 05/07/23 12:43 Pulse Ox 97 05/07/23 12:43 FiO2 Intake & Output 05/06/23 05/07/23 05/07/23 18:59 06:59 18:59 Intake Total 50 240 Balance 50 240 Intake: Intake, IV Titration 50 Amount cefTRIAXone 2 gm In 50 Sodium Chloride 0.9% 50 ml @ 100 mls/hr IVPB Q24HR [facility] Rx#:[id number] Oral 240 Other: Voiding Method Toilet Toilet - Exam GENERAL DESCRIPTION: Elderly male lying in bed in no distress RESPIRATORY SYSTEM: Unlabored breathing , decreased breath sounds at bases HEART: S1 S2 regular rate and rhythm ,no loud murmurs ABDOMEN: Soft , no tenderness EXTREMITIES: Bilateral lower extremity currently wrapped in Ken wrap - Labs CBC & Chem 7: 05/08/23 06:19 05/08/23 06:19 Labs: Abnormal Lab Results - Last 24 Hours (Table) 05/06/23 05/07/23 05/07/23 Range/Units 20:45 06:05 06:05 Hgb 12.7 L (13.0-17.0) d/dL Hct 39.0 L (39.6-50.0) % Creatinine 1.7 H (0.6-1.5) mg/dL Est GFR (CKD-EPI) 42 L (>=60) BUN/Creatinine Ratio 11.00 L (12.00-20.00) Ratio Glucose 141 H (70-110) mg/dL POC Glucose (mg/dL) 215 H (70-110) mg/dL Calcium 8.6 L (8.7-10.3) mg/dL 05/07/23 05/07/23 Range/Units 07:32 11:57 Hgb (13.0-17.0) d/dL Hct (39.6-50.0) % Creatinine (0.6-1.5) mg/dL Est GFR (CKD-EPI) (>=60) BUN/Creatinine Ratio (12.00-20.00) Ratio Glucose (70-110) mg/dL POC Glucose (mg/dL) 151 H 167 H (70-110) mg/dL Calcium (8.7-10.3) mg/dL Assessment and Plan (1) Bilateral lower leg cellulitis Current Visit: Yes Status: Acute Code(s): L03.116 - CELLULITIS OF LEFT LOWER LIMB; L03.115 - CELLULITIS OF RIGHT LOWER LIMB SNOMED Code(s): 823832506 (2) UTI (urinary tract infection) Current Visit: Yes Status: Acute Code(s): N39.0 - URINARY TRACT INFECTION, SITE NOT SPECIFIED SNOMED Code(s): 70973982 Plan: 1patient presented hospital with symptoms of nausea vomiting constipation in this patient who did have evidence of acute renal failure on admission to the hospital patient also have some diffuse swelling to bilateral extremities some dry skin skin minimal edema underlying cellulitis less likely but not entirely excluded 2-positive UA and some urinary symptoms underlying UTI not entirely excluded especially with elevated creatinine concerning for possible postobstructive uropathy, however ultrasound was negative for hydronephrosis patient is being seen by nephrology 3-we will continue with moisturizing cream to bilateral lower extremity followed by Ken wrap to keep the swelling down 4-patient urine culture grew Enterobacter for the patient is covered with Rocephin 2 g daily Patient continued to show slow clinical improvement continue with Rocephin while inpatient finishing therapy with Ceftin Dictation was produced using [employer] dictation software. please excuse any grammatical, word or spelling errors.
--- NOTE | 2023-05-08 16:48 | P.PN ---
Subjective Progress Note Date: 05/08/23 Principal diagnosis: Uti and leg cellulitis Patient is a 72-year-old male with a past medical history significant for diabetes mellitus hypertension COPD sleep apnea and skin cancer patient presenting to the ER for evaluation of nausea and vomiting and constipation, lobo sales was noticed to have a positive UA with some urinary symptoms also lower extremity swelling and redness On today's evaluation that is 05/08/2023, the patient remains to be afebrile the patient is breathing comfortably on room air without need for supplemental oxygen, the patient denies chest pain, shortness of breath or cough, patient denies nausea/vomiting , no diarrhea and no abdominal pain, the patient denies pain to bilateral lower extremity and the swelling has decreased in intensity Patient did have white count 6.81, creatinine is 1.8, urine is growing Enterobacter Objective - Vital Signs Vital signs: Vital Signs Temp 97.9 F 05/08/23 07:27 Pulse 98 05/08/23 07:27 Resp 18 05/08/23 07:27 BP 133/70 05/08/23 07:27 Pulse Ox 98 05/08/23 11:31 FiO2 Intake & Output 05/07/23 05/08/23 05/08/23 18:59 06:59 18:59 Intake Total 290 Output Total 1150 Balance 290 -1150 Intake: Intake, IV Titration 50 Amount cefTRIAXone 2 gm In 50 Sodium Chloride 0.9% 50 ml @ 100 mls/hr IVPB Q24HR [facility] Rx#:[id number] Oral 240 Output: Urine 1150 Other: Voiding Method Toilet # Voids 1 - Exam GENERAL DESCRIPTION: Elderly male lying in bed in no distress RESPIRATORY SYSTEM: Unlabored breathing , decreased breath sounds at bases HEART: S1 S2 regular rate and rhythm ,no loud murmurs ABDOMEN: Soft , no tenderness EXTREMITIES: Bilateral lower extremity currently wrapped in Ken wrap - Labs CBC & Chem 7: 05/08/23 06:19 05/08/23 06:19 Labs: Abnormal Lab Results - Last 24 Hours (Table) 05/07/23 05/07/23 05/08/23 Range/Units 17:30 20:45 06:19 RBC 4.15 L (4.40-5.60) X 10*6/uL Hgb 11.6 L (13.0-17.0) d/dL Hct 35.7 L (39.6-50.0) % Creatinine (0.6-1.5) mg/dL Est GFR (CKD-EPI) (>=60) BUN/Creatinine Ratio (12.00-20.00) Ratio Glucose (70-110) mg/dL POC Glucose (mg/dL) 148 H 200 H (70-110) mg/dL Calcium (8.7-10.3) mg/dL Total Bilirubin (0.3-1.2) mg/dL Total Protein (6.2-8.2) d/dL Albumin (3.8-4.9) d/dL Albumin/Globulin Ratio (1.60-3.17) Ratio 05/08/23 05/08/23 05/08/23 Range/Units 06:19 07:27 12:21 RBC (4.40-5.60) X 10*6/uL Hgb (13.0-17.0) d/dL Hct (39.6-50.0) % Creatinine 1.8 H (0.6-1.5) mg/dL Est GFR (CKD-EPI) 39 L (>=60) BUN/Creatinine Ratio 10.06 L (12.00-20.00) Ratio Glucose 197 H (70-110) mg/dL POC Glucose (mg/dL) 187 H 184 H (70-110) mg/dL Calcium 8.4 L (8.7-10.3) mg/dL Total Bilirubin <0.2 L (0.3-1.2) mg/dL Total Protein 5.6 L (6.2-8.2) d/dL Albumin 3.4 L (3.8-4.9) d/dL Albumin/Globulin Ratio 1.55 L (1.60-3.17) Ratio Assessment and Plan (1) Bilateral lower leg cellulitis Current Visit: Yes Status: Acute Code(s): L03.116 - CELLULITIS OF LEFT LOWER LIMB; L03.115 - CELLULITIS OF RIGHT LOWER LIMB SNOMED Code(s): 447480989 (2) UTI (urinary tract infection) Current Visit: Yes Status: Acute Code(s): N39.0 - URINARY TRACT INFECTION, SITE NOT SPECIFIED SNOMED Code(s): 37745813 Plan: 1patient presented hospital with symptoms of nausea vomiting constipation in this patient who did have evidence of acute renal failure on admission to the hospital patient also have some diffuse swelling to bilateral extremities some dry skin skin minimal edema underlying cellulitis less likely but not entirely excluded 2-positive UA and some urinary symptoms underlying UTI not entirely excluded es pecially with elevated creatinine concerning for possible postobstructive uropathy, however ultrasound was negative for hydronephrosis patient is being seen by nephrology 3-we will continue with moisturizing cream to bilateral lower extremity followed by Ken wrap to keep the swelling down 4-patient urine culture grew Enterobacter for the patient is covered with Rocephin 2 g daily 5the patient has show clinical improvement , patient will finish therapy with Ceftin 5 day discuss with admitting physician working on discharge Dictation was produced using [employer] dictation software. please excuse any grammatical, word or spelling errors.
[2023-05-08 17:34] LABS: Glucose,Whole Blood 201 mg/dL (70-110)
--- NOTE | 2023-05-11 13:02 | CDI ---
Documentation Clarification Form Date: 05/11/2023 12:53:11 PM From: Tianna Caruso Phone: Admit Date: 04/30/2023 07:29:00 PM Patient Name: Victorino Hollis Visit Number: [id number] Discharge Date: 05/08/2023 06:15:00 PM ATTENTION: The Clinical Documentation Specialists (CDI) and [facility] Coding Staff appreciate your assistance in clarifying documentation. Please respond to the clarification below the line at the bottom and electronically sign. The CDI & [facility] Coding staff will review the response and follow-up if needed. Please note: Queries are made part of the Legal Health Record. If you have any questions, please contact the author of this message via ITS. Dr. Clayton Kenny Cellulitis is documented per 05/01 Consult Note and throughout the Progress Notes. Additional clarification regarding the type of cellulitis is requested. History/risk factors: 72yo M, gastritis, hypercalcemiad/texcessiveTums, ATN, UTI, CKD, DMII whyperglycemia, HTN, KSENIA, smoker, lives in car, GERD, COPD Clinical Indicators: diffuseswellingto bilateral extremities some dry skinskin minimaledemaunderlyingcellulitisless likelybut not entirely excluded Treatment: we will continue with moisturizing cream to bilateral lower extremity followed by Ken wrap to keep theswellingdown; patient urine culture grew Enterobacter for the patient is covered with Rocephin 2 g daily Please clarify the type of cellulitis, if known: [ ] DMII cellulitis [ ] Chronic Cellulitis [ ] Other, please specify: ___cellulitis ruled out [ ] Unable to determine (Template Last Revised: July 2022) MTDD
== END 2023-05-08 18:15 | disposition home or self-care (01) | DRG 917 ==
LOC: EC 09:54 → 5NMEDONC 19:29
PROVIDERS: ADMIT Internal Medicine; ATTEND Internal Medicine
DX: T47.1X1A Poisoning by other antacids and anti-gastric-secretion drugs, accidental (unintentional), initial encounter (principal); N17.0 Acute kidney failure with tubular necrosis; N18.4 Chronic kidney disease, stage 4 (severe); N39.0 Urinary tract infection, site not specified; Z16.24 Resistance to multiple antibiotics; Z59.02 Unsheltered homelessness; E11.22 Type 2 diabetes mellitus with diabetic chronic kidney disease; E11.65 Type 2 diabetes mellitus with hyperglycemia; J44.9 Chronic obstructive pulmonary disease, unspecified; E83.52 Hypercalcemia; B96.89 Other specified bacterial agents as the cause of diseases classified elsewhere; F10.11 Alcohol abuse, in remission; I12.9 Hypertensive chronic kidney disease with stage 1 through stage 4 chronic kidney disease, or unspecified chronic kidney disease; K29.70 Gastritis, unspecified, without bleeding; K21.9 Gastro-esophageal reflux disease without esophagitis; F17.210 Nicotine dependence, cigarettes, uncomplicated; M47.816 Spondylosis without myelopathy or radiculopathy, lumbar region; M19.09 Primary osteoarthritis, other specified site; I44.0 Atrioventricular block, first degree; E87.5 Hyperkalemia; N32.89 Other specified disorders of bladder; K59.00 Constipation, unspecified; G47.33 Obstructive sleep apnea (adult) (pediatric); Z79.4 Long term (current) use of insulin; Z79.84 Long term (current) use of oral hypoglycemic drugs; Z79.899 Other long term (current) drug therapy; Z79.82 Long term (current) use of aspirin; Z79.85 Long-term (current) use of injectable non-insulin antidiabetic drugs; Z85.828 Personal history of other malignant neoplasm of skin
CPT/HCPCS: 36415; 71046; 76770; 80048; 80053; 81001; 82150; 82306; 82330; 82652; 83036; 83690; 83735; 83970; 84100; 84443; 85025; 85027; 86334; 86335; 87077; 87086; 87186; 93005; 94760; 96361; 96374; 99285

== ENCOUNTER 2023-06-01 00:11 | Emergency (ER) | payer MEDICARE ==
[2023-06-01] MEDS ORDERED: ONDANSETRON 4 MG/2 ML VIAL IVP STA (01:10)
[2023-06-01] MEDS ORDERED: SODIUM CHLORIDE 0.9% 500 ML 500 ML IV STA (01:10)
--- NOTE | 2023-06-01 01:13 | ED ---
General Adult HPI - General Chief complaint: Abdominal Pain Stated complaint: Abd Pain Time Seen by Provider: 06/01/23 00:36 Source: patient Mode of arrival: ambulatory Limitations: no limitations - History of Present Illness Initial comments: This patient is 72-year-old man who presents to have evaluation for nausea and vomiting is been going on for approximately 3 days now. The patient states that he is not really tolerating much oral intake. He states that he has 3-4 episodes of vomiting per day. If he tries to eat or drink anything more than just a sip or 2 of liquid he will end up having vomiting within the next 20 minutes or so. He states he will get some generalized abdominal cramping and then he vomits. He has not noted any light or coffee-ground emesis. There is no pain other than associated with the vomiting. I states he has not noted any change in urination. He states he has not had much in way of a bowel movement since he is not tolerating any oral intake. No fever or chills noted. No chest symptoms. Onset/Timin -: days(s) - Related Data Home Medications Medication Instructions Recorded Confirmed Lovastatin [Mevacor] 40 mg PO DAILY 05/23/18 04/30/23 Tamsulosin [Flomax] 0.4 mg PO DAILY 05/23/18 04/30/23 Aspirin [Adult Low Dose Aspirin EC] 81 mg PO DAILY 11/10/18 04/30/23 Semaglutide [Ozempic] 1 mg SQ WE 06/25/22 04/30/23 Dapagliflozin Propanediol [Farxiga] 10 mg PO DAILY 07/07/22 04/30/23 Metoprolol Succinate (ER) [Toprol 100 mg PO DAILY 07/07/22 04/30/23 XL] Insulin Aspart [NovoLOG Flexpen] 20 units SQ AC-TID 11/26/22 04/30/23 Insulin Degludec [Tresiba 60 units SQ DAILY 11/26/22 04/30/23 Flextouch U-200 Pen] Previous Rx's Medication Instructions Recorded Losartan [Cozaar] 100 mg PO DAILY 30 Days #30 tab 05/08/23 cefUROXime axetiL [Cefuroxime] 500 mg PO BID 3 Days #6 tab 05/08/23 Ondansetron Odt [Zofran ODT] 4 mg PO Q8HR PRN #10 tab 06/01/23 Allergies Allergy/AdvReac Type Severity Reaction Status Date / Time No Known Allergies Allergy Verified 04/30/23 13:42 Review of Systems ROS Statement: Those systems with pertinent positive or pertinent negative responses have been documented in the HPI. ROS Other: All systems not noted in ROS Statement are negative. Constitutional: Denies: fever, chills Respiratory: Denies: cough, dyspnea Cardiovascular: Denies: chest pain, palpitations, edema Gastrointestinal: Reports: as per HPI, abdominal pain, nausea, vomiting. Denies: diarrhea, constipation, melena, hematochezia Genitourinary: Denies: dysuria, hematuria, testicular pain, testicular mass Musculoskeletal: Denies: back pain Skin: Denies: rash Neurological: Denies: headache, weakness Past Medical History Past Medical History: Cancer, COPD, Diabetes Mellitus, GERD/Reflux, Hypertension, Sleep Apnea/CPAP/BIPAP Additional Past Medical History / Comment(s): SKIN CANCER, SLEEP APNEA-cpap, hx BLEEDING HEMORRHOID, LIMITED MOBILITY LEFT ARM AFTER SKIN CANCER REMOVED., HX OF A FALL WITH FX VERTEBRAE & RUPTURED DISC YRS AGO. SEE CARDIOLOGY H & P. INGUINAL HERNIA. Arthritis lower spine and arms History of Any Multi-Drug Resistant Organisms: None Reported Past Surgical History: Appendectomy, Orthopedic Surgery Additional Past Surgical History / Comment(s): Left eye surgery, lens transplant, CA removed from left shoulder, barn spike through his left foot and removed. umbilical hernia removal 07/10. Past Anesthesia/Blood Transfusion Reactions: No Reported Reaction Additional Past Anesthesia/Blood Transfusion Reaction / Comment(s): No blood transfusions Past Psychological History: No Psychological Hx Reported Smoking Status: Current every day smoker Past Alcohol Use History: None Reported Past Drug Use History: None Reported - Past Family History Brother(s) Family Medical History: No Reported History Mother Additional Family Medical History / Comment(s): low BP and low sugar Father Family Medical History: Diabetes Mellitus General Exam Limitations: no limitations General appearance: alert, in no apparent distress Head exam: Present: atraumatic, normocephalic Eye exam: Present: normal appearance. Absent: scleral icterus, conjunctival injection ENT exam: Present: normal oropharynx Neck exam: Present: normal inspection Respiratory exam: Present: normal lung sounds bilaterally. Absent: respiratory distress, wheezes, rales, rhonchi, stridor Cardiovascular Exam: Present: regular rate, normal rhythm, normal heart sounds. Absent: systolic murmur, diastolic murmur, rubs, gallop GI/Abdominal exam: Present: soft. Absent: distended, tenderness, guarding, rebound, rigid, mass, pulsatile mass, hernia Back exam: Present: normal inspection. Absent: CVA tenderness (R), CVA tenderness (L) Neurological exam: Present: alert Skin exam: Present: warm, dry, intact, normal color. Absent: rash Course Vital Signs 06/01/23 06/01/23 00:14 06:27 Temperature 98.7 F 98.2 F Pulse Rate 110 H 93 Respiratory 18 19 Rate Blood Pressure 177/75 140/66 O2 Sat by Pulse 98 97 Oximetry Medical Decision Making - Medical Decision Making The patient had computed tomography scan of the abdomen and pelvis which I interpreted as negative for bowel obstruction/free air. Was pt. sent in by a medical professional or institution (, PA, AIX SYSTEM ADMINISTRATOR, urgent care, hospital, or long term...) When possible be specific @ -[No] Did you speak to anyone other than the patient for history (EMS, parent, family, police, friend...)? What history was obtained from this source @ -[No] Did you review nursing and triage notes (agree or disagree)? Why? @ -[I reviewed and agree with nursing and triage notes] Were old charts reviewed (outside hosp., previous admission, EMS record, old EKG, old radiological studies, urgent care reports/EKG's, long term records)? Report findings @ -[No old charts were reviewed] Differential Diagnosis (chest pain, altered mental status, abdominal pain women, abdominal pain men, vaginal bleeding, weakness, fever, dyspnea, syncope, headache, dizziness, GI bleed, back pain, seizure, CVA, palpatations, mental health, musculoskeletal)? @ -[Differential Abdominal Pain Men: Appendicitis, cholecystitis, diverticulosis, ischemic bowel, pancreatitis, hepatitis, UTI, gastroenteritis, AAA, incarcerated hernia, bowel obstruction, constipation, inflammatory bowel, hepatitis, peptic ulcer disease, splenic infarction, perforated viscus, testicular torsion, this is not meant to be an all-inclusive list EKG interpreted by me (3pts min.). @ -[As above] X-rays interpreted by me (1pt min.). @ -[None done] CT interpreted by me (1pt min.). @ -[None done] U/S interpreted by me (1pt. min.). @ -[None done] What testing was considered but not performed or refused? (CT, X-rays, U/S, labs)? Why? @ -[None] What meds were considered but not given or refused? Why? @ -[None] Did you discuss the management of the patient with other professionals (darryl huber i.e. , PA, AIX SYSTEM ADMINISTRATOR, lab, RT, psych nurse, social contact worker, military personnel specialist, teacher, learning officer, oil field caser)? Give summary @ -[No] Was smoking cessation discussed for >3mins.? @ -[No] Was critical care preformed (if so, how long)? @ -[No] Were there social determinants of health that impacted care today? How? (Homelessness, low income, unemployed, alcoholism, drug addiction, transp ortation, low edu. Level, literacy, decrease access to med. care, longterm, rehab)? @ -[No] Was there de-escalation of care discussed even if they declined (Discuss DNR or withdrawal of care, Hospice)? DNR status @ -[No] What co-morbidities impacted this encounter? (DM, HTN, Smoking, COPD, CAD, Cancer, CVA, ARF, Chemo, Hep., AIDS, mental health diagnosis, sleep apnea, morbid obesity)? @ -[None] Was patient admitted / discharged? Hospital course, mention meds given and route, prescriptions, significant lab abnormalities, going to OR and other pertinent info. @ -[Patient is 72-year-old man who presents to have abdominal pain evaluated. The lab results indicative of mild pancreatitis. The patient was tolerated some oral intake here. He was feeling better and wanted to go home. We did offer admission but he would rather follow as outpatient. We discussed appropriate further care and follow-up as well as return parameters. We discussed pancreas diet. Undiagnosed new problem with uncertain prognosis? @ -[No] Drug Therapy requiring intensive monitoring for toxicity (Heparin, Nitro, Insulin, Cardizem)? @ -[No] Were any procedures done? @ -[No] Diagnosis/symptom? @ -[Acute pancreatitis Acute, or Chronic, or Acute on Chronic? @ -[Acute Uncomplicated (without systemic symptoms) or Complicated (systemic symptoms)? @ -[Uncomplicated Side effects of treatment? @ -[No] Exacerbation, Progression, or Severe Exacerbation? @ -[No] Poses a threat to life or bodily function? How? (Chest pain, [place], GA, pneumonia, PE, COPD, DKA, ARF, appy, cholecystitis, CVA, Diverticulitis, Homicidal, Suicidal, threat to staff... and all critical care pts) @ -[No] - Lab Data Result diagrams: 06/01/23 01:37 06/01/23 01:37 Lab Results 06/01/23 06/01/23 06/01/23 Range/Units 01:37 01:37 01:37 WBC 9.5 (3.8-10.6) k/uL RBC 4.64 (4.30-5.90) m/uL Hgb 12.9 L (13.0-17.5) gm/dL Hct 39.2 (39.0-53.0) % MCV 84.4 (80.0-100.0) fL MCH 27.9 (25.0-35.0) pg MCHC 33.0 (31.0-37.0) g/dL RDW 14.3 (11.5-15.5) % Plt Count 277 (150-450) k/uL MPV 7.6 Neutrophils % 79 % Lymphocytes % 10 % Monocytes % 7 % Eosinophils % 2 % Basophils % 0 % Neutrophils # 7.5 (1.3-7.7) k/uL Lymphocytes # 1.0 (1.0-4.8) k/uL Monocytes # 0.7 (0-1.0) k/uL Eosinophils # 0.2 (0-0.7) k/uL Basophils # 0.0 (0-0.2) k/uL Sodium 135 L (137-145) mmol/L Potassium 4.6 (3.5-5.1) mmol/L Chloride 100 (98-107) mmol/L Carbon Dioxide 25 (22-30) mmol/L Anion Gap 10 mmol/L BUN 21 H (9-20) mg/dL Creatinine 1.32 H (0.66-1.25) mg/dL Est GFR (CKD-EPI)AfAm 62 (>60 ml/min/1.73 sqM) Est GFR (CKD-EPI)NonAf 53 (>60 ml/min/1.73 sqM) Glucose 278 H (74-99) mg/dL Plasma Lactic Acid Marlon (0.7-2.0) mmol/L Calcium 9.7 (8.4-10.2) mg/dL Total Bilirubin 0.5 (0.2-1.3) mg/dL AST 18 (17-59) U/L ALT 18 (4-49) U/L Alkaline Phosphatase 100 (38-126) U/L Total Protein 6.7 (6.3-8.2) g/dL Albumin 4.2 (3.5-5.0) g/dL Amylase 130 H (30-110) U/L Lipase 890 H (23-300) U/L Urine Color Light Yellow Urine Appearance Clear (Clear) Urine pH 6.5 (5.0-8.0) Ur Specific [place] 1.025 (1.001-1.035) Urine Protein Negative (Negative) Urine Glucose (UA) 4+ H (Negative) Urine Ketones Negative (Negative) Urine Blood Negative (Negative) Urine Nitrite Negative (Negative) Urine Bilirubin Negative (Negative) Urine Urobilinogen <2.0 (<2.0) mg/dL Ur Leukocyte Esterase Negative (Negative) 06/01/23 Range/Units 01:37 WBC (3.8-10.6) k/uL RBC (4.30-5.90) m/uL Hgb (13.0-17.5) gm/dL Hct (39.0-53.0) % MCV (80.0-100.0) fL MCH (25.0-35.0) pg MCHC (31.0-37.0) g/dL RDW (11.5-15.5) % Plt Count (150-450) k/uL MPV Neutrophils % % Lymphocytes % % Monocytes % % Eosinophils % % Basophils % % Neutrophils # (1.3-7.7) k/uL Lymphocytes # (1.0-4.8) k/uL Monocytes # (0-1.0) k/uL Eosinophils # (0-0.7) k/uL Basophils # (0-0.2) k/uL Sodium (137-145) mmol/L Potassium (3.5-5.1) mmol/L Chloride (98-107) mmol/L Carbon Dioxide (22-30) mmol/L Anion Gap mmol/L BUN (9-20) mg/dL Creatinine (0.66-1.25) mg/dL Est GFR (CKD-EPI)AfAm (>60 ml/min/1.73 sqM) Est GFR (CKD-EPI)NonAf (>60 ml/min/1.73 sqM) Glucose (74-99) mg/dL Plasma Lactic Acid Marlon 2.0 (0.7-2.0) mmol/L Calcium (8.4-10.2) mg/dL Total Bilirubin (0.2-1.3) mg/dL AST (17-59) U/L ALT (4-49) U/L Alkaline Phosphatase (38-126) U/L Total Protein (6.3-8.2) g/dL Albumin (3.5-5.0) g/dL Amylase (30-110) U/L Lipase (23-300) U/L Urine Color Urine Appearance (Clear) Urine pH (5.0-8.0) Ur Specific [place] (1.001-1.035) Urine Protein (Negative) Urine Glucose (UA) (Negative) Urine Ketones (Negative) Urine Blood (Negative) Urine Nitrite (Negative) Urine Bilirubin (Negative) Urine Urobilinogen (<2.0) mg/dL Ur Leukocyte Esterase (Negative) Disposition Clinical Impression: Pancreatitis Disposition: HOME SELF-CARE Condition: Good Prescriptions: Ondansetron Odt [Zofran ODT] 4 mg PO Q8HR PRN #10 tab PRN Reason: Nausea Is patient prescribed a controlled substance at d/c from ED?: No Referrals: Marcellus Harris MD [Primary Care Provider] - 1-2 days
--- NOTE | 2023-06-01 02:06 | CT ---
EXAM: CT Abdomen and Pelvis Without Intravenous Contrast CLINICAL HISTORY: ITS.REASON CT Reason: abdominal pain TECHNIQUE: Axial computed tomography images of the abdomen and pelvis without intravenous contrast. CTDI is 14.6 mGy and DLP is 861.9 mGy-cm. This CT exam was performed using one or more of the following dose reduction techniques: automated exposure control, adjustment of the mA and/or kV according to patient size, and/or use of iterative reconstruction technique. COMPARISON: 11/26/2022. FINDINGS: Lung bases: Subsegmental atelectasis noted at the lung bases. Pleural space: Unremarkable. No pneumothorax. No pleural effusions. Heart: Cardiomegaly. Mediastinum: Small hiatal hernia and distal esophagitis. ABDOMEN: Liver: Fatty liver. Gallbladder and bile ducts: The gallbladder is unremarkable. No calcified stones. No ductal dilation. Pancreas: See below. Spleen: Spleen is normal in contour. Adrenals: The adrenal glands, the head, body, tail of the pancreas are unremarkable. Kidneys and ureters: Nonspecific stranding about the perinephric spaces without renal calculus or hydronephrosis. Stomach and bowel: Moderate quantity of ingested material in the stomach. Moderate quantity of stool throughout the colon. Diverticulosis without diverticulitis. Diverticulosis. No obstruction. PELVIS: Appendix: The appendix is seen on axial image 67 and is unremarkable. Bladder: Unremarkable. No stones. Reproductive: Unremarkable as visualized. ABDOMEN and PELVIS: Intraperitoneal space: Unremarkable. No free air. No significant fluid collection. Bones/joints: No acute fracture. No dislocation. No spondylolysis. Soft tissues: Ischiorectal fat is clean. Vasculature: Unremarkable. No abdominal aortic aneurysm. Lymph nodes: Unremarkable. No enlarged lymph nodes. Other findings: ASCVD. IMPRESSION: 1. No appendicitis. 2. Cardiomegaly. 3. Small hiatal hernia and distal esophagitis. 4. ASCVD. 5. Fatty liver. 6. The gallbladder is unremarkable. 7. Nonspecific stranding about the perinephric spaces without hydronephrosis. 8. Diverticulosis without diverticulitis.
[2023-06-01 02:09] LABS: Basophils % (A) 0 %; Eosinophils # (A) 0.2 k/uL (0-0.7); Eosinophils % (A) 2 %; HCT 39.2 % (39.0-53.0); HGB 12.9 gm/dL (13.0-17.5); Lymphocytes % (A) 10 %; MCH 27.9 pg (25.0-35.0); MCV 84.4 fL (80.0-100.0); Mean Platelet Volume 7.6; Monocytes # (A) 0.7 k/uL (0-1.0); Monocytes % (A) 7 %; Neutrophils # (A) 7.5 k/uL (1.3-7.7); Neutrophils % (A) 79 %; Platelet Count 277 k/uL (150-450); RBC 4.64 m/uL (4.30-5.90); RDW 14.3 % (11.5-15.5); WBC 9.5 k/uL (3.8-10.6)
[2023-06-01 02:17] LABS: ALT 18 U/L (4-49); AST 18 U/L (17-59); African American GFR (CKD) 62 (>60 ml/min/1.73 sqM); Albumin 4.2 g/dL (3.5-5.0); Alkaline Phosphatase 100 U/L (38-126); Amylase 130 U/L (30-110); Anion Gap 10 mmol/L; Blood Urea Nitrogen 21 mg/dL (9-20); Calcium 9.7 mg/dL (8.4-10.2); Carbon Dioxide 25 mmol/L (22-30); Chloride 100 mmol/L (98-107); Glucose 278 mg/dL (74-99); Lipase 890 U/L (23-300); Non-African American GFR(CKD) 53 (>60 ml/min/1.73 sqM); Potassium 4.6 mmol/L (3.5-5.1); Sodium 135 mmol/L (137-145); Total Bilirubin 0.5 mg/dL (0.2-1.3); Total Protein 6.7 g/dL (6.3-8.2)
[2023-06-01 03:31] LABS: Appearance,Urine Clear (Clear); Bilirubin,Urine Negative (Negative); Blood,Urine Negative (Negative); Color,Urine Light Yellow; Glucose,Urine (UA) 4+ (Negative); Ketones,Urine Negative (Negative); Leukocyte Esterase,Urine Negative (Negative); Nitrite,Urine Negative (Negative); PH, Urine 6.5 (5.0-8.0); Protein,Urine Negative (Negative); Specific Gravity,Urine 1.025 (1.001-1.035); Urobilinogen,Urine <2.0 mg/dL (<2.0)
[2023-06-01] MEDS ORDERED: INSULIN REGULAR 100 UNIT/ML VIAL (IV) SQ STA (03:55)
[2023-06-01] MEDS ORDERED: ONDANSETRON 4 MG ODT STARTER PACK 2 TAB BTL PO STA (06:19)
[2023-06-01 06:33] VITALS: BP 140/66; PULSE 93; RESP 19; TEMP 98.2
== END 2023-06-01 06:47 | disposition home or self-care (01) ==
LOC: EC 00:11
DX: K85.90 Acute pancreatitis without necrosis or infection, unspecified (principal); E11.9 Type 2 diabetes mellitus without complications; J44.9 Chronic obstructive pulmonary disease, unspecified; I10 Essential (primary) hypertension; G47.30 Sleep apnea, unspecified; F17.200 Nicotine dependence, unspecified, uncomplicated; Z79.4 Long term (current) use of insulin; Z79.84 Long term (current) use of oral hypoglycemic drugs; Z79.82 Long term (current) use of aspirin; Z79.899 Other long term (current) drug therapy; Z90.49 Acquired absence of other specified parts of digestive tract
CPT/HCPCS: 36415; 80053; 82150; 83605; 83690; 85025; 81003; 74176; 99284; 96374; 96361; J2405; S0119

== ENCOUNTER 2023-09-15 19:43 | Observation (INO) | payer MEDICARE ==
[2023-09-15 19:53] LABS: Glucose,Whole Blood 553 mg/dL (70-110)
[2023-09-15 20:39] LABS: Basophils % (A) 0 %; Eosinophils # (A) 0.1 k/uL (0-0.7); Eosinophils % (A) 1 %; HCT 42.5 % (39.0-53.0); HGB 14.5 gm/dL (13.0-17.5); Lymphocytes # (A) 1.9 k/uL (1.0-4.8); Lymphocytes % (A) 18 %; MCH 26.7 pg (25.0-35.0); MCHC 34.2 g/dL (31.0-37.0); MCV 78.3 fL (80.0-100.0); Mean Platelet Volume 8.4; Monocytes # (A) 0.7 k/uL (0-1.0); Monocytes % (A) 6 %; Neutrophils # (A) 8.2 k/uL (1.3-7.7); Neutrophils % (A) 74 %; Platelet Count 234 k/uL (150-450); RBC 5.42 m/uL (4.30-5.90); RDW 14.2 % (11.5-15.5); WBC 11.1 k/uL (3.8-10.6)
[2023-09-15 20:41] LABS: Glucose,Whole Blood 215 mg/dL (70-110)
[2023-09-15] MEDS: SODIUM CHLORIDE 0.9% 1,000 ML IV ONE (20:42)
--- NOTE | 2023-09-15 20:42 | ED ---
General Adult HPI - General Chief complaint: Recheck/Abnormal Lab/Rx Stated complaint: high blood sugar light headed dizzy Time Seen by Provider: 09/15/23 20:17 Source: patient Mode of arrival: ambulatory Limitations: no limitations - History of Present Illness Initial comments: This patient is a 73-year-old man with history of diabetes who presents with the complaint that "diabetes is kicking my butt." And he states that by this he means his blood sugar has been elevated and he has been thirsty. I states that the blood sugar has been elevated since early in the afternoon. He notes that he was not feeling himself for a day or so prior. He feels that he "has a virus". He has had congestion and cough for 1 to 2 days. He has not noted fevers or chills. No chest pain or dyspnea. -: hour(s) Severity scale (1-10): 0 Consistency: constant Improves with: none Worsens with: none Associated Symptoms: cough Treatments Prior to Arrival: none - Related Data Home Medications Medication Instructions Recorded Confirmed Lovastatin [Mevacor] 40 mg PO DAILY 05/23/18 04/30/23 Tamsulosin [Flomax] 0.4 mg PO DAILY 05/23/18 04/30/23 Aspirin [Adult Low Dose Aspirin EC] 81 mg PO DAILY 11/10/18 04/30/23 Semaglutide [Ozempic] 1 mg SQ WE 06/25/22 04/30/23 Dapagliflozin Propanediol [Farxiga] 10 mg PO DAILY 07/07/22 04/30/23 Metoprolol Succinate (ER) [Toprol 100 mg PO DAILY 07/07/22 04/30/23 XL] Insulin Aspart [NovoLOG Flexpen] 20 units SQ AC-TID 11/26/22 04/30/23 Insulin Degludec [Tresiba 60 units SQ DAILY 11/26/22 04/30/23 Flextouch U-200 Pen] Previous Rx's Medication Instructions Recorded Losartan [Cozaar] 100 mg PO DAILY 30 Days #30 tab 05/08/23 cefUROXime axetiL [Cefuroxime] 500 mg PO BID 3 Days #6 tab 05/08/23 Ondansetron Odt [Zofran ODT] 4 mg PO Q8HR PRN #10 tab 06/01/23 Allergies Allergy/AdvReac Type Severity Reaction Status Date / Time No Known Allergies Allergy Verified 09/15/23 19:52 Review of Systems ROS Statement: Those systems with pertinent positive or pertinent negative responses have been documented in the HPI. ROS Other: All systems not noted in ROS Statement are negative. Constitutional: Denies: fever, chills, weakness ENT: Reports: congestion. Denies: ear pain, throat pain Respiratory: Reports: cough. Denies: dyspnea, wheezes Cardiovascular: Denies: chest pain, palpitations, edema Endocrine: Reports: fatigue Gastrointestinal: Denies: abdominal pain, nausea, vomiting, diarrhea Genitourinary: Denies: dysuria, hematuria Musculoskeletal: Denies: back pain Skin: Denies: rash Neurological: Denies: headache, weakness Past Medical History Past Medical History: Cancer, COPD, Diabetes Mellitus, GERD/Reflux, Hypertension, Sleep Apnea/CPAP/BIPAP Additional Past Medical History / Comment(s): SKIN CANCER, SLEEP APNEA-cpap, hx BLEEDING HEMORRHOID, LIMITED MOBILITY LEFT ARM AFTER SKIN CANCER REMOVED., HX OF A FALL WITH FX VERTEBRAE & RUPTURED DISC YRS AGO. SEE CARDIOLOGY H & P. INGUINAL HERNIA. Arthritis lower spine and arms History of Any Multi-Drug Resistant Organisms: None Reported Past Surgical History: Appendectomy, Orthopedic Surgery Additional Past Surgical History / Comment(s): Left eye surgery, lens transplant, CA removed from left shoulder, barn spike through his left foot and removed. umbilical hernia removal 07/10. Past Anesthesia/Blood Transfusion Reactions: No Reported Reaction Additional Past Anesthesia/Blood Transfusion Reaction / Comment(s): No blood transfusions Past Psychological History: No Psychological Hx Reported Smoking Status: Current every day smoker Past Alcohol Use History: None Reported Past Drug Use History: None Reported - Past Family History Brother(s) Family Medical History: No Reported History Mother Additional Family Medical History / Comment(s): low BP and low sugar Father Family Medical History: Diabetes Mellitus General Exam Limitations: no limitations General appearance: alert, in no apparent distress Head exam: Present: atraumatic, normocephalic Eye exam: Present: normal appearance. Absent: scleral icterus, conjunctival injection ENT exam: Present: mucous membranes dry Neck exam: Present: normal inspection Respiratory exam: Present: wheezes. Absent: respiratory distress, rales, rhonchi, stridor, accessory muscle use Cardiovascular Exam: Present: regular rate, normal rhythm, normal heart sounds. Absent: systolic murmur, diastolic murmur, rubs, gallop GI/Abdominal exam: Present: soft. Absent: distended, tenderness, guarding, rebound, rigid, mass Extremities exam: Present: normal inspection, normal capillary refill. Absent: pedal edema, calf tenderness Back exam: Present: normal inspection. Absent: CVA tenderness (R), CVA tenderness (L) Neurological exam: Present: alert Skin exam: Present: warm, dry, intact, normal color. Absent: rash Course Vital Signs 09/15/23 09/15/23 09/15/23 19:50 20:19 22:24 Temperature 96.0 F L 97.7 F Pulse Rate 68 65 54 L Respiratory 20 20 Rate Blood Pressure 84/51 91/72 O2 Sat by Pulse 96 94 L Oximetry 09/15/23 09/15/23 22:32 22:45 Temperature 98.2 F Pulse Rate 51 L 52 L Respiratory 16 Rate Blood Pressure 93/40 O2 Sat by Pulse 95 Oximetry Medical Decision Making - Lab Data Result diagrams: 09/15/23 20:28 09/15/23 20:28 Lab Results 09/15/23 09/15/23 09/15/23 Range/Units 19:52 20:28 20:28 WBC 11.1 H (3.8-10.6) k/uL RBC 5.42 (4.30-5.90) m/uL Hgb 14.5 (13.0-17.5) gm/dL Hct 42.5 (39.0-53.0) % MCV 78.3 L (80.0-100.0) fL MCH 26.7 (25.0-35.0) pg MCHC 34.2 (31.0-37.0) g/dL RDW 14.2 (11.5-15.5) % Plt Count 234 (150-450) k/uL MPV 8.4 Neutrophils % 74 % Lymphocytes % 18 % Monocytes % 6 % Eosinophils % 1 % Basophils % 0 % Neutrophils # 8.2 H (1.3-7.7) k/uL Lymphocytes # 1.9 (1.0-4.8) k/uL Monocytes # 0.7 (0-1.0) k/uL Eosinophils # 0.1 (0-0.7) k/uL Basophils # 0.0 (0-0.2) k/uL Sodium 130 L (137-145) mmol/L Potassium 3.9 (3.5-5.1) mmol/L Chloride 96 L (98-107) mmol/L Carbon Dioxide 22 (22-30) mmol/L Anion Gap 12 mmol/L BUN 46 H (9-20) mg/dL Creatinine 2.37 H (0.66-1.25) mg/dL Est GFR (CKD-EPI)AfAm 30 (>60 ml/min/1.73 sqM) Est GFR (CKD-EPI)NonAf 26 (>60 ml/min/1.73 sqM) Glucose 202 H (74-99) mg/dL POC Glucose (mg/dL) 553 H (70-110) mg/dL POC Glu Continuous Dryout Operator ID Colt Flores Calcium 9.3 (8.4-10.2) mg/dL Total Bilirubin 0.6 (0.2-1.3) mg/dL AST 26 (17-59) U/L ALT 22 (4-49) U/L Alkaline Phosphatase 150 H (38-126) U/L Total Protein 7.4 (6.3-8.2) g/dL Albumin 4.5 (3.5-5.0) g/dL Acetone, Qual Negative (Negative) Influenza Type A (PCR) (Not Detectd) Influenza Type B (PCR) (Not Detectd) RSV (PCR) (Not Detectd) SARS-CoV-2 (PCR) (Not Detectd) 09/15/23 09/15/23 Range/Units 20:40 20:47 WBC (3.8-10.6) k/uL RBC (4.30-5.90) m/uL Hgb (13.0-17.5) gm/dL Hct (39.0-53.0) % MCV (80.0-100.0) fL MCH (25.0-35.0) pg MCHC (31.0-37.0) g/dL RDW (11.5-15.5) % Plt Count (150-450) k/uL MPV Neutrophils % % Lymphocytes % % Monocytes % % Eosinophils % % Basophils % % Neutrophils # (1.3-7.7) k/uL Lymphocytes # (1.0-4.8) k/uL Monocytes # (0-1.0) k/uL Eosinophils # (0-0.7) k/uL Basophils # (0-0.2) k/uL Sodium (137-145) mmol/L Potassium (3.5-5.1) mmol/L Chloride (98-107) mmol/L Carbon Dioxide (22-30) mmol/L Anion Gap mmol/L BUN (9-20) mg/dL Creatinine (0.66-1.25) mg/dL Est GFR (CKD-EPI)AfAm (>60 ml/min/1.73 sqM) Est GFR (CKD-EPI)NonAf (>60 ml/min/1.73 sqM) Glucose (74-99) mg/dL POC Glucose (mg/dL) 215 H (70-110) mg/dL POC Glu Continuous Dryout Operator ID Sharon Mckinney Calcium (8.4-10.2) mg/dL Total Bilirubin (0.2-1.3) mg/dL AST (17-59) U/L ALT (4-49) U/L Alkaline Phosphatase (38-126) U/L Total Protein (6.3-8.2) g/dL Albumin (3.5-5.0) g/dL Acetone, Qual (Negative) Influenza Type A (PCR) Not Detected (Not Detectd) Influenza Type B (PCR) Not Detected (Not Detectd) RSV (PCR) Not Detected (Not Detectd) SARS-CoV-2 (PCR) Not Detected (Not Detectd) Disposition Clinical Impression: DHEERAJ (acute kidney injury), Acute exacerbation of chronic obstructive airways disease, Dehydration Disposition: ADMITTED IP TO THIS HOSP Condition: Fair Is patient prescribed a controlled substance at d/c from ED?: No
[2023-09-15 20:50] LABS: ALT 22 U/L (4-49); AST 26 U/L (17-59); African American GFR (CKD) 30 (>60 ml/min/1.73 sqM); Albumin 4.5 g/dL (3.5-5.0); Alkaline Phosphatase 150 U/L (38-126); Anion Gap 12 mmol/L; Blood Urea Nitrogen 46 mg/dL (9-20); Calcium 9.3 mg/dL (8.4-10.2); Carbon Dioxide 22 mmol/L (22-30); Chloride 96 mmol/L (98-107); Glucose 202 mg/dL (74-99); Non-African American GFR(CKD) 26 (>60 ml/min/1.73 sqM); Potassium 3.9 mmol/L (3.5-5.1); Sodium 130 mmol/L (137-145); Total Bilirubin 0.6 mg/dL (0.2-1.3); Total Protein 7.4 g/dL (6.3-8.2)
--- NOTE | 2023-09-15 21:11 | XR ---
EXAMINATION TYPE: XR chest 2V DATE OF EXAM: 09/15/2023 9:00 PM CLINICAL INDICATION:Male, 73 years old with history of cough; COMPARISON: Chest radiographs from 04/30/2023 TECHNIQUE: XR chest 2V Frontal and lateral views of the chest. FINDINGS: Lungs/Pleura: There is no evidence of pleural effusion, focal consolidation, or pneumothorax. Pulmonary vascularity: Unremarkable. Heart/mediastinum: Cardiomediastinal silhouette is unremarkable. Musculoskeletal: No acute osseous pathology. Other findings: None IMPRESSION: No acute cardiopulmonary disease/process.
[2023-09-15] MEDS: ALBUTEROL NEBULIZED 2.5 MG/3 ML INHALATION STA (22:24)
[2023-09-15] MEDS: SODIUM CHLORIDE 0.9% 500 ML 500 ML IV STA ×2 (22:43→23:04)
[2023-09-15] MEDS: SODIUM CHLORIDE 0.9% 1,000 ML IV STA (22:43)
[2023-09-15] MEDS ORDERED: NALOXONE 0.4 MG/ML 1 ML VIAL IV PRN (23:23)
[2023-09-15] MEDS ORDERED: ACETAMINOPHEN TAB 325 MG TAB PO PRN (23:23)
[2023-09-15] MEDS ORDERED: ONDANSETRON ODT 4 MG TAB PO PRN (23:25)
[2023-09-15] MEDS ORDERED: DEXTROSE 50% SYRINGE 50 ML IVP PRN ×2 (23:26)
[2023-09-16] MEDS: SODIUM CHLORIDE 0.9% 1,000 ML IV SCH (00:38)
[2023-09-16 01:48] LABS: Glucose,Whole Blood 228 mg/dL (70-110)
[2023-09-16 02:19] LABS: Appearance,Urine Clear (Clear); Bacteria,Urine Rare /hpf; Bilirubin,Urine Negative (Negative); Blood,Urine Negative (Negative); Color,Urine Colorless; Glucose,Urine (UA) 4+ (Negative); Hyaline Casts,Urine 10 /lpf (0-2); Ketones,Urine Negative (Negative); Leukocyte Esterase,Urine Trace (Negative); Mucus,Urine Rare /hpf; Nitrite,Urine Negative (Negative); Protein,Urine Negative (Negative); RBC,Urine 1 /hpf (0-5); Specific Gravity,Urine 1.008 (1.001-1.035); Urobilinogen,Urine <2.0 mg/dL (<2.0); WBC,Urine 1 /hpf (0-5)
[2023-09-16 07:54] LABS: Glucose,Whole Blood 299 mg/dL (70-110)
[2023-09-16 08:27] LABS: Basophils % (A) 0 %; Eosinophils # (A) 0.2 k/uL (0-0.7); Eosinophils % (A) 2 %; HCT 39.1 % (39.0-53.0); HGB 12.8 gm/dL (13.0-17.5); Lymphocytes # (A) 1.4 k/uL (1.0-4.8); Lymphocytes % (A) 20 %; MCH 26.1 pg (25.0-35.0); MCHC 32.6 g/dL (31.0-37.0); MCV 79.8 fL (80.0-100.0); Monocytes # (A) 0.4 k/uL (0-1.0); Monocytes % (A) 6 %; Neutrophils % (A) 70 %; Platelet Count 202 k/uL (150-450); RDW 14.3 % (11.5-15.5); WBC 7.2 k/uL (3.8-10.6)
[2023-09-16 08:44] LABS: African American GFR (CKD) 37 (>60 ml/min/1.73 sqM); Anion Gap 10 mmol/L; Blood Urea Nitrogen 42 mg/dL (9-20); Calcium 8.4 mg/dL (8.4-10.2); Carbon Dioxide 22 mmol/L (22-30); Chloride 101 mmol/L (98-107); Glucose 224 mg/dL (74-99); Magnesium 2.3 mg/dL (1.6-2.3); Non-African American GFR(CKD) 32 (>60 ml/min/1.73 sqM); Sodium 133 mmol/L (137-145)
[2023-09-16] MEDS: METOPROLOL SUCCINATE (ER) 100 MG TAB.ER.24H PO SCH (09:53)
[2023-09-16] MEDS: TAMSULOSIN 0.4 MG CAP.ER.24H PO SCH (09:53)
[2023-09-16] MEDS: FAMOTIDINE 20 MG TAB PO SCH (09:53)
[2023-09-16] MEDS: ASPIRIN 81 MG PO SCH (09:53)
--- NOTE | 2023-09-16 10:39 | P.HPIM ---
History of Present Illness H&P Date: 09/16/23 Chief Complaint: persistent high sugars over the last few days This is a 73-year-old homeless gentleman reporting his blood sugars have been greater than 300 over the last few days accompanied by dizziness, shakiness, fatigue and shortness of breath, in a patient with history significant for COPD, diabetes mellitus, gastroesophageal reflux disease, hypertension, sleep apnea, nicotine dependence, history of alcohol abuse, quit in 1981. Denies nausea vomiting or diarrhea. denies chest pain, palpitations. Denies syncope. Denies fevers or chills. Patient has a continuous glucometer monitor on his left upper arm. Blood sugar on admission 553, currently down into the 200s. Serum acetone negative. Afebrile, WBC 11.1 ,currently WNL. Maintaining O2 Sats in the 90s on Room Air. Hemoglobin 12.8, MCV 79.8, platelets 202. Sodium 133 potassium 4 bicarb 22 BUN 42, creatinine decreased to 2.01. Magnesium 2.3, alk phosphatase 150. UA reported 10 hyaline casts, rare bacteria, trace leukocytes, negative nitrates, 4+ glucose. Influenza type A/type B/RSV/COVID not detected. Chest x- ray reported no acute cardiopulmonary disease/process. Review of Systems ROS Statement: Those systems with pertinent positive or pertinent negative responses have been documented in the HPI. ROS Other: All systems not noted in ROS Statement are negative. Past Medical History Past Medical History: Cancer, COPD, Diabetes Mellitus, GERD/Reflux, Hypertension, Sleep Apnea/CPAP/BIPAP Additional Past Medical History / Comment(s): SKIN CANCER, SLEEP APNEA-cpap, hx BLEEDING HEMORRHOID, LIMITED MOBILITY LEFT ARM AFTER SKIN CANCER REMOVED., HX OF A FALL WITH FX VERTEBRAE & RUPTURED DISC YRS AGO. SEE CARDIOLOGY H & P. INGUINAL HERNIA. Arthritis lower spine and arms History of Any Multi-Drug Resistant Organisms: None Reported Past Surgical History: Appendectomy, Orthopedic Surgery Additional Past Surgical History / Comment(s): Left eye surgery, lens transplant, CA removed from left shoulder, barn spike through his left foot and removed. umbilical hernia removal 07/10. Past Anesthesia/Blood Transfusion Reactions: No Reported Reaction Additional Past Anesthesia/Blood Transfusion Reaction / Comment(s): No blood transfusions Past Psychological History: No Psychological Hx Reported Smoking Status: Current every day smoker Past Alcohol Use History: None Reported Past Drug Use History: None Reported - Past Family History Brother(s) Family Medical History: No Reported History Mother Additional Family Medical History / Comment(s): low BP and low sugar Father Family Medical History: Diabetes Mellitus Medications and Allergies Home Medications Medication Instructions Recorded Confirmed Type Lovastatin [Mevacor] 40 mg PO DAILY 05/23/18 09/16/23 History Tamsulosin [Flomax] 0.4 mg PO DAILY 05/23/18 09/16/23 History Semaglutide [Ozempic] 1 mg SQ WE 06/25/22 09/16/23 History Dapagliflozin Propanediol [Farxiga] 10 mg PO DAILY 07/07/22 09/16/23 History Metoprolol Succinate (ER) [Toprol 100 mg PO DAILY 07/07/22 09/16/23 History XL] Insulin Aspart [NovoLOG Flexpen] 20 units SQ AC-TID 11/26/22 09/16/23 History Insulin Degludec [Tresiba 50 units SQ DAILY 11/26/22 09/16/23 History Flextouch U-200 Pen] Famotidine [Pepcid] 40 mg PO DAILY 09/16/23 09/16/23 History Furosemide [Lasix] 40 mg PO DAILY 09/16/23 09/16/23 History Levothyroxine Sodium [Synthroid] 50 mcg PO DAILY 09/16/23 09/16/23 History Losartan/Hydrochlorothiazide 1 tab PO DAILY 09/16/23 09/16/23 History [Hyzaar 100-25 Tablet] Potassium Chloride [Klor-Con M20] 20 meq PO DAILY 09/16/23 09/16/23 History metFORMIN HCL [Glucophage] 500 mg PO BID 09/16/23 09/16/23 History Allergies Allergy/AdvReac Type Severity Reaction Status Date / Time No Known Allergies Allergy Verified 09/15/23 19:52 Physical Exam Vitals: Vital Signs Temp Pulse Pulse Resp BP BP Pulse Ox 09/16/23 07:00 98.4 F 63 18 116/66 92 L 09/16/23 06:02 97.7 F 65 18 110/66 96 09/16/23 01:46 98.7 F 62 18 117/57 95 09/15/23 22:45 98.2 F 52 L 16 93/40 95 09/15/23 22:32 51 L 09/15/23 22:24 54 L 09/15/23 20:19 97.7 F 65 20 91/72 94 L 09/15/23 19:50 96.0 F L 68 20 84/51 96 Intake and Output 09/15/23 09/16/23 09/16/23 22:59 06:59 14:59 Other: Weight 99.79 kg PHYSICAL EXAM: VITAL SIGNS: As above GENERAL: Alert and oriented x 3 ,sitting up on stretcher, no acute distress HEENT: Normocephalic, atraumatic Conjunctivae normal. eyes normal. NECK: Supple, No JVD. No thyroid enlargement. No LNs CARDIOVASCULAR: S1, S2 regular. No murmur RESPIRATION: Unlabored, Breath sounds diminished in the bases. No rhonchi or crackles. No bronchial breathing. ABDOMEN: Obese, Soft, nondistended, bilateral upper and mid epigastric tenderness,No guarding. no masses palpable. No ascites.+BS LEGS: Trace edema bilateral lower extremities, dry scaly. PSYCHIATRY: Alert and oriented X3, mood and affect normal. NERVOUS SYSTEM: Cranial N 2-12 grossly normal. Moves all 4 limbs. No focal deficits. Strength and sensation grossly intact.. Skin: Warm and dry, no rash Results CBC & Chem 7: 09/16/23 07:21 09/16/23 07:21 Labs: Abnormal Lab Results - Last 24 Hours (Table) 09/15/23 09/15/23 09/15/23 Range/Units 19:52 20:28 20:28 WBC 11.1 H (3.8-10.6) k/uL Hgb (13.0-17.5) gm/dL MCV 78.3 L (80.0-100.0) fL Neutrophils # 8.2 H (1.3-7.7) k/uL Sodium 130 L (137-145) mmol/L Chloride 96 L (98-107) mmol/L BUN 46 H (9-20) mg/dL Creatinine 2.37 H (0.66-1.25) mg/dL Glucose 202 H (74-99) mg/dL POC Glucose (mg/dL) 553 H (70-110) mg/dL Alkaline Phosphatase 150 H (38-126) U/L Urine Glucose (UA) (Negative) Ur Leukocyte Esterase (Negative) Urine Bacteria (None) /hpf Hyaline Casts (0-2) /lpf Urine Mucus (None) /hpf 09/15/23 09/16/23 09/16/23 Range/Units 20:40 01:46 01:48 WBC (3.8-10.6) k/uL Hgb (13.0-17.5) gm/dL MCV (80.0-100.0) fL Neutrophils # (1.3-7.7) k/uL Sodium (137-145) mmol/L Chloride (98-107) mmol/L BUN (9-20) mg/dL Creatinine (0.66-1.25) mg/dL Glucose (74-99) mg/dL POC Glucose (mg/dL) 215 H 228 H (70-110) mg/dL Alkaline Phosphatase (38-126) U/L Urine Glucose (UA) 4+ H (Negative) Ur Leukocyte Esterase Trace H (Negative) Urine Bacteria Rare H (None) /hpf Hyaline Casts 10 H (0-2) /lpf Urine Mucus Rare H (None) /hpf 09/16/23 09/16/23 09/16/23 Range/Units 07:21 07:21 07:52 WBC (3.8-10.6) k/uL Hgb 12.8 L (13.0-17.5) gm/dL MCV 79.8 L (80.0-100.0) fL Neutrophils # (1.3-7.7) k/uL Sodium 133 L (137-145) mmol/L Chloride (98-107) mmol/L BUN 42 H (9-20) mg/dL Creatinine 2.01 H (0.66-1.25) mg/dL Glucose 224 H (74-99) mg/dL POC Glucose (mg/dL) 299 H (70-110) mg/dL Alkaline Phosphatase (38-126) U/L Urine Glucose (UA) (Negative) Ur Leukocyte Esterase (Negative) Urine Bacteria (None) /hpf Hyaline Casts (0-2) /lpf Urine Mucus (None) /hpf Assessment and Plan Assessment: Diabetes mellitus type 2, hyperglycemia, hemoglobin A1c pending Dehydration secondary to hyperglycemia Acute renal failure secondary to ATN related to the above Chronic kidney disease stage IIIb with baseline creatinine 1.6-1.8 Hyponatremia secondary to hyperglycemia COPD,stable Obesity, BMI 32.2 Chronic diastolic CHF Reports Chronic lower extremity edema Hypertension Hyperlipidemia History of ASHLEY inhibitor induced angioedema BPH Homeless Nicotine dependence Plan: Continue on current medication regimen ,monitoring and symptomatic treatment. Maintain IV fluid hydration. Levemir insulin added to med regimen in addition to NovoLog sliding scale with close monitoring of Accu-Cheks. Diet adjusted to consistent carbs.; Patient currently eating pancakes with syrup. Nephrology consult in place, recommendations pending. Close monitoring of renal function, electrolytes with repeat labs ordered for a.m. social media manager consulted regarding housing resources/shelters in a patient who is homeless currently living in his car. Smoking cessation reinforced. The impression and plan of care has been dictated as directed. : I performed a history and examination of this patient, discussed the same with the dictator. I agree with the dictator's note ,documented as a scribe. Any additional findings or plans will be noted.
[2023-09-16] MEDS: INSULIN ASPART (NovoLOG) 100 UNIT/ML VIAL SQ SCH (11:03)
[2023-09-16] MEDS: INSULIN DETEMIR (LEVEMIR) 100 UNIT/ML SYR SQ SCH (11:33)
[2023-09-16] MEDS: LEVOTHYROXINE 50 MCG TAB PO SCH (11:33)
[2023-09-16] MEDS: ENOXAPARIN 30 MG/0.3 ML SYRINGE SQ SCH (11:34)
[2023-09-16 11:36] LABS: Glucose,Whole Blood 481 mg/dL (70-110)
--- NOTE | 2023-09-16 11:45 | P.NPCON ---
History of Present Illness - Reason for Consult acute renal failure, chronic renal failure - History of Present Illness Reason for consultation: Acute kidney injury on chronic kidney disease History of present illness: Patient is a 73-year-old male seen in renal consultation for acute kidney injury on chronic kidney disease. Patient came to the hospital due to elevated blood sugars. Patient states his home blood sugars were over 500. Patient states he has longstanding history of diabetes. He denies use of nonsteroidals. Denies vomiting or diarrhea. Denies dizziness or syncopal episodes. Patient states he mostly lives in his car so is not able to take care off himself the way he should. He does not follow with nephrology outpatient. Creatinine on admission was 2.37 and is 2.01 today. He is receiving IV fluids. Patient has chronic kidney disease stage IIIb with baseline creatinine 1.6-1.8. Suspect underlying diabetic kidney disease. Oral intake is good. Denies fever or chills. Vital signs are stable. General: No acute distress. HEENT: Head exam is unremarkable. LUNGS: No audible rhonchi or wheezes. HEART: Rate and Rhythm are regular. ABDOMEN: Nontender. EXTREMITITES: Trace edema. Chronic changes noted. Past Medical History Past Medical History: Cancer, COPD, Diabetes Mellitus, GERD/Reflux, Hypertension, Sleep Apnea/CPAP/BIPAP Additional Past Medical History / Comment(s): SKIN CANCER, SLEEP APNEA-cpap, hx BLEEDING HEMORRHOID, LIMITED MOBILITY LEFT ARM AFTER SKIN CANCER REMOVED., HX OF A FALL WITH FX VERTEBRAE & RUPTURED DISC YRS AGO. SEE CARDIOLOGY H & P. INGUINAL HERNIA. Arthritis lower spine and arms History of Any Multi-Drug Resistant Organisms: None Reported Past Surgical History: Appendectomy, Orthopedic Surgery Additional Past Surgical History / Comment(s): Left eye surgery, lens transplant, CA removed from left shoulder, barn spike through his left foot and removed. umbilical hernia removal 07/10. Past Anesthesia/Blood Transfusion Reactions: No Reported Reaction Additional Past Anesthesia/Blood Transfusion Reaction / Comment(s): No blood transfusions Past Psychological History: No Psychological Hx Reported Smoking Status: Current every day smoker Past Alcohol Use History: None Reported Past Drug Use History: None Reported - Past Family History Brother(s) Family Medical History: No Reported History Mother Additional Family Medical History / Comment(s): low BP and low sugar Father Family Medical History: Diabetes Mellitus Medications and Allergies Home Medications Medication Instructions Recorded Confirmed Type Lovastatin [Mevacor] 40 mg PO DAILY 05/23/18 09/16/23 History Tamsulosin [Flomax] 0.4 mg PO DAILY 05/23/18 09/16/23 History Semaglutide [Ozempic] 1 mg SQ WE 06/25/22 09/16/23 History Dapagliflozin Propanediol [Farxiga] 10 mg PO DAILY 07/07/22 09/16/23 History Metoprolol Succinate (ER) [Toprol 100 mg PO DAILY 07/07/22 09/16/23 History XL] Insulin Aspart [NovoLOG Flexpen] 20 units SQ AC-TID 11/26/22 09/16/23 History Insulin Degludec [Tresiba 50 units SQ DAILY 11/26/22 09/16/23 History Flextouch U-200 Pen] Famotidine [Pepcid] 40 mg PO DAILY 09/16/23 09/16/23 History Furosemide [Lasix] 40 mg PO DAILY 09/16/23 09/16/23 History Levothyroxine Sodium [Synthroid] 50 mcg PO DAILY 09/16/23 09/16/23 History Losartan/Hydrochlorothiazide 1 tab PO DAILY 09/16/23 09/16/23 History [Hyzaar 100-25 Tablet] Potassium Chloride [Klor-Con M20] 20 meq PO DAILY 09/16/23 09/16/23 History metFORMIN HCL [Glucophage] 500 mg PO BID 09/16/23 09/16/23 History Allergies Allergy/AdvReac Type Severity Reaction Status Date / Time No Known Allergies Allergy Verified 09/15/23 19:52 Physical Exam Vitals: Vital Signs Temp Pulse Pulse Resp BP BP Pulse Ox 09/16/23 07:00 98.4 F 63 18 116/66 92 L 09/16/23 06:02 97.7 F 65 18 110/66 96 09/16/23 01:46 98.7 F 62 18 117/57 95 09/15/23 22:45 98.2 F 52 L 16 93/40 95 09/15/23 22:32 51 L 09/15/23 22:24 54 L 09/15/23 20:19 97.7 F 65 20 91/72 94 L 09/15/23 19:50 96.0 F L 68 20 84/51 96 Intake and Output 09/15/23 09/16/23 09/16/23 22:59 06:59 14:59 Other: Weight 99.79 kg Results - Lab Results Most recent lab results Calcium 8.4 mg/dL (8.4-10.2) 09/16/23 07:21 Magnesium 2.3 mg/dL (1.6-2.3) 09/16/23 07:21 09/16/23 07:21 09/16/23 07:21 Assessment and Plan Plan: Assessment: 1. Acute kidney injury secondary to ATN secondary to hypovolemia. Creatinine 2.37 on admission and is 2.01 today. No proteinuria or RBCs on UA. 2. Chronic kidney disease stage IIIb with baseline creatinine 1.6-1.8. Suspect underlying diabetic kidney disease. 3. Diabetes mellitus. Uncontrolled. 4. Hypertension with chronic kidney disease. 5. Hypotonic hyponatremia secondary to hyperglycemia. Plan: Maintain IV fluids. Check renal ultrasound. Encouraged oral intake. Avoid nephrotoxins. Continue to monitor renal function and urine output. Thank you for the consultation. I will continue to follow the patient with you during his hospital stay.
--- NOTE | 2023-09-16 12:30 | US ---
EXAMINATION TYPE: US kidneys/renal and bladder DATE OF EXAM: 09/16/2023 COMPARISON: 05/01/2023 CLINICAL INDICATION: Male, 73 years old with history of DHEERAJ; DHEERAJ, stabbing pains on and off in flanks EXAM MEASUREMENTS: Right Kidney: 11.4 x 4.7 x 5.3 cm Left Kidney: 11.0 x 4.0 x 6.4 cm Right Kidney: No hydronephrosis or masses seen Left Kidney: No hydronephrosis or masses seen Bladder: No gross abnormality. Bilateral Jets seen: Yes IMPRESSION: No hydronephrosis. No specific abnormality seen.
[2023-09-16 17:48] LABS: Glucose,Whole Blood 336 mg/dL (70-110)
[2023-09-16 20:40] LABS: Glucose,Whole Blood 210 mg/dL (70-110)
[2023-09-17 06:20] LABS: Glucose,Whole Blood 210 mg/dL (70-110)
[2023-09-17] MEDS: FAMOTIDINE 20 MG TAB PO SCH (08:15)
[2023-09-17 08:39] LABS: BUN/Creat Ratio 20.67 Ratio (12.00-20.00); Calcium 8.7 mg/dL (8.7-10.3); Carbon Dioxide 25.7 mmol/L (21.6-31.8); Chloride 99 mmol/L (96-109); Glucose 196 mg/dL (70-110); Magnesium 2.6 mg/dL (1.5-2.4); Potassium 4.4 mmol/L (3.5-5.5); Sodium 136 mmol/L (135-145)
[2023-09-17 09:27] VITALS: BP 157/83; PULSE 64; RESP 16; TEMP 98.3
--- NOTE | 2023-09-17 11:12 | P.DS ---
Providers Date of admission: 09/15/23 23:23 Expected date of discharge: 09/17/23 Attending physician: Marcellus Harris MD Consults: 09/15/23 23:23 Consult Physician Routine Consulting Provider: Torito Chatterjee Consult Reason/Comments: Acute kidney injury Do you want consulting provider notified?: Yes Primary care physician: Marcellus Harris MD Hospital Course: Final Diagnoses: Diabetes mellitus type 2, hyperglycemia, hemoglobin A1c 13.8, further recommendations and diabetic education in clinic at follow-up with PCP. Dehydration secondary to hyperglycemia Acute renal failure secondary to ATN related to the above Chronic kidney disease stage IIIb with baseline creatinine 1.6-1.8 Hyponatremia secondary to hyperglycemia, resolved COPD,stable Obesity, BMI 32.2 Chronic diastolic CHF Reports Chronic lower extremity edema Hypertension Hyperlipidemia History of ASHLEY inhibitor induced angioedema BPH Homeless Nicotine dependence Hospital course:This is a 73-year-old homeless gentleman reporting his blood sugars have been greater than 300 over the last few days accompanied by dizziness, shakiness, fatigue and shortness of breath, in a patient with history significant for COPD, diabetes mellitus, gastroesophageal reflux disease, hypertension, sleep apnea, nicotine dependence, history of alcohol abuse, quit in 1981. Denies nausea vomiting or diarrhea. denies chest pain, palpitations. Denies syncope. Denies fevers or chills. Patient has a continuous glucometer monitor on his left upper arm. Blood sugar on admission 553, currently down into the 200s. Serum acetone negative. Afebrile, WBC 11.1 ,currently WNL. Maintaining O2 Sats in the 90s on Room Air. Hemoglobin 12.8, MCV 79.8, platelets 202. Sodium 133 potassium 4 bicarb 22 BUN 42, creatinine decreased to 2.01. Magnesium 2.3, alk phosphatase 150. UA reported 10 hyaline casts, rare bacteria, trace leukocytes, negative nitrates, 4+ glucose. Influenza type A/type B/RSV/COVID not detected. Chest x-ray reported no acute cardiopulmonary disease/process. Significant clinical improvement. Blood sugars improving in the low 200s, hemoglobin A1c 13.8. Patient needs refill on his Tresiba. Discussed further recommendations with diabetic education in clinic with PCP next week. Electrolytes within normal limits. Creatinine at baseline, currently at 1.5. Denies chest pain, palpitations or shortness of breath. Denies lightheadedness, dizziness. Patient will be discharged today in a stable condition with guarded prognosis. Reports he has just received housing through [employer]. The impression and plan of care has been dictated as directed. : I performed a history and examination of this patient, discussed the same with the dictator. I agree with the dictator's note ,documented as a scribe. Any additional findings or plans will be noted. Patient Condition at Discharge: Stable Plan - Discharge Summary Discharge Rx Participant: No New Discharge Prescriptions: Continue Tamsulosin [Flomax] 0.4 mg PO DAILY Lovastatin [Mevacor] 40 mg PO DAILY Insulin Aspart [NovoLOG Flexpen] 20 units SQ AC-TID Losartan/Hydrochlorothiazide [Hyzaar 100-25 Tablet] 1 tab PO DAILY Levothyroxine Sodium [Synthroid] 50 mcg PO DAILY Famotidine [Pepcid] 40 mg PO DAILY Potassium Chloride [Klor-Con M20] 20 meq PO DAILY Semaglutide [Ozempic] 1 mg SQ WE Metoprolol Succinate (ER) [Toprol XL] 100 mg PO DAILY Dapagliflozin Propanediol [Farxiga] 10 mg PO DAILY Furosemide [Lasix] 40 mg PO DAILY metFORMIN HCL [Glucophage] 500 mg PO BID Insulin Degludec [Tresiba Flextouch U-200 Pen] 50 units SQ DAILY 90 Days #2 each Discharge Medication List Lovastatin [Mevacor] 40 mg PO DAILY 05/23/18 [History] Tamsulosin [Flomax] 0.4 mg PO DAILY 05/23/18 [History] Semaglutide [Ozempic] 1 mg SQ WE 06/25/22 [History] Dapagliflozin Propanediol [Farxiga] 10 mg PO DAILY 07/07/22 [History] Metoprolol Succinate (ER) [Toprol XL] 100 mg PO DAILY 07/07/22 [History] Insulin Aspart [NovoLOG Flexpen] 20 units SQ AC-TID 11/26/22 [History] Famotidine [Pepcid] 40 mg PO DAILY 09/16/23 [History] Furosemide [Lasix] 40 mg PO DAILY 09/16/23 [History] Levothyroxine Sodium [Synthroid] 50 mcg PO DAILY 09/16/23 [History] Losartan/Hydrochlorothiazide [Hyzaar 100-25 Tablet] 1 tab PO DAILY 09/16/23 [History] Potassium Chloride [Klor-Con M20] 20 meq PO DAILY 09/16/23 [History] metFORMIN HCL [Glucophage] 500 mg PO BID 09/16/23 [History] Insulin Degludec [Tresiba Flextouch U-200 Pen] 50 units SQ DAILY 90 Days #2 each 09/17/23 [Rx] Follow up Appointment(s)/Referral(s): Marcellus Harris MD [Primary Care Provider] - 3 Days
--- NOTE | 2023-09-17 11:22 | P.PN ---
Subjective Patient is seen in follow-up for acute kidney injury on chronic kidney disease. Renal function improved. Oral intake is good. Blood glucose 196 this morning. Denies chest pain or shortness of breath. Admits to good urine output. Vital signs are stable. General: No acute distress. HEENT: Head exam is unremarkable. LUNGS: No audible rhonchi or wheezes. HEART: Rate and Rhythm are regular. ABDOMEN: Nontender. EXTREMITITES: No edema. Objective - Vital Signs Vital signs: Vital Signs Temp 98.3 F 09/17/23 07:00 Pulse 64 09/17/23 08:00 Resp 16 09/17/23 08:00 BP 157/83 09/17/23 07:00 Pulse Ox 95 09/17/23 07:00 FiO2 Intake & Output 09/16/23 09/17/23 09/17/23 18:59 06:59 18:59 Intake Total 118 Balance 118 Intake: Oral 118 Other: Voiding Method Toilet # Voids 4 1 # Bowel Movements 1 - Labs CBC & Chem 7: 09/16/23 07:21 09/17/23 05:27 Labs: Abnormal Lab Results - Last 24 Hours (Table) 09/16/23 09/16/23 09/16/23 Range/Units 07:21 11:35 17:46 BUN (9.0-27.0) mg/dL Est GFR (CKD-EPI) (>=60) BUN/Creatinine Ratio (12.00-20.00) Ratio Glucose (70-110) mg/dL POC Glucose (mg/dL) 481 H 336 H (70-110) mg/dL Hemoglobin A1c 13.8 H (<=6.0) % Magnesium (1.5-2.4) mg/dL 09/16/23 09/17/23 09/17/23 Range/Units 20:39 05:27 06:16 BUN 31.0 H (9.0-27.0) mg/dL Est GFR (CKD-EPI) 49 L (>=60) BUN/Creatinine Ratio 20.67 H (12.00-20.00) Ratio Glucose 196 H (70-110) mg/dL POC Glucose (mg/dL) 210 H 210 H (70-110) mg/dL Hemoglobin A1c (<=6.0) % Magnesium 2.6 H (1.5-2.4) mg/dL Assessment and Plan Plan: Assessment: 1. Acute kidney injury secondary to ATN secondary to hypovolemia. Creatinine 2.37 on admission and is 1.5 today. No proteinuria or RBCs on UA. No hydroneph rosis noted on kidney ultrasound. 2. Chronic kidney disease stage IIIb with baseline creatinine 1.6-1.8. Suspect underlying diabetic kidney disease. 3. Diabetes mellitus. Uncontrolled. 4. Hypertension with chronic kidney disease. Controlled. Improved. 5. Hypotonic hyponatremia secondary to hyperglycemia. Plan: Hep-Lock IV fluids. Encouraged oral intake. Farxiga can be resumed upon discharge. Patient advised to maintain tight blood glucose control upon discharge. Hold off on losartan and diuretics at this time as blood pressure has been on the lower side this admission. Patient advised to follow-up outpatient 1 week postdischarge.
[2023-09-17 11:39] VITALS: BMI 29.8
== END 2023-09-17 12:20 | disposition home or self-care (01) ==
LOC: EC 19:43 → 6NMEDSUR 23:23
PROVIDERS: ADMIT Family Medicine; ATTEND Family Medicine
DX: N17.0 Acute kidney failure with tubular necrosis (principal); E86.1 Hypovolemia; E11.65 Type 2 diabetes mellitus with hyperglycemia; I13.0 Hypertensive heart and chronic kidney disease with heart failure and stage 1 through stage 4 chronic kidney disease, or unspecified chronic kidney disease; I50.32 Chronic diastolic (congestive) heart failure; N18.32 Chronic kidney disease, stage 3b; E11.22 Type 2 diabetes mellitus with diabetic chronic kidney disease; E87.1 Hypo-osmolality and hyponatremia; E86.0 Dehydration; J44.9 Chronic obstructive pulmonary disease, unspecified; E78.5 Hyperlipidemia, unspecified; N40.0 Benign prostatic hyperplasia without lower urinary tract symptoms; G47.30 Sleep apnea, unspecified; K21.9 Gastro-esophageal reflux disease without esophagitis; F17.200 Nicotine dependence, unspecified, uncomplicated; E66.9 Obesity, unspecified; Z68.32 Body mass index [BMI] 32.0-32.9, adult; Z59.02 Unsheltered homelessness
CPT/HCPCS: 96372 ×3; 96360; 96361; 99285; 36415; 94640; 80053; 80048 ×2; 82009 ×2; 83735 ×2; 85025 ×2; 81001; 83036; 87636; 71046; 76770; G0378 ×3; J1650 ×2

== ENCOUNTER 2024-01-08 23:23 | Inpatient (IN) | payer MEDICARE ==
[2024-01-09 01:55] LABS: Basophils # (A) 0.1 k/uL (0-0.2); Basophils % (A) 1 %; Eosinophils # (A) 0.2 k/uL (0-0.7); Eosinophils % (A) 2 %; HCT 46.6 % (39.0-53.0); HGB 14.7 gm/dL (13.0-17.5); Lymphocytes # (A) 1.2 k/uL (1.0-4.8); Lymphocytes % (A) 15 %; MCH 27.6 pg (25.0-35.0); MCHC 31.6 g/dL (31.0-37.0); MCV 87.6 fL (80.0-100.0); Mean Platelet Volume 7.5; Monocytes # (A) 0.5 k/uL (0-1.0); Monocytes % (A) 7 %; Neutrophils # (A) 5.9 k/uL (1.3-7.7); Neutrophils % (A) 75 %; Platelet Count 270 k/uL (150-450); RBC 5.33 m/uL (4.30-5.90); RDW 15.2 % (11.5-15.5); WBC 7.9 k/uL (3.8-10.6)
[2024-01-09 02:05] LABS: ALT 17 U/L (4-49); AST 19 U/L (17-59); African American GFR (CKD) 74 (>60 ml/min/1.73 sqM); Albumin 4.2 g/dL (3.5-5.0); Alkaline Phosphatase 162 U/L (38-126); Anion Gap 8 mmol/L; Blood Urea Nitrogen 16 mg/dL (9-20); Calcium 9.2 mg/dL (8.4-10.2); Carbon Dioxide 26 mmol/L (22-30); Chloride 99 mmol/L (98-107); Glucose 407 mg/dL (74-99); Magnesium 2.1 mg/dL (1.6-2.3); Non-African American GFR(CKD) 64 (>60 ml/min/1.73 sqM); Potassium 4.9 mmol/L (3.5-5.1); Sodium 133 mmol/L (137-145); Total Bilirubin 0.6 mg/dL (0.2-1.3); Total Protein 6.8 g/dL (6.3-8.2)
[2024-01-09 02:13] LABS: INR 0.8 (<1.2); NT-Pro-B-Type Natriuretic Pept 70 pg/mL; Partial Thromboplastin Time 24.8 sec (22.0-30.0); Prothrombin Time 9.6 sec (10.0-12.5)
--- NOTE | 2024-01-09 02:14 | ED ---
General Adult HPI - General Source: patient, RN notes reviewed Mode of arrival: wheelchair Limitations: no limitations <Dhara Marroquin - Last Filed: 01/09/24 02:13> - General Source: RN notes reviewed, old records reviewed Mode of arrival: wheelchair Limitations: no limitations - History of Present Illness -: days(s) Location: lower extremity Severity scale (1-10): 7 Quality: aching Consistency: constant Improves with: none Worsens with: none Associated Symptoms: denies other symptoms Treatments Prior to Arrival: none <Adrian Linn - Last Filed: 01/09/24 06:57> - General Chief complaint: Extremity Injury, Lower Stated complaint: Lft foot pain Time Seen by Provider: 01/09/24 02:13 - History of Present Illness Initial comments: 73-year-old male presented to the ER with a chief complaint of bilateral lower extremity edema. He states been going on for for about a year. He denies any shortness of breath or chest pain. She has a known diabetic. (Dhara Marroquin) This is a 73-year-old male to the ER for evaluation of lower extremity edema pain redness and swelling. Patient does have multiple ages of a nonhealed wound of his feet (Adrian Linn) - Related Data Home Medications Medication Instructions Recorded Confirmed Lovastatin [Mevacor] 40 mg PO DAILY 05/23/18 09/16/23 Tamsulosin [Flomax] 0.4 mg PO DAILY 05/23/18 09/16/23 Semaglutide [Ozempic] 1 mg SQ WE 06/25/22 09/16/23 Dapagliflozin Propanediol [Farxiga] 10 mg PO DAILY 07/07/22 09/16/23 Metoprolol Succinate (ER) [Toprol 100 mg PO DAILY 07/07/22 09/16/23 XL] Insulin Aspart [NovoLOG Flexpen] 20 units SQ AC-TID 11/26/22 09/16/23 Famotidine [Pepcid] 40 mg PO DAILY 09/16/23 09/16/23 Furosemide [Lasix] 40 mg PO DAILY 09/16/23 09/16/23 Levothyroxine Sodium [Synthroid] 50 mcg PO DAILY 09/16/23 09/16/23 Losartan/Hydrochlorothiazide 1 tab PO DAILY 09/16/23 09/16/23 [Hyzaar 100-25 Tablet] Potassium Chloride [Klor-Con M20] 20 meq PO DAILY 09/16/23 09/16/23 metFORMIN HCL [Glucophage] 500 mg PO BID 09/16/23 09/16/23 Previous Rx's Medication Instructions Recorded Insulin Degludec [Tresiba 50 units SQ DAILY 90 Days #2 each 09/17/23 Flextouch U-200 Pen] Allergies Allergy/AdvReac Type Severity Reaction Status Date / Time No Known Allergies Allergy Verified 01/08/24 23:34 Review of Systems ROS Other: All systems not noted in ROS Statement are negative. <Dhara Marroquin - Last Filed: 01/09/24 02:13> ROS Other: All systems not noted in ROS Statement are negative. <Adrian Linn - Last Filed: 01/09/24 06:57> ROS Statement: Those systems with pertinent positive or pertinent negative responses have been documented in the HPI. Past Medical History Past Medical History: Cancer, COPD, Diabetes Mellitus, GERD/Reflux, Hy pertension, Sleep Apnea/CPAP/BIPAP Additional Past Medical History / Comment(s): SKIN CANCER, SLEEP APNEA-cpap, hx BLEEDING HEMORRHOID, LIMITED MOBILITY LEFT ARM AFTER SKIN CANCER REMOVED., HX OF A FALL WITH FX VERTEBRAE & RUPTURED DISC YRS AGO. SEE CARDIOLOGY H & P. INGUINAL HERNIA. Arthritis lower spine and arms History of Any Multi-Drug Resistant Organisms: None Reported Past Surgical History: Appendectomy, Orthopedic Surgery Additional Past Surgical History / Comment(s): Left eye surgery, lens transplant, CA removed from left shoulder, barn spike through his left foot and removed. umbilical hernia removal 07/10. Past Anesthesia/Blood Transfusion Reactions: No Reported Reaction Additional Past Anesthesia/Blood Transfusion Reaction / Comment(s): No blood transfusions Past Psychological History: No Psychological Hx Reported Smoking Status: Current every day smoker Past Alcohol Use History: None Reported Past Drug Use History: None Reported - Past Family History Brother(s) Family Medical History: No Reported History Mother Additional Family Medical History / Comment(s): low BP and low sugar Father Family Medical History: Diabetes Mellitus <Dhara Marroquin - Last Filed: 01/09/24 02:13> General Exam Limitations: no limitations <Dhara Marroquin - Last Filed: 01/09/24 02:13> General appearance: alert, in no apparent distress Head exam: Present: atraumatic, normocephalic, normal inspection Eye exam: Present: normal appearance, PERRL, EOMI. Absent: scleral icterus, conjunctival injection, periorbital swelling ENT exam: Present: normal exam, mucous membranes moist Neck exam: Present: normal inspection. Absent: tenderness, meningismus, lymphadenopathy Respiratory exam: Present: normal lung sounds bilaterally. Absent: respiratory distress, wheezes, rales, rhonchi, stridor Cardiovascular Exam: Present: regular rate, normal rhythm, normal heart sounds. Absent: systolic murmur, diastolic murmur, rubs, gallop, clicks GI/Abdominal exam: Present: soft, normal bowel sounds. Absent: distended, tenderness, guarding, rebound, rigid Extremities exam: Present: normal inspection, full ROM, normal capillary refill. Absent: tenderness, pedal edema, joint swelling, calf tenderness Back exam: Present: normal inspection Neurological exam: Present: alert, oriented X3, CN II-XII intact Psychiatric exam: Present: normal affect, normal mood Skin exam: Present: warm, dry, intact, normal color. Absent: rash <Adrian Linn - Last Filed: 01/09/24 06:57> - General Exam Comments Initial Comments: Visual Physical Exam Vital signs reviewed General: Well-appearing, nontoxic, no acute distress. Head: Normocephalic, atraumatic Eyes: PERRLA, EOMI ENT: Airway patent Chest: Nonlabored breathing Skin: No visual rash, normal skin tone Neuro: Alert and oriented 3 Musculoskeletal: No gross abnormalities (Dhara Marroquin) Course <Adrian Linn - Last Filed: 01/09/24 06:57> Vital Signs 01/08/24 23:32 Temperature 98.0 F Pulse Rate 91 Respiratory 20 Rate Blood Pressure 141/74 O2 Sat by Pulse 96 Oximetry - Reevaluation(s) Reevaluation #1: 01/09/24 03:11 Medical record is reviewed (Adrian Linn) Reevaluation #2: 01/09/24 03:11 Patient symptoms are unchanged (Adrian Linn) Reevaluation #3: 01/09/24 03:11 Patient informed of results and questions answered (LenasenthilAdrian Lian) Reevaluation #4: Was pt. sent in by a medical professional or institution (RENEA Thacker, PATENT SOLICITOR, urgent care, hospital, or assisted...) When possible be specific @ -no Did you speak to anyone other than the patient for history (EMS, parent, family, police, friend...)? What history was obtained from this source @ -no Did you review nursing and triage notes (agree or disagree)? Why? @ -agree Are old charts reviewed (outside hosp., previous admission, EMS record, old EKG, old radiological studies, urgent care reports/EKG's, assisted records)? Report findings @ -yes Differential Diagnosis (chest pain, altered mental status, abdominal pain women, abdominal pain men, vaginal bleeding, weakness, fever, dyspnea, syncope, headache, dizziness, GI bleed, back pain, seizure, CVA, palpatations, mental health, musculoskeletal)? @ -prior EKG interpreted by me (3pts min.). @ -yes X-rays interpreted by me (1pt min.). @ -yes negative for acute disease CT interpreted by me (1pt min.). @ -no U/S interpreted by me (1pt. min.). @ -no What testing was considered but not performed or refused? (CT, X-rays, U/S, labs)? Why? @ -none What meds were considered but not given or refused? Why? @ -none Did you discuss the management of the patient with other professionals (prof elliot i.e. RENEA Thacker, PATENT SOLICITOR, lab, RT, psych nurse, social services assistant, [employer] controlled atmospheric furnace, teacher, chief data officer, casey saw operator)? Give summary @ -no Was smoking cessation discussed for >3mins.? @ -no Was critical care preformed (if so, how long)? @ -no Were there social determinants of health that impacted care today? How? (Homelessness, low income, unemployed, alcoholism, drug addiction, transportation, low edu. Level, literacy, decrease access to med. care, fpc, rehab)? @ -none Was there de-escalation of care discussed even if they declined (Discuss DNR or withdrawal of care, Hospice)? DNR status @ -no What co-morbidities impacted this encounter? (DM, HTN, Smoking, COPD, CAD, Cancer, CVA, ARF, Chemo, Hep., AIDS, mental health diagnosis, sleep apnea, morbid obesity)? @ -none Was patient admitted / discharged? Hospital course, mention meds given and route, prescriptions, significant lab abnormalities, going to OR and other pertinent info. @ - Undiagnosed new problem with uncertain prognosis? @ -no Drug Therapy requiring intensive monitoring for toxicity (Heparin, Nitro, Insulin, Cardizem)? @ -no Were any procedures done? @ -no Diagnosis/symptom? @ - Acute, or Chronic, or Acute on Chronic? @ -Acute Uncomplicated (without systemic symptoms) or Complicated (systemic symptoms)? @ -Complicated Side effects of treatment? @ -no Exacerbation, Progression, or Severe Exacerbation? @ -exacerbation Poses a threat to life or bodily function? How? (Chest pain, [place], [place], pneumonia, PE, COPD, DKA, ARF, appy, cholecystitis, CVA, Diverticulitis, Homicidal, Suicidal, threat to staff... and all critical care pts) @ -yes (Adrian Linn) - Consultations Consultation #1: Spoke with sound who agrees to admit this patient (Adrian Linn) EKG Findings - EKG Comments: EKG Findings:: EKG is sinus 75 NE 231 QRS 147 QTc 417 <Adrian Linn - Last Filed: 01/09/24 06:57> Medical Decision Making - Lab Data Result diagrams: 01/09/24 00:46 01/09/24 00:46 <Dhara Marroquin - Last Filed: 01/09/24 02:13> - Lab Data Result diagrams: 01/09/24 00:46 01/09/24 00:46 <Adrian Linn - Last Filed: 01/09/24 06:57> - Medical Decision Making I performed the quick note portion of this chart. Electronically signed by Dhara Marroquin PA-C (Dhara Marroquin) , Patient is also homeless and will need social work 73 male to the ER for evaluation of lower extremity edema pain and swelling. Hyperglycemia from uncontrolled DM, Patient does have unhealed ulcers will admit for IV antibiotics and wound care (Adrian Linn) - Lab Data Lab Results 01/09/24 01/09/24 01/09/24 Range/Units 00:46 00:46 00:46 WBC 7.9 (3.8-10.6) k/uL RBC 5.33 (4.30-5.90) m/uL Hgb 14.7 (13.0-17.5) gm/dL Hct 46.6 (39.0-53.0) % MCV 87.6 (80.0-100.0) fL MCH 27.6 (25.0-35.0) pg MCHC 31.6 (31.0-37.0) g/dL RDW 15.2 (11.5-15.5) % Plt Count 270 (150-450) k/uL MPV 7.5 Neutrophils % 75 % Lymphocytes % 15 % Monocytes % 7 % Eosinophils % 2 % Basophils % 1 % Neutrophils # 5.9 (1.3-7.7) k/uL Lymphocytes # 1.2 (1.0-4.8) k/uL Monocytes # 0.5 (0-1.0) k/uL Eosinophils # 0.2 (0-0.7) k/uL Basophils # 0.1 (0-0.2) k/uL PT 9.6 L (10.0-12.5) sec INR 0.8 (<1.2) APTT 24.8 (22.0-30.0) sec Sodium 133 L (137-145) mmol/L Potassium 4.9 (3.5-5.1) mmol/L Chloride 99 (98-107) mmol/L Carbon Dioxide 26 (22-30) mmol/L Anion Gap 8 mmol/L BUN 16 (9-20) mg/dL Creatinine 1.13 (0.66-1.25) mg/dL Est GFR (CKD-EPI)AfAm 74 (>60 ml/min/1.73 sqM) Est GFR (CKD-EPI)NonAf 64 (>60 ml/min/1.73 sqM) Glucose 407 H (74-99) mg/dL Calcium 9.2 (8.4-10.2) mg/dL Magnesium 2.1 (1.6-2.3) mg/dL Total Bilirubin 0.6 (0.2-1.3) mg/dL AST 19 (17-59) U/L ALT 17 (4-49) U/L Alkaline Phosphatase 162 H (38-126) U/L Troponin I (0.000-0.034) ng/mL NT-Pro-B Natriuret Pep 70 pg/mL Total Protein 6.8 (6.3-8.2) g/dL Albumin 4.2 (3.5-5.0) g/dL 01/09/24 Range/Units 00:46 WBC (3.8-10.6) k/uL RBC (4.30-5.90) m/uL Hgb (13.0-17.5) gm/dL Hct (39.0-53.0) % MCV (80.0-100.0) fL MCH (25.0-35.0) pg MCHC (31.0-37.0) g/dL RDW (11.5-15.5) % Plt Count (150-450) k/uL MPV Neutrophils % % Lymphocytes % % Monocytes % % Eosinophils % % Basophils % % Neutrophils # (1.3-7.7) k/uL Lymphocytes # (1.0-4.8) k/uL Monocytes # (0-1.0) k/uL Eosinophils # (0-0.7) k/uL Basophils # (0-0.2) k/uL PT (10.0-12.5) sec INR (<1.2) APTT (22.0-30.0) sec Sodium (137-145) mmol/L Potassium (3.5-5.1) mmol/L Chloride (98-107) mmol/L Carbon Dioxide (22-30) mmol/L Anion Gap mmol/L BUN (9-20) mg/dL Creatinine (0.66-1.25) mg/dL Est GFR (CKD-EPI)AfAm (>60 ml/min/1.73 sqM) Est GFR (CKD-EPI)NonAf (>60 ml/min/1.73 sqM) Glucose (74-99) mg/dL Calcium (8.4-10.2) mg/dL Magnesium (1.6-2.3) mg/dL Total Bilirubin (0.2-1.3) mg/dL AST (17-59) U/L ALT (4-49) U/L Alkaline Phosphatase (38-126) U/L Troponin I <0.012 (0.000-0.034) ng/mL NT-Pro-B Natriuret Pep pg/mL Total Protein (6.3-8.2) g/dL Albumin (3.5-5.0) g/dL Disposition <Dhara Marroquin - Last Filed: 01/09/24 02:13> Is patient prescribed a controlled substance at d/c from ED?: No Time of Disposition: 03:00 <Adrian Linn - Last Filed: 01/09/24 06:57> Clinical Impression: Bilateral lower leg cellulitis, Homelessness, Hyperglycemia Disposition: ADMITTED IP TO THIS HOSP Condition: Fair
[2024-01-09] MEDS ORDERED: NALOXONE 0.4 MG/ML 1 ML VIAL IV PRN (03:09)
[2024-01-09] MEDS ORDERED: VANCOMYCIN IV PER PHARMACY 1 EACH MISC MISCELLANE PRN (03:09)
[2024-01-09] MEDS ORDERED: MORPHINE SULFATE 4 MG/ML SYRINGE IV PRN (03:09)
[2024-01-09] MEDS: VANCOMYCIN 1,500 MG in SODIUM CHLORIDE 0.9% 500 ML 500 ML IVPB ONE (05:20)
[2024-01-09] MEDS ORDERED: DEXTROSE 50% SYRINGE 50 ML IVP PRN ×2 (06:54)
--- NOTE | 2024-01-09 07:21 | XR ---
EXAMINATION TYPE: XR foot limited bilateral DATE OF EXAM: 01/09/2024 COMPARISON: None HISTORY: Pain TECHNIQUE: Bilateral lower feet 2 views each FINDINGS: Bilateral plantar and Achilles tendon calcaneal heel spurs are present. Vascular calcification is pre sent bilaterally. There is soft tissue swelling over the left foot with milder soft tissue swelling o miles the right foot. No acute fractures or dislocations evident. Hammertoes are present on the right. IMPRESSION: 1. Plantar and Achilles tendon calcaneal heel spurs. 2. Soft tissue swelling greater on the left.
[2024-01-09] MEDS: INSULIN REGULAR 100 UNIT/ML VIAL (IM/SQ) SQ ONE (07:49)
[2024-01-09 07:50] LABS: Glucose,Whole Blood 379 mg/dL (70-110)
[2024-01-09] MEDS: INSULIN REGULAR 100 UNIT/ML VIAL (IV) IV ONE (07:50)
[2024-01-09 11:56] LABS: Glucose,Whole Blood 489 mg/dL (70-110)
[2024-01-09 11:56] LABS: Glucose,Whole Blood 518 mg/dL (70-110)
[2024-01-09] MEDS: INSULIN ASPART (NovoLOG) 100 UNIT/ML VIAL SQ SCH ×2 (13:06→17:36)
--- NOTE | 2024-01-09 13:30 | P.HPIM ---
History of Present Illness H&P Date: 01/09/24 History of present illness;Patient is a 73-year-old male with a past medical history of diabetes type 2 insulin-dependent, hypertension, obstructive sleep apnea on CPAP, currently everyday smoker presents to ER with complaints of lower extremity swelling. Patient is currently homeless and lives out of his car. Patient stated that he has been noticing that his lower extremities have been swollen. Patient is complaining of pain in left foot states that he is unable to walk because of it. Denies any fever or chills. There is no complaint of nausea, vomiting or abdominal pain. Denies any chest pain or shortness of breath. Because of these complaints, patient presented to ER Initial lab work done in the ER showed WBC 7.9, hemoglobin 14.7, platelet count 270, sodium 130, potassium 4.9, BUN 16, creatinine 1.13, glucose 407 calcium 9.2, magnesium 2.1, alk phos 162, troponin 0.012 X-ray foot done showed plantar and Achilles tendon calcaneal heel spur, soft tissue swelling greater on the left Kidney done showed heart rate of 75, no ST elevation seen, no T wave inversion Patient admitted to internal medicine service REVIEW OF SYSTEMS: CONSTITUTIONAL: No fever, no malaise, no fatigue. HEENT: No recent visual problems or hearing problems. Denied any sore throat. CARDIOVASCULAR: No chest pain, orthopnea, PND, no palpitations, no syncope. PULMONARY: No shortness of breath, no cough, no hemoptysis. GASTROINTESTINAL: No diarrhea, no nausea, no vomiting, no abdominal pain. NEUROLOGICAL: No headaches, no weakness, no numbness. HEMATOLOGICAL: Denies any bleeding or petechiae. GENITOURINARY: Denies any burning micturition, frequency, or urgency. MUSCULOSKELETAL/RHEUMATOLOGICAL: As mentioned above ENDOCRINE: Denies any polyuria or polydipsia. The rest of the 14-point review of systems is negative. PHYSICAL EXAMINATION: GENERAL: The patient is alert and oriented x3, not in any acute distress. Well developed, well nourished. HEENT: Pupils are round and equally reacting to light. EOMI. No scleral icterus. No conjunctival pallor. Normocephalic, atraumatic. No pharyngeal erythema. No thyromegaly. CARDIOVASCULAR: S1 and S2 present. No murmurs, rubs, or gallops. PULMONARY: Chest is clear to auscultation, no wheezing or crackles. ABDOMEN: Soft, nontender, nondistended, normoactive bowel sounds. No palpable organomegaly. MUSCULOSKELETAL: No joint swelling or deformity. EXTREMITIES: Chronic venous stasis changes lower extremities bilaterally, ulcer at the bottom of left foot NEUROLOGICAL: Gross neurological examination did not reveal any focal deficits. SKIN: No rashes. Assessment and plan Left lower extremity cellulitis Hyperglycemia Bilateral lower extremity swelling Chronic kidney disease stage IV likely due to diabetic nephropathy Diabetes type 2 insulin-dependent with hyperglycemia/uncontrolled. Hypertension Obstructive sleep apnea on CPAP GERD COPD Monitor vital signs Monitor CBC Monitor CMP Ordered blood cultures Ordered wound care Start vancomycin pharmacy dose and Rocephin. Monitor blood sugar levels, resume home regimen of insulin. Consult ID Labs and medication were reviewed.. Continue same treatment. Continue with symptomatic treatment. Resume home medication. Monitor labs and vitals. DVT and GI prophylaxis. Further recommendations as per clinical course of the patient Dictation was produced using [employer] dictation software. please excuse any grammatical, word or spelling errors. Past Medical History Past Medical History: Cancer, COPD, Diabetes Mellitus, GERD/Reflux, Hyperten pat, Sleep Apnea/CPAP/BIPAP Additional Past Medical History / Comment(s): SKIN CANCER, SLEEP APNEA-cpap, hx BLEEDING HEMORRHOID, LIMITED MOBILITY LEFT ARM AFTER SKIN CANCER REMOVED., HX OF A FALL WITH FX VERTEBRAE & RUPTURED DISC YRS AGO. SEE CARDIOLOGY H & P. INGUINAL HERNIA. Arthritis lower spine and arms History of Any Multi-Drug Resistant Organisms: None Reported Past Surgical History: Appendectomy, Orthopedic Surgery Additional Past Surgical History / Comment(s): Left eye surgery, lens tr ansplant, CA removed from left shoulder, barn spike through his left foot and removed. umbilical hernia removal 07/10. Past Anesthesia/Blood Transfusion Reactions: No Reported Reaction Additional Past Anesthesia/Blood Transfusion Reaction / Comment(s): No blood transfusions Past Psychological History: No Psychological Hx Reported Smoking Status: Current every day smoker Past Alcohol Use History: None Reported Past Drug Use History: None Reported - Past Family History Brother(s) Family Medical History: No Reported History Mother Additional Family Medical History / Comment(s): low BP and low sugar Father Family Medical History: Diabetes Mellitus Medications and Allergies Home Medications Medication Instructions Recorded Confirmed Type Lovastatin [Mevacor] 40 mg PO DAILY 05/23/18 01/09/24 History Tamsulosin [Flomax] 0.4 mg PO DAILY 05/23/18 01/09/24 History Semaglutide [Ozempic] 1 mg SQ WE 06/25/22 01/09/24 History Dapagliflozin Propanediol [Farxiga] 10 mg PO DAILY 07/07/22 01/09/24 History Metoprolol Succinate (ER) [Toprol 100 mg PO DAILY 07/07/22 01/09/24 History XL] Insulin Aspart [NovoLOG Flexpen] 20 units SQ AC-TID 11/26/22 01/09/24 History Famotidine [Pepcid] 40 mg PO DAILY 09/16/23 01/09/24 History Furosemide [Lasix] 40 mg PO DAILY 09/16/23 01/09/24 History Levothyroxine Sodium [Synthroid] 50 mcg PO DAILY 09/16/23 01/09/24 History Losartan/Hydrochlorothiazide 1 tab PO DAILY 09/16/23 01/09/24 History [Hyzaar 100-25 Tablet] Potassium Chloride [Klor-Con M20] 20 meq PO DAILY 09/16/23 01/09/24 History metFORMIN HCL [Glucophage] 500 mg PO BID 09/16/23 01/09/24 History Insulin Degludec [Tresiba 50 units SQ DAILY 90 Days #2 each 09/17/23 01/09/24 Rx Flextouch U-200 Pen] Allergies Allergy/AdvReac Type Severity Reaction Status Date / Time No Known Allergies Allergy Verified 01/08/24 23:34 Physical Exam Vitals: Vital Signs Temp Pulse Pulse Resp BP BP Pulse Ox 01/09/24 07:53 97.8 F 90 18 146/76 94 L 01/09/24 07:50 96 01/08/24 23:32 98.0 F 91 20 141/74 96 Intake and Output 01/08/24 01/09/24 01/09/24 22:59 06:59 14:59 Other: Voiding Method Urinal Weight 104.326 kg Results CBC & Chem 7: 01/09/24 00:46 01/09/24 00:46 Labs: Abnormal Lab Results - Last 24 Hours (Table) 01/09/24 01/09/24 01/09/24 Range/Units 00:46 00:46 07:48 PT 9.6 L (10.0-12.5) sec Sodium 133 L (137-145) mmol/L Glucose 407 H (74-99) mg/dL POC Glucose (mg/dL) 379 H (70-110) mg/dL Alkaline Phosphatase 162 H (38-126) U/L 01/09/24 01/09/24 Range/Units 11:47 11:50 PT (10.0-12.5) sec Sodium (137-145) mmol/L Glucose (74-99) mg/dL POC Glucose (mg/dL) 518 H* 489 H (70-110) mg/dL Alkaline Phosphatase (38-126) U/L
[2024-01-09 17:14] LABS: Glucose,Whole Blood 250 mg/dL (70-110)
[2024-01-09] MEDS ORDERED: INSULIN ASPART (NovoLOG) 100 UNIT/ML VIAL SQ SCH (17:30)
[2024-01-09] MEDS: LEVOTHYROXINE 50 MCG TAB PO SCH (17:35)
[2024-01-09] MEDS: VANCOMYCIN 1,500 MG in SODIUM CHLORIDE 0.9% 500 ML 500 ML IVPB SCH (17:36)
[2024-01-09 20:06] LABS: Glucose,Whole Blood 244 mg/dL (70-110)
[2024-01-10 06:01] LABS: Glucose,Whole Blood 261 mg/dL (70-110)
[2024-01-10] MEDS: TAMSULOSIN 0.4 MG CAP.ER.24H PO SCH (07:42)
[2024-01-10] MEDS: ATORVASTATIN 10 MG TAB PO SCH (07:42)
[2024-01-10] MEDS: INSULIN DETEMIR (LEVEMIR) 100 UNIT/ML SYR SQ SCH (07:43)
[2024-01-10] MEDS: METOPROLOL SUCCINATE (ER) 100 MG TAB.ER.24H PO SCH (07:43)
[2024-01-10 09:19] LABS: Basophils # (A) 0.06 X 10*3/uL (0.00-0.10); Basophils % (A) 0.6 %; Eosinophils # (A) 0.14 X 10*3/uL (0.04-0.35); Eosinophils % (A) 1.5 %; HCT 40.2 % (39.6-50.0); HGB 13.3 g/dL (13.0-17.0); Lymphocytes # (A) 1.34 X 10*3/uL (0.90-5.00); Lymphocytes % (A) 14.2 %; MCHC 33.1 g/dL (32.0-37.0); MCV 84.6 FL (80.0-97.0); Monocytes # (A) 0.59 X 10*3/uL (0.20-1.00); Monocytes % (A) 6.2 %; NRBC Per 100 WBC 0 X 10*3/uL (0.00-0.01); Neutrophils # (A) 7.28 X 10*3/uL (1.80-7.70); Neutrophils % (A) 77.1 %; Platelet Count 264 X 10*3/uL (140-440); RBC 4.75 X 10*6/uL (4.40-5.60); RDW 15.1 % (11.5-14.5); WBC 9.45 X 10*3/uL (4.50-10.00)
[2024-01-10 09:21] LABS: BUN/Creat Ratio 13.08 Ratio (12.00-20.00); Chloride 100 mmol/L (96-109); Glucose 229 mg/dL (70-110); Magnesium 1.8 mg/dL (1.5-2.4); Phosphorus 3.1 mg/dL (2.4-5.1); Potassium 4.5 mmol/L (3.5-5.5); Sodium 135 mmol/L (135-145)
[2024-01-10 09:22] LABS: ALT 12 U/L (10-49); AST 17 U/L (14-35); Albumin 3.8 g/dL (3.8-4.9); Albumin/Globulin Ratio 1.65 Ratio (1.60-3.17); Alkaline Phosphatase 127 U/L (41-126); Calcium 9.1 mg/dL (8.7-10.3); Carbon Dioxide 22.4 mmol/L (21.6-31.8); Globulin 2.3 g/dL (1.6-3.3); Total Bilirubin 0.3 mg/dL (0.3-1.2); Total Protein 6.1 g/dL (6.2-8.2)
--- NOTE | 2024-01-10 10:01 | P.CONS ---
History of Present Illness - Reason for Consult Consult date: 01/09/24 Cellulitis Requesting physician: Clayton Kenny - Chief Complaint Bilateral lower extremity swelling and redness x days - History of Present Illness Patient is a 73-year-old male with a past medical history significant for COPD diabetes mellitus reflux hypertension sleep apnea history of lower extremity cellulitis presenting to the hospital for evaluation of bilateral lower extremity swelling that apparently has been getting worse did have a superficial ulceration on the lateral side of the right leg that has been weeping patient describing pain mostly to the left heel area describing it to be sharp moderate intensity and worse with walking patient denies high-grade fever or any chills patient has been evaluated on presentation to the hospital patient was afebrile and no fever have been recorded subsequently patient was not tachycardic hypotensive or hypoxic he did have a white count of 7.9 creatinine is 1.13 liver isms are normal patient did have a foot x-ray blocked Achilles tendon spurs soft tissue swelling greater on the left patient was started on vancomycin and Rocephin has been admitted to hospital infectious disease was consulted for further management of antibiotic therapy Review of Systems Positive point and negatives has been mentioned in the HPI, complete review of systems was performed and all other systems are negative Past Medical History Past Medical History: Cancer, COPD, Diabetes Mellitus, GERD/Reflux, Hypertension, Sleep Apnea/CPAP/BIPAP Additional Past Medical History / Comment(s): SKIN CANCER, SLEEP APNEA-cpap, hx BLEEDING HEMORRHOID, LIMITED MOBILITY LEFT ARM AFTER SKIN CANCER REMOVED., HX OF A FALL WITH FX VERTEBRAE & RUPTURED DISC YRS AGO. SEE CARDIOLOGY H & P. INGUINAL HERNIA. Arthritis lower spine and arms History of Any Multi-Drug Resistant Organisms: None Reported Past Surgical History: Appendectomy, Orthopedic Surgery Additional Past Surgical History / Comment(s): Left eye surgery, lens transplant, CA removed from left shoulder, barn spike through his left foot and removed. umbilical hernia removal 07/10. Past Anesthesia/Blood Transfusion Reactions: No Reported Reaction Additional Past Anesthesia/Blood Transfusion Reaction / Comm: No blood transfusions Past Psychological History: No Psychological Hx Reported Smoking Status: Current every day smoker Past Alcohol Use History: None Reported Past Drug Use History: None Reported - Past Family History Brother(s) Family Medical History: No Reported History Mother Additional Family Medical History / Comment(s): low BP and low sugar Father Family Medical History: Diabetes Mellitus Medications and Allergies Home Medications Medication Instructions Recorded Confirmed Type Lovastatin [Mevacor] 40 mg PO DAILY 05/23/18 01/09/24 History Tamsulosin [Flomax] 0.4 mg PO DAILY 05/23/18 01/09/24 History Semaglutide [Ozempic] 1 mg SQ WE 06/25/22 01/09/24 History Dapagliflozin Propanediol [Farxiga] 10 mg PO DAILY 07/07/22 01/09/24 History Metoprolol Succinate (ER) [Toprol 100 mg PO DAILY 07/07/22 01/09/24 History XL] Famotidine [Pepcid] 40 mg PO DAILY 09/16/23 01/09/24 History Levothyroxine Sodium [Synthroid] 50 mcg PO DAILY 09/16/23 01/09/24 History metFORMIN HCL [Glucophage] 500 mg PO BID 09/16/23 01/09/24 History Cephalexin [Keflex] 500 mg PO Q8HR 10 Days #30 cap 01/12/24 Rx Insulin Aspart [NovoLOG Flexpen] 20 units SQ AC-TID #2 each 01/12/24 Rx Insulin Degludec [Tresiba 60 units SQ DAILY 90 Days #2 each 01/12/24 Rx Flextouch U-200 Pen] Allergies Allergy/AdvReac Type Severity Reaction Status Date / Time No Known Allergies Allergy Verified 01/08/24 23:34 Physical Exam Vitals: Vital Signs Temp Pulse Pulse Resp BP BP Pulse Ox 01/09/24 13:45 97.5 F L 86 160/72 95 01/09/24 07:53 97.8 F 90 18 146/76 94 L 01/09/24 07:50 96 01/08/24 23:32 98.0 F 91 20 141/74 96 Intake and Output 01/08/24 01/09/24 01/09/24 22:59 06:59 14:59 Other: Voiding Method Urinal Weight 104.326 kg GENERAL DESCRIPTION: Elderly male lying in bed, no distress. No tachypnea or accessory muscle of respiration use. HEENT: Shows Pallor , no scleral icterus. Oral mucous membrane is dry. No pharyngeal erythema or thrush NECK: Trachea central, no thyromegaly. LUNGS: Unlabored breathing. Clear to auscultation anteriorly. No wheeze or crackle. HEART: S1, S2, regular rate and rhythm. No loud murmur ABDOMEN: Soft, no tenderness , guarding or rigidity, no organomegaly EXTREMITIES: Bilateral extremity swelling redness did have some superficial ulceration to the right leg no purulent drainage SKIN: No rash, no masses palpable. NEUROLOGICAL: The patient is awake, alert, oriented x3, mood and affect normal. Results CBC & Chem 7: 01/10/24 04:25 01/12/24 04:07 Labs: Abnormal Lab Results - Last 24 Hours (Table) 01/09/24 01/09/24 01/09/24 Range/Units 00:46 00:46 07:48 PT 9.6 L (10.0-12.5) sec Sodium 133 L (137-145) mmol/L Glucose 407 H (74-99) mg/dL POC Glucose (mg/dL) 379 H (70-110) mg/dL Alkaline Phosphatase 162 H (38-126) U/L 01/09/24 01/09/24 Range/Units 11:47 11:50 PT (10.0-12.5) sec Sodium (137-145) mmol/L Glucose (74-99) mg/dL POC Glucose (mg/dL) 518 H* 489 H (70-110) mg/dL Alkaline Phosphatase (38-126) U/L Assessment and Plan (1) Bilateral lower leg cellulitis Status: Acute Code(s): L03.116 - CELLULITIS OF LEFT LOWER LIMB; L03.115 - CELLULITIS OF RIGHT LOWER LIMB SNOMED Code(s): 817115592 Plan: 1patient with bilateral lower extremity swelling likely concerning for venous stasis with superficial ulceration to the right leg has been complaining of more pain to the left heel but did have a superficial lesion at that site with no draining pus likely from gram-positive skin lazara 2-local wound care has been advised with Aquacel silver dressing and Ken wrap to keep the swelling down 3-currently on Rocephin and vancomycin however patient antibiotic will be adjusted to cefazolin 2 g every 8 hours We will follow on clinical condition and cultures to further adjust medication if needed Thank you for this consultation we will follow the patient along with you Dictation was produced using [employer] dictation software. please excuse any grammatical, word or spelling errors. Time with Patient: Greater than 30
[2024-01-10 11:25] LABS: Glucose,Whole Blood 283 mg/dL (70-110)
--- NOTE | 2024-01-10 13:04 | P.PN ---
Subjective Progress Note Date: 01/10/24 Patient is a 73-year-old male with a past medical history of diabetes type 2 insulin-dependent, hypertension, obstructive sleep apnea on CPAP, currently everyday smoker presents to ER with complaints of lower extremity swelling. Patient is currently homeless and lives out of his car. Patient stated that he has been noticing that his lower extremities have been swollen. Patient is complaining of pain in left foot states that he is unable to walk because of it. Denies any fever or chills. There is no complaint of nausea, vomiting or abdominal pain. Denies any chest pain or shortness of breath. Because of these complaints, patient presented to ER Initial lab work done in the ER showed WBC 7.9, hemoglobin 14.7, platelet count 270, sodium 130, potassium 4.9, BUN 16, creatinine 1.13, glucose 407 calcium 9.2, magnesium 2.1, alk phos 162, troponin 0.012 X-ray foot done showed plantar and Achilles tendon calcaneal heel spur, soft tissue swelling greater on the left Kidney done showed heart rate of 75, no ST elevation seen, no T wave inversion Patient admitted to internal medicine service 01/09. Patient seen and examined. States he feels better compared to yesterday REVIEW OF SYSTEMS: CONSTITUTIONAL: No fever, no malaise,. CARDIOVASCULAR: No chest pain, no palpitations, no syncope. PULMONARY: No shortness of breath, no cough, GASTROINTESTINAL: No diarrhea, no nausea, no vomiting, no abdominal pain. NEUROLOGICAL: No headaches, no weakness, PHYSICAL EXAMINATION: GENERAL: The patient is alert and oriented x3, not in any acute distress. Well developed, well nourished. HEENT: Pupils are round and equally reacting to light. EOMI. No scleral icterus. No conjunctival pallor. Normocephalic, atraumatic. No pharyngeal erythema. No thyromegaly. CARDIOVASCULAR: S1 and S2 present. No murmurs, rubs, or gallops. PULMONARY: Chest is clear to auscultation, no wheezing or crackles. ABDOMEN: Soft, nontender, nondistended, normoactive bowel sounds. No palpable organomegaly. MUSCULOSKELETAL: No joint swelling or deformity. EXTREMITIES: Bilateral lower extremity bandages seen, left heel ulcer seen NEUROLOGICAL: Gross neurological examination did not reveal any focal deficits. SKIN: No rashes. Assessment and plan Left lower extremity cellulitis Hyperglycemia Bilateral lower extremity swelling Chronic kidney disease stage IV likely due to diabetic nephropathy Diabetes type 2 insulin-dependent with hyperglycemia/uncontrolled. Hypertension Obstructive sleep apnea on CPAP GERD COPD Monitor vital signs Monitor CBC Monitor CMP Follow-up on blood cultures Continue wound care Antibiotics adjusted to IV cefazolin Monitor blood sugar levels, resume home regimen of insulin. Follow-up on ID recs Labs and medication were reviewed.. Continue same treatment. Continue with s ymptomatic treatment. Resume home medication. Monitor labs and vitals. DVT and GI prophylaxis. Further recommendations as per clinical course of the patient Dictation was produced using [employer] dictation software. please excuse any grammatical, word or spelling errors. Objective - Vital Signs Vital signs: Vital Signs Temp 98.0 F 01/10/24 07:10 Pulse 71 01/10/24 07:10 Resp 18 01/10/24 07:10 BP 125/65 01/10/24 07:10 Pulse Ox 96 01/10/24 07:10 FiO2 Intake & Output 01/09/24 01/10/24 01/10/24 18:59 06:59 18:59 Output Total 300 Balance -300 Weight 104.326 kg Output: Urine 300 Other: Voiding Method Urinal Urinal # Voids 0 - Labs CBC & Chem 7: 01/10/24 04:25 01/10/24 04:25 Labs: Abnormal Lab Results - Last 24 Hours (Table) 01/09/24 01/09/24 01/10/24 Range/Units 17:12 20:04 04:25 RDW 15.1 H (11.5-14.5) % Anion Gap (4.00-12.00) mmol/L Est GFR (CKD-EPI) (>=60) Glucose (70-110) mg/dL POC Glucose (mg/dL) 250 H 244 H (70-110) mg/dL Alkaline Phosphatase (41-126) U/L Total Protein (6.2-8.2) g/dL 01/10/24 01/10/24 01/10/24 Range/Units 04:25 05:59 11:23 RDW (11.5-14.5) % Anion Gap 12.60 H (4.00-12.00) mmol/L Est GFR (CKD-EPI) 58 L (>=60) Glucose 229 H (70-110) mg/dL POC Glucose (mg/dL) 261 H 283 H (70-110) mg/dL Alkaline Phosphatase 127 H (41-126) U/L Total Protein 6.1 L (6.2-8.2) g/dL Microbiology - Last 24 Hours (Table) 01/09/24 04:05 Blood Culture - Preliminary Blood 01/09/24 04:05 Blood Culture - Preliminary Blood
[2024-01-10 16:29] LABS: Glucose,Whole Blood 201 mg/dL (70-110)
[2024-01-10 20:35] LABS: Glucose,Whole Blood 214 mg/dL (70-110)
[2024-01-11 04:28] LABS: African American GFR (CKD) 73 (>60 ml/min/1.73 sqM); Non-African American GFR(CKD) 63 (>60 ml/min/1.73 sqM)
[2024-01-11] MEDS ORDERED: VANCOMYCIN TROUGH DUE 1 EACH MISC MISCELLANE ONE (05:00)
[2024-01-11 05:57] LABS: Glucose,Whole Blood 241 mg/dL (70-110)
--- NOTE | 2024-01-11 11:46 | P.CONS ---
History of Present Illness - Reason for Consult Consult date: 01/11/24 wound care - History of Present Illness This is a 73-year-old patient being seen on 4 S. for nonhealing ulceration to the left heel. Patient has a stage II pressure ulcer to the left heel measuring approximate 0.4 x 0.5 x 0.1 cm with slough and minimal granulation noted. The wound edges are attached to the wound base there is no tunneling or undermining noted. Patient does have significant pain to the site. Patient's past medical history significant for skin cancer, sleep apnea, diabetes, COPD, hypertension, GERD and currently an everyday smoker. Review Of Systems: Constitutional: No fever, no chills, no night sweats. No weight change. No weakness, fatigue or lethargy. No daytime sleepiness. Integumentary:reports wounds, no lesions. No rash or pruritus. No unusual bruising. No change in hair or nails. Physical exam: General Appearance: Alert, cooperative, no distress, appears stated age. Skin: See HPI all other Skin color, texture, tugor normal, no rashes or lesions. Neurologic: Alert oriented x3 Assessment: 1. Stage II pressure ulcer left heel 2. Diabetic foot ulcer Plan: 1. Apply honey gel and bordered foam to the site. Change Thursday. Continue to offload and utilize a walker when walking. No pressure to the left heel. Patient would benefit from advanced wound care however he is reluctant to commit to the wound care center at this time. Thank you for the consultation any questions please contact the wound care center DNP note has been reviewed and discussed with Dr. Griffin and the impression and plan of care has been directed as dictated. Past Medical History Past Medical History: Cancer, COPD, Diabetes Mellitus, GERD/Reflux, Hypertension, Sleep Apnea/CPAP/BIPAP Additional Past Medical History / Comment(s): SKIN CANCER, SLEEP APNEA-cpap, hx BLEEDING HEMORRHOID, LIMITED MOBILITY LEFT ARM AFTER SKIN CANCER REMOVED., HX OF A FALL WITH FX VERTEBRAE & RUPTURED DISC YRS AGO. SEE CARDIOLOGY H & P. INGUINAL HERNIA. Arthritis lower spine and arms History of Any Multi-Drug Resistant Organisms: None Reported Past Surgical History: Appendectomy, Orthopedic Surgery Additional Past Surgical History / Comment(s): Left eye surgery, lens transplant, CA removed from left shoulder, barn spike through his left foot and removed. umbilical hernia removal 12/22. Past Anesthesia/Blood Transfusion Reactions: No Reported Reaction Additional Past Anesthesia/Blood Transfusion Reaction / Comm: No blood transfusions Past Psychological History: No Psychological Hx Reported Smoking Status: Current every day smoker Past Alcohol Use History: None Reported Past Drug Use History: None Reported - Past Family History Brother(s) Family Medical History: No Reported History Mother Additional Family Medical History / Comment(s): low BP and low sugar Father Family Medical History: Diabetes Mellitus Medications and Allergies Home Medications Medication Instructions Recorded Confirmed Type Lovastatin [Mevacor] 40 mg PO DAILY 05/23/18 01/09/24 History Tamsulosin [Flomax] 0.4 mg PO DAILY 05/23/18 01/09/24 History Semaglutide [Ozempic] 1 mg SQ WE 06/25/22 01/09/24 History Dapagliflozin Propanediol [Farxiga] 10 mg PO DAILY 07/07/22 01/09/24 History Metoprolol Succinate (ER) [Toprol 100 mg PO DAILY 07/07/22 01/09/24 History XL] Insulin Aspart [NovoLOG Flexpen] 20 units SQ AC-TID 11/26/22 01/09/24 History Famotidine [Pepcid] 40 mg PO DAILY 09/16/23 01/09/24 History Furosemide [Lasix] 40 mg PO DAILY 09/16/23 01/09/24 History Levothyroxine Sodium [Synthroid] 50 mcg PO DAILY 09/16/23 01/09/24 History Losartan/Hydrochlorothiazide 1 tab PO DAILY 09/16/23 01/09/24 History [Hyzaar 100-25 Tablet] Potassium Chloride [Klor-Con M20] 20 meq PO DAILY 09/16/23 01/09/24 History metFORMIN HCL [Glucophage] 500 mg PO BID 09/16/23 01/09/24 History Insulin Degludec [Tresiba 50 units SQ DAILY 90 Days #2 each 09/17/23 01/09/24 Rx Flextouch U-200 Pen] Allergies Allergy/AdvReac Type Severity Reaction Status Date / Time No Known Allergies Allergy Verified 01/08/24 23:34 Physical Exam Vitals: Vital Signs Temp Pulse Resp BP Pulse Ox 01/11/24 07:08 98.2 F 70 18 128/75 90 L 01/11/24 00:57 98.7 F 69 18 137/71 98 01/10/24 19:43 97.7 F 70 18 126/65 95 01/10/24 14:00 97.7 F 76 18 128/63 98 Intake and Output 01/10/24 01/11/24 01/11/24 22:59 06:59 14:59 Output Total 425 Balance -425 Output: Urine 425 Other: # Voids 2 Results CBC & Chem 7: 01/10/24 04:25 01/11/24 03:30 Labs: Abnormal Lab Results - Last 24 Hours (Table) 01/10/24 01/10/24 01/10/24 Range/Units 04:25 16:28 20:30 POC Glucose (mg/dL) 201 H 214 H (70-110) mg/dL Hemoglobin A1c 16.9 H (<=6.0) % 01/11/24 Range/Units 05:55 POC Glucose (mg/dL) 241 H (70-110) mg/dL Hemoglobin A1c (<=6.0) % Microbiology - Last 24 Hours (Table) 01/09/24 04:05 Blood Culture - Preliminary Blood 01/09/24 04:05 Blood Culture - Preliminary Blood Assessment and Plan (1) Stage II pressure ulcer of left heel Current Visit: Yes Status: Acute Code(s): L89.622 - PRESSURE ULCER OF LEFT HEEL, STAGE 2 SNOMED Code(s): 48520689097020 (2) Type 2 diabetes mellitus with foot ulcer Current Visit: Yes Status: Acute Code(s): E11.621 - TYPE 2 DIABETES MELLITUS WITH FOOT ULCER; L97.509 - NON-PRESSURE CHRONIC ULCER OTH PRT UNSP FOOT W UNSP SEVERITY SNOMED Code(s): 293235809
[2024-01-11 11:49] VITALS: BMI 31.1
[2024-01-11 12:00] LABS: Glucose,Whole Blood 237 mg/dL (70-110)
--- NOTE | 2024-01-11 15:14 | P.PN ---
Subjective Progress Note Date: 01/11/24 This is a 73-year-old homeless gentleman, lives out of his car, reports he ran out of his insulin, developed worsening of his bilateral lower extremity cellulitis and presented to the ER, in a patient with past medical history significant for nicotine dependence, COPD, diabetes mellitus, gastroesophageal r eflux disease, hypertension, sleep apnea, alcohol abuse-quit in and multiple other medical issues. Blood cultures in progress, continues on IV antibiotics of cefazolin as per infectious disease. Denies chest pain, palpitations or shortness of breath. Maintaining O2 sats In the 90s on room air. Afebrile, normal WBC. Renal function improving. Objective - Vital Signs Vital signs: Vital Signs Temp 98.2 F 01/11/24 07:08 Pulse 70 01/11/24 07:08 Resp 18 01/11/24 07:08 BP 128/75 01/11/24 07:08 Pulse Ox 90 L 01/11/24 07:08 FiO2 Intake & Output 01/10/24 01/11/24 01/11/24 18:59 06:59 18:59 Output Total 425 Balance -425 Weight 104.326 kg Output: Urine 425 Other: # Voids 2 - Exam VITAL SIGNS: As above GENERAL: Alert and oriented x 3 ,sitting up on stretcher, no acute distress HEENT: Normocephalic, atraumatic Conjunctivae normal. eyes normal. NECK: Supple, No JVD. No thyroid enlargement. No LNs CARDIOVASCULAR: S1, S2 regular. No murmur RESPIRATION: Unlabored, Breath sounds diminished in the bases. No rhonchi or crackles. No bronchial breathing. ABDOMEN: Obese, Soft, nondistended, bilateral upper and mid epigastric tenderness,No guarding. no masses palpable. No ascites.+BS LEGS: bilateral lower extremities Ken wraps clean, dry and intact. PSYCHIATRY: Alert and oriented X3, mood and affect normal. NERVOUS SYSTEM: Cranial N 2-12 grossly normal. Moves all 4 limbs. No focal deficits. Strength and sensation grossly intact. Skin: Warm and dry, feet dry, cracking, nonhealing left heel ulceration, stage II, no rash - Labs CBC & Chem 7: 01/10/24 04:25 01/11/24 03:30 Labs: Abnormal Lab Results - Last 24 Hours (Table) 0601/10/24 01/10/24 Range/Units 04:25 16:28 20:30 POC Glucose (mg/dL) 201 H 214 H (70-110) mg/dL Hemoglobin A1c 16.9 H (<=6.0) % 01/11/24 01/11/24 Range/Units 05:55 11:58 POC Glucose (mg/dL) 241 H 237 H (70-110) mg/dL Hemoglobin A1c (<=6.0) % Microbiology - Last 24 Hours (Table) 01/09/24 04:05 Blood Culture - Preliminary Blood 01/09/24 04:05 Blood Culture - Preliminary Blood Assessment and Plan Assessment: Worsening bilateral lower extremity cellulitis with edema, diabetic foot ulcer, pressure ulcer stage II left heel, present on admission Diabetes mellitus type 2, hyperglycemia, hemoglobin A1c 13.8 in August 2023 currently up to 16.9, further recommendations and diabetic education in clinic at follow-up with PCP. Dehydration secondary to hyperglycemia Chronic kidney disease stage IIIb with baseline creatinine 1.6-1.8 Hyponatremia secondary to hyperglycemia, resolved COPD,stable Obesity, BMI 32.2 Chronic diastolic CHF Chronic lower extremity edema Hypertension Hyperlipidemia History of KEN inhibitor induced angioedema BPH Homeless Nicotine dependence Plan: Continue on current medication resume ,monitoring and symptomatic treatment. Blood cultures in progress. Antibiotics as per ID. Maintain tight control of blood sugars, hyperglycemic currently, Levemir insulin increased, close monitoring of Accu-Cheks reinforced follow-up with medication compliance- reinforced to patient that he could follow-[facility] with [facility]. Smoking sen sation reinforced. Wound care team consult in place. Consult placed for case management to assist patient with community resources, medical care resources/[facility]... At discharge patient will need a refills of all his medications. The impression and plan of care has been dictated as directed. : I performed a history and examination of this patient, discussed the same with the dictator. I agree with the dictator's note ,documented as a scribe. Any additional findings or plans will be noted.
[2024-01-11 17:18] LABS: Glucose,Whole Blood 254 mg/dL (70-110)
--- NOTE | 2024-01-11 18:00 | P.PN ---
Subjective Progress Note Date: 01/10/24 Principal diagnosis: Reason for follow-up with bilateral lower extremity cellulitis Patient is a 73-year-old male with a past medical history significant for COPD diabetes mellitus reflux hypertension sleep apnea history of lower extremity cellulitis presenting to the hospital for evaluation of bilateral lower extremity swelling and redness concerning for cellulitis. On today's evaluation that is 01/10/2024, the patient continues to be afebrile, the patient is on room air and breathing comfortably, the Pt denies having any chest pain or cough, the patient denies having any abdominal pain no vomiting or any diarrhea pain to bilateral extremity has decreased in intensity Objective - Vital Signs Vital signs: Vital Signs Temp 98.0 F 01/10/24 07:10 Pulse 71 01/10/24 07:10 Resp 18 01/10/24 07:10 BP 125/65 01/10/24 07:10 Pulse Ox 96 01/10/24 07:10 FiO2 Intake & Output 01/09/24 01/10/24 01/10/24 18:59 06:59 18:59 Output Total 300 Balance -300 Weight 104.326 kg Output: Urine 300 Other: Voiding Method Urinal Urinal # Voids 0 - Exam GENERAL DESCRIPTION: An elderly male lying in bed in no distress RESPIRATORY SYSTEM: Unlabored breathing , decreased breath sounds at bases HEART: S1 S2 regular rate and rhythm , ABDOMEN: Soft , no tenderness EXTREMITIES: Bilateral legs are currently wrapped in Ken wrap - Labs CBC & Chem 7: 01/10/24 04:25 01/11/24 03:30 Labs: Abnormal Lab Results - Last 24 Hours (Table) 01/09/24 01/09/24 01/10/24 Range/Units 17:12 20:04 04:25 RDW 15.1 H (11.5-14.5) % Anion Gap (4.00-12.00) mmol/L Est GFR (CKD-EPI) (>=60) Glucose (70-110) mg/dL POC Glucose (mg/dL) 250 H 244 H (70-110) mg/dL Alkaline Phosphatase (41-126) U/L Total Protein (6.2-8.2) g/dL 01/10/24 01/10/24 01/10/24 Range/Units 04:25 05:59 11:23 RDW (11.5-14.5) % Anion Gap 12.60 H (4.00-12.00) mmol/L Est GFR (CKD-EPI) 58 L (>=60) Glucose 229 H (70-110) mg/dL POC Glucose (mg/dL) 261 H 283 H (70-110) mg/dL Alkaline Phosphatase 127 H (41-126) U/L Total Protein 6.1 L (6.2-8.2) g/dL Assessment and Plan (1) Bilateral lower leg cellulitis Current Visit: Yes Status: Acute Code(s): L03.116 - CELLULITIS OF LEFT LOWER LIMB; L03.115 - CELLULITIS OF RIGHT LOWER LIMB SNOMED Code(s): 145286208 (2) Stage II pressure ulcer of left heel Current Visit: Yes Status: Acute Code(s): L89.622 - PRESSURE ULCER OF LEFT HEEL, STAGE 2 SNOMED Code(s): 84285908213026 Plan: 1patient with bilateral lower extremity swelling likely concerning for venous stasis with superficial ulceration to the right leg has been complaining of more pain to the left heel but did have a superficial lesion at that site with no draining pus likely from gram-positive skin lazara 2-local wound care has been advised with Aquacel silver dressing and Ken wrap to keep the swelling down 3-patient antibiotic adjusted to cefazolin 2 g every 8 hours and monitor clinical course closely Dictation was produced using [employer] dictation software. please excuse any grammatical, word or spelling errors. Time with Patient: Less than 30
--- NOTE | 2024-01-11 18:04 | P.PN ---
Subjective Progress Note Date: 01/11/24 Principal diagnosis: Reason for follow-up with bilateral lower extremity cellulitis Patient is a 73-year-old male with a past medical history significant for COPD diabetes mellitus reflux hypertension sleep apnea history of lower extremity cellulitis presenting to the hospital for evaluation of bilateral lower extremity swelling and redness concerning for cellulitis. On today's evaluation that is 01/11/2024, Patient is afebrile patient is currently on room air and denies having any shortness of breath, the patient denies any chest pain or cough, the patient denies any nausea vomiting did not have any abdominal pain and no diarrhea patient pain to bilateral extremity has decreased intensity mention feeling slightly better. Patient did have white count of 9.45 as of yesterday creatinine is 1.15 today blood culture negative Objective - Vital Signs Vital signs: Vital Signs Temp 98.2 F 01/11/24 07:08 Pulse 70 01/11/24 07:08 Resp 18 01/11/24 07:08 BP 128/75 01/11/24 07:08 Pulse Ox 90 L 01/11/24 07:08 FiO2 Intake & Output 01/10/24 01/11/24 01/11/24 18:59 06:59 18:59 Output Total 425 Balance -425 Weight 104.326 kg Output: Urine 425 Other: # Voids 2 - Exam GENERAL DESCRIPTION: An elderly male lying in bed in no distress RESPIRATORY SYSTEM: Unlabored breathing , decreased breath sounds at bases HEART: S1 S2 regular rate and rhythm , ABDOMEN: Soft , no tenderness EXTREMITIES: Bilateral legs are currently wrapped in Ken wrap - Labs CBC & Chem 7: 01/10/24 04:25 01/11/24 03:30 Labs: Abnormal Lab Results - Last 24 Hours (Table) 01/10/24 01/10/24 01/10/24 Range/Units 04:25 16:28 20:30 POC Glucose (mg/dL) 201 H 214 H (70-110) mg/dL Hemoglobin A1c 16.9 H (<=6.0) % 01/11/24 01/11/24 Range/Units 05:55 11:58 POC Glucose (mg/dL) 241 H 237 H (70-110) mg/dL Hemoglobin A1c (<=6.0) % Microbiology - Last 24 Hours (Table) 01/09/24 04:05 Blood Culture - Preliminary Blood 01/09/24 04:05 Blood Culture - Preliminary Blood Assessment and Plan (1) Bilateral lower leg cellulitis Current Visit: Yes Status: Acute Code(s): L03.116 - CELLULITIS OF LEFT LOWER LIMB; L03.115 - CELLULITIS OF RIGHT LOWER LIMB SNOMED Code(s): 328962031 Plan: 1patient with bilateral lower extremity swelling likely concerning for venous stasis with superficial ulceration to the right leg has been complaining of more pain to the left heel but did have a superficial lesion at that site with no draining pus likely from gram-positive skin lazara 2-local wound care has been advised with Aquacel silver dressing and Ken wrap to keep the swelling down 3-patient to continue with cefazolin 2 g every 8 hours and plan to finish therapy with oral Keflex Dictation was produced using Trochet dictation software. please excuse any grammatical, word or spelling errors. Time with Patient: Less than 30
[2024-01-11 20:23] LABS: Glucose,Whole Blood 157 mg/dL (70-110)
[2024-01-11] MEDS: INSULIN DETEMIR (LEVEMIR) 100 UNIT/ML SYR SQ SCH (21:06)
[2024-01-11 22:25] LABS: Glucose,Whole Blood 105 mg/dL (70-110)
[2024-01-12 05:54] LABS: Glucose,Whole Blood 107 mg/dL (70-110)
[2024-01-12 08:40] LABS: BUN/Creat Ratio 9.77 Ratio (12.00-20.00); Blood Urea Nitrogen 12.7 mg/dL (9.0-27.0); Calcium 8.4 mg/dL (8.7-10.3); Carbon Dioxide 22.1 mmol/L (21.6-31.8); Chloride 108 mmol/L (96-109); Glucose 108 mg/dL (70-110); Potassium 4.2 mmol/L (3.5-5.5); Sodium 141 mmol/L (135-145)
[2024-01-12 09:43] LABS: Glucose,Whole Blood 189 mg/dL (70-110)
--- NOTE | 2024-01-12 10:39 | CDI ---
Documentation Clarification Form Date: 01/12/2024 10:19:51 AM From: Veronica Ascencio RN, CCDS Phone: [phone] Admit Date: 01/09/2024 03:10:00 AM Patient Name: Victorino Hollis Visit Number: [id number] Discharge Date: ATTENTION: The Clinical Documentation Specialists (CDI) and [facility] Coding Staff appreciate your assistance in clarifying documentation. Please respond to the clarification below the line at the bottom and electronically sign. The CDI & [facility] Coding staff will review the response and follow-up if needed. Please note: Queries are made part of the Legal Health Record. If you have any questions, please contact the author of this message via ITS. Dr. Victorino Maria Cellulitis is documented in the H/P, progress notes and ID consult. Additional clarification regarding the type of cellulitis is requested. History/risk factors: Cancer, COPD, Diabetes Mellitus, Hypertension, Sleep apnea, Current every day smoker Clinical Indicators: 73-year-old male history significant for diabetes mellitus present for evaluation of bilateral lower extremity swelling that apparently has been getting worse did have a superficial ulceration lateral side of the right leg that has been weeping and left heel area that has been painful. 01/10 Attending progress note: He lives out of his car, reports he ran out of his insulin, developed worsening of his bilateral lower extremity cellulitis and presented to the ER. X-ray foot done showed plantar and Achilles tendon calcaneal heel spur, soft tissue swelling greater on the left. VS 01/07 141/74 91 20 98.0 96% RA 01/08 Labs: WBC 7.9 NA+ 133 Treatment: Cefazolin Sodium 2GM IVPB Q 8 HRS Vancomycin HCL 1,500 NG IVPB 01/08-01/09 Rocephin 2 GM IVPB 01/08-01/09 Honey gel and bordered foam to left heel. Change Thu, thu, Thursday, Offload and utilize a walker when walking. No pressure to the left heel. Please clarify the etiology of the cellulitis, if known: [ ] Cellulitis is a diabetic skin complication [ x ] Cellulitis is not a diabetic skin complication [ ] Other, please specify: [ ] Unable to determine (Template Last Revised: July 2022) MTDD
[2024-01-12 11:50] LABS: Glucose,Whole Blood 301 mg/dL (70-110)
[2024-01-12 15:00] VITALS: BP 132/56; PULSE 57; RESP 17; TEMP 98.2
--- NOTE | 2024-01-12 17:00 | P.PN ---
Subjective Progress Note Date: 01/12/24 Principal diagnosis: Reason for follow-up with bilateral lower extremity cellulitis Patient is a 73-year-old male with a past medical history significant for COPD diabetes mellitus reflux hypertension sleep apnea history of lower extremity cellulitis presenting to the hospital for evaluation of bilateral lower extremity swelling and redness concerning for cellulitis. On today's evaluation that is 01/12/2024, patient has been afebrile, patient is breathing comfortably and is currently on room air, patient denies having any significant cough no chest pain shortness of breath, patient denies nausea vomiting or diarrhea and no abdominal pain, denies any worsening pain to the lower extremity. Patient did have a creatinine 1.3 blood culture negative Objective - Vital Signs Vital signs: Vital Signs Temp 97.9 F 01/12/24 07:39 Pulse 55 L 01/12/24 07:39 Resp 19 01/12/24 07:39 BP 130/67 01/12/24 07:39 Pulse Ox 98 01/12/24 07:39 FiO2 Intake & Output 01/11/24 01/12/24 01/12/24 18:59 06:59 18:59 Intake Total 250 Output Total 450 Balance -450 250 Weight 104.326 kg Intake: Oral 250 Output: Urine 450 Other: Voiding Method Toilet Toilet # Voids 4 # Bowel Movements 1 - Exam GENERAL DESCRIPTION: An elderly male lying in bed in no distress RESPIRATORY SYSTEM: Unlabored breathing , decreased breath sounds at bases HEART: S1 S2 regular rate and rhythm , ABDOMEN: Soft , no tenderness EXTREMITIES: Bilateral legs are currently wrapped in Ken wrap - Labs CBC & Chem 7: 01/10/24 04:25 01/12/24 04:07 Labs: Abnormal Lab Results - Last 24 Hours (Table) 01/11/24 01/11/24 01/12/24 Range/Units 17:15 20:22 04:07 Est GFR (CKD-EPI) 58 L (>=60) BUN/Creatinine Ratio 9.77 L (12.00-20.00) Ratio POC Glucose (mg/dL) 254 H 157 H (70-110) mg/dL Calcium 8.4 L (8.7-10.3) mg/dL 01/12/24 01/12/24 Range/Units 09:41 11:48 Est GFR (CKD-EPI) (>=60) BUN/Creatinine Ratio (12.00-20.00) Ratio POC Glucose (mg/dL) 189 H 301 H (70-110) mg/dL Calcium (8.7-10.3) mg/dL Microbiology - Last 24 Hours (Table) 01/09/24 04:05 Blood Culture - Preliminary Blood 01/09/24 04:05 Blood Culture - Preliminary Blood Assessment and Plan (1) Bilateral lower leg cellulitis Status: Acute Code(s): L03.116 - CELLULITIS OF LEFT LOWER LIMB; L03.115 - CELLULITIS OF RIGHT LOWER LIMB SNOMED Code(s): 747272399 Plan: 1patient with bilateral lower extremity swelling likely concerning for venous stasis with superficial ulceration to the right leg has been complaining of more pain to the left heel but did have a superficial lesion at that site with no draining pus likely from gram-positive skin lazara 2-local wound care has been advised with Aquacel silver dressing and Ken wrap to keep the swelling down 3-patient to finish therapy with oral Keflex prescription has been [facility] Dictation was produced using Dada dictation software. please excuse any grammatical, word or spelling errors.
== END 2024-01-12 16:46 | disposition home or self-care (01) | DRG 638 ==
LOC: EC 23:23 → 6NMEDSUR 01-09 03:09 → OBSVTOIN 01-09 03:10 → 4SSUR 01-09 03:19
PROVIDERS: ADMIT Family Medicine; ATTEND Family Medicine
DX: E11.621 Type 2 diabetes mellitus with foot ulcer (principal); E87.1 Hypo-osmolality and hyponatremia; I13.0 Hypertensive heart and chronic kidney disease with heart failure and stage 1 through stage 4 chronic kidney disease, or unspecified chronic kidney disease; I50.32 Chronic diastolic (congestive) heart failure; L03.115 Cellulitis of right lower limb; L03.116 Cellulitis of left lower limb; Z59.02 Unsheltered homelessness; N18.4 Chronic kidney disease, stage 4 (severe); E11.65 Type 2 diabetes mellitus with hyperglycemia; E78.5 Hyperlipidemia, unspecified; F17.210 Nicotine dependence, cigarettes, uncomplicated; L89.622 Pressure ulcer of left heel, stage 2; G47.33 Obstructive sleep apnea (adult) (pediatric); K21.9 Gastro-esophageal reflux disease without esophagitis; N40.0 Benign prostatic hyperplasia without lower urinary tract symptoms; Z68.32 Body mass index [BMI] 32.0-32.9, adult; E11.22 Type 2 diabetes mellitus with diabetic chronic kidney disease; E66.9 Obesity, unspecified; E86.0 Dehydration; E11.21 Type 2 diabetes mellitus with diabetic nephropathy; J44.9 Chronic obstructive pulmonary disease, unspecified; M77.32 Calcaneal spur, left foot; T38.3X6A Underdosing of insulin and oral hypoglycemic [antidiabetic] drugs, initial encounter; I87.8 Other specified disorders of veins; Z79.84 Long term (current) use of oral hypoglycemic drugs; Z79.4 Long term (current) use of insulin; Z79.890 Hormone replacement therapy; Z79.899 Other long term (current) drug therapy; Z85.828 Personal history of other malignant neoplasm of skin; Z88.8 Allergy status to other drugs, medicaments and biological substances; Z91.148 Patient's other noncompliance with medication regimen for other reason; X58.XXXA Exposure to other specified factors, initial encounter; Z87.19 Personal history of other diseases of the digestive system
CPT/HCPCS: 36415; 80048; 80053; 82565; 83036; 83735; 83880; 84100; 84484; 85025; 85610; 85730; 87040; 93005; 94760; 96365; 96366; 96367; 99285

== ENCOUNTER 2024-02-12 11:38 | Emergency (ER) | payer OTHER, MEDICARE ==
[2024-02-12 11:46] VITALS: TEMP 97.7
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
[2024-02-12 12:17] LABS: Basophils # (A) 0.1 k/uL (0-0.2); Basophils % (A) 1 %; Eosinophils # (A) 0.1 k/uL (0-0.7); Eosinophils % (A) 2 %; HCT 37.6 % (39.0-53.0); HGB 13.1 gm/dL (13.0-17.5); Lymphocytes # (A) 1.3 k/uL (1.0-4.8); Lymphocytes % (A) 17 %; MCH 29.5 pg (25.0-35.0); MCHC 34.9 g/dL (31.0-37.0); MCV 84.4 fL (80.0-100.0); Mean Platelet Volume 7.7; Monocytes # (A) 0.6 k/uL (0-1.0); Monocytes % (A) 7 %; Neutrophils # (A) 5.7 k/uL (1.3-7.7); Neutrophils % (A) 73 %; Platelet Count 341 k/uL (150-450); RBC 4.45 m/uL (4.30-5.90); RDW 14.9 % (11.5-15.5); WBC 7.8 k/uL (3.8-10.6)
[2024-02-12 12:33] LABS: ALT 14 U/L (4-49); AST 18 U/L (17-59); African American GFR (CKD) 56 (>60 ml/min/1.73 sqM); Albumin 3.7 g/dL (3.5-5.0); Alcohol <10 mg/dL; Alkaline Phosphatase 109 U/L (38-126); Anion Gap 8 mmol/L; Blood Urea Nitrogen 30 mg/dL (9-20); Calcium 9.3 mg/dL (8.4-10.2); Carbon Dioxide 23 mmol/L (22-30); Chloride 103 mmol/L (98-107); Glucose 237 mg/dL (74-99); Non-African American GFR(CKD) 49 (>60 ml/min/1.73 sqM); Potassium 4.1 mmol/L (3.5-5.1); Sodium 134 mmol/L (137-145); Total Bilirubin 0.5 mg/dL (0.2-1.3); Total Protein 6.2 g/dL (6.3-8.2)
[2024-02-12 12:35] LABS: INR 0.9 (<1.2); Partial Thromboplastin Time 23.1 sec (22.0-30.0); Prothrombin Time 9.9 sec (10.0-12.5)
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
--- NOTE | 2024-02-12 14:00 | XR ---
EXAMINATION TYPE: XR pelvis AP view DATE OF EXAM: 02/12/2024 CLINICAL HISTORY: pain TECHNIQUE: Single view the pelvis is submitted. FINDINGS: No evidence for fracture, dislocation or bony lesion. Joint spaces are well-preserved. S I joints appear symmetric. IMPRESSION: 1. No acute fracture or dislocation seen. ICD 10 NO FRACTURE, INITIAL EVALUATION
--- NOTE | 2024-02-12 14:04 | XR ---
EXAMINATION TYPE: XR chest 1V portable DATE OF EXAM: 02/12/2024 COMPARISON: NONE HISTORY: Pain TECHNIQUE: Single frontal view of the chest is obtained. FINDINGS: There is no focal air space opacity, pleural effusion, or pneumothorax seen. The cardiac silhouette size is within normal limits. The osseous structures are intact. AC joint arthropathy. IMPRESSION: No acute process.
[2024-02-12 14:05] VITALS: RESP 16
[2024-02-12 14:49] LABS: Amphetamine Screen,Urine Not Detected (NotDetected); Barbiturate Screen,Urine Not Detected (NotDetected); Benzodiazepines Screen,Urine Not Detected (NotDetected); Cocaine Screen,Urine Not Detected (NotDetected); Methadone Screen, Urine Not Detected (NotDetected); Opiate Screen,Urine Not Detected (NotDetected); Oxycodone Screen, Urine Not Detected (NotDetected); Phencyclidine Screen,Urine Not Detected (NotDetected); Tricyclic Antidepressant,Urine Not Detected (NotDetected); Urn Cannabinoid Scrn Not Detected (NotDetected)
[2024-02-12] MEDS: ACETAMINOPHEN TAB 500 MG TAB PO STA (16:06)
[2024-02-12] MEDS: DIPH,PERTUS(ACELL)TETVAC-LF 0.5 ML VIAL IM ONE (16:06)
[2024-02-12 16:36] VITALS: BP 145/68; PULSE 70
== END 2024-02-12 16:36 | disposition home or self-care (01) ==
LOC: EC 11:38
DX: S01.01XA Laceration without foreign body of scalp, initial encounter (principal); F17.200 Nicotine dependence, unspecified, uncomplicated; Z23 Encounter for immunization; V49.40XA Driver injured in collision with unspecified motor vehicles in traffic accident, initial encounter
CPT/HCPCS: 12004; 36415; 70450; 71045; 72125; 72170; 80053; 80306; 80320; 85025; 85610; 85730; 86850; 86900; 86901; 90471; 90715; 93005; 99285

== ENCOUNTER 2024-03-24 18:32 | Emergency (ER) | payer MEDICARE ==
[2024-03-24 18:47] VITALS: TEMP 97.6
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
[2024-03-24] MEDS: KETOROLAC 15 MG/ML 1 ML VIAL IVP STA (20:08)
[2024-03-24] MEDS: methylPREDNISolone SOD SUCCI 125 MG/2 ML VIAL IV STA (20:08)
[2024-03-24] MEDS: HYDROmorphone 0.5 MG/0.5 ML SYRINGE IVP STA (20:09)
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
[2024-03-24] MEDS: ACET/COD 300 MG/30 MG STARTER PACK 6 TAB BTL PO STA (20:45)
[2024-03-24 20:57] VITALS: BP 151/87; PULSE 69; RESP 16
== END 2024-03-24 21:03 | disposition home or self-care (01) ==
LOC: EC 18:32
CPT/HCPCS: 72100; 73502; 96374; 96375; 99283

== ENCOUNTER 2024-04-03 18:50 | Emergency (ER) | payer MEDICARE ==
[2024-04-03 19:00] VITALS: RESP 18; TEMP 101.7
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
[2024-04-03] MEDS: methylPREDNISolone SOD SUCCI 125 MG/2 ML VIAL IV STA (19:56)
[2024-04-03] MEDS: KETOROLAC 15 MG/ML 1 ML VIAL IVP STA (20:01)
[2024-04-03] MEDS: HYDROmorphone 0.5 MG/0.5 ML SYRINGE IVP STA (20:04)
[2024-04-03] MEDS: LIDOCAINE 4% PATCH TOPICAL ONE (20:06)
[2024-04-03] MEDS: ACETAMINOPHEN TAB 500 MG TAB PO STA (20:06)
[2024-04-03 21:57] VITALS: BP 134/67; PULSE 87
== END 2024-04-03 21:57 | disposition home or self-care (01) ==
LOC: EC 18:50
CPT/HCPCS: 87636; 99283

== ENCOUNTER 2024-04-28 06:33 | Day surgery (SDC) | payer MEDICARE ==
[2024-04-27 10:49] VITALS: BMI 31.1
[2024-04-28 07:09] VITALS: RESP 20; TEMP 97.4
[2024-04-28] MEDS: IV FLUID CONTINUATION 1,000 ML IV ONE (07:20)
[2024-04-28 07:27] LABS: Glucose,Whole Blood 227 mg/dL (70-110)
[2024-04-28] MEDS: LACTATED RINGERS 1,000 ML IV SCH (07:31)
[2024-04-28] MEDS ORDERED: PROPOFOL 10 MG/ML 20 ML VIAL IV ONE (07:32)
--- NOTE | 2024-04-28 07:36 | P.GSHP ---
History of Present Illness H&P Date: 04/28/24 Chief Complaint: Weight loss, screening colonoscopy Is a 73-year-old male who has lost approximately 30 pounds over the last year for no reason. Patient comes today for screening colonoscopy. Past Medical History Past Medical History: Cancer, COPD, Diabetes Mellitus, GERD/Reflux, Hypertension, Sleep Apnea/CPAP/BIPAP Additional Past Medical History / Comment(s): SKIN CANCER, SLEEP APNEA-cpap, hx BLEEDING HEMORRHOID, LIMITED MOBILITY LEFT ARM AFTER SKIN CANCER REMOVED., HX OF A FALL WITH FX VERTEBRAE & RUPTURED DISC YRS AGO. SEE CARDIOLOGY [facility] & P. INGUINAL HERNIA. Arthritis lower spine and arms History of Any Multi-Drug Resistant Organisms: None Reported Past Surgical History: Appendectomy, Orthopedic Surgery Additional Past Surgical History / Comment(s): Left eye surgery, lens transplant, CA removed from left shoulder, barn spike through his left foot and removed. umbilical hernia removal 07/10. COLONOSCOPY Past Anesthesia/Blood Transfusion Reactions: No Reported Reaction Additional Past Anesthesia/Blood Transfusion Reaction / Comment(s): No blood transfusions Smoking Status: Current every day smoker - Past Family History Brother(s) Family Medical History: No Reported History Mother Additional Family Medical History / Comment(s): low BP and low sugar Father Family Medical History: Diabetes Mellitus Medications and Allergies Home Medications Medication Instructions Recorded Confirmed Type Lovastatin [Mevacor] 40 mg PO DAILY 05/23/18 04/27/24 History Tamsulosin [Flomax] 0.4 mg PO DAILY 05/23/18 04/27/24 History Dapagliflozin Propanediol [Farxiga] 10 mg PO DAILY 07/07/22 04/27/24 History Metoprolol Succinate (ER) [Toprol 100 mg PO DAILY 07/07/22 04/27/24 History XL] Famotidine [Pepcid] 40 mg PO DAILY 09/16/23 04/27/24 History Levothyroxine Sodium [Synthroid] 50 mcg PO DAILY 09/16/23 04/27/24 History metFORMIN HCL [Glucophage] 500 mg PO BID 09/16/23 04/27/24 History Insulin Aspart [NovoLOG Flexpen] 20 units SQ AC-TID #2 each 01/12/24 04/27/24 Rx predniSONE [Deltasone] 40 mg PO DAILY #8 tab 03/24/24 04/27/24 Rx Cyclobenzaprine [Flexeril] 10 mg PO TID PRN #15 tab 04/03/24 04/27/24 Rx Allergies Allergy/AdvReac Type Severity Reaction Status Date / Time No Known Allergies Allergy Verified 04/27/24 10:26 Surgical - Exam Vital Signs Temp Pulse Resp BP Pulse Ox 97.4 F L 108 H 20 123/65 96 04/28/24 07:07 04/28/24 07:07 04/28/24 07:07 04/28/24 07:07 04/28/24 07:07 - General well developed, well nourished, no distress - Eyes PERRL - ENT normal pinna - Neck no masses - Respiratory normal expansion - Cardiovascular Rhythm: regular - Abdomen Abdomen: soft, non tender Results - Labs Abnormal Lab Results - Last 24 Hours (Table) 04/28/24 Range/Units 07:23 POC Glucose (mg/dL) 227 H (70-110) mg/dL Assessment and Plan Assessment: Weight loss, will perform screening colonoscopy.
--- NOTE | 2024-04-28 07:49 | P.OP ---
Date of Procedure: 04/28/24 Preoperative Diagnosis: Weight loss Screening colonoscopy Postoperative Diagnosis: Moderate diverticulosis Procedure(s) Performed: Colonoscopy Anesthesia: MAC Surgeon: Cedric Hassan Pathology: none sent Condition: stable Disposition: PACU Description of Procedure: The patient was placed on the endoscopy table in the lateral position. Received IV sedation. Digital rectal exams performed. There is a large amount of liquid stool. Patient with very poor colon prep. The flexible colonoscope was then placed patient anus passed throughout the colon. Scope could not be placed in the cecum secondary to large volume of liquid brown stool. The visualized right colon appeared normal. The transverse colon and descending colon had mild to moderate diverticulosis. The colon prep was very poor. Scope was back in the sigmoid colon and more diverticular changes were seen. Scope brought back to the rectum this appeared normal. The patient had a very poor prep which limited the view of the mucosa.
[2024-04-28 08:13] LABS: Glucose,Whole Blood 230 mg/dL (70-110)
[2024-04-28 08:15] VITALS: BP 139/80; PULSE 86
== END 2024-04-28 08:35 | disposition home or self-care (01) ==
LOC: ORWHC2ENDO 06:33
PROVIDERS: ATTEND Surgery
CPT/HCPCS: 45378

== ENCOUNTER → 2024-06-09 | Outpatient (CLI) | payer MEDICARE ==
--- NOTE | 2024-06-09 10:44 | CTL ---
EXAMINATION TYPE: CT Low Dose Lung DATE OF EXAM ORDERED: 06/09/2024 COMPARISON: 05/23/2018 CLINICAL INDICATION: Male, 73 years old with history of Z12.2 ENCNTR SCREEN FOR MALIGNANT NEOPLAS, F1 7.210; H, current smoker 1PPD x50 years, Lung cancer screening, History of Smoking/tobacco use. TECHNIQUE: Low dose computed tomography scan was performed through the chest at 1 mm thick sections a nd reconstructed images in multiple planes at 1 mm and [address] DLP: 119.[address] CTDI: 3.3 mGy Automated exposure control for dose reduction was used. CT DIAGNOSTIC QUALITY: Satisfactory FINDINGS: There are a few scattered micronodules. No suspicious lung nodule is seen. There is no airspace consolidation. There is no abnormal interstitial density. There is mild emphysem atous change in the upper lobes. There is no pleural effusion or pneumothorax. 2. Possible chest are normal and no mediastinal, hilar or axillary adenopathy. Limited scanning through the upper abdomen reveals no gross abnormality. No focal osseous lesions are seen. IMPRESSION: 1. Lung rads category 2 benign findings. Scattered micronodules. Continue routine screening intervals . 2. Mild emphysematous changes. 3. No acute cardiopulmonary disease. [facility], , 06/09/2024 10:41 AM
== END | disposition home or self-care (01) ==
LOC: RADCTMAIN 09:20
PROVIDERS: ATTEND Family Medicine
DX: Z12.2 Encounter for screening for malignant neoplasm of respiratory organs (principal); F17.210 Nicotine dependence, cigarettes, uncomplicated; J43.9 Emphysema, unspecified
CPT/HCPCS: 71271